=== PATIENT | female | born 1940 | race American Indian/Alaskan Native ===

== ENCOUNTER 2017-08-25 15:05 | Inpatient (IN) | payer MEDICARE ==
[2017-08-25 15:18] VITALS: BMI 28.6
[2017-08-25 17:08] LABS: BASO % 1.1 % (0.0-2.0); EOS # 0.1 K/uL (0.0-0.7); EOS % 3.8 % (0.0-4.0); HEMOGLOBIN 8.9 g/dL (11.0-16.0); LYMPH # 0.8 K/uL (1.0-4.3); LYMPH % 21.6 % (20.0-40.0); MEAN CELL VOLUME 94.7 fL (81.0-99.0); MEAN CORPUSCULAR HEMOGLOBIN 32.4 pg (27.0-31.0); MEAN CORPUSCULAR HGB CONC 34.2 g/dL (33.0-37.0); MEAN PLATELET VOLUME 7.7 fL (7.2-11.7); MONO # 0.2 K/uL (0.0-0.8); MONO % 5.1 % (0.0-10.0); NEUT # 2.6 K/uL (1.8-7.0); NEUT % 68.4 % (50.0-75.0); NRBC % 0.1 % (0.0-2.0); RBC 2.76 Mil/uL (3.80-5.20); RED CELL DISTRIBUTION WIDTH 19.1 % (11.5-14.5); WHITE BLOOD COUNT 3.8 K/uL (4.8-10.8)
[2017-08-25 17:13] LABS: INR 1.1; PROTHROMBIN TIME 12.2 SECONDS (9.7-12.2)
[2017-08-25 17:25] LABS: ALB/GLOB RATIO 1.1 (1.0-2.1); ALBUMIN 3.3 g/dL (3.5-5.0); CALCIUM 8.8 mg/dl (8.6-10.4)
[2017-08-25 17:36] LABS: TROPONIN I 0.023 ng/mL (0.00-0.120)
[2017-08-25 17:53] LABS: GRANULAR CAST 2 /lpf (0-1); URINE BILIRUBIN NEGATIVE (NEGATIVE); URINE BLOOD NEGATIVE (NEGATIVE); URINE CLARITY Clear (Clear); URINE COLOR Yellow (YELLOW); URINE GLUCOSE (UA) NORMAL (Normal); URINE LEUKOCYTE ESTERASE NEG Leu/uL (Negative); URINE NITRATE NEGATIVE (NEGATIVE); URINE PROTEIN 2+ mg/dL (NEGATIVE); URINE UROBILINOGEN NORMAL mg/dL (0.2-1.0)
--- NOTE | 2017-08-25 19:57 | C.PDOC ---
History Of Present Illness Patient is a 77 y/o female, with a Hx of anemia, who presents to the ED referred by Dr. Medina with a complaint of worsening dyspnea upon exertion. Patient denies any fever or chills. No other physical complaints at this time. Time Seen by Provider: 08/25/17 15:24 Chief Complaint (Nursing): Lower Extremity Problem/Injury History Per: Patient History/Exam Limitations: no limitations Onset/Duration Of Symptoms: Days Current Symptoms Are (Timing): Still Present Recent travel outside of the [place]: No Additional History Per: Patient Past Medical History Reviewed: Historical Data, Nursing Documentation, Vital Signs Vital Signs: Last Vital Signs Temp 98.6 F 08/25/17 15:19 Pulse 73 08/25/17 15:19 Resp 20 08/25/17 15:19 BP 137/73 08/25/17 15:19 Pulse Ox 95 08/25/17 20:06 - Medical History PMH: Anemia, Arthritis, CAD, Cardia Arrhythmia (bradycardia), CHF, COPD, Diabetes, HTN, Hypercholesterolemia Denies: Chronic Kidney Disease Surgical History: CABG (2003), Pacemaker - [facility] Procedures INITIAL INSERT TRANS LEADS INTO [facility] [facility] (10/23/14) INITIAL INSERTION OF DUAL-CHAMBER DEVICE (10/23/14) Family History: States: No Known Family Hx - Social History Hx Tobacco Use: No Hx Alcohol Use: No Hx Substance Use: No - Immunization History Hx Tetanus Toxoid Vaccination: No Hx Influenza Vaccination: Yes Hx Pneumococcal Vaccination: Yes Review Of Systems Constitutional: Negative for: Fever, Chills Respiratory: Positive for: Other (worsening dyspnea on exertion) Physical Exam - Physical Exam Appears: Well, Non-toxic, No Acute Distress, Other Skin: Normal Color, Warm, Dry, Other (stasis dermatitis) Head: Atraumatic, Normacephalic Oral Mucosa: Moist Cardiovascular: JVD Respiratory: Decreased Breath Sounds (diminished breath sounds to bilateral bases) Extremity: Swelling (2/4 pitting edema to left lower extremity) Neurological/Psych: Oriented x3, Normal Speech, Normal Cognition ED Course And Treatment - Laboratory Results Result Diagrams: 08/25/17 17:01 08/25/17 17:01 Lab Interpretation: Abnormal (baseline anemia 9, bnp 9200H) ECG Rhythm: AV Paced ECG Interpretation: Normal, No Changes From Prior Rate From EC O2 Sat by Pulse Oximetry: 95 Pulse Ox Interpretation: Normal - Radiology CXR: Interpreted by Me CXR Interpretation: Yes: Heart Size, Other (+CHF) Progress Note: nedra bernal. 2015: after approx 4 hours approx 500 cc output urine, additional lasix 40 IV ordered- prob higher needs for loop diuretics considering CRI. Follow urinary output and baseline weight to euvolemia. Reevaluation Time: 20:04 Reassessment Condition: Improved - Physician Consult Information Time Consulting Physician Contacted: 17:00 Physician Contacted: Rl Medina Outcome Of Conversation: agrees to place sneed and Lasix 40 IV given. 2000: d/ w Dr. Sheets- PMD, ok to admit. Critical Care Time - Critical Care Note Total Time (in mins): 90 Documented critical care: time excludes all time spent performing seperately billable procedures. Medical Decision Making Medical Decision Making: Dr. Sheets called at 7:18. baseline anemia (partially dilutional as well) CHF- diuresis begun in ED Dr. Medina to consult. Disposition Doctor Will See Patient In The: Hospital Counseled Patient/Family Regarding: Studies Performed, Diagnosis - Disposition Disposition: HOSPITALIZED Disposition Time: 20:06 Condition: GOOD - Clinical Impression Clinical Impression: Anemia, CHF (congestive heart failure) - Scribe Statement The provider has reviewed the documentation as recorded by the Scribe Gena Ramirez All medical record entries made by the Scribe were at my direction and personally dictated by me. I have reviewed the chart and agree that the record accurately reflects my personal performance of the history, physical exam, medical decision making, and the department course for this patient. I have also personally directed, reviewed, and agree with the discharge instructions and disposition.
--- NOTE | 2017-08-25 20:18 | RAD ---
HISTORY: SOB COMPARISON: Chest x-ray performed 10/24/14 TECHNIQUE: Chest, one view. FINDINGS: Examination limited by habitus. LUNGS: Mild to moderate pulmonary venous congestion. Please note that chest x-ray has limited sensitivity for the detection of pulmonary masses. PLEURA: No significant pleural effusion identified. No definite pneumothorax . CARDIOVASCULAR: Cardiomegaly. Median sternotomy wires. Left-sided pacemaker. Atherosclerotic calcifications. OSSEOUS STRUCTURES: Degenerative changes. VISUALIZED UPPER ABDOMEN: Unremarkable. OTHER FINDINGS: None. IMPRESSION: Mild to moderate pulmonary venous congestion. Cardiomegaly. Additional findings as above.
[2017-08-26] MEDS ORDERED: Oxycodone/Acetaminophen 5/325 mg Tab PO PRN (00:33)
[2017-08-26] MEDS: (Novolog) Insulin Aspart, Recombinant 100 u/ml 10 ml vial SC SCH ×4 (07:36→22:00)
[2017-08-26] MEDS: Pantoprazole 40 mg EC Tab PO SCH (10:01)
[2017-08-26] MEDS ORDERED: Epoetin Alfa 20000 UNIT/ML Inj SC STA (10:52)
--- NOTE | 2017-08-26 10:55 | CP.PCM.CON ---
History of Present Illness - History of Present Illness History of Present Illness: pt is seen and examined, full consult is dictated #[id number] Past Patient History - Past Medical History & Family History Past Medical History?: Yes - Past Social History Smoking Status: Former Smoker - CARDIAC Hx Cardiac Disorders: Yes Hx Cardia Arrhythmia: Yes (bradycardia) Hx Congestive Heart Failure: Yes Hx Hypercholesterolemia: Yes Hx Hypertension: Yes Hx Pacemaker: Yes - PULMONARY Hx Respiratory Disorders: Yes Hx Chronic Obstructive Pulmonary Disease (COPD): Yes - NEUROLOGICAL Hx Neurological Disorder: No - HEENT Hx HEENT Problems: No - RENAL Hx Chronic Kidney Disease: No - ENDOCRINE/METABOLIC Hx Endocrine Disorders: Yes Hx Diabetes Mellitus Type 1: Yes - HEMATOLOGICAL/ONCOLOGICAL Hx Blood Disorders: Yes Hx Anemia: Yes - INTEGUMENTARY Hx Dermatological Problems: No - MUSCULOSKELETAL/RHEUMATOLOGICAL Hx Musculoskeletal Disorders: Yes Hx Arthritis: Yes Hx Falls: No - GASTROINTESTINAL Hx Gastrointestinal Disorders: No - GENITOURINARY/GYNECOLOGICAL Hx Genitourinary Disorders: No - PSYCHIATRIC Hx Psychophysiologic Disorder: No Hx Substance Use: No - SURGICAL HISTORY Hx Abdominal Aortic Aneurysm Repair: Yes Hx Coronary Artery Bypass Graft: Yes (2003) Other/Comment: partial hysterectomy - ANESTHESIA Hx Anesthesia: Yes Hx Anesthesia Reactions: No Hx Malignant Hyperthermia: No Has any member of the family had a problem w/ anesthesia?: No Meds Allergies/Adverse Reactions: Allergies Allergy/AdvReac Type Severity Reaction Status Date / Time No Known Allergies Allergy Verified 02/04/15 15:50 - Medications Medications: Current Medications Aspirin (Aspirin Chewable) 81 mg PO DAILY [facility] Last Admin: 08/26/17 10:01 Dose: 81 mg Clopidogrel Bisulfate (Plavix) 75 mg PO DAILY [facility] Last Admin: 08/26/17 10:01 Dose: 75 mg Epoetin Amol (Procrit) 20,000 unit SC STAT [facility] Stop: 08/26/17 10:53 Furosemide (Lasix) 40 mg IVP BID [facility] Last Admin: 08/26/17 10:02 Dose: 40 mg Heparin Sodium (Porcine) (Heparin) 5,000 units SC Q12 [facility] Last Admin: 08/26/17 10:01 Dose: 5,000 units Hydralazine HCl (Apresoline) 50 mg PO BID [facility] Last Admin: 08/26/17 10:01 Dose: 50 mg Insulin Aspart (Novolog) 0 unit SC ACHS [facility] PRN Reason: Protocol Last Admin: 08/26/17 07:36 Dose: Not Given Insulin Glargine (Lantus) 10 unit SC HS [facility] Oxycodone/Acetaminophen (Percocet 5/325 Mg Tab) 1 tab PO Q4H PRN PRN Reason: Pain, moderate (4-7) Stop: 08/29/17 00:34 Pantoprazole Sodium (Protonix Ec Tab) 40 mg PO DAILY [facility] Last Admin: 08/26/17 10:01 Dose: 40 mg Rosuvastatin Calcium (Crestor) 20 mg PO HS [facility] Results - Vital Signs Recent Vital Signs: Last Vital Signs Temp 98.1 F 08/26/17 04:00 Pulse 77 08/26/17 04:00 Resp 18 08/26/17 04:00 BP 139/73 08/26/17 10:02 Pulse Ox 94 L 08/26/17 04:00 - Labs Result Diagrams: 08/25/17 17:01 08/25/17 17:01 Labs: Laboratory Results - last 24 hr 08/25/17 08/25/17 08/25/17 17:01 17:01 17:01 WBC 3.8 L RBC 2.76 L Hgb 8.9 L Hct 26.1 L MCV 94.7 D MCH 32.4 H MCHC 34.2 RDW 19.1 H Plt Count 172 MPV 7.7 Neut % (Auto) 68.4 Lymph % (Auto) 21.6 [place] % (Auto) 5.1 Eos % (Auto) 3.8 Baso % (Auto) 1.1 Neut # (Auto) 2.6 Lymph # (Auto) 0.8 L [place] # (Auto) 0.2 Eos # (Auto) 0.1 Baso # (Auto) 0.0 PT 12.2 INR 1.1 APTT 30 Sodium 142 Potassium 3.4 L Chloride 108 H Carbon Dioxide 24 Anion Gap 13 BUN 27 H Creatinine 2.1 H Est GFR ( Amer) 28 Est GFR (Non-Af Amer) 23 POC Glucose (mg/dL) Random Glucose 117 H Calcium 8.8 Total Bilirubin 0.3 AST 24 ALT 20 Alkaline Phosphatase 69 Troponin I 0.0230 NT-Pro-B Natriuret Pep 9280 H Total Protein 6.3 Albumin 3.3 L Globulin 3.0 Albumin/Globulin Ratio 1.1 Urine Color Urine Clarity Urine pH Ur Specific [place] Urine Protein Urine Glucose (UA) Urine Ketones Urine Blood Urine Nitrate Urine Bilirubin Urine Urobilinogen Ur Leukocyte Esterase Urine WBC (Auto) Urine RBC (Auto) Granular Casts (Auto) 08/25/17 08/25/17 08/26/17 17:45 22:17 06:52 WBC RBC Hgb Hct MCV MCH MCHC RDW Plt Count MPV Neut % (Auto) Lymph % (Auto) [place] % (Auto) Eos % (Auto) Baso % (Auto) Neut # (Auto) Lymph # (Auto) [place] # (Auto) Eos # (Auto) Baso # (Auto) PT INR APTT Sodium Potassium Chloride Carbon Dioxide Anion Gap BUN Creatinine Est GFR ( Amer) Est GFR (Non-Af Amer) POC Glucose (mg/dL) 113 H 93 Random Glucose Calcium Total Bilirubin AST ALT Alkaline Phosphatase Troponin I NT-Pro-B Natriuret Pep Total Protein Albumin Globulin Albumin/Globulin Ratio Urine Color Yellow Urine Clarity Clear Urine pH 6.0 Ur Specific [place] 1.010 Urine Protein 2+ H Urine Glucose (UA) Normal Urine Ketones Negative Urine Blood Negative Urine Nitrate Negative Urine Bilirubin Negative Urine Urobilinogen Normal Ur Leukocyte Esterase Neg Urine WBC (Auto) < 1 Urine RBC (Auto) 1 Granular Casts (Auto) 2
[2017-08-26] MEDS: (Lantus) Insulin Glargine, Recombinant SC SCH (22:54)
--- NOTE | 2017-08-27 07:08 | CON ---
DATE: 08/26/2017 The patient is located in room 658, bed B. Requested by Dr. Sharon Sheets. REASON FOR RENAL CONSULTATION: Chronic kidney disease stage 4 for further evaluation. HISTORY: Daisy is a 77-year-old elderly female with a past medical history significant for diabetes for 18 years, hypertension for about 15 years, coronary artery disease, status post CABG about 13 to 14 years ago, status post pacemaker about 5 years ago, anemia, chronic kidney disease, COPD, cardiac cath x2, status post stent placement about a month ago in [facility], followed by development of acute renal failure and subsequently the patient was discharged home with improvement of the renal function now. The patient was admitted from Dr. Rl Medina's office after referring for worsening bilateral leg swelling and dyspnea on exertion, shortness of breath for the last few weeks. Denies any chest pain. Denies any fever. Denies any cough. The patient does complain of dyspnea on exertion, cannot walk even few rooms. Denies any dysuria or frequency. Denies any abdominal pain. Denies any diarrhea. The patient claims she cannot put even shoes or cannot bend and put her socks. PAST MEDICAL HISTORY: Significant for hypertension for 15 years, diabetes for 18 years, hyperlipidemia, coronary artery disease, status post CABG and status post pacemaker, anemia, chronic kidney disease, proteinuria, and secondary hyperparathyroidism. PAST SURGICAL HISTORY: Status post CABG in 2003 and status post pacemaker about 5 years ago and also partial hysterectomy and x2. ALLERGIES: NO KNOWN DRUG ALLERGIES. SOCIAL HISTORY: The patient was an ex-smoker, quit smoking in 05/2017. No alcohol abuse. No drug abuse. PERSONAL HISTORY: She is and she has one child. FAMILY HISTORY: Not significant. CURRENT MEDICATIONS: Include as follows: Hydralazine 50 mg p.o. b.i.d., aspirin 81 mg p.o. daily, Crestor 20 mg p.o. at bedtime, subcu heparin 5000 q.12 hours, Lantus insulin 10 units subcu at bedtime, Lasix 40 mg IV b.i.d., Percocet 1 tablet p.o. q.4 hours. p.r.n., Plavix 75 mg p.o. daily, and Protonix 40 mg p.o. daily. REVIEW OF SYSTEMS: Significant for bilateral leg swelling, shortness of breath, and dyspnea on exertion. All other review of systems are reviewed and are negative and also significant for anemia. PHYSICAL EXAMINATION: VITAL SIGNS: As follows: Blood pressure 139/73, pulse 79, respirations about 18, and temperature 98.1. Height 5 feet 4 inches and weight is 151 pounds. GENERAL: Mrs. Villa is a 77-year-old elderly female, moderately built, moderately nourished, not in acute distress. HEENT: Pupils normal and reactive to light and accommodation. Conjunctivae slightly pale. Sclerae anicteric. Tongue is moist and trachea is midline. LUNGS: Symmetric on both sides. Bilateral breath sounds present. Bilateral basal crackles present. CVS: Stout at the fifth intercostal space, midclavicular line. S1 and S2 audible. No murmur, no gallop. The patient has a pacemaker in the left subclavian region and also the patient has a midsternal scar present from the previous CABG. ABDOMEN: Normal in appearance, soft, tympanic. No guarding noted. No hepatosplenomegaly. No abdominal bruit. 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 Nonfocal neuro examination. Cranial nerves II-XII grossly intact. Sensory and motor system is within normal limits. Deep tendon reflexes are 2+. EXTREMITIES: No cyanosis, no clubbing. The patient has 1 to 2+ edema in both lower extremities. LABORATORY DATA: Includes as follows as of 08/25/2017: WBC 3.8, hemoglobin 8.9, hematocrit is 26.1, platelets 172. PT is 12.2, PTT 30. Sodium 142, potassium 3.4, chloride 108, and CO2 of 24, BUN 27, creatinine 2.1, GFR is about 28, glucose 117, calcium 8.8. Total bili 0.3, AST 24, ALT 20, alkaline phosphatase 69. Troponin 0.023, proBNP 9280. Total protein 6.3, albumin is 3.3. Urine is yellow, clear and pH 6, specific gravity 1010, protein 2+, glucose normal, ketones negative, blood is negative, nitrites negative, urobilinogen is normal, leukocyte esterase negative, wbc less than 1, rbc 1. Chest x-ray as of 08/25/2017: Lungs: [id number] pulmonary venous congestion. No significant pleural effusion identified. No definitive pneumothorax. Cardiomegaly, median sternotomy wires, left-sided pacemaker, atherosclerotic calcification. IMPRESSION: [id number] pulmonary venous congestion, cardiomegaly. In summary, Mrs. Villa is a 77-year-old elderly female with a history of hypertension, diabetes, hyperlipidemia, coronary artery disease, status post CABG, anemia, chronic kidney disease, proteinuria, COPD, and ex-smoker, quit in 2016 and is status post cardiac cath x2 in the last 2 months, status post stent placement, two stents, about a month ago, status post acute renal failure after contrast, was admitted with bilateral lower extremity swelling for the last few weeks and dyspnea on exertion and shortness of breath, low H and H and increased BUN and creatinine. 1. Chronic kidney disease stage 4, most likely secondary to diabetic nephropathy, cannot rule out underlying hypertensive nephrosclerosis. 2. Anemia most likely secondary to multifactorial of chronic kidney disease and cannot rule out iron-deficiency anemia and also cannot rule out GI blood loss. 3. CHF. 4. Coronary artery disease, status post CABG and status post two stents. 5. COPD secondary to smoking history. PLAN: Continue Lasix 40 mg IV b.i.d. Restrict fluids to 1 liter per day. We will give Epogen 20,000 units subcu x1 dose and will check iron TIBC, ferritin level, and IV iron as needed depending on the iron studies, and we will also add Nephrocaps 1 tablet daily and check phosphorus, PTH intact level. Case discussed with Dr. Sharon Sheets. Nasal O2 as needed. We will follow with you. Thank you for allowing me to participate in your patient's care. Montez Hernandez MD
[2017-08-27] MEDS: (Novolog) Insulin Aspart, Recombinant 100 u/ml 10 ml vial SC SCH ×4 (07:48→22:20)
[2017-08-27] MEDS: Pantoprazole 40 mg EC Tab PO SCH (09:29)
--- NOTE | 2017-08-27 16:20 | CP.PCM.PN ---
Subjective - Date & Time of Evaluation Date of Evaluation: 08/27/17 Time of Evaluation: 16:20 - Subjective Subjective: pt is seen and examined, follow up consult is dictated #[id number] Objective - Vital Signs/Intake and Output Vital Signs (last 24 hours): Temp Pulse Resp BP Pulse Ox 98.9 F 86 20 159/75 H 98 08/26/17 23:30 08/27/17 07:51 08/26/17 23:30 08/27/17 09:29 08/26/17 18:00 Intake and Output: 08/27/17 08/27/17 06:59 18:59 Output Total 2200 Balance -2200 - Medications Medications: Current Medications Aspirin (Aspirin Chewable) 81 mg PO DAILY [facility] Last Admin: 08/27/17 09:29 Dose: 81 mg Calcitriol (Rocaltrol) 0.25 mcg PO DAILY [facility] Clopidogrel Bisulfate (Plavix) 75 mg PO DAILY [facility] Last Admin: 08/27/17 09:29 Dose: 75 mg Epoetin Amol (Procrit) 10,000 unit SC MWF [facility] Furosemide (Lasix) 40 mg IVP BID [facility] Last Admin: 08/27/17 09:29 Dose: 40 mg Heparin Sodium (Porcine) (Heparin) 5,000 units SC Q12 [facility] Last Admin: 08/27/17 09:30 Dose: 5,000 units Hydralazine HCl (Apresoline) 50 mg PO BID [facility] Last Admin: 08/27/17 09:29 Dose: 50 mg Insulin Aspart (Novolog) 0 unit SC [facility] PRN Reason: Protocol Last Admin: 08/27/17 13:04 Dose: Not Given Insulin Glargine (Lantus) 10 unit SC [facility] Last Admin: 08/26/17 22:54 Dose: 10 units Oxycodone/Acetaminophen (Percocet 5/325 Mg Tab) 1 tab PO Q4H PRN PRN Reason: Pain, moderate (4-7) Stop: 08/29/17 00:34 Pantoprazole Sodium (Protonix Ec Tab) 40 mg PO DAILY [facility] Last Admin: 08/27/17 09:29 Dose: 40 mg Rosuvastatin Calcium (Crestor) 20 mg PO HS [facility] Last Admin: 08/26/17 22:53 Dose: 20 mg Vitamin B Complex/Vit C/Folic Acid (Nephro-Heraclio) 1 tab PO 0800 [facility] - Labs Labs: 08/25/17 17:01 08/25/17 17:01 PT 12.2 SECONDS (9.7-12.2) 08/25/17 17:01 INR 1.1 08/25/17 17:01 APTT 30 SECONDS (21-34) 08/25/17 17:01
[2017-08-27] MEDS: (Lantus) Insulin Glargine, Recombinant SC SCH (22:17)
--- NOTE | 2017-08-28 04:47 | PN ---
DATE: The patient is located in room 658 bed B. Requested by ____. REASON FOR FOLLOW-UP: Chronic kidney disease stage 4, anemia, for further evaluation. HISTORY: Mrs. Villa is a 77 years old elderly female with a past medical history significant for longstanding hypertension, diabetes, coronary artery disease, status post CABG, status post pacemaker, and status post cardiac cath, and stent placement about a month ago, status post acute renal failure, chronic kidney disease, anemia, COPD, CHF, was admitted from [facility] internal medicine office with chief complaints of bilateral lower extremity swelling, dyspnea on exertion, and shortness of breath, unable to put her shoes also. The patient is being treated for CHF exacerbation. The patient is not in distress. Denies any headache, dizziness. Denies any chest pain or palpitation. Denies any fever or cough. Status post Coe catheter placement. The patient has a good urine output. PHYSICAL EXAMINATION: VITAL SIGNS: As follows: Blood pressure 149/74, pulse 86, respirations about 20, and temperature is 98.1. Height 5 feet 4 inches and weight is 161 pounds. GENERAL: Mrs. Villa is a 77-year-old elderly female, moderately built, moderately nourished, not in distress. The patient is out of bed to chair. HEENT: Pupils normal, reactive to light and accommodation. Conjunctivae pink. Sclerae are anicteric. Tongue is moist. Trachea is midline. LUNGS: Symmetric on both sides. Bilateral breath sounds present. Clear on auscultation. CVS: [place] at the fifth intercostal space, midclavicular line. S1 and S2 audible. No murmur or gallop. ABDOMEN: Normal in appearance, soft, tympanic. No guarding. No rigidity. No hepatosplenomegaly. 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 Nonfocal neuro examination. Cranial nerves II through XII grossly intact. Sensory and motor system is within normal limits. EXTREMITIES: No cyanosis, no clubbing. The patient has chronic stasis changes in both lower extremities, and the patient also has 1 to 2+ edema in both lower extremities. CURRENT MEDICATIONS: Include as follows: Hydralazine 50 mg p.o. b.i.d., aspirin 81 mg daily, Crestor 20 mg at bedtime, and subcu heparin 5000 q.12 hours, Lantus 10 units at bedtime, Lasix 40 mg IV b.i.d., Nephro-Heraclio 1 tablet daily, NovoLog for sliding scale, and Percocet 1 tablet p.o. q.4 hours p.r.n.. Plavix 75 mg p.o. daily, Protonix 40 mg p.o. daily, and Rocaltrol 0.25 mcg p.o. daily. LABORATORY DATA: No new labs are available. Accu-Cheks 138, 117, and 92. In summary, Mrs. Villa is a 77-year elderly female with a past medical history significant for hypertension, diabetes, hyperlipidemia, coronary artery disease, status post CABG, status post pacemaker, status post cardiac cath and stent placement about a month ago, status post acute renal failure, chronic kidney disease, CHF, COPD, anemia, secondary hyperparathyroidism, was admitted with bilateral lower extremity swelling, dyspnea on exertion, shortness of breath, and low H and H. 1. CKD 4, most likely secondary to hypertensive nephrosclerosis and diabetic nephropathy. 2. Anemia secondary to renal failure and rule out iron deficiency. 3. CHF. 4. Hypertension. 5. Diabetes. 6. Coronary artery disease, status post stents, asymptomatic. Continue gentle diuresis. Restrict fluids to 1 liter per day and continue Epogen 10,000 units subcu three times a week and check iron TIBC, ferritin level. Continue Nephro-Heraclio 1 tablet daily and also we will add Rocaltrol 0.25 mcg p.o. daily. Repeat CBC and BMP in a.m. Advised the patient to watch fluid intake. Thank you for allowing me to participate in your patient's care. Montez Hernandez MD
[2017-08-28] MEDS: (Novolog) Insulin Aspart, Recombinant 100 u/ml 10 ml vial SC SCH ×4 (07:30→22:24)
--- NOTE | 2017-08-28 08:22 | CP.PCM.HP ---
History of Present Illness - History of Present Illness History of Present Illness: CC sob HPI Pt presented in the ER w/ a few days hx of sob with bilateral leg edema. She was seen in my office 2 days prior to this admission and was advised admission. Present on Admission - Present on Admission Any Indicators Present on Admission: Yes History of DVT/PE: No History of Uncontrolled Diabetes: Yes Review of Systems - Cardiovascular Cardiovascular: Dyspnea on Exertion, Edema. absent: Chest Pain - Respiratory Respiratory: Dyspnea Past Patient History - Past Medical History & Family History Past Medical History?: Yes - Past Social History Smoking Status: Former Smoker - CARDIAC Hx Cardiac Disorders: Yes Hx Cardia Arrhythmia: Yes (bradycardia) Hx Congestive Heart Failure: Yes Hx Hypercholesterolemia: Yes Hx Hypertension: Yes Hx Pacemaker: Yes - PULMONARY Hx Respiratory Disorders: Yes Hx Chronic Obstructive Pulmonary Disease (COPD): Yes - NEUROLOGICAL Hx Neurological Disorder: No - HEENT Hx HEENT Problems: No - RENAL Hx Chronic Kidney Disease: No - ENDOCRINE/METABOLIC Hx Endocrine Disorders: Yes Hx Diabetes Mellitus Type 1: Yes - HEMATOLOGICAL/ONCOLOGICAL Hx Blood Disorders: Yes Hx Anemia: Yes - INTEGUMENTARY Hx Dermatological Problems: No - MUSCULOSKELETAL/RHEUMATOLOGICAL Hx Musculoskeletal Disorders: Yes Hx Arthritis: Yes Hx Falls: No - GASTROINTESTINAL Hx Gastrointestinal Disorders: No - GENITOURINARY/GYNECOLOGICAL Hx Genitourinary Disorders: No - PSYCHIATRIC Hx Psychophysiologic Disorder: No Hx Substance Use: No - SURGICAL HISTORY Hx Abdominal Aortic Aneurysm Repair: Yes Hx Coronary Artery Bypass Graft: Yes (2003) Other/Comment: partial hysterectomy - ANESTHESIA Hx Anesthesia: Yes Hx Anesthesia Reactions: No Hx Malignant Hyperthermia: No Has any member of the family had a problem w/ anesthesia?: No Meds Allergies/Adverse Reactions: Allergies Allergy/AdvReac Type Severity Reaction Status Date / Time No Known Allergies Allergy Verified 02/04/15 15:50 Physical Exam - Constitutional Appears: Non-toxic - Head Exam Head Exam: NORMAL INSPECTION - Eye Exam Eye Exam: absent: Scleral icterus - ENT Exam ENT Exam: Mucous Membranes Moist - Neck Exam Neck exam: Positive for: Full Rom - Respiratory Exam Respiratory Exam: absent: Decreased Breath Sounds - Cardiovascular Exam Cardiovascular Exam: REGULAR RHYTHM - GI/Abdominal Exam GI & Abdominal Exam: Soft. absent: Tenderness - Extremities Exam Extremities exam: Positive for: pedal edema. Negative for: calf tenderness - Neurological Exam Neurological exam: Alert Results - Vital Signs Recent Vital Signs: Last Vital Signs Temp 97.7 F 02/12/18 07:15 Pulse 86 08/28/17 07:15 Resp 18 08/28/17 07:15 BP 153/77 H 08/28/17 07:15 Pulse Ox 96 08/28/17 07:15 - Labs Result Diagrams: 08/25/17 17:01 08/25/17 17:01 Labs: Laboratory Results - last 24 hr 08/27/17 08/27/17 08/27/17 11:48 18:07 21:47 POC Glucose (mg/dL) 117 H 92 146 H 08/28/17 08/28/17 02:04 06:22 POC Glucose (mg/dL) 121 H 90 Assessment & Plan - Assessment and Plan (Free Text) Assessment: CHF CAD T2dm CKD Chronic anemia Hx of Lung ca HTN Plan: Increase Lasix, Hydralazine, Carvedilol Renal consult Resume home meds - Date & Time Date: 08/26/17 Time: 09:30
[2017-08-28] MEDS: Multivitamin Vitamin B Complex (Nephro-Vite) Tab PO SCH (08:29)
--- NOTE | 2017-08-28 08:36 | CP.PCM.PN ---
Subjective - Date & Time of Evaluation Date of Evaluation: 08/27/17 Time of Evaluation: 08:00 - Subjective Subjective: feeling better leg edema going edema Case discussed w/ renal Objective - Vital Signs/Intake and Output Vital Signs (last 24 hours): Temp Pulse Resp BP Pulse Ox 97.7 F 86 18 153/77 H 96 08/28/17 07:15 08/28/17 07:15 08/28/17 07:15 08/28/17 07:15 08/28/17 07:15 Intake and Output: 08/28/17 08/28/17 06:59 18:59 Intake Total 300 Output Total 2100 Balance -1800 - Medications Medications: Current Medications Aspirin (Aspirin Chewable) 81 mg PO DAILY [facility] Last Admin: 08/27/17 09:29 Dose: 81 mg Calcitriol (Rocaltrol) 0.25 mcg PO TTS [facility] Clopidogrel Bisulfate (Plavix) 75 mg PO DAILY [facility] Last Admin: 08/27/17 09:29 Dose: 75 mg Epoetin Amol (Procrit) 10,000 unit SC MWF [facility] Furosemide (Lasix) 40 mg IVP BID [facility] Last Admin: 08/27/17 17:53 Dose: 40 mg Heparin Sodium (Porcine) (Heparin) 5,000 units SC Q12 [facility] Last Admin: 08/27/17 22:18 Dose: 5,000 units Hydralazine HCl (Apresoline) 50 mg PO BID [facility] Last Admin: 08/27/17 17:53 Dose: 50 mg Insulin Aspart (Novolog) 0 unit SC ACHS [facility] PRN Reason: Protocol Last Admin: 08/28/17 07:30 Dose: Not Given Insulin Glargine (Lantus) 10 unit SC [facility] Last Admin: 08/27/17 22:17 Dose: 10 units Oxycodone/Acetaminophen (Percocet 5/325 Mg Tab) 1 tab PO Q4H PRN PRN Reason: Pain, moderate (4-7) Stop: 08/29/17 00:34 Pantoprazole Sodium (Protonix Ec Tab) 40 mg PO DAILY [facility] Last Admin: 08/27/17 09:29 Dose: 40 mg Rosuvastatin Calcium (Crestor) 20 mg PO HS [facility] Last Admin: 08/27/17 22:17 Dose: 20 mg Vitamin B Complex/Vit C/Folic Acid (Nephro-Heraclio) 1 tab PO 0800 [facility] Last Admin: 08/28/17 08:29 Dose: 1 tab - Labs Labs: 08/25/17 17:01 08/25/17 17:01 PT 12.2 SECONDS (9.7-12.2) 08/25/17 17:01 INR 1.1 08/25/17 17:01 APTT 30 SECONDS (21-34) 08/25/17 17:01 - Constitutional Appears: Non-toxic - Head Exam Head Exam: NORMAL INSPECTION - Eye Exam Eye Exam: absent: Scleral icterus - ENT Exam ENT Exam: Mucous Membranes Moist - Neck Exam Neck Exam: Full ROM - Respiratory Exam Respiratory Exam: Decreased Breath Sounds - Cardiovascular Exam Cardiovascular Exam: REGULAR RHYTHM - GI/Abdominal Exam GI & Abdominal Exam: Soft. absent: Tenderness - Extremities Exam Extremities Exam: Pedal Edema. absent: Calf Tenderness Assessment and Plan - Assessment and Plan (Free Text) Assessment: CHF CAD HTN T2dm CKD Plan: Cont meds
[2017-08-28 08:50] LABS: CALCIUM 9.3 mg/dl (8.6-10.4)
[2017-08-28] MEDS ORDERED: Epoetin Alfa 10,000 unit/ml Dialysis SC SCH (09:00)
[2017-08-28] MEDS: EPOETIN ALFA 10,000 UNIT/ML ML SC SCH (09:33)
[2017-08-28] MEDS: Pantoprazole 40 mg EC Tab PO SCH (09:34)
--- NOTE | 2017-08-28 10:24 | CP.PCM.PN ---
Subjective - Date & Time of Evaluation Date of Evaluation: 08/28/17 Time of Evaluation: 10:23 - Subjective Subjective: pt is seen and examined, follow up consult is dictated #[id number] renal function is stable, d/c sneed cath Objective - Vital Signs/Intake and Output Vital Signs (last 24 hours): Temp Pulse Resp BP Pulse Ox 97.7 F 70 18 153/77 H 96 08/28/17 07:15 08/28/17 07:57 08/28/17 07:15 08/28/17 09:34 08/28/17 07:15 Intake and Output: 08/28/17 08/28/17 06:59 18:59 Intake Total 300 Output Total 2100 Balance -1800 - Medications Medications: Current Medications Aspirin (Aspirin Chewable) 81 mg PO DAILY [facility] Last Admin: 08/28/17 09:33 Dose: 81 mg Calcitriol (Rocaltrol) 0.25 mcg PO TTS [facility] Clopidogrel Bisulfate (Plavix) 75 mg PO DAILY [facility] Last Admin: 08/28/17 09:33 Dose: 75 mg Epoetin Amol (Procrit) 10,000 unit SC MWF [facility] Last Admin: 08/28/17 09:33 Dose: 10,000 unit Furosemide (Lasix) 40 mg IVP BID [facility] Last Admin: 08/28/17 09:34 Dose: 40 mg Heparin Sodium (Porcine) (Heparin) 5,000 units SC Q12 [facility] Last Admin: 08/28/17 09:33 Dose: 5,000 units Hydralazine HCl (Apresoline) 50 mg PO BID [facility] Last Admin: 08/28/17 09:34 Dose: 50 mg Insulin Aspart (Novolog) 0 unit SC ACHS [facility] PRN Reason: Protocol Last Admin: 08/28/17 07:30 Dose: Not Given Insulin Glargine (Lantus) 10 unit SC HS [facility] Last Admin: 08/27/17 22:17 Dose: 10 units Oxycodone/Acetaminophen (Percocet 5/325 Mg Tab) 1 tab PO Q4H PRN PRN Reason: Pain, moderate (4-7) Stop: 08/29/17 00:34 Pantoprazole Sodium (Protonix Ec Tab) 40 mg PO DAILY [facility] Last Admin: 08/28/17 09:34 Dose: 40 mg Rosuvastatin Calcium (Crestor) 20 mg PO HS [facility] Last Admin: 08/27/17 22:17 Dose: 20 mg Vitamin B Complex/Vit C/Folic Acid (Nephro-Heraclio) 1 tab PO 0800 [facility] Last Admin: 08/28/17 08:29 Dose: 1 tab - Labs Labs: 08/25/17 17:01 08/28/17 08:19 PT 12.2 SECONDS (9.7-12.2) 08/25/17 17:01 INR 1.1 08/25/17 17:01 APTT 30 SECONDS (21-34) 08/25/17 17:01
--- NOTE | 2017-08-28 11:13 | CARD ---
APPROVED REPORT EKG Measurement Heart [id number] IA 176P [id number] <Conclusion> AV dual-paced rhythm Abnormal ECG
[2017-08-28] MEDS: (Lantus) Insulin Glargine, Recombinant SC SCH (22:24)
--- NOTE | 2017-08-29 06:46 | PN ---
DATE: 08/28/2017 FOLLOWUP RENAL CONSULTATION LOCATION: The patient is located in room 658, bed B. REQUESTED BY: Sharon Sheets MD SUBJECTIVE: Mr. Villa is a 77 years old elderly female with a past medical history significant for longstanding hypertension, diabetes, CHF, coronary artery disease, status post CABG, status post pacemaker placement, status post cardiac cath and stent placement about a month ago, status post acute renal failure on chronic kidney disease, CHF, anemia, COPD, ex-smoker, quit about 3 months ago who was admitted with chief complaints of bilateral leg swelling, dyspnea on exertion, shortness of breath for few weeks. The patient is being treated for acute exacerbation of CHF with diuretics. The patient is feeling much better, less short of breath, and decreased swelling of the legs. No chest pain or palpitation. No fever. No cough. PHYSICAL EXAMINATION: VITAL SIGNS: As follows: This morning, blood pressure 152/77, pulse 82, respirations 20, temperature 98.2, saturation 97%. Height 5 feet 4 inches and weight is 161 pounds. GENERAL: On physical exam, Mr. Villa is a 77 years elderly female, moderately built, moderately nourished, not in acute distress. HEENT: Pupils normal and reactive to light and accommodation. Conjunctivae pink. Sclerae are anicteric. Tongue is moist. Trachea is midline. LUNGS: Symmetric on both sides. Bilateral breath sounds present. Clear on auscultation. CVS: [place] at the fifth intercostal space, midclavicular line. S1, S2 audible. No murmur or gallop. The patient has a midsternal scar present and also the patient has a pacemaker in the left subclavian region. ABDOMEN: Normal in appearance, soft, tympanic. No guarding. No rigidity. No hepatosplenomegaly. 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 Nonfocal neuro examination. Cranial nerves II through XII grossly intact. Sensory and motor system is within normal limits. EXTREMITIES: No cyanosis, no clubbing. The patient has chronic stasis changes, and trace to 1+ edema in both lower extremities. CURRENT MEDICATIONS: Include as follows: Ambien 5 mg at bedtime and hydralazine 50 mg p.o. b.i.d., aspirin 81 mg daily, Crestor 20 mg p.o. at bedtime, subcu heparin 5000 q.12 hours, Lantus 10 units subcu at bedtime, Nephro-Heraclio 1 tablet daily, Plavix 75 mg p.o. daily, and Procrit 10,000 units 3 times a week, Protonix 40 mg p.o. daily, calcitriol 0.25 mcg p.o. three times a week. LABORATORY DATA: Include as follows: As of 08/28/2017, sodium 139, potassium 3.3, chloride 102, CO2 of 28, BUN 21, creatinine 1.7, glucose 132, calcium 9.3, glucose 81. IMPRESSION: In summary, Mr. Villa is 77 years old elderly female with hypertension, diabetes, coronary artery disease, congestive heart failure, chronic obstructive pulmonary disease, anemia, being treated for congestive heart failure. 1. Chronic kidney disease stage III, renal function is slightly better than admission, back to her baseline creatinine about 1.7 which was about more than a year ago. 2. Anemia secondary to renal failure, rule out iron-deficiency anemia. 3. Accelerations of congestive heart failure. 4. Hypertension. Continue diuretics as per Cardiology. Continue Procrit. Continue Nephrocaps and calcitriol. DC Coe catheter. We will follow with you. Thank you for allowing me to participate in your patient's care. Montez Hernandez MD
[2017-08-29] MEDS: (Novolog) Insulin Aspart, Recombinant 100 u/ml 10 ml vial SC SCH ×4 (08:37→21:33)
--- NOTE | 2017-08-29 09:04 | CP.PCM.PN ---
Subjective - Date & Time of Evaluation Date of Evaluation: 08/29/17 Time of Evaluation: 09:04 - Subjective Subjective: pt is seen and examined, follow up consult is dictated #[id number] Objective - Vital Signs/Intake and Output Vital Signs (last 24 hours): Temp Pulse Resp BP Pulse Ox 98.4 F 97 H 20 160/84 H 98 08/29/17 08:19 08/29/17 08:19 08/29/17 08:19 08/29/17 08:19 08/29/17 08:19 - Medications Medications: Current Medications Aspirin (Aspirin Chewable) 81 mg PO DAILY [facility] Last Admin: 08/28/17 09:33 Dose: 81 mg Calcitriol (Rocaltrol) 0.25 mcg PO TTS [facility] Clopidogrel Bisulfate (Plavix) 75 mg PO DAILY [facility] Last Admin: 08/28/17 09:33 Dose: 75 mg Epoetin Amol (Procrit) 10,000 unit SC MWF [facility] Last Admin: 08/28/17 09:33 Dose: 10,000 unit Furosemide (Lasix) 40 mg IVP BID [facility] Last Admin: 08/28/17 18:56 Dose: 40 mg Heparin Sodium (Porcine) (Heparin) 5,000 units SC Q12 [facility] Last Admin: 08/28/17 22:53 Dose: 5,000 units Hydralazine HCl (Apresoline) 50 mg PO BID [facility] Last Admin: 08/28/17 18:56 Dose: 50 mg Insulin Aspart (Novolog) 0 unit SC ACHS [facility] PRN Reason: Protocol Last Admin: 08/29/17 08:37 Dose: Not Given Insulin Glargine (Lantus) 10 unit SC HS [facility] Last Admin: 08/28/17 22:24 Dose: Not Given Pantoprazole Sodium (Protonix Ec Tab) 40 mg PO DAILY [facility] Last Admin: 08/28/17 09:34 Dose: 40 mg Rosuvastatin Calcium (Crestor) 20 mg PO HS [facility] Last Admin: 08/28/17 22:53 Dose: 20 mg Vitamin B Complex/Vit C/Folic Acid (Nephro-Heralcio) 1 tab PO 0800 [facility] Last Admin: 08/28/17 08:29 Dose: 1 tab Zolpidem Tartrate (Ambien) 5 mg PO HS PRN PRN Reason: Insomnia Last Admin: 08/28/17 22:53 Dose: 5 mg - Labs Labs: 08/25/17 17:01 08/28/17 08:19 PT 12.2 SECONDS (9.7-12.2) 08/25/17 17:01 INR 1.1 08/25/17 17:01 APTT 30 SECONDS (21-34) 08/25/17 17:01
[2017-08-29] MEDS: Pantoprazole 40 mg EC Tab PO SCH (09:12)
[2017-08-29] MEDS: Multivitamin Vitamin B Complex (Nephro-Vite) Tab PO SCH (09:12)
[2017-08-29] MEDS ORDERED: Potassium Chloride 20 mEq ER Tab PO ONE (18:00)
[2017-08-29] MEDS: (Lantus) Insulin Glargine, Recombinant SC SCH (21:33)
--- NOTE | 2017-08-30 01:12 | PN ---
DATE: 08/29/2017 FOLLOWUP RENAL CONSULTATION LOCATION: The patient is located in room 658, bed B. REQUESTED BY: Sharon Sheets MD REASON FOR FOLLOWUP: Chronic kidney disease stage 3 for further evaluation. SUBJECTIVE: Mrs. 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 The patient is feeling much better. The patient is out of bed to chair. No chest pain. No palpitation. No fever. No cough. No abdominal pain. No nausea, vomiting, diarrhea. Decreased swelling of the legs. OBJECTIVE: VITAL SIGNS: As follows, blood pressure this morning 116/78, pulse 97, respirations 20, temperature 98.4, and saturation 98%. Height 5 feet 4 inches, weight is 161 pounds. GENERAL: Mrs. Villa is a 77-year-old elderly female, moderately-built, moderately-nourished, not in acute distress. HEENT: Pupils normal and reactive to light and accommodation. Conjunctivae pink. Sclerae anicteric. Tongue is moist. Trachea is midline. LUNGS: Symmetric on both sides. Bilateral breath sounds present. Clear on auscultation. CVS: [place] at the fifth intercostal space, midclavicular line. S1 and S2 audible. No murmur or gallop. ABDOMEN: Normal in appearance, soft, tympanitic. No guarding. No hepatosplenomegaly. 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 Nonfocal neuro examination. Cranial nerves II through XII are grossly intact. Sensory and motor system is within normal limits. EXTREMITIES: No cyanosis, no clubbing. Trace edema in both lower extremities. PRESENT OR CURRENT MEDICATIONS: Include as follows, Ambien 5 mg at bedtime, hydralazine 50 mg p.o. b.i.d., aspirin 81 mg daily, Crestor 20 mg at bedtime, Lantus 10 units subcu at bedtime, Lasix 40 mg IV b.i.d., Nephro-Heraclio one tablet p.o. daily, Plavix 75 mg p.o. daily, Procrit 10,000 units three times a week, Protonix 40 mg p.o. daily, Rocaltrol 0.25 mcg p.o. three times a day. LABORATORY DATA: No new labs are available for today. As of 08/28/2017, BUN and creatinine are 21 over 1.7, potassium 3.3. As of 08/25/2017, H and H are 8.9/26.1. IMPRESSION: In summary, Mrs. Villa is a 77-year-old elderly female with history of hypertension; diabetes; coronary artery disease, status post CABG; status post pacemaker placement; ex-smoker, quit about three months ago with chronic obstructive pulmonary disease; congestive heart failure; chronic kidney disease 3, status post acute renal failure on chronic kidney disease, was admitted with shortness of breath and bilateral leg swelling. 1. Renal failure, acute on chronic kidney disease. Renal function improved, now back to her baseline 1.7. 2. Anemia secondary to renal failure, cannot rule out iron-deficiency anemia. 3. Congestive heart failure, improving now secondary to fluid overload. 4. Diabetes. Sugars are under control. 5. Coronary artery disease, status post stents about four weeks ago. Now, the patient is asymptomatic. Continue Epogen, continue Nephro-Heraclio, continue Rocaltrol. Repeat CBC and BMP in a.m. Continue Lasix 40 mg b.i.d. We will follow with you. Thank you for allowing me to participate in your patient's care. Montez Hernandez MD
[2017-08-30 01:46] VITALS: O2SAT 98
[2017-08-30 07:37] LABS: HEMOGLOBIN 9.5 g/dL (11.0-16.0); MEAN CELL VOLUME 94.4 fL (81.0-99.0); MEAN CORPUSCULAR HEMOGLOBIN 32.8 pg (27.0-31.0); MEAN CORPUSCULAR HGB CONC 34.7 g/dL (33.0-37.0); MEAN PLATELET VOLUME 8.3 fL (7.2-11.7); RBC 2.9 Mil/uL (3.80-5.20); RED CELL DISTRIBUTION WIDTH 17.3 % (11.5-14.5); WHITE BLOOD COUNT 3.9 K/uL (4.8-10.8)
[2017-08-30] MEDS: (Novolog) Insulin Aspart, Recombinant 100 u/ml 10 ml vial SC SCH (07:49)
[2017-08-30 08:22] LABS: ALB/GLOB RATIO 1.1 (1.0-2.1); ALBUMIN 3.1 g/dL (3.5-5.0); CALCIUM 9.4 mg/dl (8.6-10.4)
[2017-08-30 09:27] VITALS: PULSE 98; RESP 18; TEMP 98.1
[2017-08-30] MEDS: Multivitamin Vitamin B Complex (Nephro-Vite) Tab PO SCH (09:47)
[2017-08-30] MEDS: Pantoprazole 40 mg EC Tab PO SCH (09:52)
[2017-08-30] MEDS: EPOETIN ALFA 10,000 UNIT/ML ML SC SCH (09:58)
[2017-08-30 10:02] VITALS: BP 133/78
--- NOTE | 2017-08-30 12:17 | PCM.HF ---
Heart Failure Core Measure - Heart Failure Ejection Fraction: 40 % or Greater JAS Inhibitor Prescribed: No Contraindication/Reason for not providing: ARF Beta-Tiki Prescribed: None Contraindication/Reason for not providing: asthma Angiotensin II Receptor Tiki Prescribed: No Contraindication/Reason for not providing: ARF AnticoagulationTherapy for Atrial Fibrillation/Atrialflutter: No Contraindication/Reason for not providing: no hx of af ib Aldosterone Antagonist Prescribed: No Contraindication/Reason for not providing: ef>45 Hydralazine Nitrate Prescribed: Yes Implantable Cardioverter Defibrillator Therapy: No Contraindication/Reason for not providing: ef>45 Cardiac Resynchronization Therapy Prescribed: No Contraindication/Reason for not providing: ef>45 - Follow up Will be discharged to: Home Follow Up Date (must be within 7 days from discharge): 09/04/17 Follow Up Time: 09:00
--- NOTE | 2017-08-30 12:18 | CP.PCM.PN ---
Subjective - Date & Time of Evaluation Date of Evaluation: 08/30/17 Time of Evaluation: 11:00 - Subjective Subjective: Patient seen today , awake, alert, ox3 , denies any chest pain, sob, palpitations, Objective - Vital Signs/Intake and Output Vital Signs (last 24 hours): Temp Pulse Resp BP Pulse Ox 98.1 F 98 H 18 133/78 98 08/30/17 08:00 08/30/17 08:00 08/30/17 08:00 08/30/17 10:00 08/30/17 08:00 - Medications Medications: Current Medications Aspirin (Aspirin Chewable) 81 mg PO DAILY [facility] Last Admin: 08/30/17 09:52 Dose: 81 mg Calcitriol (Rocaltrol) 0.25 mcg PO TTS [facility] Last Admin: 08/29/17 09:12 Dose: 0.25 mcg Clopidogrel Bisulfate (Plavix) 75 mg PO DAILY [facility] Last Admin: 08/30/17 09:52 Dose: 75 mg Epoetin Amol (Procrit) 10,000 unit SC MWF [facility] Last Admin: 08/30/17 09:58 Dose: 10,000 unit Furosemide (Lasix) 40 mg IVP BID [facility] Last Admin: 08/30/17 10:00 Dose: 40 mg Hydralazine HCl (Apresoline) 50 mg PO BID [facility] Last Admin: 08/30/17 09:52 Dose: 50 mg Insulin Aspart (Novolog) 0 unit SC ACHS [facility] PRN Reason: Protocol Last Admin: 08/30/17 07:49 Dose: Not Given Insulin Glargine (Lantus) 10 unit SC HS [facility] Last Admin: 08/29/17 21:33 Dose: 10 units Pantoprazole Sodium (Protonix Ec Tab) 40 mg PO DAILY [facility] Last Admin: 08/30/17 09:52 Dose: 40 mg Rosuvastatin Calcium (Crestor) 20 mg PO HS [facility] Last Admin: 08/29/17 21:33 Dose: 20 mg Vitamin B Complex/Vit C/Folic Acid (Nephro-Heraclio) 1 tab PO 0800 [facility] Last Admin: 08/30/17 09:47 Dose: 1 tab Zolpidem Tartrate (Ambien) 5 mg PO HS PRN PRN Reason: Insomnia Last Admin: 08/29/17 22:44 Dose: 5 mg - Labs Labs: 08/30/17 07:13 02/14/18 07:13 PT 12.2 SECONDS (9.7-12.2) 08/25/17 17:01 INR 1.1 08/25/17 17:01 APTT 30 SECONDS (21-34) 08/25/17 17:01 Assessment and Plan - Assessment and Plan (Free Text) Assessment: A/P 77 YR OLD FEMALE WITH PMHX OF Anemia, Arthritis, CAD, Cardia Arrhythmia ( bradycardia), CHF, COPD, Diabetes, HTN, Hypercholesterolemia admitted with worsening
--- NOTE | 2017-08-31 10:39 | PQF CHF ---
This form is a permanent part of the medical recordT To Kolby Sheets MD Patient was admitted with Dyspnea on excertion, history of CHF/HTN/CKD ; CAD , hypercholesterolemia, Anemia, Diabetic nephropathy, Etc. Diagnosed with HTN/CKD/CHF exacerbation. Please specify the type of CHF -- Systolic/Diastolic/combined systolic/ diastolic. Thank you, Clarification of your documentation is requested to better reflect the severity of illness and intensity of treatment of your patient. Indicators present [x] Diagnosis of CHF and/or history of CHF [x] BNP > 200 [] Imaging Finding of Pulmonary Edema /Pleural Effusions [x] Fluid/Volume Overload [x] Pitting edema [] Ejection Fraction < 40% (Indicative of Systolic Heart Failure) [] Ejection Fraction > 40% (Indicative of Diastolic Heart Failure) [x] Dyspnea / Orthopenea / Paroxysmal Nocturnal Dyspnea [] Other: Location in the medical record that reflects the above clinical findings: [] Treatment Provided: [] PHYSICIAN'S RESPONSE Based on your medical judgment of the clinical indicators outlined above, are you treating this patient for a known or suspected: [] Acute CHF [] Systolic [] Diastolic [] Combined [] Chronic CHF [] Systolic [] Diastolic [] Combined [] Acute on Chronic CHF []Systolic [] Diastolic [] Combined [] CHF due hypertension [] Acute systolic []Chronic systolic [] Acute/ chronic systolic [] Other, please indicate: [] [] If Unable to Determine, please check the box, sign and date. Present On Admission (POA) Indicator: [] Present at the time of admission [] Not present at the time of admission [] Clinically Undetermined In responding to this query, please exercise your independent professional judgment. The fact that a question is asked does not imply that any particular answer is desired or expected. Thank you for your clarification on this documentation. If you have any questions please call:[ ] * Thank you, [ Analilia Erickson, MELISSA] metallurgy teacher [place]
== END 2017-08-30 15:33 | DRG 291 ==
LOC: C.ER 15:05 → C.5S 19:18 → C.9E 19:18 → C.6T 21:40
PROVIDERS: ADMIT Internal Medicine; ATTEND Internal Medicine
DX: I13.0 Hypertensive heart and chronic kidney disease with heart failure and stage 1 through stage 4 chronic kidney disease, or unspecified chronic kidney disease (principal); I50.33 Acute on chronic diastolic (congestive) heart failure; E11.21 Type 2 diabetes mellitus with diabetic nephropathy; N18.4 Chronic kidney disease, stage 4 (severe); N17.9 Acute kidney failure, unspecified; D63.1 Anemia in chronic kidney disease; J44.9 Chronic obstructive pulmonary disease, unspecified; D50.9 Iron deficiency anemia, unspecified; E78.00 Pure hypercholesterolemia, unspecified; E11.22 Type 2 diabetes mellitus with diabetic chronic kidney disease; I25.10 Atherosclerotic heart disease of native coronary artery without angina pectoris; Z95.1 Presence of aortocoronary bypass graft; Z95.0 Presence of cardiac pacemaker; Z79.4 Long term (current) use of insulin; Z85.118 Personal history of other malignant neoplasm of bronchus and lung; Z87.891 Personal history of nicotine dependence

== ENCOUNTER 2018-01-14 19:16 | Inpatient (IN) | payer MEDICARE ==
[2018-01-14 19:16] VITALS: BMI 27.8
--- NOTE | 2018-01-14 19:43 | C.PDOC ---
History Of Present Illness 77 y/o female with PMHx of CAD, diabetes, CHF, s/p CABG and pacemaker placement , presents to the ED complaining of feeling short of breath since yesterday. States she was at a barbecue yesterday and felt fine at first. Today patient did not feel well. Reports some difficulty breathing, although patient is speaking in complete sentences in the ED. Otherwise denies associated fever, chills, nausea, vomiting, cough, chest pain, or palpitations. Time Seen by Provider: 01/14/18 19:43 Chief Complaint (Nursing): Shortness Of Breath History Per: Patient History/Exam Limitations: no limitations Onset/Duration Of Symptoms: Days (x2) Current Symptoms Are (Timing): Still Present Initiating Event: denies: Upper Respiratory Illness Current Respiratory Medications: See Home Med List Severity: Mild Pain Scale Rating Of: 2 Associated Symptoms: denies: Fever, Chills, Sweating Reports Recently: Treated By A Physician Recent travel outside of the [place]: No Additional History Per: Family Past Medical History Reviewed: Historical Data, Nursing Documentation, Vital Signs Vital Signs: Last Vital Signs Temp 98 F 01/14/18 19:29 Pulse 79 01/14/18 19:29 Resp 16 01/14/18 19:44 BP 170/80 H 01/14/18 19:29 Pulse Ox 95 01/14/18 20:31 - Medical History PMH: Anemia, Arthritis, CAD, Cardia Arrhythmia (bradycardia), CHF, COPD, Diabetes, HTN, Hypercholesterolemia Denies: Chronic Kidney Disease Surgical History: CABG (2003), Pacemaker - [facility] Procedures INITIAL INSERT TRANS LEADS INTO [employer] (10/23/14) INITIAL INSERTION OF DUAL-CHAMBER DEVICE (10/23/14) Family History: States: No Known Family Hx - Social History Hx Tobacco Use: No Hx Alcohol Use: No Hx Substance Use: No - Immunization History Hx Tetanus Toxoid Vaccination: No Hx Influenza Vaccination: Yes Hx Pneumococcal Vaccination: Yes Review Of Systems Constitutional: Negative for: Fever, Chills Cardiovascular: Negative for: Chest Pain, Palpitations Respiratory: Positive for: Shortness of Breath Gastrointestinal: Negative for: Nausea, Vomiting Physical Exam - Physical Exam Appears: Non-toxic, No Acute Distress Skin: Warm, Dry Head: Normacephalic Eye(s): bilateral: Normal Inspection Oral Mucosa: Moist Neck: Trachea Midline, Supple Chest: Symmetrical, Other (pacer left) Cardiovascular: Rhythm Regular Respiratory: No Accessory Muscle Use, No Rales, Rhonchi (bases), No Wheezing, Other (No respiratory distress) Gastrointestinal/Abdominal: Soft, No Tenderness, No Distention Back: Other (Kyphosis noted) Extremity: Normal ROM, No Tenderness Extremity: Bilateral: Atraumatic, Normal Color And Temperature, Normal ROM Pulses: Left Dorsalis Pedis: Normal, Right Dorsalis Pedis: Normal Neurological/Psych: Oriented x3, Normal Speech, Normal Cognition Gait: Steady ED Course And Treatment - Laboratory Results Result Diagrams: 01/14/18 20:15 01/14/18 20:15 ECG: Interpreted By Me, Viewed By Me ECG Rhythm: Sinus Rhythm (79), Nonspecific Changes (atrial paced rhytm) O2 Sat by Pulse Oximetry: 95 (NC) Pulse Ox Interpretation: Normal - Radiology CXR: Interpreted by Me, Viewed By Me CXR Interpretation: Yes: Infiltrates, Cardiomegaly, Other (cabg, pacer left, mild vasc congestion). No: Fracture Progress Note: Blood work and urine sent. EKG, Chest x-ray, and ABG ordered and reviewed. Disposition Discussed With : Sharon Sheets Comment: accepted the pt on his service and took over the care at 9:30 PM Doctor Will See Patient In The: Hospital Counseled Patient/Family Regarding: Studies Performed, Diagnosis - Disposition Referrals: Sharon Sheets MD [Primary Care Provider] - Disposition: HOSPITALIZED Disposition Time: 19:43 Condition: FAIR Forms: [facility] ([facility]) - POA Present On Arrival: Poor Glycemic Control - Clinical Impression Clinical Impression: Dyspnea, Anemia, CHF (congestive heart failure), Elevated d-dimer - Scribe Statement The provider has reviewed the documentation as recorded by the Scribe (Chelsi Dwyer) Provider Attestation: All medical record entries made by the Scribe were at my direction and personally dictated by me. I have reviewed the chart and agree that the record accurately reflects my personal performance of the history, physical exam, medical decision making, and the department course for this patient. I have also personally directed, reviewed, and agree with the discharge instructions and disposition. Decision To Admit - Pt Status Changed To: Hospital Disposition Of: Inpatient - Admit Certification Admit to Inpatient:: After my assessment, the patient will require hospitalization for at least two midnights. This is because of the severity of symptoms shown, intensity of services needed, and/or the medical risk in this patient being treated as an outpatient. - InPatient: Physician Admission Certification: I certify that this patient requires 2 or more midnights of care for the following reason:: After my assessment, the patient will require hospitalization for at least two midnights. This is because of the severity of symptoms shown, intensity of services needed, and/or the medical risk in this patient being treated as an outpatient. - . Bed Request Type: Telemetry Admitting Physician: Sharon Sheets Patient Diagnosis: Dyspnea, Anemia, CHF (congestive heart failure), Elevated d-dimer
[2018-01-14 20:24] LABS: EOS # 0.1 K/uL (0.0-0.7); EOS % 2.1 % (0.0-4.0); HEMOGLOBIN 8.5 g/dL (11.0-16.0); LYMPH # 0.8 K/uL (1.0-4.3); MEAN CELL VOLUME 91.4 fL (81.0-99.0); MEAN CORPUSCULAR HEMOGLOBIN 30.4 pg (27.0-31.0); MEAN CORPUSCULAR HGB CONC 33.3 g/dL (33.0-37.0); MEAN PLATELET VOLUME 7.9 fL (7.2-11.7); MONO # 0.2 K/uL (0.0-0.8); MONO % 6.2 % (0.0-10.0); NEUT # 2.7 K/uL (1.8-7.0); NEUT % 69.7 % (50.0-75.0); NRBC % 0.1 % (0.0-2.0); RBC 2.79 Mil/uL (3.80-5.20); RED CELL DISTRIBUTION WIDTH 16.1 % (11.5-14.5); WHITE BLOOD COUNT 3.8 K/uL (4.8-10.8)
[2018-01-14 20:33] LABS: ABG ALLEN TEST POS; ARTERIAL BLOOD GAS HCO3 26.9 mmol/L (21-28); ARTERIAL BLOOD GAS O2 SAT 98.7 % (95-98); ARTERIAL BLOOD GAS PCO2 37 mm/Hg (35-45); ARTERIAL BLOOD GAS PH 7.46 (7.35-7.45); ARTERIAL BLOOD GAS PO2 92 mm/Hg (80-100); ARTERIAL BLOOD GAS TCO2 27.4 mmol/L (22-28)
[2018-01-14 20:38] LABS: ALB/GLOB RATIO 1.1 (1.0-2.1); ALBUMIN 3.2 g/dL (3.5-5.0); CALCIUM 8.5 mg/dl (8.6-10.4)
[2018-01-14 20:41] LABS: INR 1.1; PROTHROMBIN TIME 12.4 SECONDS (9.7-12.2)
[2018-01-14] MEDS ORDERED: Enoxaparin 40 mg Syringe SC STA (20:46)
[2018-01-14 20:49] LABS: TROPONIN I 0.056 ng/mL (0.00-0.120)
[2018-01-14] MEDS ORDERED: Enoxaparin 80 mg Syringe ONE (21:12)
[2018-01-14 21:40] LABS: SQUAMOUS EPITHIAL 4 /hpf (0-5); URINE BACTERIA RARE (<OCC); URINE BILIRUBIN NEGATIVE (NEGATIVE); URINE BLOOD NEGATIVE (NEGATIVE); URINE CLARITY Clear (Clear); URINE COLOR Straw (YELLOW); URINE GLUCOSE (UA) NORMAL (Normal); URINE LEUKOCYTE ESTERASE 1+ Leu/uL (Negative); URINE PROTEIN 2+ mg/dL (NEGATIVE); URINE UROBILINOGEN NORMAL mg/dL (0.2-1.0)
[2018-01-14] MEDS ORDERED: SODIUM CHLORIDE 0.9% IV ONE (22:12)
[2018-01-14] MEDS ORDERED: HEPARIN IV ONE (22:12)
[2018-01-15 07:32] LABS: INR 1.1; PROTHROMBIN TIME 12.2 SECONDS (9.7-12.2)
[2018-01-15 08:12] LABS: BASO % 0.6 % (0.0-2.0); EOS % 1.4 % (0.0-4.0); HEMOGLOBIN 8.9 g/dL (11.0-16.0); LYMPH # 0.5 K/uL (1.0-4.3); LYMPH % 16.2 % (20.0-40.0); MEAN CELL VOLUME 91.1 fL (81.0-99.0); MEAN CORPUSCULAR HGB CONC 34.1 g/dL (33.0-37.0); MEAN PLATELET VOLUME 8.5 fL (7.2-11.7); MONO # 0.2 K/uL (0.0-0.8); MONO % 4.9 % (0.0-10.0); NEUT # 2.6 K/uL (1.8-7.0); NEUT % 76.9 % (50.0-75.0); NRBC % 0.1 % (0.0-2.0); RBC 2.86 Mil/uL (3.80-5.20); RED CELL DISTRIBUTION WIDTH 16.2 % (11.5-14.5); WHITE BLOOD COUNT 3.4 K/uL (4.8-10.8)
[2018-01-15 08:30] LABS: ALBUMIN 3.2 g/dL (3.5-5.0); CALCIUM 8.9 mg/dl (8.6-10.4)
--- NOTE | 2018-01-15 08:31 | RAD ---
PROCEDURE: CHEST RADIOGRAPH, 1 VIEW HISTORY: SOB COMPARISON: 08/25/2018. FINDINGS: LUNGS: The lungs are well inflated. There is severe pulmonary venous congestion and mild interstitial pulmonary edema. PLEURA: No pneumothorax. Suspect small left pleural effusion. CARDIOVASCULAR: There is persistent moderate cardiomegaly. Status post CABG. There is stable position of left-sided permanent pacing device. OSSEOUS STRUCTURES: No significant abnormalities. VISUALIZED UPPER ABDOMEN: Normal. OTHER FINDINGS: None. IMPRESSION: Findings are most compatible with mild congestive heart failure.
[2018-01-15] MEDS ORDERED: Heparin25000 units/250ml 1/2NS 25,000 UNITS/250 ML BAG IV PRN (10:00)
[2018-01-15] MEDS: Insulin Detemir 100 units/ml Vial (Levemir) SC SCH (11:12)
--- NOTE | 2018-01-15 11:42 | NM ---
COMPARISON: January 14, 2018. Single-view chest TECHNIQUE: 6.4 mCi technetium 99-m Xe-133 Gas. 3.4 mCI technetium 99-m MAA administered intravenously. FINDINGS: VENTILATION COMPONENT: Normal. PERFUSION COMPONENT: Heterogeneous distribution of radionuclide. No geographic, segmental, lobar abnormalities apparent on the present examination. IMPRESSION: Low probability ventilation perfusion scan for pulmonary embolism.
[2018-01-15] MEDS: (Novolog) Insulin Aspart, Recombinant 100 u/ml 10 ml vial SC SCH ×3 (13:14→22:52)
--- NOTE | 2018-01-15 16:04 | CP.PCM.CON ---
History of Present Illness - History of Present Illness History of Present Illness: CC: Shortness of Breath HPI: 77 year old female with PMHx of diabetes, CHF, CAD, CABG and pacemaker replacement, lung ca ,status post lobectomy presented to the emergency room Monday night with complaint of SOB that started Monday morning, 01/14/18. Patient reports that she started to not feel well on Monday after attending a BBQ. Patient reports that she feels that it can be related to the weather. Patient denies any other associated symptoms. Patient examined at the bedside reports some improvement in breathing since admission. Chest X-Ray on 01/14/18 showed severe pulmonary venous congestion and mild interstitial pulmonary edema. Results are consistent with mild congestive heart failure. Lung V/Q scan on 01/15/18 showed low probability for pulmonary embolism. ROS: Constitutional: Patient denies fever and chills. Cardiovascular: Patient denies chest pain, palpitations Respiratory: Patient reports shortness of breath. Denies cough. Gastrointestinal: Patient denies nausea, vomiting, diarrhea. PMHx: Anemia, arthritis, CAD, CHF, COPD, Hypertension, Diabetes, hypercholesterolemia Surgical Hx: CABG (2003) pacemaker, lung cancer status post lobectomy Allergies: pregabalin (itching)/ rosuvastatin (muscle cramps) Medications: Albuterol/ ipratropium 3 Mg/ 0.5 Mg (3Ml) Ud - 3 ml INH RQ6 Budesonide - 0.5 mg INH RQ12 Carvedilol - 6.25 mg PO BID Ceftriaxone Sodium 1 gm in Sodium Chloride -100 mls @ 100 mls/hr IVPB Q24H Furosemide - 40 mg IVP Daily Heparin Sodium/ Sodium Chloride - 25,000 units in 250 mls @ 8 mls/ hr IV Q24H Hydralazine Hcl - 50 mg PO BID Insulin Detemir -5 unit SC daily Physical Exam HEENT: Atraumatic, normocephalic, mucuous membranes moist Repiratory: Clear to auscultation bilaterally, no rales, wheezing, rhonchi. No use of accessory muscles. Cardiovascular: +S1/ S2, regular rate and rhythm GI: Normal bowel sounds, no tenderness, no distention Extremities: No edema Neurological: Alert, awake, oriented X3 Assessment: 77 year old female with PMHx of diabetes, CHF, CAD, CABG and pacemaker replacement Chest X-ray consistent with mild congestive heart failure. 1. Congestive Heart Failure/copd Status: Acute - Continue breathing treatment and furosemide 2. Hypercholesterolemia Status: chronic - Continue Carvedilol 3. Diabetes Status: Chronic - Continue insulin detemir 4- elevated d-dimer venous Doppler lower extremities r/o Recurrence of malignancy Past Patient History - Infectious Disease Hx of Infectious Diseases: None - Past Medical History & Family History Past Medical History?: Yes - Past Social History Smoking Status: Former Smoker - CARDIAC Hx Congestive Heart Failure: Yes Hx Hypercholesterolemia: Yes Hx Hypertension: Yes - PULMONARY Hx Chronic Obstructive Pulmonary Disease (COPD): Yes - NEUROLOGICAL Hx Paralysis: No - HEENT Hx HEENT Problems: No - RENAL Hx Chronic Kidney Disease: No - ENDOCRINE/METABOLIC Hx Endocrine Disorders: Yes Hx Diabetes Mellitus Type 1: Yes - HEMATOLOGICAL/ONCOLOGICAL Hx Anemia: Yes - INTEGUMENTARY Hx Dermatological Problems: No - MUSCULOSKELETAL/RHEUMATOLOGICAL Hx Arthritis: Yes Hx Falls: No - GASTROINTESTINAL Hx Gastrointestinal Disorders: No - GENITOURINARY/GYNECOLOGICAL Hx Genitourinary Disorders: No - PSYCHIATRIC Hx Substance Use: No - SURGICAL HISTORY Hx Coronary Artery Bypass Graft: Yes (2003) - ANESTHESIA Hx Anesthesia: Yes Hx Anesthesia Reactions: No Hx Malignant Hyperthermia: No Meds Allergies/Adverse Reactions: Allergies Allergy/AdvReac Type Severity Reaction Status Date / Time pregabalin [From Lyrica] Allergy ITCHING Verified 01/14/18 19:28 rosuvastatin [From Crestor] Allergy MUSCLE Verified 01/14/18 19:28 CRAMPS - Medications Medications: Current Medications Albuterol/Ipratropium (Duoneb 3 Mg/0.5 Mg (3 Ml) Ud) 3 ml INH RQ6 [facility] Carvedilol (Coreg) 6.25 mg PO BID [facility] Last Admin: 01/15/18 11:12 Dose: 6.25 mg Furosemide (Lasix) 40 mg IVP DAILY [facility] Last Admin: 01/15/18 11:12 Dose: 40 mg Hydralazine HCl (Apresoline) 50 mg PO BID [facility] Last Admin: 01/15/18 11:12 Dose: 50 mg Heparin Sodium/Sodium Chloride (Heparin 58566 Units/250ml 1/2 Normal Saline) 25 ,000 units in 250 mls @ 8 mls/hr IV .Q24H PRN; Protocol PRN Reason: PROTOCOL Last Admin: 01/15/18 11:41 Dose: 8 mls/hr Insulin Aspart (Novolog) 0 unit SC ACHS DORIS PRN Reason: Protocol Last Admin: 01/15/18 13:14 Dose: 1 unit Insulin Detemir (Levemir) 5 unit SC DAILY [facility] Last Admin: 01/15/18 11:12 Dose: 5 unit Pneumococcal Polyvalent Vaccine (Pneumovax 23 Vaccine) 0.5 ml IM .ONCE ONE Stop: 01/17/18 14:01 Results - Vital Signs Recent Vital Signs: Last Vital Signs Temp 98.1 F 01/15/18 07:00 Pulse 77 01/15/18 13:29 Resp 20 01/15/18 07:00 BP 159/79 H 01/15/18 11:12 Pulse Ox 98 01/15/18 07:00 - Labs Result Diagrams: 01/16/18 06:15 01/16/18 06:15 Labs: Laboratory Results - last 24 hr 01/14/18 01/14/18 01/14/18 20:15 20:15 20:15 WBC 3.8 L RBC 2.79 L Hgb 8.5 L Hct 25.5 L MCV 91.4 D MCH 30.4 MCHC 33.3 RDW 16.1 H Plt Count 177 MPV 7.9 Neut % (Auto) 69.7 Lymph % (Auto) 21.0 Miller % (Auto) 6.2 Eos % (Auto) 2.1 Baso % (Auto) 1.0 Neut # (Auto) 2.7 Lymph # (Auto) 0.8 L Miller # (Auto) 0.2 Eos # (Auto) 0.1 Baso # (Auto) 0.0 PT 12.4 H INR 1.1 APTT 34 D-Dimer, Quantitative 1036 H Puncture Site pCO2 pO2 HCO3 ABG pH ABG Total CO2 ABG O2 Saturation ABG Base Excess Da Test ABG Potassium A-a O2 Difference Respiratory Index Glucose Lactate Liter Flow FiO2 Sodium 143 Potassium 3.8 Chloride 107 Carbon Dioxide 27 Anion Gap 12 BUN 35 H Creatinine 1.9 H Est GFR ( Amer) 31 Est GFR (Non-Af Amer) 26 POC Glucose (mg/dL) Random Glucose 125 H Calcium 8.5 L Magnesium 2.4 H Total Bilirubin 0.3 AST 23 ALT 17 Alkaline Phosphatase 65 Troponin I 0.0560 NT-Pro-B Natriuret Pep Total Protein 6.1 L Albumin 3.2 L Globulin 3.0 Albumin/Globulin Ratio 1.1 Arterial Blood Potassium Urine Color Urine Clarity Urine pH Ur Specific [place] Urine Protein Urine Glucose (UA) Urine Ketones Urine Blood Urine Nitrate Urine Bilirubin Urine Urobilinogen Ur Leukocyte Esterase Urine WBC (Auto) Urine RBC (Auto) Ur Squamous Epith Cells Urine Bacteria 01/14/18 01/14/18 01/14/18 20:20 20:56 21:24 WBC RBC Hgb Hct MCV MCH MCHC RDW Plt Count MPV Neut % (Auto) Lymph % (Auto) Miller % (Auto) Eos % (Auto) Baso % (Auto) Neut # (Auto) Lymph # (Auto) Miller # (Auto) Eos # (Auto) Baso # (Auto) PT INR APTT D-Dimer, Quantitative Puncture Site Rradial pCO2 37 pO2 92 HCO3 26.9 ABG pH 7.46 H ABG Total CO2 27.4 ABG O2 Saturation 98.7 H ABG Base Excess 2.5 Da Test Pos ABG Potassium 3.3 L A-a O2 Difference 61.0 Respiratory Index 0.7 Glucose 115 H Lactate 0.6 L Liter Flow 2.0 FiO2 28.0 Sodium 143.0 Potassium Chloride 114.0 H Carbon Dioxide Anion Gap BUN Creatinine Est GFR ( Amer) Est GFR (Non-Af Amer) POC Glucose (mg/dL) Random Glucose Calcium Magnesium Total Bilirubin AST ALT Alkaline Phosphatase Troponin I NT-Pro-B Natriuret Pep 3640 H Total Protein Albumin Globulin Albumin/Globulin Ratio Arterial Blood Potassium 3.3 L Urine Color Straw Urine Clarity Clear Urine pH 7.0 Ur Specific [place] 1.006 Urine Protein 2+ H Urine Glucose (UA) Normal Urine Ketones Negative Urine Blood Negative Urine Nitrate Negative Urine Bilirubin Negative Urine Urobilinogen Normal Ur Leukocyte Esterase 1+ H Urine WBC (Auto) 13 H Urine RBC (Auto) < 1 Ur Squamous Epith Cells 4 Urine Bacteria Rare 01/15/18 01/15/18 01/15/18 00:10 06:34 07:09 WBC RBC Hgb Hct MCV MCH MCHC RDW Plt Count MPV Neut % (Auto) Lymph % (Auto) Miller % (Auto) Eos % (Auto) Baso % (Auto) Neut # (Auto) Lymph # (Auto) Miller # (Auto) Eos # (Auto) Baso # (Auto) PT 12.2 INR 1.1 APTT 40 H D D-Dimer, Quantitative 804 H Puncture Site pCO2 pO2 HCO3 ABG pH ABG Total CO2 ABG O2 Saturation ABG Base Excess Da Test ABG Potassium A-a O2 Difference Respiratory Index Glucose Lactate Liter Flow FiO2 Sodium Potassium Chloride Carbon Dioxide Anion Gap BUN Creatinine Est GFR ( Amer) Est GFR (Non-Af Amer) POC Glucose (mg/dL) 107 110 Random Glucose Calcium Magnesium Total Bilirubin AST ALT Alkaline Phosphatase Troponin I NT-Pro-B Natriuret Pep Total Protein Albumin Globulin Albumin/Globulin Ratio Arterial Blood Potassium Urine Color Urine Clarity Urine pH Ur Specific [place] Urine Protein Urine Glucose (UA) Urine Ketones Urine Blood Urine Nitrate Urine Bilirubin Urine Urobilinogen Ur Leukocyte Esterase Urine WBC (Auto) Urine RBC (Auto) Ur Squamous Epith Cells Urine Bacteria 01/15/18 01/15/18 01/15/18 08:04 08:04 11:07 WBC 3.4 L RBC 2.86 L Hgb 8.9 L Hct 26.0 L MCV 91.1 MCH 31.0 MCHC 34.1 RDW 16.2 H Plt Count 156 MPV 8.5 Neut % (Auto) 76.9 H Lymph % (Auto) 16.2 L Miller % (Auto) 4.9 Eos % (Auto) 1.4 Baso % (Auto) 0.6 Neut # (Auto) 2.6 Lymph # (Auto) 0.5 L Miller # (Auto) 0.2 Eos # (Auto) 0.0 Baso # (Auto) 0.0 PT INR APTT D-Dimer, Quantitative Puncture Site pCO2 pO2 HCO3 ABG pH ABG Total CO2 ABG O2 Saturation ABG Base Excess Da Test ABG Potassium A-a O2 Difference Respiratory Index Glucose Lactate Liter Flow FiO2 Sodium 143 Potassium 3.8 Chloride 109 H Carbon Dioxide 26 Anion Gap 12 BUN 35 H Creatinine 1.7 H Est GFR ( Amer) 35 Est GFR (Non-Af Amer) 29 POC Glucose (mg/dL) 176 H Random Glucose 114 H Calcium 8.9 Magnesium Total Bilirubin 0.6 AST 27 ALT 26 Alkaline Phosphatase 70 Troponin I NT-Pro-B Natriuret Pep Total Protein 6.3 Albumin 3.2 L Globulin 3.1 Albumin/Globulin Ratio 1.0 Arterial Blood Potassium Urine Color Urine Clarity Urine pH Ur Specific [place] Urine Protein Urine Glucose (UA) Urine Ketones Urine Blood Urine Nitrate Urine Bilirubin Urine Urobilinogen Ur Leukocyte Esterase Urine WBC (Auto) Urine RBC (Auto) Ur Squamous Epith Cells Urine Bacteria
--- NOTE | 2018-01-15 17:32 | CP.PCM.CON ---
History of Present Illness - History of Present Illness History of Present Illness: pt is s een and examined, full consult is dictated #[id number] 1.ckd-3, r/o htn nephrosclerosis, vs dm nephropathy 2.proteinuria 3.htn' 4.dm 5.chf 6. htn 7. Anemia sec to ckd , r/o fe deficiency c/w lasix and gentle diuresis check fe,tibc, ferritin stool ob add nephrocaps 1 tab po qd po/iv fe will add epogen 98980 units sc 3 x a week Past Patient History - Infectious Disease Hx of Infectious Diseases: None - Past Medical History & Family History Past Medical History?: Yes - Past Social History Smoking Status: Former Smoker - CARDIAC Hx Congestive Heart Failure: Yes Hx Hypercholesterolemia: Yes Hx Hypertension: Yes - PULMONARY Hx Chronic Obstructive Pulmonary Disease (COPD): Yes - NEUROLOGICAL Hx Paralysis: No - HEENT Hx HEENT Problems: No - RENAL Hx Chronic Kidney Disease: No - ENDOCRINE/METABOLIC Hx Endocrine Disorders: Yes Hx Diabetes Mellitus Type 1: Yes - HEMATOLOGICAL/ONCOLOGICAL Hx Anemia: Yes - INTEGUMENTARY Hx Dermatological Problems: No - MUSCULOSKELETAL/RHEUMATOLOGICAL Hx Arthritis: Yes Hx Falls: No - GASTROINTESTINAL Hx Gastrointestinal Disorders: No - GENITOURINARY/GYNECOLOGICAL Hx Genitourinary Disorders: No - PSYCHIATRIC Hx Substance Use: No - SURGICAL HISTORY Hx Coronary Artery Bypass Graft: Yes (2003) - ANESTHESIA Hx Anesthesia: Yes Hx Anesthesia Reactions: No Hx Malignant Hyperthermia: No Meds Allergies/Adverse Reactions: Allergies Allergy/AdvReac Type Severity Reaction Status Date / Time pregabalin [From Lyrica] Allergy ITCHING Verified 01/14/18 19:28 rosuvastatin [From Crestor] Allergy MUSCLE Verified 01/14/18 19:28 CRAMPS - Medications Medications: Current Medications Albuterol/Ipratropium (Duoneb 3 Mg/0.5 Mg (3 Ml) Ud) 3 ml INH RQ6 [facility] Budesonide (Pulmicort Respules) 0.5 mg INH RQ12 [facility] Carvedilol (Coreg) 6.25 mg PO BID [facility] Last Admin: 01/15/18 11:12 Dose: 6.25 mg Furosemide (Lasix) 40 mg IVP DAILY [facility] Last Admin: 01/15/18 11:12 Dose: 40 mg Hydralazine HCl (Apresoline) 50 mg PO BID [facility] Last Admin: 01/15/18 11:12 Dose: 50 mg Heparin Sodium/Sodium Chloride (Heparin 89524 Units/250ml 1/2 Normal Saline) 25 ,000 units in 250 mls @ 8 mls/hr IV .Q24H PRN; Protocol PRN Reason: PROTOCOL Last Admin: 01/15/18 11:41 Dose: 8 mls/hr Ceftriaxone Sodium 1 gm/ (Sodium Chloride) 100 mls @ 100 mls/hr IVPB Q24H [facility] PRN Reason: Protocol Insulin Aspart (Novolog) 0 unit SC ACHS [facility] PRN Reason: Protocol Last Admin: 01/15/18 13:14 Dose: 1 unit Insulin Detemir (Levemir) 5 unit SC DAILY [facility] Last Admin: 01/15/18 11:12 Dose: 5 unit Pneumococcal Polyvalent Vaccine (Pneumovax 23 Vaccine) 0.5 ml IM .ONCE ONE Stop: 01/17/18 14:01 Results - Vital Signs Recent Vital Signs: Last Vital Signs Temp 98.2 F 01/15/18 15:00 Pulse 87 01/15/18 16:00 Resp 20 01/15/18 15:00 BP 156/78 H 01/15/18 15:00 Pulse Ox 100 01/15/18 15:00 - Labs Result Diagrams: 01/15/18 08:04 01/15/18 08:04 Labs: Laboratory Results - last 24 hr 01/14/18 01/14/18 01/14/18 20:15 20:15 20:15 WBC 3.8 L RBC 2.79 L Hgb 8.5 L Hct 25.5 L MCV 91.4 D MCH 30.4 MCHC 33.3 RDW 16.1 H Plt Count 177 MPV 7.9 Neut % (Auto) 69.7 Lymph % (Auto) 21.0 Long % (Auto) 6.2 Eos % (Auto) 2.1 Baso % (Auto) 1.0 Neut # (Auto) 2.7 Lymph # (Auto) 0.8 L Long # (Auto) 0.2 Eos # (Auto) 0.1 Baso # (Auto) 0.0 PT 12.4 H INR 1.1 APTT 34 D-Dimer, Quantitative 1036 H Puncture Site pCO2 pO2 HCO3 ABG pH ABG Total CO2 ABG O2 Saturation ABG Base Excess Da Test ABG Potassium A-a O2 Difference Respiratory Index Glucose Lactate Liter Flow FiO2 Sodium 143 Potassium 3.8 Chloride 107 Carbon Dioxide 27 Anion Gap 12 BUN 35 H Creatinine 1.9 H Est GFR ( Amer) 31 Est GFR (Non-Af Amer) 26 POC Glucose (mg/dL) Random Glucose 125 H Calcium 8.5 L Magnesium 2.4 H Total Bilirubin 0.3 AST 23 ALT 17 Alkaline Phosphatase 65 Troponin I 0.0560 NT-Pro-B Natriuret Pep Total Protein 6.1 L Albumin 3.2 L Globulin 3.0 Albumin/Globulin Ratio 1.1 Arterial Blood Potassium Urine Color Urine Clarity Urine pH Ur Specific [place] Urine Protein Urine Glucose (UA) Urine Ketones Urine Blood Urine Nitrate Urine Bilirubin Urine Urobilinogen Ur Leukocyte Esterase Urine WBC (Auto) Urine RBC (Auto) Ur Squamous Epith Cells Urine Bacteria 01/14/18 01/14/18 01/14/18 20:20 20:56 21:24 WBC RBC Hgb Hct MCV MCH MCHC RDW Plt Count MPV Neut % (Auto) Lymph % (Auto) Long % (Auto) Eos % (Auto) Baso % (Auto) Neut # (Auto) Lymph # (Auto) Long # (Auto) Eos # (Auto) Baso # (Auto) PT INR APTT D-Dimer, Quantitative Puncture Site Rradial pCO2 37 pO2 92 HCO3 26.9 ABG pH 7.46 H ABG Total CO2 27.4 ABG O2 Saturation 98.7 H ABG Base Excess 2.5 Da Test Pos ABG Potassium 3.3 L A-a O2 Difference 61.0 Respiratory Index 0.7 Glucose 115 H Lactate 0.6 L Liter Flow 2.0 FiO2 28.0 Sodium 143.0 Potassium Chloride 114.0 H Carbon Dioxide Anion Gap BUN Creatinine Est GFR ( Amer) Est GFR (Non-Af Amer) POC Glucose (mg/dL) Random Glucose Calcium Magnesium Total Bilirubin AST ALT Alkaline Phosphatase Troponin I NT-Pro-B Natriuret Pep 3640 H Total Protein Albumin Globulin Albumin/Globulin Ratio Arterial Blood Potassium 3.3 L Urine Color Straw Urine Clarity Clear Urine pH 7.0 Ur Specific [place] 1.006 Urine Protein 2+ H Urine Glucose (UA) Normal Urine Ketones Negative Urine Blood Negative Urine Nitrate Negative Urine Bilirubin Negative Urine Urobilinogen Normal Ur Leukocyte Esterase 1+ H Urine WBC (Auto) 13 H Urine RBC (Auto) < 1 Ur Squamous Epith Cells 4 Urine Bacteria Rare 01/15/18 01/15/18 01/15/18 00:10 06:34 07:09 WBC RBC Hgb Hct MCV MCH MCHC RDW Plt Count MPV Neut % (Auto) Lymph % (Auto) Long % (Auto) Eos % (Auto) Baso % (Auto) Neut # (Auto) Lymph # (Auto) Long # (Auto) Eos # (Auto) Baso # (Auto) PT 12.2 INR 1.1 APTT 40 H D D-Dimer, Quantitative 804 H Puncture Site pCO2 pO2 HCO3 ABG pH ABG Total CO2 ABG O2 Saturation ABG Base Excess Da Test ABG Potassium A-a O2 Difference Respiratory Index Glucose Lactate Liter Flow FiO2 Sodium Potassium Chloride Carbon Dioxide Anion Gap BUN Creatinine Est GFR ( Amer) Est GFR (Non-Af Amer) POC Glucose (mg/dL) 107 110 Random Glucose Calcium Magnesium Total Bilirubin AST ALT Alkaline Phosphatase Troponin I NT-Pro-B Natriuret Pep Total Protein Albumin Globulin Albumin/Globulin Ratio Arterial Blood Potassium Urine Color Urine Clarity Urine pH Ur Specific [place] Urine Protein Urine Glucose (UA) Urine Ketones Urine Blood Urine Nitrate Urine Bilirubin Urine Urobilinogen Ur Leukocyte Esterase Urine WBC (Auto) Urine RBC (Auto) Ur Squamous Epith Cells Urine Bacteria 01/15/18 01/15/18 01/15/18 08:04 08:04 11:07 WBC 3.4 L RBC 2.86 L Hgb 8.9 L Hct 26.0 L MCV 91.1 MCH 31.0 MCHC 34.1 RDW 16.2 H Plt Count 156 MPV 8.5 Neut % (Auto) 76.9 H Lymph % (Auto) 16.2 L Long % (Auto) 4.9 Eos % (Auto) 1.4 Baso % (Auto) 0.6 Neut # (Auto) 2.6 Lymph # (Auto) 0.5 L Long # (Auto) 0.2 Eos # (Auto) 0.0 Baso # (Auto) 0.0 PT INR APTT D-Dimer, Quantitative Puncture Site pCO2 pO2 HCO3 ABG pH ABG Total CO2 ABG O2 Saturation ABG Base Excess Da Test ABG Potassium A-a O2 Difference Respiratory Index Glucose Lactate Liter Flow FiO2 Sodium 143 Potassium 3.8 Chloride 109 H Carbon Dioxide 26 Anion Gap 12 BUN 35 H Creatinine 1.7 H Est GFR ( Amer) 35 Est GFR (Non-Af Amer) 29 POC Glucose (mg/dL) 176 H Random Glucose 114 H Calcium 8.9 Magnesium Total Bilirubin 0.6 AST 27 ALT 26 Alkaline Phosphatase 70 Troponin I NT-Pro-B Natriuret Pep Total Protein 6.3 Albumin 3.2 L Globulin 3.1 Albumin/Globulin Ratio 1.0 Arterial Blood Potassium Urine Color Urine Clarity Urine pH Ur Specific [place] Urine Protein Urine Glucose (UA) Urine Ketones Urine Blood Urine Nitrate Urine Bilirubin Urine Urobilinogen Ur Leukocyte Esterase Urine WBC (Auto) Urine RBC (Auto) Ur Squamous Epith Cells Urine Bacteria 01/15/18 01/15/18 16:26 17:05 WBC RBC Hgb Hct MCV MCH MCHC RDW Plt Count MPV Neut % (Auto) Lymph % (Auto) Long % (Auto) Eos % (Auto) Baso % (Auto) Neut # (Auto) Lymph # (Auto) Long # (Auto) Eos # (Auto) Baso # (Auto) PT INR APTT 53 H D D-Dimer, Quantitative Puncture Site pCO2 pO2 HCO3 ABG pH ABG Total CO2 ABG O2 Saturation ABG Base Excess Da Test ABG Potassium A-a O2 Difference Respiratory Index Glucose Lactate Liter Flow FiO2 Sodium Potassium Chloride Carbon Dioxide Anion Gap BUN Creatinine Est GFR ( Amer) Est GFR (Non-Af Amer) POC Glucose (mg/dL) 110 Random Glucose Calcium Magnesium Total Bilirubin AST ALT Alkaline Phosphatase Troponin I NT-Pro-B Natriuret Pep Total Protein Albumin Globulin Albumin/Globulin Ratio Arterial Blood Potassium Urine Color Urine Clarity Urine pH Ur Specific [place] Urine Protein Urine Glucose (UA) Urine Ketones Urine Blood Urine Nitrate Urine Bilirubin Urine Urobilinogen Ur Leukocyte Esterase Urine WBC (Auto) Urine RBC (Auto) Ur Squamous Epith Cells Urine Bacteria
[2018-01-15 19:01] LABS: IRON 39 ug/dL (37-170)
[2018-01-15 19:10] LABS: % IRON SATURATION 14 (20-55); TOTAL IRON BINDING CAPACITY 286 ug/dL (250-450)
[2018-01-15] MEDS: Budesonide 0.5 mg/2 ml Inhal Susp UD INH SCH (19:43)
[2018-01-15] MEDS: Albuterol-Ipratrop 3 mg / 0.5 (3 ml) UD INH SCH (19:43)
--- NOTE | 2018-01-15 19:56 | CARD ---
APPROVED REPORT EKG Measurement Heart [id number] <Conclusion> Atrial-paced rhythm with prolonged AV conduction Nonspecific T wave abnormality Prolonged QT Abnormal ECG
[2018-01-15] MEDS: EPOETIN ALFA 10,000 UNIT/ML ML SC SCH (22:59)
[2018-01-16] MEDS: Albuterol-Ipratrop 3 mg / 0.5 (3 ml) UD INH SCH ×4 (01:49→19:40)
--- NOTE | 2018-01-16 06:02 | CP.PCM.HP ---
History of Present Illness - History of Present Illness History of Present Illness: CC acute sob HPI 77 y/o black female with PMHx of HTN, diabetes, CKD stage 3 , CAD s/p CABG, Lung Ca s/p partial lung resection and pacemaker placement, presents to the ED complaining of acute short of breath since yesterday. Pt claimed she was at a barbecue yesterday and feeling good. Afew hours prior to admission, pt acutely experienced some difficulty breathing, although patient is speaking in complete sentences in the ED. Pt denied associated fever, chills, nausea, vomiting, cough , chest pain, or palpitations. LABS Hgb 8.9 pro-bnp 3640 D-dimer 1036 Present on Admission - Present on Admission Any Indicators Present on Admission: Yes Review of Systems - Cardiovascular Cardiovascular: Dyspnea on Exertion, Pedal Edema - Respiratory Respiratory: Dyspnea on Exertion Past Patient History - Infectious Disease Hx of Infectious Diseases: None - Past Medical History & Family History Past Medical History?: Yes - Past Social History Smoking Status: Former Smoker - CARDIAC Hx Congestive Heart Failure: Yes Hx Hypercholesterolemia: Yes Hx Hypertension: Yes - PULMONARY Hx Chronic Obstructive Pulmonary Disease (COPD): Yes - NEUROLOGICAL Hx Paralysis: No - HEENT Hx HEENT Problems: No - RENAL Hx Chronic Kidney Disease: No - ENDOCRINE/METABOLIC Hx Endocrine Disorders: Yes Hx Diabetes Mellitus Type 1: Yes - HEMATOLOGICAL/ONCOLOGICAL Hx Anemia: Yes - INTEGUMENTARY Hx Dermatological Problems: No - MUSCULOSKELETAL/RHEUMATOLOGICAL Hx Arthritis: Yes Hx Falls: No - GASTROINTESTINAL Hx Gastrointestinal Disorders: No - GENITOURINARY/GYNECOLOGICAL Hx Genitourinary Disorders: No - PSYCHIATRIC Hx Substance Use: No - SURGICAL HISTORY Hx Coronary Artery Bypass Graft: Yes (2003) - ANESTHESIA Hx Anesthesia: Yes Hx Anesthesia Reactions: No Hx Malignant Hyperthermia: No Meds Allergies/Adverse Reactions: Allergies Allergy/AdvReac Type Severity Reaction Status Date / Time pregabalin [From Lyrica] Allergy ITCHING Verified 01/14/18 19:28 rosuvastatin [From Crestor] Allergy MUSCLE Verified 01/14/18 19:28 CRAMPS Physical Exam - Constitutional Appears: No Acute Distress - Head Exam Head Exam: NORMAL INSPECTION - Eye Exam Eye Exam: absent: Scleral icterus - ENT Exam ENT Exam: Mucous Membranes Moist - Neck Exam Neck exam: Positive for: Full Rom. Negative for: Lymphadenopathy - Respiratory Exam Respiratory Exam: Decreased Breath Sounds, Rhonchi - Cardiovascular Exam Cardiovascular Exam: REGULAR RHYTHM - GI/Abdominal Exam GI & Abdominal Exam: Soft - Extremities Exam Extremities exam: Positive for: pedal edema - Neurological Exam Neurological exam: Alert, Oriented x3 Results - Vital Signs Recent Vital Signs: Last Vital Signs Temp 98.7 F 01/15/18 23:48 Pulse 87 01/15/18 23:48 Resp 20 01/15/18 23:48 BP 163/72 H 01/15/18 23:48 Pulse Ox 98 01/15/18 23:48 - Labs Result Diagrams: 01/15/18 08:04 01/15/18 08:04 Labs: Laboratory Results - last 24 hr 01/15/18 01/15/18 01/15/18 06:34 07:09 08:04 WBC 3.4 L RBC 2.86 L Hgb 8.9 L Hct 26.0 L MCV 91.1 MCH 31.0 MCHC 34.1 RDW 16.2 H Plt Count 156 MPV 8.5 Neut % (Auto) 76.9 H Lymph % (Auto) 16.[address] [place] % (Auto) 4.9 Eos % (Auto) 1.4 Baso % (Auto) 0.6 Neut # (Auto) 2.6 Lymph # (Auto) 0.[address] [place] # (Auto) 0.2 Eos # (Auto) 0.0 Baso # (Auto) 0.0 PT 12.2 INR 1.1 APTT 40 H D D-Dimer, Quantitative 804 H Sodium Potassium Chloride Carbon Dioxide Anion Gap BUN Creatinine Est GFR ( Amer) Est GFR (Non-Af Amer) POC Glucose (mg/dL) 110 Random Glucose Calcium Iron TIBC % Saturation Ferritin Total Bilirubin AST ALT Alkaline Phosphatase Total Protein Albumin Globulin Albumin/Globulin Ratio Mycoplasma pneumon IgM 01/15/18 01/15/18 01/15/18 08:04 11:07 16:26 WBC RBC Hgb Hct MCV MCH MCHC RDW Plt Count MPV Neut % (Auto) Lymph % (Auto) [place] % (Auto) Eos % (Auto) Baso % (Auto) Neut # (Auto) Lymph # (Auto) [place] # (Auto) Eos # (Auto) Baso # (Auto) PT INR APTT D-Dimer, Quantitative Sodium 143 Potassium 3.8 Chloride 109 H Carbon Dioxide 26 Anion Gap 12 BUN 35 H Creatinine 1.7 H Est GFR ( Amer) 35 Est GFR (Non-Af Amer) 29 POC Glucose (mg/dL) 176 H 110 Random Glucose 114 H Calcium 8.9 Iron TIBC % Saturation Ferritin Total Bilirubin 0.6 AST 27 ALT 26 Alkaline Phosphatase 70 Total Protein 6.3 Albumin 3.2 L Globulin 3.1 Albumin/Globulin Ratio 1.0 Mycoplasma pneumon IgM 01/15/18 01/15/18 01/15/18 17:05 17:05 18:41 WBC RBC Hgb Hct MCV MCH MCHC RDW Plt Count MPV Neut % (Auto) Lymph % (Auto) [place] % (Auto) Eos % (Auto) Baso % (Auto) Neut # (Auto) Lymph # (Auto) [place] # (Auto) Eos # (Auto) Baso # (Auto) PT INR APTT 53 H D D-Dimer, Quantitative Sodium Potassium Chloride Carbon Dioxide Anion Gap BUN Creatinine Est GFR ( Amer) Est GFR (Non-Af Amer) POC Glucose (mg/dL) Random Glucose Calcium Iron 39 TIBC 286 % Saturation 14 L Ferritin Total Bilirubin AST ALT Alkaline Phosphatase Total Protein Albumin Globulin Albumin/Globulin Ratio Mycoplasma pneumon IgM Negative 01/15/18 01/15/18 01/16/18 18:41 21:09 03:23 WBC RBC Hgb Hct MCV MCH MCHC RDW Plt Count MPV Neut % (Auto) Lymph % (Auto) [place] % (Auto) Eos % (Auto) Baso % (Auto) Neut # (Auto) Lymph # (Auto) [place] # (Auto) Eos # (Auto) Baso # (Auto) PT INR APTT 47 H D D-Dimer, Quantitative Sodium Potassium Chloride Carbon Dioxide Anion Gap BUN Creatinine Est GFR ( Amer) Est GFR (Non-Af Amer) POC Glucose (mg/dL) 128 H Random Glucose Calcium Iron TIBC % Saturation Ferritin 30.5 Total Bilirubin AST ALT Alkaline Phosphatase Total Protein Albumin Globulin Albumin/Globulin Ratio Mycoplasma pneumon IgM Assessment & Plan - Assessment and Plan (Free Text) Assessment: CHF - r/o Pulmonary embolism COPD CAD CKD stage 3 HTN Hx of Lung ca Chronic anemia Plan: Lasix, Carvedilol, hydralazine, ASA, Brilinta, bronchodilators V/Q scan ECHO Pulmonary consult Renal consult - Date & Time Date: 01/15/18 Time: 08:50
[2018-01-16 06:37] LABS: BASO % 0.7 % (0.0-2.0); EOS # 0.1 K/uL (0.0-0.7); EOS % 1.2 % (0.0-4.0); HEMOGLOBIN 8.6 g/dL (11.0-16.0); LYMPH # 0.4 K/uL (1.0-4.3); LYMPH % 8.3 % (20.0-40.0); MEAN CELL VOLUME 90.8 fL (81.0-99.0); MEAN CORPUSCULAR HGB CONC 34.1 g/dL (33.0-37.0); MEAN PLATELET VOLUME 8.6 fL (7.2-11.7); MONO # 0.2 K/uL (0.0-0.8); MONO % 4.1 % (0.0-10.0); NEUT % 85.7 % (50.0-75.0); PLATELET COUNT 161 K/uL (130-400); RBC 2.77 Mil/uL (3.80-5.20); RED CELL DISTRIBUTION WIDTH 15.9 % (11.5-14.5); WHITE BLOOD COUNT 4.6 K/uL (4.8-10.8)
[2018-01-16 06:42] LABS: ALBUMIN 3.3 g/dL (3.5-5.0); CALCIUM 8.9 mg/dl (8.6-10.4)
--- NOTE | 2018-01-16 07:56 | CON ---
DATE: 01/15/2018 RENAL CONSULTATION LOCATION: The patient is located in room 568, bed A. REQUESTED BY: Sharon Sheets MD REASON FOR RENAL CONSULTATION: Chronic kidney disease stage 3, for further evaluation. HISTORY OF PRESENT ILLNESS: Mrs. Villa is a 77-year-old, very pleasant elderly female with a past medical history significant for longstanding hypertension, diabetes, CHF, coronary artery disease, status post CABG, status post cardiac cath and stent placement about 6 months ago, status post AICD pacemaker placement who also developed acute renal failure after cardiac cath about 6 months ago. Subsequently, renal function improved to baseline about 1.7 to 2. Now, the patient was admitted with chief complaint of shortness of breath since yesterday. As per the patient, she went for the [employer] on Monday. She was outside for two to three hours, and then when she came back, she started having shortness of breath which she could not tolerate anymore yesterday evening which prompted her to come to the emergency room. The patient denies any chest pain. Denies any cough. Denies any fever. Denies any nausea, vomiting, diarrhea. Denies any abdominal pain. Denies any urinary symptoms. The patient does complain of swelling of the legs and also complained swelling of the face which is improving since she came to the hospital. PAST MEDICAL HISTORY: Significant for longstanding hypertension, diabetes, hyperlipidemia, coronary artery disease, CKD 3 and status post acute renal failure about 6 months ago, CHF, anemia, and COPD. PAST SURGICAL HISTORY: Status post CABG, status post pacemaker placement, and also status post . ALLERGIES: ALLERGIC TO LOVASTATIN AND ALSO PREGABALIN. SOCIAL HISTORY: The patient was an ex-smoker. No alcohol. No drug abuse. FAMILY HISTORY: Not significant. MEDICATIONS: Her current medications include as follows: Hydralazine 50 mg p.o. b.i.d., Rocephin 1 gm every 24 hours, Coreg 6.25 mg p.o. b.i.d., DuoNeb inhaler 3 mL every 6 hours, heparin 8 mL per hour, Lasix 40 mg IV daily, Levemir 5 units subcu daily, Nephro-Heraclio 1 tablet daily, NovoLog for sliding scale, Pneumovax x1, Procrit 10,000 units subcu three times a week, Pulmicort 0.5 mg inhaler every 12 hours. REVIEW OF SYSTEMS: Significant for swelling of the face and also swelling of the legs and shortness of breath. All other review of systems are reviewed and are negative. PHYSICAL EXAMINATION: VITAL SIGNS: As follows: Blood pressure 156/78, pulse 82, respirations 20, temperature 98.2, saturation 100%. Height 5 feet 2 inches and weight is 165 pounds. GENERAL: Mrs. Villa is an elderly very pleasant female, moderately built, moderately nourished, not in acute distress, out of bed to chair. HEENT: Pupils normal and reactive to light and accommodation. Conjunctivae slightly pale. Sclerae anicteric. Tongue is moist. Trachea is midline. LUNGS: Symmetric on both sides. Bilateral breath sounds present. Occasional basal crackles present. CVS: [place] at the fifth intercostal space, midclavicular line. S1, S2 audible. No murmur or gallop. ABDOMEN: Normal in appearance, soft, tympanic. No guarding. No rigidity. No hepatosplenomegaly. No abdominal bruit. 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 Nonfocal neuro examination. Cranial nerves II through XII grossly intact. Sensory and motor system is within normal limits. EXTREMITIES: No cyanosis, no clubbing. The patient has a 1+ edema in both lower extremities and also chronic skin changes. LABORATORY DATA: Include as follows, as of 01/14/2018, WBC 3.8, hemoglobin 8.5, hematocrit is 25.5, platelets 177. PT 12.4, PTT 34, D-dimer 1036; pH 7.46, pCO2 of 37, pO2 of 92, bicarb is 26.9, saturation 98.7. Sodium 143, potassium 3.8, chloride 107, CO2 of 27, BUN 35, creatinine 1.9, glucose 125, calcium 8.5, magnesium 2.5. Total bili 0.3. AST 23, ALT 17, alkaline phosphatase 65, troponin 0.05, and proBNP 3640, total protein 6.1, albumin is 3.2. Urine color is straw color, clear, pH 7, specific gravity 1.006, protein 2+, glucose normal, ketones negative, blood negative, nitrites negative, bilirubin negative, urobilinogen normal, leukocyte esterase 1+, wbc 13, rbc less than 1, and bacteria rare. Mycoplasma antibody is negative. Other laboratory data as of 01/15/2018, sodium 143, potassium 3.8, chloride 109, CO2 of 26, BUN 35, creatinine 1.7, glucose 114, calcium 8.9, total bili 0.6, AST 27, ALT 26, alkaline phosphatase 70, total protein 6.3, albumin is 3.2. Other reports, lung scan low probability for PE; and chest x-ray as of 01/14/2018, findings are most compatible with mild congestive heart failure. IMPRESSION AND PLAN: In summary, Mrs. Villa is a 77-year-old elderly female with history of hypertension, diabetes, coronary artery disease, status post coronary artery bypass grafting, status post pacemaker, chronic kidney disease, status post acute renal failure about 6 months ago who was admitted with shortness of breath, and swelling of the face and legs with elevated troponin levels, and low hemoglobin and hematocrit and increased BUN and creatinine. 1. Chronic kidney disease stage 3, most likely secondary to hypertensive nephrosclerosis, cannot rule out underlying diabetic nephropathy. 2. Proteinuria. The patient had a complete workup in the past, most likely secondary to hypertensive nephrosclerosis, cannot rule out underlying diabetic nephropathy. 3. Anemia secondary to chronic kidney disease, rule out iron-deficiency anemia. Check iron TIBC, ferritin level, and also stool for occult blood. 4. Congestive heart failure. 5. Hypertension. 6. Diabetes. PLAN: Continue gentle diuresis, and we will add Nephrocaps, and also we will add Epogen 10,000 units three times a week and hold for hemoglobin more than 11. We will also check phosphorus and PTH intact level in a.m. Restrict fluids to 1 liter per day. We will follow with you. Thank you for allowing me to participate in your patient's care. Montez Hernandez MD
[2018-01-16] MEDS: Budesonide 0.5 mg/2 ml Inhal Susp UD INH SCH ×2 (08:00→19:40)
[2018-01-16 08:15] LABS: BANDS 1 % (0-2); LYMPHOCYTE 9 % (20-40); MONOCYTE 6 % (0-10); NEUTROPHIL 84 % (50-75); TOTAL CELLS COUNTED 100
[2018-01-16 08:17] LABS: ANISOCYTOSIS SLIGHT; PLATELET ESTIMATE NORMAL (NORMAL)
[2018-01-16] MEDS: (Novolog) Insulin Aspart, Recombinant 100 u/ml 10 ml vial SC SCH ×4 (08:17→23:07)
[2018-01-16] MEDS: Multivitamin Vitamin B Complex (Nephro-Vite) Tab PO SCH (10:36)
[2018-01-16] MEDS: Insulin Detemir 100 units/ml Vial (Levemir) SC SCH (10:36)
--- NOTE | 2018-01-16 11:31 | VASCLAB ---
PROCEDURE: Lower Extremity Venous Duplex Exam. HISTORY: Shortness of breath, r/o DVT PRIORS: None. TECHNIQUE: Bilateral common femoral, femoral, popliteal and posterior tibial, peroneal and great saphenous veins were evaluated. Flow was assessed with color Doppler, compressibility, assessment of phasic flow and augmentation response. Report prepared by JORDI Villafana FINDINGS: RIGHT: 1. Common Femoral Vein: 1.1. Compressibility - Fully compressible: Thrombus - None : Flow - Phasic: Augmentation -Normal: Reflux - None. 2. Femoral Vein: 2.1. Compressibility - Fully compressible: Thrombus - None : Flow - Phasic: Augmentation -Normal: Reflux - None. 3. Popliteal Vein: 3.1. Compressibility - Fully compressible: Thrombus - None : Flow - Phasic: Augmentation -Normal: Reflux - None. 4. Posterior Tibial Vein: 4.1. Compressibility - Fully compressible: Thrombus - None: Flow - Phasic: Augmentation -Normal: Reflux - None. 5. Peroneal Vein: 5.1. Compressibility - Fully compressible: Thrombus - None: Flow - Phasic: Augmentation -Normal: Reflux - None. 6. Great Saphenous Vein: 6.1. Compressibility - Fully compressible: Thrombus - None: Flow - Phasic: Augmentation - Normal: Reflux - None. LEFT: 1. Common Femoral Vein: 1.1. Compressibility - Fully compressible: Thrombus - None: Flow - Phasic: Augmentation -Normal: Reflux - None. 2. Femoral Vein: 2.1. Compressibility - Fully compressible: Thrombus - None: Flow - Phasic: Augmentation -Normal: Reflux - None. 3. Popliteal Vein: 3.1. Compressibility - Fully compressible: Thrombus - None : Flow - Phasic: Augmentation -Normal: Reflux - None. 4. Posterior Tibial Vein: 4.1. Compressibility - Fully compressible: Thrombus - None: Flow - Phasic: Augmentation -Normal: Reflux - None. 5. Peroneal Vein: 5.1. Compressibility - Fully compressible: Thrombus - None: Flow - Phasic: Augmentation -Normal: Reflux - None. 6. Great Saphenous Vein: (lower only) 6.1. Compressibility - Fully compressible: Thrombus - None: Flow - Phasic: Augmentation - Normal: Reflux - None. OTHER FINDINGS: Right: None significant. Left: Upper GSV was previously harvested. IMPRESSION: Right: No evidence of deep or superficial vein thrombosis of the right lower extremity. Normal valve function noted of the right side. Left: No evidence of deep or superficial vein thrombosis of the left lower extremity. Normal valve function noted of the left side.
[2018-01-16] MEDS ORDERED: MethylPREDNISolone 40 mg Vial IVP STA (12:43)
--- NOTE | 2018-01-16 13:27 | RAD ---
HISTORY: shortness of breath COMPARISON: 01/14/2018 FINDINGS: LUNGS: Patchy opacity right perihilar and right base. Rule out pneumonia. Follow-up advised. No other abnormal opacity elsewhere. PLEURA: No significant pleural effusion identified, no pneumothorax apparent. CARDIOVASCULAR: CABG. Permanent pacemaker. Normal heart size. No congestive change. OSSEOUS STRUCTURES: No significant abnormalities. VISUALIZED UPPER ABDOMEN: Normal. OTHER FINDINGS: None. IMPRESSION: Right perihilar and basilar opacity. Rule out pneumonia.
--- NOTE | 2018-01-16 14:40 | CT ---
PROCEDURE: CT Chest without contrast HISTORY: sob COMPARISON: None. TECHNIQUE: Contiguous axial images were obtained through the chest without intravenous contrast enhancement. Sagittal and coronal reconstructions were performed. Radiation dose (DLP): 623.7 mGy-cm. This CT exam was performed using one or more of the following dose reduction techniques: Automated exposure control, adjustment of the mA and/or kV according to patient size, and/or use of iterative reconstruction technique. FINDINGS: LUNGS: Centrilobular emphysema. Interlobular septal thickening. Bilateral lower lobe atelectasis/scarring. Lingular subsegmental atelectasis. Visualized airway clear. MEDIASTINUM: Unremarkable thoracic aorta. No aneurysm. Cardiomegaly. Left chest wall implanted cardiac device. Main pulmonary artery unremarkable. No vascular congestion. Multiple prominent mediastinal lymph nodes, the largest of which is precarinal and measures 2.3 x 1.7 cm. PLEURA: Focal right major fissure/scarring. Small bilateral pleural effusions. No pneumothorax. BONES: No fracture. No destructive lesion. UPPER ABDOMEN: Scattered punctate hepatic and splenic calcifications. Small hiatal hernia. Left adrenal nodular thickening. 1.6 x 1.8 cm right adrenal adenoma. OTHER FINDINGS: Enlarged, heterogeneous thyroid with multiple low-density nodules. IMPRESSION: Pulmonary vascular congestion and small bilateral pleural effusions. Lingular subsegmental atelectasis. Centrilobular emphysema. Multiple prominent mediastinal lymph nodes, the largest which measures up to 2.3 cm in the precarinal station. Enlarged, heterogeneous thyroid with multiple low-density nodules. Dedicated thyroid ultrasound should can be obtained for further evaluation as clinically warranted.
--- NOTE | 2018-01-16 16:42 | CP.CCUPN ---
<Elly Ty - Last Filed: 01/16/18 17:41> CCU Subjective - Physician Review Subjective (Free Text): 01/16/18 16:40 77 yo old female with a PMHx of HTN, diabetes, CKD stage 3 , CAD s/p CABG, Lung Ca s/p partial lung resection and pacemaker placementadmitted to ICU after TESTER EQUIPMENT was called on 5 where pt was originally admitted for SOB. Pt experienced SOB after PT and was placed on non rebreather, however based on comorbidities, and vitals at time of TESTER EQUIPMENT, decision was made for ICU admission. Patient is doing well, continuing on non-rebreather, and in no acute distress. Pt denies fevers , cough, chest pain, nausea, change to bowel habits, recent illness. 01/16/18 17:40 Critical Care Time Spent (in minutes): 30 CCU Objective - Vital Signs / Intake & Output Vital Signs (Last 4 hours): Vital Signs Temp Pulse Resp BP Pulse Ox 01/16/18 16:00 91 H 21 98 01/16/18 15:56 77 22 165/75 H 99 01/16/18 15:50 89 19 99 01/16/18 15:45 85 22 188/85 H 98 01/16/18 15:40 81 20 98 01/16/18 15:31 88 20 189/87 H 98 01/16/18 15:30 82 16 98 01/16/18 15:28 89 182/86 H 98 01/16/18 15:23 88 19 185/85 H 98 01/16/18 15:20 80 21 100 01/16/18 15:19 89 15 188/89 H 100 01/16/18 15:10 80 18 174/86 H 98 01/16/18 15:09 80 23 179/85 H 98 01/16/18 15:08 82 18 175/81 H 99 01/16/18 15:07 87 21 184/85 H 99 01/16/18 15:06 88 18 176/86 H 99 01/16/18 15:05 88 16 175/84 H 98 01/16/18 15:00 87 22 98 01/16/18 14:50 82 20 98 01/16/18 14:40 88 23 98 01/16/18 14:30 88 14 98 01/16/18 14:20 91 H 16 100 01/16/18 14:11 89 24 177/78 H 100 01/16/18 14:10 85 18 100 01/16/18 12:56 98.0 F 87 22 181/95 H 99 01/16/18 12:40 97.4 F L 82 28 H 172/20 H 100 Intake and Output (Last 8hrs): Intake & Output 01/16/18 01/16/18 01/16/18 06:59 14:59 22:59 Intake Total 440 Balance 440 Intake: Oral 440 Other: # Voids Urine, Voided 4 # Bowel Movements 3 - Physical Exam Head: Positive for: Atraumatic, Normocephalic Pupils: Positive for: PERRL Extroacular Muscles: Positive for: EOMI Mouth: Positive for: Moist Mucous Membranes Neck: Positive for: Normal Range of Motion Respiratory/Chest: Positive for: Clear to Auscultation. Negative for: Accessory Muscle Use, Wheezes Cardiovascular: Positive for: Regular Rate and Rhythm Abdomen: Positive for: Normal Bowel Sounds Upper Extremity: Positive for: Normal Inspection Lower Extremity: Positive for: Normal Inspection Neurological: Positive for: GCS=15 Skin: Positive for: Warm Psychiatric: Positive for: Alert, Oriented x 3 - Medications Active Medications: Active Medications Generic Name Dose Route Start Last Admin Trade Name Freq PRN Reason Stop Dose Admin Albuterol/Ipratropium 3 ml 01/15/18 02:00 01/16/18 13:25 Duoneb 3 Mg/0.5 Mg (3 Ml) Ud INH Not Given RQ6 DORIS Budesonide 0.5 mg 01/15/18 20:00 01/16/18 08:00 Pulmicort Respules INH Not Given RQ12 DORIS Carvedilol 6.25 mg 01/15/18 10:00 01/16/18 10:39 Coreg PO 6.25 mg BID DORIS Administration Epoetin Amol 10,000 unit 01/15/18 19:00 01/15/18 22:59 Procrit SC 10,000 unit MWF DORIS Administration Furosemide 40 mg 01/15/18 10:00 01/16/18 10:39 Lasix IVP 40 mg DAILY DORIS Administration Hydralazine HCl 50 mg 01/14/18 22:30 01/16/18 10:39 Apresoline PO 50 mg BID DORIS Administration Ceftriaxone Sodium 1 gm/ 100 mls @ 100 mls/hr 01/15/18 17:00 01/15/18 17:33 Sodium Chloride IVPB 100 mls/hr Q24H DORIS Administration Protocol Insulin Aspart 0 unit 01/15/18 11:30 01/16/18 13:14 Novolog SC 2 unit ACHS DORIS Administration Protocol Insulin Detemir 5 unit 01/15/18 10:00 01/16/18 10:36 Levemir SC 5 unit DAILY DORIS Administration Pneumococcal Polyvalent Vaccine 0.5 ml 01/17/18 14:00 Pneumovax 23 Vaccine IM 01/17/18 14:01 .ONCE ONE Ticagrelor 90 mg 01/16/18 10:00 01/16/18 10:51 Brilinta PO 90 mg BID DORIS Administration Vitamin B Complex/Vit C/Folic Acid 1 tab 01/16/18 08:00 01/16/18 10:36 Nephro-Heraclio PO 1 tab 0800 DORIS Administration Zolpidem Tartrate 5 mg 01/16/18 08:33 Ambien PO HS PRN Insomnia - Patient Studies Lab Studies: Lab Studies 01/16/18 01/16/18 01/16/18 Range/Units 11:59 06:15 06:15 WBC 4.6 L (4.8-10.8) K/uL RBC 2.77 L (3.80-5.20) Mil/uL Hgb 8.6 L (11.0-16.0) g/dL Hct 25.1 L (34.0-47.0) % MCV 90.8 (81.0-99.0) fL MCH 31.0 (27.0-31.0) pg MCHC 34.1 (33.0-37.0) g/dL RDW 15.9 H (11.5-14.5) % Plt Count 161 (130-400) K/uL MPV 8.6 (7.2-11.7) fL Neut % (Auto) 85.7 H (50.0-75.0) % Lymph % (Auto) 8.3 L (20.0-40.0) % [place] % (Auto) 4.1 (0.0-10.0) % Eos % (Auto) 1.2 (0.0-4.0) % Baso % (Auto) 0.7 (0.0-2.0) % Neut # (Auto) 4.0 (1.8-7.0) K/uL Lymph # (Auto) 0.4 L (1.0-4.3) K/uL [place] # (Auto) 0.2 (0.0-0.8) K/uL Eos # (Auto) 0.1 (0.0-0.7) K/uL Baso # (Auto) 0.0 (0.0-0.2) K/uL Neutrophils % (Manual) 84 H (50-75) % Band Neutrophils % 1 (0-2) % Lymphocytes % (Manual) 9 L (20-40) % Monocytes % (Manual) 6 (0-10) % Platelet Estimate Normal (NORMAL) Anisocytosis (manual) Slight APTT (21-34) SECONDS Sodium 143 (132-148) mmol/L Potassium 3.6 (3.6-5.2) mmol/L Chloride 108 H (98-107) mmol/L Carbon Dioxide 27 (22-30) mmol/L Anion Gap 11 (10-20) BUN 32 H (7-17) mg/dL Creatinine 1.6 H (0.7-1.2) mg/dL Est GFR ( Amer) 38 Est GFR (Non-Af Amer) 31 POC Glucose (mg/dL) 216 H (65-110) mg/dL Random Glucose 121 H (65-105) mg/dL Calcium 8.9 (8.6-10.4) mg/dl Iron (37-170) ug/dL TIBC (250-450) ug/dL % Saturation (20-55) Ferritin ng/mL Total Bilirubin 0.7 (0.2-1.3) mg/dL AST 27 (14-36) U/L ALT 20 (9-52) U/L Alkaline Phosphatase 68 (38-126) U/L Total Protein 6.4 (6.3-8.3) g/dL Albumin 3.3 L (3.5-5.0) g/dL Globulin 3.2 (2.2-3.9) gm/dL Albumin/Globulin Ratio 1.0 (1.0-2.1) Mycoplasma pneumon IgM (NEGATIVE) 01/16/18 01/16/18 01/15/18 Range/Units 05:59 03:23 21:09 WBC (4.8-10.8) K/uL RBC (3.80-5.20) Mil/uL Hgb (11.0-16.0) g/dL Hct (34.0-47.0) % MCV (81.0-99.0) fL MCH (27.0-31.0) pg MCHC (33.0-37.0) g/dL RDW (11.5-14.5) % Plt Count (130-400) K/uL MPV (7.2-11.7) fL Neut % (Auto) (50.0-75.0) % Lymph % (Auto) (20.0-40.0) % [place] % (Auto) (0.0-10.0) % Eos % (Auto) (0.0-4.0) % Baso % (Auto) (0.0-2.0) % Neut # (Auto) (1.8-7.0) K/uL Lymph # (Auto) (1.0-4.3) K/uL [place] # (Auto) (0.0-0.8) K/uL Eos # (Auto) (0.0-0.7) K/uL Baso # (Auto) (0.0-0.2) K/uL Neutrophils % (Manual) (50-75) % Band Neutrophils % (0-2) % Lymphocytes % (Manual) (20-40) % Monocytes % (Manual) (0-10) % Platelet Estimate (NORMAL) Anisocytosis (manual) APTT 47 H D (21-34) SECONDS Sodium (132-148) mmol/L Potassium (3.6-5.2) mmol/L Chloride (98-107) mmol/L Carbon Dioxide (22-30) mmol/L Anion Gap (10-20) BUN (7-17) mg/dL Creatinine (0.7-1.2) mg/dL Est GFR ( Amer) Est GFR (Non-Af Amer) POC Glucose (mg/dL) 113 H 128 H (65-110) mg/dL Random Glucose (65-105) mg/dL Calcium (8.6-10.4) mg/dl Iron (37-170) ug/dL TIBC (250-450) ug/dL % Saturation (20-55) Ferritin ng/mL Total Bilirubin (0.2-1.3) mg/dL AST (14-36) U/L ALT (9-52) U/L Alkaline Phosphatase (38-126) U/L Total Protein (6.3-8.3) g/dL Albumin (3.5-5.0) g/dL Globulin (2.2-3.9) gm/dL Albumin/Globulin Ratio (1.0-2.1) Mycoplasma pneumon IgM (NEGATIVE) 01/15/18 01/15/18 01/15/18 Range/Units 18:41 18:41 17:05 WBC (4.8-10.8) K/uL RBC (3.80-5.20) Mil/uL Hgb (11.0-16.0) g/dL Hct (34.0-47.0) % MCV (81.0-99.0) fL MCH (27.0-31.0) pg MCHC (33.0-37.0) g/dL RDW (11.5-14.5) % Plt Count (130-400) K/uL MPV (7.2-11.7) fL Neut % (Auto) (50.0-75.0) % Lymph % (Auto) (20.0-40.0) % [place] % (Auto) (0.0-10.0) % Eos % (Auto) (0.0-4.0) % Baso % (Auto) (0.0-2.0) % Neut # (Auto) (1.8-7.0) K/uL Lymph # (Auto) (1.0-4.3) K/uL [place] # (Auto) (0.0-0.8) K/uL Eos # (Auto) (0.0-0.7) K/uL Baso # (Auto) (0.0-0.2) K/uL Neutrophils % (Manual) (50-75) % Band Neutrophils % (0-2) % Lymphocytes % (Manual) (20-40) % Monocytes % (Manual) (0-10) % Platelet Estimate (NORMAL) Anisocytosis (manual) APTT (21-34) SECONDS Sodium (132-148) mmol/L Potassium (3.6-5.2) mmol/L Chloride (98-107) mmol/L Carbon Dioxide (22-30) mmol/L Anion Gap (10-20) BUN (7-17) mg/dL Creatinine (0.7-1.2) mg/dL Est GFR ( Amer) Est GFR (Non-Af Amer) POC Glucose (mg/dL) (65-110) mg/dL Random Glucose (65-105) mg/dL Calcium (8.6-10.4) mg/dl Iron 39 (37-170) ug/dL TIBC 286 (250-450) ug/dL % Saturation 14 L (20-55) Ferritin 30.5 ng/mL Total Bilirubin (0.2-1.3) mg/dL AST (14-36) U/L ALT (9-52) U/L Alkaline Phosphatase (38-126) U/L Total Protein (6.3-8.3) g/dL Albumin (3.5-5.0) g/dL Globulin (2.2-3.9) gm/dL Albumin/Globulin Ratio (1.0-2.1) Mycoplasma pneumon IgM Negative (NEGATIVE) 01/15/18 01/15/18 Range/Units 17:05 16:26 WBC (4.8-10.8) K/uL RBC (3.80-5.20) Mil/uL Hgb (11.0-16.0) g/dL Hct (34.0-47.0) % MCV (81.0-99.0) fL MCH (27.0-31.0) pg MCHC (33.0-37.0) g/dL RDW (11.5-14.5) % Plt Count (130-400) K/uL MPV (7.2-11.7) fL Neut % (Auto) (50.0-75.0) % Lymph % (Auto) (20.0-40.0) % [place] % (Auto) (0.0-10.0) % Eos % (Auto) (0.0-4.0) % Baso % (Auto) (0.0-2.0) % Neut # (Auto) (1.8-7.0) K/uL Lymph # (Auto) (1.0-4.3) K/uL [place] # (Auto) (0.0-0.8) K/uL Eos # (Auto) (0.0-0.7) K/uL Baso # (Auto) (0.0-0.2) K/uL Neutrophils % (Manual) (50-75) % Band Neutrophils % (0-2) % Lymphocytes % (Manual) (20-40) % Monocytes % (Manual) (0-10) % Platelet Estimate (NORMAL) Anisocytosis (manual) APTT 53 H D (21-34) SECONDS Sodium (132-148) mmol/L Potassium (3.6-5.2) mmol/L Chloride (98-107) mmol/L Carbon Dioxide (22-30) mmol/L Anion Gap (10-20) BUN (7-17) mg/dL Creatinine (0.7-1.2) mg/dL Est GFR ( Amer) Est GFR (Non-Af Amer) POC Glucose (mg/dL) 110 (65-110) mg/dL Random Glucose (65-105) mg/dL Calcium (8.6-10.4) mg/dl Iron (37-170) ug/dL TIBC (250-450) ug/dL % Saturation (20-55) Ferritin ng/mL Total Bilirubin (0.2-1.3) mg/dL AST (14-36) U/L ALT (9-52) U/L Alkaline Phosphatase (38-126) U/L Total Protein (6.3-8.3) g/dL Albumin (3.5-5.0) g/dL Globulin (2.2-3.9) gm/dL Albumin/Globulin Ratio (1.0-2.1) Mycoplasma pneumon IgM (NEGATIVE) Laboratory Results - last 24 hr 01/15/18 01/15/18 01/15/18 16:26 17:05 17:05 WBC RBC Hgb Hct MCV MCH MCHC RDW Plt Count MPV Neut % (Auto) Lymph % (Auto) [place] % (Auto) Eos % (Auto) Baso % (Auto) Neut # (Auto) Lymph # (Auto) [place] # (Auto) Eos # (Auto) Baso # (Auto) Neutrophils % (Manual) Band Neutrophils % Lymphocytes % (Manual) Monocytes % (Manual) Platelet Estimate Anisocytosis (manual) APTT 53 H D Sodium Potassium Chloride Carbon Dioxide Anion Gap BUN Creatinine Est GFR ( Amer) Est GFR (Non-Af Amer) POC Glucose (mg/dL) 110 Random Glucose Calcium Iron TIBC % Saturation Ferritin Total Bilirubin AST ALT Alkaline Phosphatase Total Protein Albumin Globulin Albumin/Globulin Ratio Mycoplasma pneumon IgM Negative 01/15/18 01/15/18 01/15/18 18:41 18:41 21:09 WBC RBC Hgb Hct MCV MCH MCHC RDW Plt Count MPV Neut % (Auto) Lymph % (Auto) [place] % (Auto) Eos % (Auto) Baso % (Auto) Neut # (Auto) Lymph # (Auto) [place] # (Auto) Eos # (Auto) Baso # (Auto) Neutrophils % (Manual) Band Neutrophils % Lymphocytes % (Manual) Monocytes % (Manual) Platelet Estimate Anisocytosis (manual) APTT Sodium Potassium Chloride Carbon Dioxide Anion Gap BUN Creatinine Est GFR ( Amer) Est GFR (Non-Af Amer) POC Glucose (mg/dL) 128 H Random Glucose Calcium Iron 39 TIBC 286 % Saturation 14 L Ferritin 30.5 Total Bilirubin AST ALT Alkaline Phosphatase Total Protein Albumin Globulin Albumin/Globulin Ratio Mycoplasma pneumon IgM 01/16/18 01/16/18 01/16/18 03:23 05:59 06:15 WBC 4.6 L RBC 2.77 L Hgb 8.6 L Hct 25.1 L MCV 90.8 MCH 31.0 MCHC 34.1 RDW 15.9 H Plt Count 161 MPV 8.6 Neut % (Auto) 85.7 H Lymph % (Auto) 8.3 L [place] % (Auto) 4.1 Eos % (Auto) 1.2 Baso % (Auto) 0.7 Neut # (Auto) 4.0 Lymph # (Auto) 0.4 L [place] # (Auto) 0.2 Eos # (Auto) 0.1 Baso # (Auto) 0.0 Neutrophils % (Manual) 84 H Band Neutrophils % 1 Lymphocytes % (Manual) 9 L Monocytes % (Manual) 6 Platelet Estimate Normal Anisocytosis (manual) Slight APTT 47 H D Sodium Potassium Chloride Carbon Dioxide Anion Gap BUN Creatinine Est GFR ( Amer) Est GFR (Non-Af Amer) POC Glucose (mg/dL) 113 H Random Glucose Calcium Iron TIBC % Saturation Ferritin Total Bilirubin AST ALT Alkaline Phosphatase Total Protein Albumin Globulin Albumin/Globulin Ratio Mycoplasma pneumon IgM 01/16/18 01/16/18 06:15 11:59 WBC RBC Hgb Hct MCV MCH MCHC RDW Plt Count MPV Neut % (Auto) Lymph % (Auto) [place] % (Auto) Eos % (Auto) Baso % (Auto) Neut # (Auto) Lymph # (Auto) [place] # (Auto) Eos # (Auto) Baso # (Auto) Neutrophils % (Manual) Band Neutrophils % Lymphocytes % (Manual) Monocytes % (Manual) Platelet Estimate Anisocytosis (manual) APTT Sodium 143 Potassium 3.6 Chloride 108 H Carbon Dioxide 27 Anion Gap 11 BUN 32 H Creatinine 1.6 H Est GFR ( Amer) 38 Est GFR (Non-Af Amer) 31 POC Glucose (mg/dL) 216 H Random Glucose 121 H Calcium 8.9 Iron TIBC % Saturation Ferritin Total Bilirubin 0.7 AST 27 ALT 20 Alkaline Phosphatase 68 Total Protein 6.4 Albumin 3.3 L Globulin 3.2 Albumin/Globulin Ratio 1.0 Mycoplasma pneumon IgM Fingerstick Blood Sugar Results: 216 Review of Systems - Constitutional Constitutional: absent: Fever, Chills - EENT Eyes: absent: Change in Vision - Cardiovascular Cardiovascular: absent: Chest Pain, Radiating Pain - Respiratory Respiratory: As Per HPI, Dyspnea - Gastrointestinal Gastrointestinal: absent: Abdominal Pain - Neurological Neurological: absent: Headaches, Vertigo Critical Care Progress Note - Extremities/Vascular Does the Patient have a Central Venous Catheter?: No - Nutrition Nutrition: Nutrition Category Date Time Status Consistent Carbohydrate [DIET] Diets 01/14/18 Dinner Active Assessment/Plan - Assessment and Plan (Free Text) Assessment: 77 yo old female with a PMHx of HTN, diabetes, CKD stage 3 , CAD s/p CABG, Lung Ca s/p partial lung resection and pacemaker placement admitted to ICU after TESTER EQUIPMENT was called on 5 where pt was originally admitted for SOB. Pt experienced SOB after PT and was placed on non rebreather, however based on comorbidities, and vitals at time of TESTER EQUIPMENT, decision was made for ICU admission. Patient is doing well, continuing on non-rebreather, and in no acute distress. 1. Fluid overload 2/2 renal insufficiency and CHF -diurese Lasix 40mg IVP -monitor renal fxn -ABGs 2. Elevated D-dimer -r/o malignancy 3. CKD -monitor renal fxn -diurese as tolerated -consult Dr. Hernandez 4. COPD -Duoneb -Pulmicort 5. DM -ISS <Stephanie Ricksudhry S - Last Filed: 01/16/18 18:18> CCU Objective - Vital Signs / Intake & Output Vital Signs (Last 4 hours): Vital Signs Pulse Resp BP Pulse Ox 01/16/18 16:00 91 H 21 98 01/16/18 15:56 77 22 165/75 H 99 01/16/18 15:50 89 19 99 01/16/18 15:45 85 22 188/85 H 98 01/16/18 15:40 81 20 98 01/16/18 15:31 88 20 189/87 H 98 01/16/18 15:30 82 16 98 01/16/18 15:28 89 182/86 H 98 01/16/18 15:23 88 19 185/85 H 98 01/16/18 15:20 80 21 100 01/16/18 15:19 89 15 188/89 H 100 01/16/18 15:10 80 18 174/86 H 98 01/16/18 15:09 80 23 179/85 H 98 01/16/18 15:08 82 18 175/81 H 99 01/16/18 15:07 87 21 184/85 H 99 01/16/18 15:06 88 18 176/86 H 99 01/16/18 15:05 88 16 175/84 H 98 01/16/18 15:00 87 22 98 01/16/18 14:50 82 20 98 01/16/18 14:40 88 23 98 01/16/18 14:30 88 14 98 01/16/18 14:20 91 H 16 100 Intake and Output (Last 8hrs): Intake & Output 01/16/18 01/16/18 01/16/18 06:59 14:59 22:59 Intake Total 440 Balance 440 Intake: Oral 440 Other: # Voids Urine, Voided 4 # Bowel Movements 3 - Medications Active Medications: Active Medications Generic Name Dose Route Start Last Admin Trade Name Freq PRN Reason Stop Dose Admin Albuterol/Ipratropium 3 ml 01/15/18 02:00 01/16/18 13:25 Duoneb 3 Mg/0.5 Mg (3 Ml) Ud INH Not Given RQ6 DORIS Budesonide 0.5 mg 01/15/18 20:00 01/16/18 08:00 Pulmicort Respules INH Not Given RQ12 [facility] Carvedilol 6.25 mg 01/15/18 10:00 01/16/18 17:39 Coreg PO 6.25 mg BID DORIS Administration Epoetin Amol 10,000 unit 01/15/18 19:00 01/15/18 22:59 Procrit SC 10,000 unit MWF DORIS Administration Famotidine 20 mg 01/16/18 17:30 01/16/18 17:46 Pepcid IVP 20 mg DAILY DORIS Administration Furosemide 40 mg 01/15/18 10:00 01/16/18 10:39 Lasix IVP 40 mg DAILY DORIS Administration Heparin Sodium (Porcine) 5,000 units 01/16/18 22:00 Heparin SC Q12 DORIS Hydralazine HCl 50 mg 01/14/18 22:30 01/16/18 18:07 Apresoline PO 50 mg BID DORIS Administration Ceftriaxone Sodium 1 gm/ 100 mls @ 100 mls/hr 01/15/18 17:00 01/16/18 17:38 Sodium Chloride IVPB 100 mls/hr Q24H DORIS Administration Protocol Insulin Aspart 0 unit 01/15/18 11:30 01/16/18 16:53 Novolog SC Not Given ACHS [facility] Protocol Insulin Detemir 5 unit 01/15/18 10:00 01/16/18 10:36 Levemir SC 5 unit DAILY [facility] Administration Pneumococcal Polyvalent Vaccine 0.5 ml 01/17/18 14:00 Pneumovax 23 Vaccine IM 01/17/18 14:01 .ONCE ONE Ticagrelor 90 mg 01/16/18 10:00 01/16/18 17:39 Brilinta PO 90 mg BID DORIS Administration Vitamin B Complex/Vit C/Folic Acid 1 tab 01/16/18 08:00 01/16/18 10:36 Nephro-Heraclio PO 1 tab 0800 DORIS Administration Zolpidem Tartrate 5 mg 01/16/18 08:33 Ambien PO HS PRN Insomnia - Patient Studies Lab Studies: Lab Studies 01/16/18 01/16/18 01/16/18 Range/Units 11:59 06:15 06:15 WBC 4.6 L (4.8-10.8) K/uL RBC 2.77 L (3.80-5.20) Mil/uL Hgb 8.6 L (11.0-16.0) g/dL Hct 25.1 L (34.0-47.0) % MCV 90.8 (81.0-99.0) fL MCH 31.0 (27.0-31.0) pg MCHC 34.1 (33.0-37.0) g/dL RDW 15.9 H (11.5-14.5) % Plt Count 161 (130-400) K/uL MPV 8.6 (7.2-11.7) fL Neut % (Auto) 85.7 H (50.0-75.0) % Lymph % (Auto) 8.3 L (20.0-40.0) % [place] % (Auto) 4.1 (0.0-10.0) % Eos % (Auto) 1.2 (0.0-4.0) % Baso % (Auto) 0.7 (0.0-2.0) % Neut # (Auto) 4.0 (1.8-7.0) K/uL Lymph # (Auto) 0.4 L (1.0-4.3) K/uL [place] # (Auto) 0.2 (0.0-0.8) K/uL Eos # (Auto) 0.1 (0.0-0.7) K/uL Baso # (Auto) 0.0 (0.0-0.2) K/uL Neutrophils % (Manual) 84 H (50-75) % Band Neutrophils % 1 (0-2) % Lymphocytes % (Manual) 9 L (20-40) % Monocytes % (Manual) 6 (0-10) % Platelet Estimate Normal (NORMAL) Anisocytosis (manual) Slight APTT (21-34) SECONDS Sodium 143 (132-148) mmol/L Potassium 3.6 (3.6-5.2) mmol/L Chloride 108 H (98-107) mmol/L Carbon Dioxide 27 (22-30) mmol/L Anion Gap 11 (10-20) BUN 32 H (7-17) mg/dL Creatinine 1.6 H (0.7-1.2) mg/dL Est GFR ( Amer) 38 Est GFR (Non-Af Amer) 31 POC Glucose (mg/dL) 216 H (65-110) mg/dL Random Glucose 121 H (65-105) mg/dL Calcium 8.9 (8.6-10.4) mg/dl Iron (37-170) ug/dL TIBC (250-450) ug/dL % Saturation (20-55) Ferritin ng/mL Total Bilirubin 0.7 (0.2-1.3) mg/dL AST 27 (14-36) U/L ALT 20 (9-52) U/L Alkaline Phosphatase 68 (38-126) U/L Total Protein 6.4 (6.3-8.3) g/dL Albumin 3.3 L (3.5-5.0) g/dL Globulin 3.2 (2.2-3.9) gm/dL Albumin/Globulin Ratio 1.0 (1.0-2.1) Mycoplasma pneumon IgM (NEGATIVE) 01/16/18 01/16/18 01/15/18 Range/Units 05:59 03:23 21:09 WBC (4.8-10.8) K/uL RBC (3.80-5.20) Mil/uL Hgb (11.0-16.0) g/dL Hct (34.0-47.0) % MCV (81.0-99.0) fL MCH (27.0-31.0) pg MCHC (33.0-37.0) g/dL RDW (11.5-14.5) % Plt Count (130-400) K/uL MPV (7.2-11.7) fL Neut % (Auto) (50.0-75.0) % Lymph % (Auto) (20.0-40.0) % [place] % (Auto) (0.0-10.0) % Eos % (Auto) (0.0-4.0) % Baso % (Auto) (0.0-2.0) % Neut # (Auto) (1.8-7.0) K/uL Lymph # (Auto) (1.0-4.3) K/uL [place] # (Auto) (0.0-0.8) K/uL Eos # (Auto) (0.0-0.7) K/uL Baso # (Auto) (0.0-0.2) K/uL Neutrophils % (Manual) (50-75) % Band Neutrophils % (0-2) % Lymphocytes % (Manual) (20-40) % Monocytes % (Manual) (0-10) % Platelet Estimate (NORMAL) Anisocytosis (manual) APTT 47 H D (21-34) SECONDS Sodium (132-148) mmol/L Potassium (3.6-5.2) mmol/L Chloride (98-107) mmol/L Carbon Dioxide (22-30) mmol/L Anion Gap (10-20) BUN (7-17) mg/dL Creatinine (0.7-1.2) mg/dL Est GFR ( Amer) Est GFR (Non-Af Amer) POC Glucose (mg/dL) 113 H 128 H (65-110) mg/dL Random Glucose (65-105) mg/dL Calcium (8.6-10.4) mg/dl Iron (37-170) ug/dL TIBC (250-450) ug/dL % Saturation (20-55) Ferritin ng/mL Total Bilirubin (0.2-1.3) mg/dL AST (14-36) U/L ALT (9-52) U/L Alkaline Phosphatase (38-126) U/L Total Protein (6.3-8.3) g/dL Albumin (3.5-5.0) g/dL Globulin (2.2-3.9) gm/dL Albumin/Globulin Ratio (1.0-2.1) Mycoplasma pneumon IgM (NEGATIVE) 01/15/18 01/15/18 01/15/18 Range/Units 18:41 18:41 17:05 WBC (4.8-10.8) K/uL RBC (3.80-5.20) Mil/uL Hgb (11.0-16.0) g/dL Hct (34.0-47.0) % MCV (81.0-99.0) fL MCH (27.0-31.0) pg MCHC (33.0-37.0) g/dL RDW (11.5-14.5) % Plt Count (130-400) K/uL MPV (7.2-11.7) fL Neut % (Auto) (50.0-75.0) % Lymph % (Auto) (20.0-40.0) % [place] % (Auto) (0.0-10.0) % Eos % (Auto) (0.0-4.0) % Baso % (Auto) (0.0-2.0) % Neut # (Auto) (1.8-7.0) K/uL Lymph # (Auto) (1.0-4.3) K/uL [place] # (Auto) (0.0-0.8) K/uL Eos # (Auto) (0.0-0.7) K/uL Baso # (Auto) (0.0-0.2) K/uL Neutrophils % (Manual) (50-75) % Band Neutrophils % (0-2) % Lymphocytes % (Manual) (20-40) % Monocytes % (Manual) (0-10) % Platelet Estimate (NORMAL) Anisocytosis (manual) APTT (21-34) SECONDS Sodium (132-148) mmol/L Potassium (3.6-5.2) mmol/L Chloride (98-107) mmol/L Carbon Dioxide (22-30) mmol/L Anion Gap (10-20) BUN (7-17) mg/dL Creatinine (0.7-1.2) mg/dL Est GFR ( Amer) Est GFR (Non-Af Amer) POC Glucose (mg/dL) (65-110) mg/dL Random Glucose (65-105) mg/dL Calcium (8.6-10.4) mg/dl Iron 39 (37-170) ug/dL TIBC 286 (250-450) ug/dL % Saturation 14 L (20-55) Ferritin 30.5 ng/mL Total Bilirubin (0.2-1.3) mg/dL AST (14-36) U/L ALT (9-52) U/L Alkaline Phosphatase (38-126) U/L Total Protein (6.3-8.3) g/dL Albumin (3.5-5.0) g/dL Globulin (2.2-3.9) gm/dL Albumin/Globulin Ratio (1.0-2.1) Mycoplasma pneumon IgM Negative (NEGATIVE) Laboratory Results - last 24 hr 01/15/18 01/15/18 01/15/18 17:05 18:41 18:41 WBC RBC Hgb Hct MCV MCH MCHC RDW Plt Count MPV Neut % (Auto) Lymph % (Auto) [place] % (Auto) Eos % (Auto) Baso % (Auto) Neut # (Auto) Lymph # (Auto) [place] # (Auto) Eos # (Auto) Baso # (Auto) Neutrophils % (Manual) Band Neutrophils % Lymphocytes % (Manual) Monocytes % (Manual) Platelet Estimate Anisocytosis (manual) APTT Sodium Potassium Chloride Carbon Dioxide Anion Gap BUN Creatinine Est GFR ( Amer) Est GFR (Non-Af Amer) POC Glucose (mg/dL) Random Glucose Calcium Iron 39 TIBC 286 % Saturation 14 L Ferritin 30.5 Total Bilirubin AST ALT Alkaline Phosphatase Total Protein Albumin Globulin Albumin/Globulin Ratio Mycoplasma pneumon IgM Negative 01/15/18 01/16/18 01/16/18 21:09 03:23 05:59 WBC RBC Hgb Hct MCV MCH MCHC RDW Plt Count MPV Neut % (Auto) Lymph % (Auto) [place] % (Auto) Eos % (Auto) Baso % (Auto) Neut # (Auto) Lymph # (Auto) [place] # (Auto) Eos # (Auto) Baso # (Auto) Neutrophils % (Manual) Band Neutrophils % Lymphocytes % (Manual) Monocytes % (Manual) Platelet Estimate Anisocytosis (manual) APTT 47 H D Sodium Potassium Chloride Carbon Dioxide Anion Gap BUN Creatinine Est GFR ( Amer) Est GFR (Non-Af Amer) POC Glucose (mg/dL) 128 H 113 H Random Glucose Calcium Iron TIBC % Saturation Ferritin Total Bilirubin AST ALT Alkaline Phosphatase Total Protein Albumin Globulin Albumin/Globulin Ratio Mycoplasma pneumon IgM 01/16/18 01/16/18 01/16/18 06:15 06:15 11:59 WBC 4.6 L RBC 2.77 L Hgb 8.6 L Hct 25.1 L MCV 90.8 MCH 31.0 MCHC 34.1 RDW 15.9 H Plt Count 161 MPV 8.6 Neut % (Auto) 85.7 H Lymph % (Auto) 8.3 L [place] % (Auto) 4.1 Eos % (Auto) 1.2 Baso % (Auto) 0.7 Neut # (Auto) 4.0 Lymph # (Auto) 0.4 L [place] # (Auto) 0.2 Eos # (Auto) 0.1 Baso # (Auto) 0.0 Neutrophils % (Manual) 84 H Band Neutrophils % 1 Lymphocytes % (Manual) 9 L Monocytes % (Manual) 6 Platelet Estimate Normal Anisocytosis (manual) Slight APTT Sodium 143 Potassium 3.6 Chloride 108 H Carbon Dioxide 27 Anion Gap 11 BUN 32 H Creatinine 1.6 H Est GFR ( Amer) 38 Est GFR (Non-Af Amer) 31 POC Glucose (mg/dL) 216 H Random Glucose 121 H Calcium 8.9 Iron TIBC % Saturation Ferritin Total Bilirubin 0.7 AST 27 ALT 20 Alkaline Phosphatase 68 Total Protein 6.4 Albumin 3.3 L Globulin 3.2 Albumin/Globulin Ratio 1.0 Mycoplasma pneumon IgM Critical Care Progress Note - Nutrition Nutrition: Nutrition Category Date Time Status Consistent Carbohydrate [DIET] Diets 01/14/18 Dinner Active Attending/Attestation - Attestation I have personally seen and examined this patient.: Yes I have fully participated in the care of the patient.: Yes I have reviewed all pertinent clinical information: Yes Notes (Text): 01/16/18 18:17 Patient seen and examined Patient transferred to intensive care unit post TESTER EQUIPMENT for shortness of breath Continue patient on Lasix Monitor renal function Monitor H&H Intake and output Continue nebulizer treatment Venous Doppler negative for DVT
--- NOTE | 2018-01-16 17:00 | PCM.RRT ---
<Michelle Osuna - Last Filed: 01/16/18 17:40> ENERGY SYSTEMS LABORATORY DIRECTOR Nurses Assessment - Situation Date: 01/16/18 Time ENERGY SYSTEMS LABORATORY DIRECTOR was called: 12:36 ENERGY SYSTEMS LABORATORY DIRECTOR Responder Arrival Time:: 12:37 ENERGY SYSTEMS LABORATORY DIRECTOR Location:: Med/Surg Room Number: 568a ENERGY SYSTEMS LABORATORY DIRECTOR Reason for Call: Respiratory Distress ENERGY SYSTEMS LABORATORY DIRECTOR Called By: RN - IV IV Inserted during ENERGY SYSTEMS LABORATORY DIRECTOR?: No New IV Insertion Tolerance: Good - Respiratory ENERGY SYSTEMS LABORATORY DIRECTOR Delivery Method: Non Rebreather @% Received Nebulizer Treatments: No Was the Patient Ventilated with Bag/Mask 100% O2?: Yes Secretions Suctioned?: No Was the Patient Intubated?: No Was the Patient Placed on a Ventilator?: No - Diagnostic Test Ordered EKG: No Chest X-Ray: Yes CT Scan: Yes Other Diagnostic Test Ordered: CT chest CPR started during ENERGY SYSTEMS LABORATORY DIRECTOR?: No - Vital Signs Vital Signs: Rapid Response Vital Sign Blood Pressure 172/80 Pulse Rate 78 Respiratory Rate 28 Temperature 97.4 F Oxygen Saturation 100 - Fernando Coma Scale Coma Scale Eye Opening: Spontaneous Coma Scale Motor: Obeys Commands Movement Coma Scale Verbal: Oriented Coma Scale Total: 15 - Time ENERGY SYSTEMS LABORATORY DIRECTOR Ended Time ENERGY SYSTEMS LABORATORY DIRECTOR Ended: 12:50 - Vital Signs at end of ENERGY SYSTEMS LABORATORY DIRECTOR Vital Signs at end of ENERGY SYSTEMS LABORATORY DIRECTOR: Rapid Response End Vital Sign Blood Pressure 181/95 Pulse Rate 87 Temperature 98 F O2 Sat by Pulse Oximetry 99 - Recommendations Notifications: Attending Physician, Consultations I.Reason for ENERGY SYSTEMS LABORATORY DIRECTOR - A) Acute Change in Patient: Subjective: Rapid Response Note: Ms Fern Villa is a 77 year old female with past medical history of COPD, DM, HTN, CKD stage 3, lung CA s/p partial lung resection, CAD s/p CABG and pacemaker placement who was admitted to the hospital for acute shortness of breath. Patient was doing well, and was seen by physical therapy this morning. After her PT session, patient returned to her room and became acutely short of breath and tachypnic. ENERGY SYSTEMS LABORATORY DIRECTOR was called at 12:37 to room 568-A. Patient was placed on non-rebreather mask. At that time, vitals were BP 172/80, HR 28, RR 28, O2 sat 100%, temperature 97.4F. Patient was given Solumedrol 40mg IVP x 1 and Duonebs treatment. STAT CXR was ordered. Patient stated that shortness of breath improved, no longer tachypnic and not using accessory muscles. - Respiratory Oxygen Delivery Method: Non Rebreather @% - Constitutional Appears: Non-toxic - Head Head Exam: ATRAUMATIC, NORMAL INSPECTION, NORMOCEPHALIC - Eyes Eye Exam: EOMI, Normal appearance - Respiratory Exam Respiratory Exam: Decreased Breath Sounds, Rhonchi, NORMAL BREATHING PATTERN. absent: Rales, Wheezes - Cardiovascular Exam Cardiovascular Exam: REGULAR RHYTHM, +S1, +S2 - GI/Abdominal Exam GI & Abdominal Exam: Soft, Normal Bowel Sounds. absent: Guarding, Rigid, Tenderness - Neurological Exam Neurological Exam: Alert, Awake, Oriented x3 - Extremities Exam Extremities Exam: Normal Inspection Plan - Assessment of Findings&Treatment Plan A/P: Patient is a 77 year old female with past medical history of COPD, DM, HTN , CKD stage 3, lung CA s/p partial lung resection, CAD s/p CABG and pacemaker placement who is with acute shortness of breath. -HOB elevated to 45 degrees -Patient given Solumedrol 40mg IVP -Duonebs treatment -STAT CXR ordered -Attending physician notified, no new orders at this time -Call placed to Dr Ricks for update on patients status, awaiting call back -Plan discussed with Dr Chen Osuna DO PGY-2 Addendum: CXR showed right perihilar and bibasilar opacity. Dr Ricks made aware. Repeat vital signs BP 181/95, HR 87, RR 22, O2 sat 99%, temperature 98.0F. CT chest ordered. Patient to be transferred to the ICU for further management. <Ashley Siddiqui V - Last Filed: 01/16/18 19:58> ENERGY SYSTEMS LABORATORY DIRECTOR Nurses Assessment - Vital Signs Vital Signs: Rapid Response Vital Sign Blood Pressure 172/80 Pulse Rate 78 Respiratory Rate 28 Temperature 97.4 F Oxygen Saturation 100 - Vital Signs at end of ENERGY SYSTEMS LABORATORY DIRECTOR Vital Signs at end of ENERGY SYSTEMS LABORATORY DIRECTOR: Rapid Response End Vital Sign Blood Pressure 181/95 Pulse Rate 87 Temperature 98 F O2 Sat by Pulse Oximetry 99 - Recommendations 5) ENERGY SYSTEMS LABORATORY DIRECTOR Level of Care Recommendations: Transfer to ICU Attending/Attestation - Attestation I have personally seen and examined this patient.: Yes I have fully participated in the care of the patient.: Yes I have reviewed all pertinent clinical information, including history, physical exam and plan: Yes Notes (Text): Brief Hospitalist Note ENERGY SYSTEMS LABORATORY DIRECTOR: tachypnea and shortness of breathe. RN: patient had completed physical therapy session and was having shortness of breathe. Patient has received Lasix earlier in the day. patient's chest is tight. patient is non-way breather. Patient given DuonebX1, Solumderol 40mg IVPX1, and ordered for repeat chest xray. Patient with significant co- morbidities: CHF, ESRD, COPD, prior hx of lung cancer (surveillance with PET scan, new finding; referred to specialist in [place]). Patient's breathing status improved. Speaking more comfortaby, seen on nasal cannula. Resident has spoken with PMD. I discussed with pulmonary who re-evaluated, monitor closely in the ICU and evaluated new chest xray.
[2018-01-17] MEDS: Albuterol-Ipratrop 3 mg / 0.5 (3 ml) UD INH SCH ×4 (03:05→20:04)
[2018-01-17 06:08] LABS: BASO % 0.6 % (0.0-2.0); EOS # 0.1 K/uL (0.0-0.7); EOS % 1.3 % (0.0-4.0); HEMOGLOBIN 8.8 g/dL (11.0-16.0); LYMPH # 0.5 K/uL (1.0-4.3); LYMPH % 10.5 % (20.0-40.0); MEAN CELL VOLUME 91.4 fL (81.0-99.0); MEAN PLATELET VOLUME 8.6 fL (7.2-11.7); MONO # 0.3 K/uL (0.0-0.8); MONO % 5.7 % (0.0-10.0); NEUT # 4.1 K/uL (1.8-7.0); NEUT % 81.9 % (50.0-75.0); RBC 2.83 Mil/uL (3.80-5.20); RED CELL DISTRIBUTION WIDTH 16.5 % (11.5-14.5)
[2018-01-17 06:24] LABS: ALB/GLOB RATIO 1.1 (1.0-2.1); ALBUMIN 3.2 g/dL (3.5-5.0); CALCIUM 8.1 mg/dl (8.6-10.4)
[2018-01-17] MEDS: Budesonide 0.5 mg/2 ml Inhal Susp UD INH SCH ×2 (07:29→20:04)
[2018-01-17] MEDS: (Novolog) Insulin Aspart, Recombinant 100 u/ml 10 ml vial SC SCH ×4 (07:43→21:54)
--- NOTE | 2018-01-17 08:46 | CARD ---
APPROVED REPORT EXAM: Two-dimensional and M-mode echocardiogram with Doppler and color Doppler. Other Information Quality : GoodRhythm : INDICATION Dizziness and Vertigo Dyspnea Cardiac Disease: CAD Pulmonary Hypertention Congestive Heart Failure COPD Surgery/Intervention Pacemaker: CABG: RISK FACTORS Hypertension 2D DIMENSIONS IVSd1.0 (0.7-1.1cm)LVDd4.6 (3.9-5.9cm) PWd1.3 (0.7-1.1cm)LVDs3.2 (2.5-4.0cm) FS (%) 31.3 % M-Mode DIMENSIONS RVDd3.43 (2.1-3.2cm)Left Atrium (MM)5.23 (2.5-4.0cm) IVSd1.47 (0.7-1.1cm)Aortic Root2.70 (2.2-3.7cm) LVDd4.93 (4.0-5.6cm)Aortic Cusp Exc.1.80 (1.5-2.0cm) PWd0.99 (0.7-1.1cm)FS (%) 29 % LVDs3.49 (2.0-3.8cm) Aortic Valve AI P 1/2 [id number] Mitral Valve MV E Mmhmfumv086.9cm/sMV A Wmjlmpfx95.1cm/sE/A ratio1.4 TDI E/Lateral E'0.0E/Medial E'0.0 Tricuspid Valve TR Peak [id number]/sTR Peak Gr.[id number] LEFT VENTRICLE The left ventricle is normal size. There is normal left ventricular wall thickness. Left ventricle systolic function is moderately impaired. The Ejection Fraction is 35-40%. Significant regional wall motion abnormalities noted. There is a flattened septum consistent with right ventricle volume and pressure overload. The left ventricular diastolic function is normal. No left ventricle thrombus noted on this study. RIGHT VENTRICLE The right ventricle is normal size. There is normal right ventricular wall thickness. Systolic function is mildly to moderately reduced. There is a pacemaker lead in the right ventricle. ATRIA The left atrium is moderately dilated. The right atrium size is normal. The interatrial septum is intact with no evidence for an atrial septal defect. AORTIC VALVE The aortic valve is normal in structure. There is mild to moderate aortic regurgitation. There is no aortic valvular stenosis. There is no aortic valvular vegetation. MITRAL VALVE The mitral valve is normal in structure. There is no evidence of mitral valve prolapse. There is no mitral valve stenosis. Mitral regurgitation is mild to moderate. TRICUSPID VALVE The tricuspid valve is normal in structure. There is moderate to severe tricuspid regurgitation. Right ventricular systolic pressure is estimated at greater than 60 mmHg. There is severe pulmonary hypertension. PULMONIC VALVE The pulmonic valve is not well visualized. There is mild pulmonic valvular regurgitation. GREAT VESSELS The aortic root is normal in size. PERICARDIAL EFFUSION There is no significant pericardial effusion. <Conclusion> Left ventricle systolic function is moderately impaired. The Ejection Fraction is 35-40%. There is mild to moderate aortic regurgitation. Mitral regurgitation is mild to moderate. There is moderate to severe tricuspid regurgitation. There is severe pulmonary hypertension. There is mild pulmonic valvular regurgitation.
[2018-01-17] MEDS: EPOETIN ALFA 10,000 UNIT/ML ML SC SCH (09:30)
[2018-01-17] MEDS: Insulin Detemir 100 units/ml Vial (Levemir) SC SCH (09:30)
[2018-01-17] MEDS: Multivitamin Vitamin B Complex (Nephro-Vite) Tab PO SCH (10:06)
--- NOTE | 2018-01-17 12:05 | CP.PCM.PN ---
Subjective - Date & Time of Evaluation Date of Evaluation: 01/17/18 Time of Evaluation: 12:05 - Subjective Subjective: pt is seen an examined, follow up consult is dictated #[id number] iv fe in am Objective - Vital Signs/Intake and Output Vital Signs (last 24 hours): Temp Pulse Resp BP Pulse Ox 98.2 F 79 17 177/72 H 100 01/17/18 08:00 01/17/18 11:00 01/17/18 11:00 01/17/18 10:11 01/17/18 11:00 Intake and Output: 01/17/18 01/17/18 06:59 18:59 Intake Total 370 382 Output Total 850 Balance -480 382 - Medications Medications: Current Medications Albuterol/Ipratropium (Duoneb 3 Mg/0.5 Mg (3 Ml) Ud) 3 ml INH RQ6 [facility] Last Admin: 01/17/18 07:29 Dose: 3 ml Budesonide (Pulmicort Respules) 0.5 mg INH RQ12 [facility] Last Admin: 01/17/18 07:29 Dose: 0.5 mg Carvedilol (Coreg) 6.25 mg PO BID [facility] Last Admin: 01/17/18 09:31 Dose: 6.25 mg Epoetin Amol (Procrit) 10,000 unit SC MWF [facility] Last Admin: 01/17/18 09:30 Dose: 10,000 unit Famotidine (Pepcid) 20 mg IVP DAILY [facility] Last Admin: 01/17/18 10:06 Dose: 20 mg Furosemide (Lasix) 40 mg IVP DAILY [facility] Last Admin: 01/17/18 09:31 Dose: 40 mg Heparin Sodium (Porcine) (Heparin) 5,000 units SC Q12 [facility] Last Admin: 01/17/18 09:31 Dose: 5,000 units Hydralazine HCl (Apresoline) 50 mg PO BID [facility] Last Admin: 01/17/18 09:31 Dose: 50 mg Ceftriaxone Sodium 1 gm/ (Sodium Chloride) 100 mls @ 100 mls/hr IVPB Q24H [facility] PRN Reason: Protocol Last Admin: 01/16/18 17:38 Dose: 100 mls/hr Insulin Aspart (Novolog) 0 unit SC ACHS [facility] PRN Reason: Protocol Last Admin: 01/17/18 07:43 Dose: Not Given Insulin Detemir (Levemir) 5 unit SC DAILY [facility] Last Admin: 01/17/18 09:30 Dose: 5 unit Pneumococcal Polyvalent Vaccine (Pneumovax 23 Vaccine) 0.5 ml IM .ONCE ONE Stop: 01/17/18 14:01 Ticagrelor (Brilinta) 90 mg PO BID [facility] Last Admin: 01/17/18 09:31 Dose: 90 mg Vitamin B Complex/Vit C/Folic Acid (Nephro-Heraclio) 1 tab PO 0800 [facility] Last Admin: 01/17/18 10:06 Dose: 1 tab Zolpidem Tartrate (Ambien) 5 mg PO HS PRN PRN Reason: Insomnia Last Admin: 01/16/18 23:25 Dose: 5 mg - Labs Labs: 01/17/18 05:59 01/17/18 06:00 PT 12.2 SECONDS (9.7-12.2) 01/15/18 07:09 INR 1.1 01/15/18 07:09 APTT 47 SECONDS (21-34) H D 01/16/18 03:23
[2018-01-17] MEDS ORDERED: Pneumococcal 23-Valent Vaccine IM ONE (14:00)
--- NOTE | 2018-01-17 16:52 | CP.PCM.PN ---
Subjective - Date & Time of Evaluation Date of Evaluation: 01/17/18 Time of Evaluation: 12:50 - Subjective Subjective: patient seen and examined Patient states breathing is much better No chest pain Afebrile For transfer to floors Objective - Vital Signs/Intake and Output Vital Signs (last 24 hours): Temp Pulse Resp BP Pulse Ox 98.4 F 81 18 162/65 H 100 01/17/18 16:00 01/17/18 16:07 01/17/18 16:00 01/17/18 16:00 01/17/18 16:00 Intake and Output: 01/17/18 01/17/18 06:59 18:59 Intake Total 370 716 Output Total 850 Balance -480 716 - Medications Medications: Current Medications Albuterol/Ipratropium (Duoneb 3 Mg/0.5 Mg (3 Ml) Ud) 3 ml INH RQ6 [facility] Last Admin: 01/17/18 13:31 Dose: 3 ml Budesonide (Pulmicort Respules) 0.5 mg INH RQ12 [facility] Last Admin: 01/17/18 07:29 Dose: 0.5 mg Carvedilol (Coreg) 6.25 mg PO BID [facility] Last Admin: 01/17/18 09:31 Dose: 6.25 mg Epoetin Amol (Procrit) 10,000 unit SC MWF [facility] Last Admin: 01/17/18 09:30 Dose: 10,000 unit Famotidine (Pepcid) 20 mg IVP DAILY [facility] Last Admin: 01/17/18 10:06 Dose: 20 mg Furosemide (Lasix) 40 mg IVP DAILY [facility] Last Admin: 01/17/18 09:31 Dose: 40 mg Heparin Sodium (Porcine) (Heparin) 5,000 units SC Q12 [facility] Last Admin: 01/17/18 09:31 Dose: 5,000 units Hydralazine HCl (Apresoline) 50 mg PO BID [facility] Last Admin: 01/17/18 09:31 Dose: 50 mg Ceftriaxone Sodium 1 gm/ (Sodium Chloride) 100 mls @ 100 mls/hr IVPB Q24H [facility] PRN Reason: Protocol Last Admin: 01/16/18 17:38 Dose: 100 mls/hr Insulin Aspart (Novolog) 0 unit SC ACHS [facility] PRN Reason: Protocol Last Admin: 01/17/18 12:34 Dose: 1 unit Insulin Detemir (Levemir) 5 unit SC DAILY [facility] Last Admin: 01/17/18 09:30 Dose: 5 unit Ticagrelor (Brilinta) 90 mg PO BID [facility] Last Admin: 01/17/18 09:31 Dose: 90 mg Vitamin B Complex/Vit C/Folic Acid (Nephro-Heraclio) 1 tab PO 0800 [facility] Last Admin: 01/17/18 10:06 Dose: 1 tab Zolpidem Tartrate (Ambien) 5 mg PO HS PRN PRN Reason: Insomnia Last Admin: 01/16/18 23:25 Dose: 5 mg - Labs Labs: 01/17/18 05:59 01/17/18 06:00 PT 12.2 SECONDS (9.7-12.2) 01/15/18 07:09 INR 1.1 01/15/18 07:09 APTT 47 SECONDS (21-34) H D 01/16/18 03:23 - Head Exam Head Exam: ATRAUMATIC, NORMOCEPHALIC - ENT Exam ENT Exam: Mucous Membranes Moist - Neck Exam Neck Exam: Normal Inspection - Respiratory Exam Respiratory Exam: Rales - Cardiovascular Exam Cardiovascular Exam: REGULAR RHYTHM Assessment and Plan (1) CHF (congestive heart failure) Assessment & Plan: Continue diuretics Continue anticoagulation Monitor renal function For transfer to floor Status: Acute (2) COPD (chronic obstructive pulmonary disease) Assessment & Plan: breathing better Continue nebulizer treatment and inhaled steroid Status: Acute (3) Anemia Status: Acute (4) Acute renal insufficiency Status: Acute
[2018-01-18] MEDS: Albuterol-Ipratrop 3 mg / 0.5 (3 ml) UD INH SCH ×4 (01:09→19:45)
--- NOTE | 2018-01-18 04:20 | PN ---
DATE: 01/17/2018 FOLLOWUP RENAL CONSULTATION LOCATION: The patient is located in ICU bed 9. REQUESTED BY: Sharon Sheets MD REASON FOR FOLLOWUP: Chronic kidney disease, CHF, shortness of breath. HISTORY OF PRESENT ILLNESS: Mrs. Villa is a 77 years old elderly very pleasant female with a past medical history significant for longstanding hypertension; diabetes; coronary artery disease, status post CABG, status post cardiac cath and status post stent placement about six months ago; status post acute renal failure; CKD; history of lung CA, status post partial lung resection; pacemaker placement who was admitted initially on 01/15/2018 with chief complaints of shortness of breath and swelling of the legs. The patient is being treated for CHF exacerbation. The patient had DOORKEEPER yesterday for shortness of breath and subsequently transferred to ICU. The patient is out of bed to chair. The patient claims that she is short of breath when she lies down and when she is sitting on the chair, she is more comfortable. Denies any chest pain or palpitation. Denies any nausea, vomiting, or diarrhea. Less swelling of the legs. No fever. No cough. PHYSICAL EXAMINATION: VITAL SIGNS: As follows. Blood pressure this afternoon 171/63, pulse 77, respirations 16, saturation 100%, and temperature 97.6. Height is 5 feet 2 inches, and weight is 134 pounds. GENERAL: Mrs. Villa is a 77 years elderly female, moderate built, moderate nourished, not in acute distress. HEENT: Pupils are normal and reactive to light and accommodation. Conjunctivae pink. Sclerae anicteric. Tongue is moist. Trachea is midline. LUNGS: Symmetric on both sides. Bilateral breath sounds present. Clear to auscultation. CVS: Neches at the fifth intercostal space, midclavicular line. S1, S2 audible. No murmur. No gallop. ABDOMEN: Normal in appearance. Soft, tympanic. No guarding. No rigidity. No hepatosplenomegaly. AUCTION CLERK: The patient is alert, awake, oriented x3. Nonfocal neuro examination. Cranial nerves II-XII grossly intact. Sensory and motor system is within normal limits. EXTREMITIES: No cyanosis, no clubbing, no edema. CURRENT MEDICATIONS: Include as follows: Ambien 5 mg at bedtime, hydralazine 50 mg p.o. b.i.d., Brilinta 90 mg p.o. b.i.d., Rocephin 1 gm every 24 hours, Coreg 6.25 mg p.o. b.i.d., DuoNeb inhaler, subcu heparin 5000 every 12 hours, Lasix 40 mg IV daily, Levemir 5 units subcu daily, Nephro-Heraclio one tablet daily, NovoLog for sliding scale, Pepcid 20 mg IV daily, Procrit 10,000 units three times a week, Pulmicort 0.5 mg inhaler every 12 hours. LABORATORY DATA: Include as follows as of 01/17/2018: WBC 5, hemoglobin 8.8, hematocrit is 25.8, platelets 172. Sodium 141, potassium 3.7, chloride 107, CO2 of 23, BUN 32, creatinine 1.6, glucose 110, calcium 8.1. Total bili 0.6, AST 28, ALT 12, alkaline phosphatase 61, total protein 6.2, albumin is 3.2. I's and O's: Intake is 1150, output is 1150. Chest x-ray as of 01/16/2018: Right perihilar and basilar opacities, rule out pneumonia. CT of the chest as of 01/16/2018, impression: Pulmonary vascular congestion and small bilateral pleural effusions, lingular subsegmental atelectasis, centrilobular emphysema, multiple prominent mediastinal lymph nodes; the largest which measures up to 2.3 cm in precarinal station, enlarged heterogeneous thyroid with multiple low-density nodules. Dedicated thyroid ultrasound should be obtained for further evaluation as clinically warranted. Scattered punctate hepatic and splenic calcifications, small hiatal hernia, left adrenal nodule thickening 1.6 x 1.8 cm, right adrenal adenoma. ASSESSMENT: In summary, Mrs. Villa is a 77 years elderly female with longstanding hypertension; diabetes; coronary artery disease; chronic kidney disease 3; congestive heart failure, status post stent placement; lung cancer, status post partial resection who was admitted with shortness of breath and status post DOORKEEPER on 01/16/2018 and transferred to intensive care unit. 1. Chronic kidney disease stage 3, most likely hypertensive nephrosclerosis, cannot rule out underlying diabetic nephropathy. 2. Congestive heart failure. 3. Rule out pneumonia. 4. Hypertension. 5. Anemia, secondary to chronic kidney disease and iron-deficiency anemia. PLAN: Continue Procrit three times a week. Continue hydralazine, Coreg. Continue Lasix and also continue Nephro-Heraclio. We will also give IV iron, Venofer or Ferrlecit daily. Thank you for allowing me to participate in your patient's care. We will follow with you. Montez Hernandez MD
[2018-01-18 06:29] LABS: BASO % 0.5 % (0.0-2.0); EOS # 0.2 K/uL (0.0-0.7); EOS % 3.2 % (0.0-4.0); HEMOGLOBIN 8.7 g/dL (11.0-16.0); LYMPH # 0.5 K/uL (1.0-4.3); LYMPH % 9.7 % (20.0-40.0); MEAN CORPUSCULAR HEMOGLOBIN 30.9 pg (27.0-31.0); MEAN PLATELET VOLUME 8.7 fL (7.2-11.7); MONO # 0.3 K/uL (0.0-0.8); MONO % 5.2 % (0.0-10.0); NEUT % 81.4 % (50.0-75.0); NRBC % 0.1 % (0.0-2.0); PLATELET COUNT 165 K/uL (130-400); RED CELL DISTRIBUTION WIDTH 15.6 % (11.5-14.5); WHITE BLOOD COUNT 4.9 K/uL (4.8-10.8)
[2018-01-18 06:42] LABS: ALB/GLOB RATIO 1.1 (1.0-2.1); ALBUMIN 3.3 g/dL (3.5-5.0); CALCIUM 8.8 mg/dl (8.6-10.4)
[2018-01-18] MEDS: (Novolog) Insulin Aspart, Recombinant 100 u/ml 10 ml vial SC SCH ×4 (07:30→21:41)
[2018-01-18] MEDS: Budesonide 0.5 mg/2 ml Inhal Susp UD INH SCH ×2 (07:41→19:45)
[2018-01-18] MEDS: Multivitamin Vitamin B Complex (Nephro-Vite) Tab PO SCH (07:50)
[2018-01-18 08:28] LABS: LYMPHOCYTE 9 % (20-40); MONOCYTE 4 % (0-10); NEUTROPHIL 87 % (50-75); TOTAL CELLS COUNTED 100
[2018-01-18 08:29] LABS: ANISOCYTOSIS SLIGHT; HYPOCHROMIC SLIGHT; PLATELET ESTIMATE NORMAL (NORMAL); POLYCHROMIC SLIGHT
[2018-01-18] MEDS ORDERED: Potassium Chloride 20 mEq ER Tab PO ONE (09:00)
[2018-01-18] MEDS: Insulin Detemir 100 units/ml Vial (Levemir) SC SCH (10:41)
--- NOTE | 2018-01-18 15:08 | CP.PCM.PN ---
Subjective - Date & Time of Evaluation Date of Evaluation: 01/18/18 Time of Evaluation: 15:08 - Subjective Subjective: pt is seen and examined, follow up consult is dictated #[id number] will start iv ferrlecit 125 mg daily x 8 days Objective - Vital Signs/Intake and Output Vital Signs (last 24 hours): Temp Pulse Resp BP Pulse Ox 98.6 F 80 17 137/89 99 01/18/18 12:00 01/18/18 12:00 01/18/18 12:00 01/18/18 12:00 01/18/18 08:00 Intake and Output: 01/18/18 01/18/18 06:59 18:59 Intake Total 150 Balance 150 - Medications Medications: Current Medications Albuterol/Ipratropium (Duoneb 3 Mg/0.5 Mg (3 Ml) Ud) 3 ml INH RQ6 [facility] Last Admin: 01/18/18 13:44 Dose: 3 ml Budesonide (Pulmicort Respules) 0.5 mg INH RQ12 [facility] Last Admin: 01/18/18 07:41 Dose: 0.5 mg Carvedilol (Coreg) 6.25 mg PO BID [facility] Last Admin: 01/18/18 10:42 Dose: 6.25 mg Epoetin Amol (Procrit) 10,000 unit SC MWF [facility] Last Admin: 01/17/18 09:30 Dose: 10,000 unit Famotidine (Pepcid) 20 mg IVP DAILY [facility] Last Admin: 01/18/18 10:41 Dose: 20 mg Furosemide (Lasix) 40 mg IVP DAILY [facility] Last Admin: 01/18/18 10:41 Dose: 40 mg Heparin Sodium (Porcine) (Heparin) 5,000 units SC Q12 [facility] Last Admin: 01/18/18 10:42 Dose: 5,000 units Hydralazine HCl (Apresoline) 50 mg PO Q8H [facility] Last Admin: 01/18/18 14:37 Dose: 50 mg Ceftriaxone Sodium 1 gm/ (Sodium Chloride) 100 mls @ 100 mls/hr IVPB Q24H [facility] PRN Reason: Protocol Last Admin: 01/17/18 17:08 Dose: 100 mls/hr Insulin Aspart (Novolog) 0 unit SC ACHS [facility] PRN Reason: Protocol Last Admin: 01/18/18 11:30 Dose: Not Given Insulin Detemir (Levemir) 5 unit SC DAILY [facility] Last Admin: 01/18/18 10:41 Dose: 5 unit Potassium Chloride (Klor-Con 10) 10 meq PO BRK [facility] Ticagrelor (Brilinta) 90 mg PO BID [facility] Last Admin: 01/18/18 10:42 Dose: 90 mg Vitamin B Complex/Vit C/Folic Acid (Nephro-Heraclio) 1 tab PO 0800 [facility] Last Admin: 01/18/18 07:50 Dose: 1 tab Zolpidem Tartrate (Ambien) 5 mg PO HS PRN PRN Reason: Insomnia Last Admin: 01/16/18 23:25 Dose: 5 mg - Labs Labs: 01/18/18 06:21 01/18/18 06:20 PT 12.2 SECONDS (9.7-12.2) 01/15/18 07:09 INR 1.1 01/15/18 07:09 APTT 47 SECONDS (21-34) H D 01/16/18 03:23
--- NOTE | 2018-01-18 15:59 | CP.PCM.PN ---
Subjective - Date & Time of Evaluation Date of Evaluation: 01/18/18 Time of Evaluation: 10:00 - Subjective Subjective: The patient seen and examined Sitting comfortably in no distress Dyspnea on exertion Afebrile No chest pain Objective - Vital Signs/Intake and Output Vital Signs (last 24 hours): Temp Pulse Resp BP Pulse Ox 98.6 F 80 17 137/89 99 01/18/18 12:00 01/18/18 12:00 01/18/18 12:00 01/18/18 12:00 01/18/18 08:00 Intake and Output: 01/18/18 01/18/18 06:59 18:59 Intake Total 150 Balance 150 - Medications Medications: Current Medications Albuterol/Ipratropium (Duoneb 3 Mg/0.5 Mg (3 Ml) Ud) 3 ml INH RQ6 [facility] Last Admin: 01/18/18 13:44 Dose: 3 ml Budesonide (Pulmicort Respules) 0.5 mg INH RQ12 [facility] Last Admin: 01/18/18 07:41 Dose: 0.5 mg Carvedilol (Coreg) 6.25 mg PO BID [facility] Last Admin: 01/18/18 10:42 Dose: 6.25 mg Epoetin Amol (Procrit) 10,000 unit SC MWF [facility] Last Admin: 01/17/18 09:30 Dose: 10,000 unit Famotidine (Pepcid) 20 mg IVP DAILY [facility] Last Admin: 01/18/18 10:41 Dose: 20 mg Ferric Sodium Gluconate Complex (Ferrlecit) 125 mg IVPB DAILY [facility] Stop: 01/26/18 15:16 Furosemide (Lasix) 40 mg IVP DAILY [facility] Last Admin: 01/18/18 10:41 Dose: 40 mg Heparin Sodium (Porcine) (Heparin) 5,000 units SC Q12 [facility] Last Admin: 01/18/18 10:42 Dose: 5,000 units Hydralazine HCl (Apresoline) 50 mg PO Q8H [facility] Last Admin: 01/18/18 14:37 Dose: 50 mg Ceftriaxone Sodium 1 gm/ (Sodium Chloride) 100 mls @ 100 mls/hr IVPB Q24H [facility] PRN Reason: Protocol Last Admin: 01/17/18 17:08 Dose: 100 mls/hr Insulin Aspart (Novolog) 0 unit SC ACHS [facility] PRN Reason: Protocol Last Admin: 01/18/18 11:30 Dose: Not Given Insulin Detemir (Levemir) 5 unit SC DAILY [facility] Last Admin: 01/18/18 10:41 Dose: 5 unit Potassium Chloride (Klor-Con 10) 10 meq PO BRK [facility] Ticagrelor (Brilinta) 90 mg PO BID [facility] Last Admin: 01/18/18 10:42 Dose: 90 mg Vitamin B Complex/Vit C/Folic Acid (Nephro-Heraclio) 1 tab PO 0800 [facility] Last Admin: 01/18/18 07:50 Dose: 1 tab Zolpidem Tartrate (Ambien) 5 mg PO HS PRN PRN Reason: Insomnia Last Admin: 01/16/18 23:25 Dose: 5 mg - Labs Labs: 01/18/18 06:21 01/18/18 06:20 PT 12.2 SECONDS (9.7-12.2) 01/15/18 07:09 INR 1.1 01/15/18 07:09 APTT 47 SECONDS (21-34) H D 01/16/18 03:23 - Head Exam Head Exam: ATRAUMATIC, NORMOCEPHALIC - Eye Exam Eye Exam: Normal appearance - ENT Exam ENT Exam: Mucous Membranes Moist - Respiratory Exam Respiratory Exam: Rales - Cardiovascular Exam Cardiovascular Exam: REGULAR RHYTHM - GI/Abdominal Exam GI & Abdominal Exam: Soft, Normal Bowel Sounds - Neurological Exam Neurological Exam: Alert, Oriented x3 Assessment and Plan (1) CHF (congestive heart failure) Assessment & Plan: Continue diuretics Status: Acute (2) COPD (chronic obstructive pulmonary disease) Assessment & Plan: continue nebulizer treatment Followup chest x-ray and ABG Clinically improving Physical therapy Status: Acute (3) Anemia Status: Acute (4) Acute renal insufficiency Status: Acute
[2018-01-18] MEDS: Ferric Sodium Gluconat Complex 62.5 mg/5 ml Vial IVPB SCH (17:23)
--- NOTE | 2018-01-18 17:58 | CP.PCM.CON ---
History of Present Illness - History of Present Illness History of Present Illness: 77 year old female with PMHx of diabetes, CHF, CAD, CABG and pacemaker replacement, lung ca ,status post lobectomy presented to the emergency room Monday night with complaint of SOB that started Monday morning, 01/14/18. Patient reports that she started to not feel well on Monday after attending a BBQ.Chest X-Ray on 01/14/18 showed severe pulmonary venous congestion and mild interstitial pulmonary edema. Results are consistent with mild congestive heart failure. Lung V/Q scan on 01/15/18 showed low probability for pulmonary embolism. PMHx: Anemia, arthritis, CAD, CHF, COPD, Hypertension, Diabetes, hypercholesterolemia Surgical Hx: CABG (2003) pacemaker, lung cancer status post lobectomy Allergies: pregabalin (itching)/ rosuvastatin (muscle cramps) Medications: Albuterol/ ipratropium 3 Mg/ 0.5 Mg (3Ml) Ud - 3 ml INH RQ6 Budesonide - 0.5 mg INH RQ12 Carvedilol - 6.25 mg PO BID Ceftriaxone Sodium 1 gm in Sodium Chloride -100 mls @ 100 mls/hr IVPB Q24H Furosemide - 40 mg IVP Daily Heparin Sodium/ Sodium Chloride - 25,000 units in 250 mls @ 8 mls/ hr IV Q24H Hydralazine Hcl - 50 mg PO BID Insulin Detemir -5 unit SC daily Review of Systems - Review of Systems All systems: reviewed and no additional remarkable complaints except - Constitutional Constitutional: As Per HPI - EENT Eyes: absent: As Per HPI, Blind Spots, Blurred Vision, Change in Vision, Decreased Night Vision, Diplopia, Discharge, Dry Eye, Exophthalmos, Floaters, Irritation, Itchy Eyes, Loss of Peripheral Vision, Pain, Photophobia, Requires Corrective Lenses, Sees Flashes, Spots in Vision, Tunnel Vision, Other Visual Disturbances, Loss of Vision, Other Ears: absent: As Per HPI, Decreased Hearing, Ear Discharge, Ear Pain, Tinnitus, Abnormal Hearing, Disequilibrium, Dizziness, Other Nose/Mouth/Throat: absent: As Per HPI, Epistaxis, Nasal Congestion, Nasal Discharge, Nasal Obstruction, Nasal Trauma, Nose Pain, Post Nasal Drip, Sinus Pain, Sinus Pressure, Bleeding Gums, Change in Voice, Dental Pain, Dry Mouth, Dysphagia, Halitosis, Hoarsness, Lip Swelling, Mouth Lesions, Mouth Pain, Odynophagia, Sore Throat, Throat Swelling, Tongue Swelling, Facial Pain, Neck Pain, Neck Mass, Other - Breasts Breasts: absent: As Per HPI, Change in Shape, Mass, Pain, Nipple Discharge, Nipple Inversion, Skin Changes, Swelling, Other - Cardiovascular Cardiovascular: As Per HPI - Respiratory Respiratory: As Per HPI - Gastrointestinal Gastrointestinal: absent: As Per HPI, Abdominal Pain, Belching, Bloating, Change in Bowel Habits, Change in Stool Character, Coffee Ground Emesis, Constipation, Cramping, Diarrhea, Dyspepsia, Dysphagia, Early Satiety, Excessive Flatus, Fecal Incontinence, Heartburn, Hematemesis, Hematochezia, Loose Stools, Melena, Nausea, Odynophagia, Temesmus, Vomiting, Other - Genitourinary Genitourinary: absent: As Per HPI, Change in Urinary Stream, Difficulty Urinating, Dysuria, Flank Pain, Hematuria, Pyuria, Nocturia, Urinary Incontinence, Urinary Frequency, Urinary Hesitance, Urinary Urgency, Voiding Freq/Small Amts, Freq UTI, Hx Renal/Bladder Calculi, Hx /Renal Surgery, Bladder Distension, Other - Reproductive: Female Reproductive:Female: absent: As Per HPI, Amenorrhea, Amenorrhea/ Control, Currently Menstual, Cycle <21 Days, Cycle >35 Days, Cycle Variable, Menses 1-7 Days, Menses >/= 8 Days, Menses Variable, Cycle > 4 Weeks Between, No Menses for 6 Months, Heavy Menses, Light Menses, Normal Menses, Spotting Between Cycles , S/P Hysterectomy, Menopausal, Post Menopausal, Premenarche, Abnormal Vaginal Bleeding, Dysmenorrhea, Dyspareunia, Genital Lesions, Genital Pruritis, Pelvic Pain, Prolapse Symptoms, Sexual Dysfunction, Vaginal Discharge, Vaginal Dryness , Vaginal Odor, Vaginal Pruritis, Other - Menstruation Menstruation: absent: As Per HPI, Amenorrhea, Amenorrhea/ Control, Currently Menstual, Cycle <21 Days, Cycle >35 Days, Cycle Variable, Menses 1-7 Days, Menses >/= 8 Days, Menses Variable, Cycle > 4 Weeks Between, No Menses for 6 Months, Heavy Menses, Light Menses, Normal Menses, Spotting Between Cycles , S/P Hysterectomy, Menopausal, Post Menopausal, Premenarche, Abnormal Vaginal Bleeding, Dysmenorrhea, Other - Musculoskeletal Musculoskeletal: absent: As Per HPI, Abnormal Gait, Arthralgias, Atrophy, Back Pain, Deformity, Joint Swelling, Limited Range of Motion, Loss of Height, Muscle Cramps, Muscle Weakness, Myalgias, Neck Pain, Numbness, Radiating Pain into Limb, Stiffness, Tingling, Other - Integumentary Integumentary: absent: As Per HPI, Acne, Alopecia, Bleeding Lesions, Change in Hair, Change in Nails, Change in Pigmentation, Changing Lesions, Dry Skin, Erythema, Furuncle, Hirsutism, Lesions, New Lesions, Non-Healing Lesions, Photosensitivity, Pruritus, Rash, Skin Pain, Skin Ulcer, Sores, Striae, Swelling , Unusual Bruising, Wounds, Jaundice, Other - Neurological Neurological: absent: As Per HPI, Abnormal Gait, Abnormal Hearing, Abnormal Movements, Abnormal Speech, Behavioral Changes, Burning Sensations, Confusion, Convulsions, Disequilibrium, Dizziness, Numbness, Focal Weakness, Frequent Falls , Headaches, Lack of Coordination, Loss of Vision, Memory Loss, Paresthesias, Radicular Pain, Restless Legs, Sensory Deficit, Syncope, Tingling, Tremor, Vertigo, Weakness, Other Visual Disturbances, Other - Psychiatric Psychiatric: absent: As Per HPI, Abnormal Sleep Pattern, Anhedonia, Anxiety, Auditory Hallucinations, Behavioral Changes, Change in Appetite, Change in Libido, Confusion, Depression, Difficulty Concentrating, Hallucinations, Homicidal Ideation, Hopelessness, Irritability, Memory Loss, Mood Swings, Panic Attacks, Paranoia, Suicidal Ideation, Visual Hallucinations, Tactile Hallucinations, Other - Endocrine Endocrine: absent: As Per HPI, Change in Body Appearance, Change in Libido, Cold Intolorance, Deepening of Voice, Excessive Sweating, Fatigue, Flushing, Heat Intolorance, Increase in Ring/Shoe/Hat Size, Palpitations, Polydipsia, Polyphagia, Polyuria, Other - Hematologic/Lymphatic Hematologic: absent: As Per HPI, Easy Bleeding, Easy Bruising, Lymphadenopathy, Other Past Patient History - Infectious Disease Hx of Infectious Diseases: None - Past Medical History & Family History Past Medical History?: Yes - Past Social History Smoking Status: Former Smoker - CARDIAC Hx Congestive Heart Failure: Yes Hx Hypercholesterolemia: Yes Hx Hypertension: Yes - PULMONARY Hx Chronic Obstructive Pulmonary Disease (COPD): Yes - NEUROLOGICAL Hx Paralysis: No - HEENT Hx HEENT Problems: No - RENAL Hx Chronic Kidney Disease: No - ENDOCRINE/METABOLIC Hx Endocrine Disorders: Yes Hx Diabetes Mellitus Type 1: Yes - HEMATOLOGICAL/ONCOLOGICAL Hx Anemia: Yes - INTEGUMENTARY Hx Dermatological Problems: No - MUSCULOSKELETAL/RHEUMATOLOGICAL Hx Arthritis: Yes Hx Falls: No - GASTROINTESTINAL Hx Gastrointestinal Disorders: No - GENITOURINARY/GYNECOLOGICAL Hx Genitourinary Disorders: No - PSYCHIATRIC Hx Substance Use: No - SURGICAL HISTORY Hx Coronary Artery Bypass Graft: Yes (2003) - ANESTHESIA Hx Anesthesia: Yes Hx Anesthesia Reactions: No Hx Malignant Hyperthermia: No Meds Allergies/Adverse Reactions: Allergies Allergy/AdvReac Type Severity Reaction Status Date / Time pregabalin [From Lyrica] Allergy ITCHING Verified 01/14/18 19:28 rosuvastatin [From Crestor] Allergy MUSCLE Verified 01/14/18 19:28 CRAMPS - Medications Medications: Current Medications Albuterol/Ipratropium (Duoneb 3 Mg/0.5 Mg (3 Ml) Ud) 3 ml INH RQ6 [facility] Last Admin: 01/18/18 13:44 Dose: 3 ml Budesonide (Pulmicort Respules) 0.5 mg INH RQ12 [facility] Last Admin: 01/18/18 07:41 Dose: 0.5 mg Carvedilol (Coreg) 6.25 mg PO BID [facility] Last Admin: 01/18/18 17:23 Dose: 6.25 mg Epoetin Amol (Procrit) 10,000 unit SC MWF [facility] Last Admin: 01/17/18 09:30 Dose: 10,000 unit Famotidine (Pepcid) 20 mg IVP DAILY [facility] Last Admin: 01/18/18 10:41 Dose: 20 mg Ferric Sodium Gluconate Complex (Ferrlecit) 125 mg IVPB DAILY [facility] Stop: 01/26/18 15:16 Last Admin: 01/18/18 17:23 Dose: 125 mg Furosemide (Lasix) 40 mg IVP DAILY [facility] Last Admin: 01/18/18 10:41 Dose: 40 mg Heparin Sodium (Porcine) (Heparin) 5,000 units SC Q12 [facility] Last Admin: 01/18/18 10:42 Dose: 5,000 units Hydralazine HCl (Apresoline) 50 mg PO Q8H [facility] Last Admin: 01/18/18 14:37 Dose: 50 mg Ceftriaxone Sodium 1 gm/ (Sodium Chloride) 100 mls @ 100 mls/hr IVPB Q24H [facility] PRN Reason: Protocol Last Admin: 01/18/18 17:23 Dose: 100 mls/hr Insulin Aspart (Novolog) 0 unit SC ACHS [facility] PRN Reason: Protocol Last Admin: 01/18/18 17:19 Dose: Not Given Insulin Detemir (Levemir) 5 unit SC DAILY [facility] Last Admin: 01/18/18 10:41 Dose: 5 unit Potassium Chloride (Klor-Con 10) 10 meq PO BRK [facility] Ticagrelor (Brilinta) 90 mg PO BID [facility] Last Admin: 01/18/18 17:23 Dose: 90 mg Vitamin B Complex/Vit C/Folic Acid (Nephro-Heraclio) 1 tab PO 0800 [facility] Last Admin: 01/18/18 07:50 Dose: 1 tab Zolpidem Tartrate (Ambien) 5 mg PO HS PRN PRN Reason: Insomnia Last Admin: 01/16/18 23:25 Dose: 5 mg Physical Exam - Constitutional Appears: Well - Head Exam Head Exam: ATRAUMATIC, NORMAL INSPECTION, NORMOCEPHALIC - Eye Exam Eye Exam: EOMI, Normal appearance, PERRL Pupil Exam: NORMAL ACCOMODATION, PERRL - ENT Exam ENT Exam: Mucous Membranes Moist, Normal Exam - Neck Exam Neck exam: Positive for: Normal Inspection - Respiratory Exam Respiratory Exam: Decreased Breath Sounds, Rhonchi - Cardiovascular Exam Cardiovascular Exam: REGULAR RHYTHM - GI/Abdominal Exam GI & Abdominal Exam: Normal Bowel Sounds, Soft. absent: Tenderness - Rectal Exam Rectal Exam: NORMAL INSPECTION - Exam Exam: Circumcision, NORMAL INSPECTION - Extremities Exam Extremities exam: Positive for: normal inspection - Back Exam Back exam: NORMAL INSPECTION - Neurological Exam Neurological exam: Alert, CN II-XII Intact, Normal Gait, Oriented x3, Reflexes Normal - Psychiatric Exam Psychiatric exam: Normal Affect, Normal Mood - Skin Skin Exam: Dry, Intact, Normal Color, Warm Results - Vital Signs Recent Vital Signs: Last Vital Signs Temp 98.6 F 01/18/18 12:00 Pulse 80 01/18/18 12:00 Resp 17 01/18/18 12:00 BP 137/89 01/18/18 12:00 Pulse Ox 99 01/18/18 08:00 - Labs Result Diagrams: 01/18/18 06:21 01/18/18 06:20 Labs: Laboratory Results - last 24 hr 01/17/18 01/18/18 01/18/18 21:10 06:20 06:21 WBC 4.9 RBC 2.80 L Hgb 8.7 L Hct 25.5 L MCV 91.0 MCH 30.9 MCHC 34.0 RDW 15.6 H Plt Count 165 MPV 8.7 Neut % (Auto) 81.4 H Lymph % (Auto) 9.7 L Fajardo % (Auto) 5.2 Eos % (Auto) 3.2 Baso % (Auto) 0.5 Neut # (Auto) 4.0 Lymph # (Auto) 0.5 L Fajardo # (Auto) 0.3 Eos # (Auto) 0.2 Baso # (Auto) 0.0 Neutrophils % (Manual) 87 H Lymphocytes % (Manual) 9 L Monocytes % (Manual) 4 Platelet Estimate Normal Polychromasia Slight Hypochromasia (manual) Slight Anisocytosis (manual) Slight Sodium 141 Potassium 3.4 L Chloride 106 Carbon Dioxide 26 Anion Gap 12 BUN 33 H Creatinine 1.7 H Est GFR ( Amer) 35 Est GFR (Non-Af Amer) 29 POC Glucose (mg/dL) 164 H Random Glucose 112 H Calcium 8.8 Total Bilirubin 0.6 AST 22 ALT 28 Alkaline Phosphatase 64 Total Protein 6.3 Albumin 3.3 L Globulin 3.0 Albumin/Globulin Ratio 1.1 01/18/18 01/18/18 07:11 12:10 WBC RBC Hgb Hct MCV MCH MCHC RDW Plt Count MPV Neut % (Auto) Lymph % (Auto) Fajardo % (Auto) Eos % (Auto) Baso % (Auto) Neut # (Auto) Lymph # (Auto) Fajardo # (Auto) Eos # (Auto) Baso # (Auto) Neutrophils % (Manual) Lymphocytes % (Manual) Monocytes % (Manual) Platelet Estimate Polychromasia Hypochromasia (manual) Anisocytosis (manual) Sodium Potassium Chloride Carbon Dioxide Anion Gap BUN Creatinine Est GFR ( Amer) Est GFR (Non-Af Amer) POC Glucose (mg/dL) 116 H 190 H Random Glucose Calcium Total Bilirubin AST ALT Alkaline Phosphatase Total Protein Albumin Globulin Albumin/Globulin Ratio Assessment & Plan (1) Anemia Status: Acute (2) CHF (congestive heart failure) Status: Acute (3) Dyspnea Status: Acute (4) Elevated d-dimer Status: Acute (5) Acute renal insufficiency Status: Acute (6) COPD (chronic obstructive pulmonary disease) Status: Acute (7) Chest pain Status: Acute (8) Chronic congestive heart failure Status: Acute (9) Dehydration Status: Acute - Assessment and Plan (Free Text) Assessment: cultures all neg agree with antibiotic coverage likely acute exac COPD/ CHF recc cardiology eval, stress test, echo and possible cardiac cath
--- NOTE | 2018-01-18 23:28 | CP.PCM.PN ---
Subjective - Date & Time of Evaluation Date of Evaluation: 01/18/18 Time of Evaluation: 08:30 - Subjective Subjective: less sob reacted to ambien last night Objective - Vital Signs/Intake and Output Vital Signs (last 24 hours): Temp Pulse Resp BP Pulse Ox 98.9 F 60 18 137/57 L 99 01/18/18 16:00 01/18/18 16:00 01/18/18 16:00 01/18/18 16:00 01/18/18 08:00 Intake and Output: 01/18/18 01/19/18 18:59 06:59 Intake Total 100 800 Output Total 500 Balance 100 300 - Medications Medications: Current Medications Albuterol/Ipratropium (Duoneb 3 Mg/0.5 Mg (3 Ml) Ud) 3 ml INH RQ6 [facility] Last Admin: 01/18/18 19:45 Dose: 3 ml Budesonide (Pulmicort Respules) 0.5 mg INH RQ12 [facility] Last Admin: 01/18/18 19:45 Dose: 0.5 mg Carvedilol (Coreg) 6.25 mg PO BID [facility] Last Admin: 01/18/18 17:23 Dose: 6.25 mg Epoetin Amol (Procrit) 10,000 unit SC MWF [facility] Last Admin: 01/17/18 09:30 Dose: 10,000 unit Famotidine (Pepcid) 20 mg IVP DAILY [facility] Last Admin: 01/18/18 10:41 Dose: 20 mg Ferric Sodium Gluconate Complex (Ferrlecit) 125 mg IVPB DAILY [facility] Stop: 01/26/18 15:16 Last Admin: 01/18/18 17:23 Dose: 125 mg Furosemide (Lasix) 40 mg IVP DAILY [facility] Last Admin: 01/18/18 10:41 Dose: 40 mg Heparin Sodium (Porcine) (Heparin) 5,000 units SC Q12 [facility] Last Admin: 01/18/18 21:40 Dose: 5,000 units Hydralazine HCl (Apresoline) 50 mg PO Q8H [facility] Last Admin: 01/18/18 21:40 Dose: 50 mg Ceftriaxone Sodium 1 gm/ (Sodium Chloride) 100 mls @ 100 mls/hr IVPB Q24H [facility] PRN Reason: Protocol Last Admin: 01/18/18 17:23 Dose: 100 mls/hr Insulin Aspart (Novolog) 0 unit SC ACHS [facility] PRN Reason: Protocol Last Admin: 01/18/18 21:41 Dose: Not Given Insulin Detemir (Levemir) 5 unit SC DAILY [facility] Last Admin: 01/18/18 10:41 Dose: 5 unit Potassium Chloride (Klor-Con 10) 10 meq PO BRK [facility] Ticagrelor (Brilinta) 90 mg PO BID [facility] Last Admin: 01/18/18 17:23 Dose: 90 mg Vitamin B Complex/Vit C/Folic Acid (Nephro-Heraclio) 1 tab PO 0800 [facility] Last Admin: 01/18/18 07:50 Dose: 1 tab Zolpidem Tartrate (Ambien) 5 mg PO HS PRN PRN Reason: Insomnia Last Admin: 01/16/18 23:25 Dose: 5 mg - Labs Labs: 01/18/18 06:21 01/18/18 06:20 PT 12.2 SECONDS (9.7-12.2) 01/15/18 07:09 INR 1.1 01/15/18 07:09 APTT 47 SECONDS (21-34) H D 01/16/18 03:23 - Constitutional Appears: Non-toxic - Eye Exam Eye Exam: absent: Scleral icterus - ENT Exam ENT Exam: Mucous Membranes Moist - Neck Exam Neck Exam: Full ROM - Respiratory Exam Respiratory Exam: absent: Decreased Breath Sounds - Cardiovascular Exam Cardiovascular Exam: REGULAR RHYTHM - GI/Abdominal Exam GI & Abdominal Exam: Soft - Extremities Exam Extremities Exam: Calf Tenderness. absent: Pedal Edema - Neurological Exam Neurological Exam: Alert. absent: Oriented x3 Assessment and Plan - Assessment and Plan (Free Text) Assessment: COPD CAD by hx Lung ca by hx CKD Plan: Cont meds DC Adelaida ID consult w/ Dr Gleason
--- NOTE | 2018-01-18 23:31 | CP.PCM.PN ---
Subjective - Date & Time of Evaluation Date of Evaluation: 01/17/18 Time of Evaluation: 10:00 - Subjective Subjective: somewhat improved less sob feels better Objective - Vital Signs/Intake and Output Vital Signs (last 24 hours): Temp Pulse Resp BP Pulse Ox 98.9 F 60 18 137/57 L 99 01/18/18 16:00 01/18/18 16:00 01/18/18 16:00 01/18/18 16:00 01/18/18 08:00 Intake and Output: 01/18/18 01/19/18 18:59 06:59 Intake Total 100 800 Output Total 500 Balance 100 300 - Medications Medications: Current Medications Albuterol/Ipratropium (Duoneb 3 Mg/0.5 Mg (3 Ml) Ud) 3 ml INH RQ6 [facility] Last Admin: 01/18/18 19:45 Dose: 3 ml Budesonide (Pulmicort Respules) 0.5 mg INH RQ12 [facility] Last Admin: 01/18/18 19:45 Dose: 0.5 mg Carvedilol (Coreg) 6.25 mg PO BID [facility] Last Admin: 01/18/18 17:23 Dose: 6.25 mg Epoetin Amol (Procrit) 10,000 unit SC MWF [facility] Last Admin: 01/17/18 09:30 Dose: 10,000 unit Famotidine (Pepcid) 20 mg IVP DAILY [facility] Last Admin: 01/18/18 10:41 Dose: 20 mg Ferric Sodium Gluconate Complex (Ferrlecit) 125 mg IVPB DAILY [facility] Stop: 01/26/18 15:16 Last Admin: 01/18/18 17:23 Dose: 125 mg Furosemide (Lasix) 40 mg IVP DAILY [facility] Last Admin: 01/18/18 10:41 Dose: 40 mg Heparin Sodium (Porcine) (Heparin) 5,000 units SC Q12 [facility] Last Admin: 01/18/18 21:40 Dose: 5,000 units Hydralazine HCl (Apresoline) 50 mg PO Q8H [facility] Last Admin: 01/18/18 21:40 Dose: 50 mg Ceftriaxone Sodium 1 gm/ (Sodium Chloride) 100 mls @ 100 mls/hr IVPB Q24H [facility] PRN Reason: Protocol Last Admin: 01/18/18 17:23 Dose: 100 mls/hr Insulin Aspart (Novolog) 0 unit SC ACHS [facility] PRN Reason: Protocol Last Admin: 01/18/18 21:41 Dose: Not Given Insulin Detemir (Levemir) 5 unit SC DAILY [facility] Last Admin: 01/18/18 10:41 Dose: 5 unit Potassium Chloride (Klor-Con 10) 10 meq PO BRK [facility] Ticagrelor (Brilinta) 90 mg PO BID [facility] Last Admin: 01/18/18 17:23 Dose: 90 mg Vitamin B Complex/Vit C/Folic Acid (Nephro-Heraclio) 1 tab PO 0800 [facility] Last Admin: 01/18/18 07:50 Dose: 1 tab Zolpidem Tartrate (Ambien) 5 mg PO HS PRN PRN Reason: Insomnia Last Admin: 01/16/18 23:25 Dose: 5 mg - Labs Labs: 01/18/18 06:21 01/18/18 06:20 PT 12.2 SECONDS (9.7-12.2) 01/15/18 07:09 INR 1.1 01/15/18 07:09 APTT 47 SECONDS (21-34) H D 01/16/18 03:23 - Constitutional Appears: Non-toxic, Chronically Ill - Head Exam Head Exam: absent: NORMAL INSPECTION - Eye Exam Eye Exam: absent: Scleral icterus - Respiratory Exam Respiratory Exam: absent: Decreased Breath Sounds - Cardiovascular Exam Cardiovascular Exam: REGULAR RHYTHM - GI/Abdominal Exam GI & Abdominal Exam: Soft - Extremities Exam Extremities Exam: absent: Pedal Edema Assessment and Plan - Assessment and Plan (Free Text) Assessment: COPD CAD T2dm Lung ca HTN CKD stage 3 Plan: Cont bronchodilators ECHO Cont meds
[2018-01-19] MEDS: Albuterol-Ipratrop 3 mg / 0.5 (3 ml) UD INH SCH ×4 (02:12→19:38)
--- NOTE | 2018-01-19 03:21 | CON ---
DATE: 01/18/2018 FOLLOWUP RENAL CONSULTATION LOCATION: The patient is located in ICU, bed 9. REQUESTED BY: Dr. Sharon Sheets. REASON FOR FOLLOWUP: Chronic kidney disease and shortness of breath for further evaluation. HISTORY OF PRESENT ILLNESS: Mrs. Villa is a 77-year-old elderly, very pleasant female with a past medical history significant for longstanding diabetes, hypertension, coronary artery disease, lung CA on the right side, status post lobectomy, coronary artery disease, status post CABG, and status post cardiac cath and stent placement about 6 months ago, acute renal failure, CHF, and status post pacemaker placement, anemia, who was admitted with the chief complaints of shortness of breath and bilateral leg swelling. The patient is being treated for CHF and also possible pneumonia. The patient is feeling much better, not in acute distress. No chest pain, no palpitation, no fever, and no cough. Status post SYSTEMS ANALYST 2 days ago for the respiratory distress. The patient is resting comfortably at this time. PHYSICAL EXAMINATION: VITAL SIGNS: As follows; blood pressure 139/56, pulse about 80, respirations 17, temperature 98.6, saturation 98%. Height 5 feet 2 inches and weight is 134 pounds. GENERAL: Mrs. Villa is a 77 years old elderly female, moderately built, moderately nourished, not in acute distress. HEENT: Pupils normal, reactive to light and accommodation. Conjunctivae slightly pale. Sclerae anicteric. Tongue is moist. Trachea is midline. LUNGS: Symmetric on both sides. Bilateral breath sounds present. Clear to auscultation. No crackles. The patient has a scar on the right scapular region. CVS: [place] at the fifth intercostal space and midclavicular area. S1, S2 audible. No murmur or gallop. The patient also has a left infra-axillary pacemaker and also midsternal scar present from the previous CABG. ABDOMEN: Normal in appearance, soft, tympanic. No guarding. No rigidity. No hepatosplenomegaly. 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 Nonfocal neuro examination. Cranial nerves II through XII grossly intact. Sensory and motor system is within normal limits. EXTREMITIES: No cyanosis, no clubbing, no edema. CURRENT MEDICATIONS: Include as follows, Ambien 5 mg at bedtime, hydralazine 50 mg p.o. every 8 hours, Brilinta 90 mg p.o. b.i.d., Rocephin 1 gm daily, Coreg 6.25 mg p.o. b.i.d., DuoNeb inhaler, Ferrlecit 125 mg daily first dose today, subcu heparin 5000 every 12 hours, Klor-Con 10 mEq p.o., Lasix 40 mg IV daily, Nephro-Heraclio 1 tablet daily, NovoLog for sliding scale, Pepcid 20 mg IV daily, Procrit 10,000 units 3 times a week, and Pulmicort 0.5 mg inhaler every 12 hours. LABORATORY DATA: Include as follows; as of 01/18/2018, WBC 4.9, hemoglobin 8.7, hematocrit is 25.5, platelets 165. Sodium 141, potassium 3.4, chloride 106, CO2 of 26, BUN 33, creatinine 1.7, glucose 112, calcium 8.8. Total bili 0.6, AST 22, ALT 28, alkaline phosphatase 64, total protein 6.3, albumin 3.3. IMPRESSION: Mrs. Villa is a 77 years old elderly female with a history of hypertension, diabetes, coronary artery disease, status post coronary artery bypass graft, chronic kidney disease, anemia, was admitted with shortness of breath and chronic obstructive pulmonary disease, ex-smoker, quit about 6 months ago, was admitted with shortness of breath. 1. Chronic kidney disease stage 3, most likely secondary to hypertensive nephrosclerosis, cannot rule out underlying diabetic nephropathy. The patient has a complete workup in the past. 2. Hypertension. 3. Diabetes. 4. Anemia secondary to chronic kidney disease and iron deficiency anemia. 5. Congestive heart failure. 6. Rule out pneumonia. PLAN: Continue IV antibiotics. Rocephin as per Dr. Sheets. Continue Procrit. Continue Nephro-Heraclio and also Epogen and IV iron. We will start Ferrlecit to 125 mg daily x8 doses. We will follow with you. Thank you for allowing me to participate in your patient's care, and Dr. Almeida is covering me for the next 3 days until Monday. Montez Hernandez MD
[2018-01-19 06:34] LABS: BASO % 0.8 % (0.0-2.0); EOS # 0.1 K/uL (0.0-0.7); EOS % 3.4 % (0.0-4.0); HEMOGLOBIN 8.6 g/dL (11.0-16.0); LYMPH # 0.5 K/uL (1.0-4.3); LYMPH % 11.4 % (20.0-40.0); MEAN CELL VOLUME 90.1 fL (81.0-99.0); MEAN CORPUSCULAR HEMOGLOBIN 30.7 pg (27.0-31.0); MEAN CORPUSCULAR HGB CONC 34.1 g/dL (33.0-37.0); MEAN PLATELET VOLUME 8.6 fL (7.2-11.7); MONO # 0.2 K/uL (0.0-0.8); MONO % 5.4 % (0.0-10.0); NEUT # 3.5 K/uL (1.8-7.0); NRBC % 0.1 % (0.0-2.0); RBC 2.79 Mil/uL (3.80-5.20); RED CELL DISTRIBUTION WIDTH 15.7 % (11.5-14.5); WHITE BLOOD COUNT 4.4 K/uL (4.8-10.8)
[2018-01-19 06:52] LABS: ALB/GLOB RATIO 1.1 (1.0-2.1); ALBUMIN 3.2 g/dL (3.5-5.0); CALCIUM 8.7 mg/dl (8.6-10.4)
[2018-01-19] MEDS: Budesonide 0.5 mg/2 ml Inhal Susp UD INH SCH ×2 (07:16→19:38)
--- NOTE | 2018-01-19 07:31 | CP.PCM.PN ---
Subjective - Date & Time of Evaluation Date of Evaluation: 01/16/18 Time of Evaluation: 08:30 - Subjective Subjective: still sob but better VQ scan-pending Cont heparin Objective - Vital Signs/Intake and Output Vital Signs (last 24 hours): Temp Pulse Resp BP Pulse Ox 98.4 F 90 15 158/86 H 98 01/19/18 04:00 01/19/18 04:00 01/19/18 04:00 01/19/18 04:00 01/19/18 04:00 Intake and Output: 01/19/18 01/19/18 06:59 18:59 Intake Total 800 Output Total 500 Balance 300 - Medications Medications: Current Medications Albuterol/Ipratropium (Duoneb 3 Mg/0.5 Mg (3 Ml) Ud) 3 ml INH RQ6 [facility] Last Admin: 01/19/18 07:16 Dose: 3 ml Budesonide (Pulmicort Respules) 0.5 mg INH RQ12 [facility] Last Admin: 01/19/18 07:16 Dose: 0.5 mg Carvedilol (Coreg) 6.25 mg PO BID [facility] Last Admin: 01/18/18 17:23 Dose: 6.25 mg Epoetin Amol (Procrit) 10,000 unit SC MWF [facility] Last Admin: 01/17/18 09:30 Dose: 10,000 unit Famotidine (Pepcid) 20 mg IVP DAILY [facility] Last Admin: 01/18/18 10:41 Dose: 20 mg Ferric Sodium Gluconate Complex (Ferrlecit) 125 mg IVPB DAILY [facility] Stop: 01/26/18 15:16 Last Admin: 01/18/18 17:23 Dose: 125 mg Furosemide (Lasix) 40 mg IVP DAILY [facility] Last Admin: 01/18/18 10:41 Dose: 40 mg Heparin Sodium (Porcine) (Heparin) 5,000 units SC Q12 [facility] Last Admin: 01/18/18 21:40 Dose: 5,000 units Hydralazine HCl (Apresoline) 50 mg PO Q8H [facility] Last Admin: 01/19/18 05:34 Dose: 50 mg Ceftriaxone Sodium 1 gm/ (Sodium Chloride) 100 mls @ 100 mls/hr IVPB Q24H [facility] PRN Reason: Protocol Last Admin: 01/18/18 17:23 Dose: 100 mls/hr Insulin Aspart (Novolog) 0 unit SC ACHS [facility] PRN Reason: Protocol Last Admin: 01/18/18 21:41 Dose: Not Given Insulin Detemir (Levemir) 5 unit SC DAILY [facility] Last Admin: 01/18/18 10:41 Dose: 5 unit Potassium Chloride (Klor-Con 10) 10 meq PO BRK [facility] Ticagrelor (Brilinta) 90 mg PO BID [facility] Last Admin: 01/18/18 17:23 Dose: 90 mg Vitamin B Complex/Vit C/Folic Acid (Nephro-Heraclio) 1 tab PO 0800 [facility] Last Admin: 01/18/18 07:50 Dose: 1 tab Zolpidem Tartrate (Ambien) 5 mg PO HS PRN PRN Reason: Insomnia Last Admin: 01/16/18 23:25 Dose: 5 mg - Labs Labs: 01/19/18 06:26 01/19/18 06:25 PT 12.2 SECONDS (9.7-12.2) 01/15/18 07:09 INR 1.1 01/15/18 07:09 APTT 47 SECONDS (21-34) H D 01/16/18 03:23 - Constitutional Appears: No Acute Distress - Head Exam Head Exam: NORMAL INSPECTION - Eye Exam Eye Exam: absent: Scleral icterus - ENT Exam ENT Exam: Mucous Membranes Moist - Neck Exam Neck Exam: Full ROM - Respiratory Exam Respiratory Exam: Decreased Breath Sounds - Cardiovascular Exam Cardiovascular Exam: REGULAR RHYTHM - GI/Abdominal Exam GI & Abdominal Exam: Soft. absent: Tenderness - Extremities Exam Extremities Exam: absent: Pedal Edema - Neurological Exam Neurological Exam: Alert, Oriented x3 Assessment and Plan - Assessment and Plan (Free Text) Assessment: COPD HTN CAD CKD Lung Ca T2dm Plan: Cont nebulizer tx Cont meds Pulmonary follow up
[2018-01-19] MEDS: (Novolog) Insulin Aspart, Recombinant 100 u/ml 10 ml vial SC SCH ×4 (08:38→22:02)
[2018-01-19] MEDS: Ferric Sodium Gluconat Complex 62.5 mg/5 ml Vial IVPB SCH (09:43)
[2018-01-19] MEDS: Potassium Chloride 10 mEq ER Tab PO SCH (09:43)
[2018-01-19] MEDS: Insulin Detemir 100 units/ml Vial (Levemir) SC SCH (09:44)
[2018-01-19] MEDS: Multivitamin Vitamin B Complex (Nephro-Vite) Tab PO SCH (09:45)
[2018-01-19] MEDS: EPOETIN ALFA 10,000 UNIT/ML ML SC SCH (09:45)
--- NOTE | 2018-01-19 12:38 | CP.PCM.PN ---
Subjective - Date & Time of Evaluation Date of Evaluation: 01/19/18 Time of Evaluation: 08:00 - Subjective Subjective: CC: Shortness of Breath HPI: Patient examined this morning at the bedside. Patient found sitting comfortably in chair. Patient is not in acute distress. Patient reports that breathing has improved. Patient denies chest pain and shortness of breath. Patient is afebrile. Lungs sounds are much improved. Patient will be transferred to the floor. ROS: Constitutional: Patient denies fever and chills. Cardiovascular: Patient denies chest pain, palpitations. Respiratory: Patient denies shortness of breath or cough. Gastrointestinal: Patient denies nausea, vomiting, diarrhea. Physical Exam HEENT: Atraumatic, normocephalic, mucuous membranes moist Repiratory: Minimal rales auscultated bilaterally. No wheezing or rhonchi. No use of accessory muscles. Cardiovascular: +S1/ S2, regular rate and rhythm GI: Normal bowel sounds in all 4 quadrants, no tenderness, no distention Extremities: No LE edema Neurological: Alert, awake, oriented X3 Assessment: 77 year old female with PMHx of diabetes, CHF, CAD, CABG and pacemaker replacement. Patient has CHF exacerbation and pneumonia which is resolving with treatment. 1. Congestive Heart Failure Status: Acute - Furosemide - 40 mg IVP Daily - Heparin Sodium/ Sodium Chloride - 5,000 units SC Q 12 - Hydralazine Hcl - 50 mg PO Q8H - Ticagrelor- 90 mg PO BID - Monitor renal function 2. Pneumonia Status: Acute - Ceftriaxone Sodium 1 gm in Sodium Chloride -100 mls @ 100 mls/hr IVPB Q24H 3. COPD Status: Chronic - Albuterol/ ipratropium 3 Mg/ 0.5 Mg (3Ml) Ud - 3 ml INH RQ6 - Budesonide - 0.5 mg INH RQ12 4. Anemia Status: Acute - Epoetin Amol - 10,000 unit SC MWF 5. Hypercholesterolemia Status: chronic - Continue Carvedilol 6. Diabetes Status: Chronic - Continue insulin detemir Objective - Vital Signs/Intake and Output Vital Signs (last 24 hours): Temp Pulse Resp BP Pulse Ox 98.7 F 84 22 163/80 H 96 01/19/18 12:00 01/19/18 12:00 01/19/18 12:00 01/19/18 12:00 01/19/18 08:00 Intake and Output: 01/19/18 01/19/18 06:59 18:59 Intake Total 800 100 Output Total 500 Balance 300 100 - Medications Medications: Current Medications Albuterol/Ipratropium (Duoneb 3 Mg/0.5 Mg (3 Ml) Ud) 3 ml INH RQ6 [facility] Last Admin: 01/19/18 07:16 Dose: 3 ml Budesonide (Pulmicort Respules) 0.5 mg INH RQ12 [facility] Last Admin: 01/19/18 07:16 Dose: 0.5 mg Carvedilol (Coreg) 6.25 mg PO BID [facility] Last Admin: 01/19/18 09:43 Dose: 6.25 mg Diphenhydramine HCl (Benadryl) 25 mg PO HS PRN PRN Reason: Sleep Epoetin Amol (Procrit) 10,000 unit SC MWF [facility] Last Admin: 01/19/18 09:45 Dose: 10,000 unit Famotidine (Pepcid) 20 mg PO DAILY [facility] Last Admin: 01/19/18 09:45 Dose: 20 mg Ferric Sodium Gluconate Complex (Ferrlecit) 125 mg IVPB DAILY [facility] Stop: 01/26/18 15:16 Last Admin: 01/19/18 09:43 Dose: 125 mg Furosemide (Lasix) 40 mg PO DAILY [facility] Last Admin: 01/19/18 09:44 Dose: 40 mg Heparin Sodium (Porcine) (Heparin) 5,000 units SC Q12 [facility] Last Admin: 01/19/18 09:45 Dose: 5,000 units Hydralazine HCl (Apresoline) 50 mg PO Q8H [facility] Last Admin: 01/19/18 05:34 Dose: 50 mg Ceftriaxone Sodium 1 gm/ (Sodium Chloride) 100 mls @ 100 mls/hr IVPB Q24H [facility] PRN Reason: Protocol Last Admin: 01/18/18 17:23 Dose: 100 mls/hr Insulin Aspart (Novolog) 0 unit SC ACHS [facility] PRN Reason: Protocol Last Admin: 01/19/18 08:38 Dose: Not Given Insulin Detemir (Levemir) 5 unit SC DAILY [facility] Last Admin: 01/19/18 09:44 Dose: 5 unit Losartan Potassium (Cozaar) 50 mg PO QPM [facility] Potassium Chloride (Klor-Con 10) 10 meq PO BRK [facility] Last Admin: 01/19/18 09:43 Dose: 10 meq Ticagrelor (Brilinta) 90 mg PO BID [facility] Last Admin: 01/19/18 09:43 Dose: 90 mg Vitamin B Complex/Vit C/Folic Acid (Nephro-Heraclio) 1 tab PO 0800 [facility] Last Admin: 01/19/18 09:45 Dose: 1 tab Zolpidem Tartrate (Ambien) 5 mg PO HS PRN PRN Reason: Insomnia Last Admin: 01/16/18 23:25 Dose: 5 mg - Labs Labs: 01/19/18 06:26 01/19/18 06:25 PT 12.2 SECONDS (9.7-12.2) 01/15/18 07:09 INR 1.1 01/15/18 07:09 APTT 47 SECONDS (21-34) H D 01/16/18 03:23 Assessment and Plan (1) CHF (congestive heart failure) Status: Acute (2) COPD (chronic obstructive pulmonary disease) Status: Acute (3) Anemia Status: Acute (4) Acute renal insufficiency Status: Acute
--- NOTE | 2018-01-19 12:41 | CP.PCM.PN ---
Subjective - Date & Time of Evaluation Date of Evaluation: 01/19/18 Time of Evaluation: 12:37 - Subjective Subjective: Nephrology Consultation Note covering for Dr Hernandez Assessment: Stable COPD/emphysema/hx of lung CA Diabetic chronic Kidney Disease (E11.22) Hypertensive Chronic Kidney Disease (I12.9) Chronic Kidney Disease (N18.3) Stage3 with ?mg proteinuria (R80.9) likely due to DM/HTN Anemia (D64.9), Hyperphosphatemia (E83.39), Secondary Hyperparathyroidism (E21.1 ), HTN (I12.9) CHF, severe pulmonary HTN, CAD s/p CABG Plan No acute need for renal replacement therapy at this time. Hypertension control with meds as ordered. Patient not on ACEI/ARB hence will add losartan 50 mg/day Monitor Input/Output, daily weights and renal function with basic metabolic panel continue with epogen, iron and MVI supplementation supplement lytes as needed continue with loop diuretics CHF optimization Check urine spot protein/creatinine and albumin/creatinine ratio. Check for 25- [place] vitamin D, iPTH, phosphorus level Dose meds/antibiotics for reduced GFR. Avoid fleets enema/magnesium based laxatives. Avoid nephrotoxins/NSAIDs/ iodinated contrast (unless needed emergently) Glycemic control Further work up for as per primary team Thanks for allowing me to participate in care of your patient. Please call if any Qs Dr Benito Almeida Office: [phone] Subjective: Noted events overnight. Patients feels okay. Denies chest pain, palpitation, shortness of breath, leg swelling. All other negative Physical Examination: General Appearance: Comfortable, in no acute respiratory distress, co-operative . Vitals reviewed and noted as below Head; Atraumatic, normocephalic ENT: no ulcers no thrush. Tongue is midline. Oropharynx: no rash or ulcers. EYES: Pupils are equal, round and reactive to light accommodation. Eye muscles and extraocular movement intact. Sclera is anicteric. Neck; supple no lymphadenopathy, no thyromegaly or bruit Lungs: Normal respiratory rate/effort. Breath sounds bilateral equal and bibasal crackles Heart: Normal rate. s1s2 normal. No rub or gallop. Extremities: no edema. No varicose veins Neurological: Patient is alert, awake and oriented to person, place and time. No focal deficit. Strength bilateral appropriate and equal Skin: Warm and dry. Normal turgor. No rash. Palpitation: Normal elasticity for age Abdomen: Abdomen is soft. Bowel sounds +. There is no abdominal tenderness, no guarding/rigidity no organomegaly Psych: normal insight and normal affect/mood MSK: no joint tenderness or swelling. Digits and nails normal, no deformity : kidney or bladder not palpable Labs/imaging reviewed. Past medical history, past surgical history, family history, social history, allergy reviewed and noted as below Family hx: no hx of CKD. Rest non-contributory work up: UA 2+ pr CT chest: pulm congestion and emphysema Echo: severe pHTN LVEF 35-40% TSAT 14% ferritin 30 Objective - Vital Signs/Intake and Output Vital Signs (last 24 hours): Temp Pulse Resp BP Pulse Ox 98.7 F 84 22 163/80 H 96 01/19/18 12:00 01/19/18 12:00 01/19/18 12:00 01/19/18 12:00 01/19/18 08:00 Intake and Output: 01/19/18 01/19/18 06:59 18:59 Intake Total 800 100 Output Total 500 Balance 300 100 - Medications Medications: Current Medications Albuterol/Ipratropium (Duoneb 3 Mg/0.5 Mg (3 Ml) Ud) 3 ml INH RQ6 [facility] Last Admin: 01/19/18 07:16 Dose: 3 ml Budesonide (Pulmicort Respules) 0.5 mg INH RQ12 [facility] Last Admin: 01/19/18 07:16 Dose: 0.5 mg Carvedilol (Coreg) 6.25 mg PO BID [facility] Last Admin: 01/19/18 09:43 Dose: 6.25 mg Diphenhydramine HCl (Benadryl) 25 mg PO HS PRN PRN Reason: Sleep Epoetin Amol (Procrit) 10,000 unit SC MWF [facility] Last Admin: 01/19/18 09:45 Dose: 10,000 unit Famotidine (Pepcid) 20 mg PO DAILY [facility] Last Admin: 01/19/18 09:45 Dose: 20 mg Ferric Sodium Gluconate Complex (Ferrlecit) 125 mg IVPB DAILY [facility] Stop: 01/26/18 15:16 Last Admin: 01/19/18 09:43 Dose: 125 mg Furosemide (Lasix) 40 mg PO DAILY [facility] Last Admin: 01/19/18 09:44 Dose: 40 mg Heparin Sodium (Porcine) (Heparin) 5,000 units SC Q12 [facility] Last Admin: 01/19/18 09:45 Dose: 5,000 units Hydralazine HCl (Apresoline) 50 mg PO Q8H [facility] Last Admin: 01/19/18 05:34 Dose: 50 mg Ceftriaxone Sodium 1 gm/ (Sodium Chloride) 100 mls @ 100 mls/hr IVPB Q24H [facility] PRN Reason: Protocol Last Admin: 01/18/18 17:23 Dose: 100 mls/hr Insulin Aspart (Novolog) 0 unit SC ACHS [facility] PRN Reason: Protocol Last Admin: 01/19/18 08:38 Dose: Not Given Insulin Detemir (Levemir) 5 unit SC DAILY [facility] Last Admin: 01/19/18 09:44 Dose: 5 unit Losartan Potassium (Cozaar) 50 mg PO QPM [facility] Potassium Chloride (Klor-Con 10) 10 meq PO BRK [facility] Last Admin: 01/19/18 09:43 Dose: 10 meq Ticagrelor (Brilinta) 90 mg PO BID [facility] Last Admin: 01/19/18 09:43 Dose: 90 mg Vitamin B Complex/Vit C/Folic Acid (Nephro-Heraclio) 1 tab PO 0800 [facility] Last Admin: 01/19/18 09:45 Dose: 1 tab Zolpidem Tartrate (Ambien) 5 mg PO HS PRN PRN Reason: Insomnia Last Admin: 01/16/18 23:25 Dose: 5 mg - Labs Labs: 01/19/18 06:26 01/19/18 06:25 PT 12.2 SECONDS (9.7-12.2) 01/15/18 07:09 INR 1.1 01/15/18 07:09 APTT 47 SECONDS (21-34) H D 01/16/18 03:23
--- NOTE | 2018-01-19 17:09 | CP.PCM.PN ---
Subjective - Date & Time of Evaluation Date of Evaluation: 01/19/18 Time of Evaluation: 09:35 - Subjective Subjective: breathing better no chest pain VSS Objective - Vital Signs/Intake and Output Vital Signs (last 24 hours): Temp Pulse Resp BP Pulse Ox 98.6 F 74 22 159/60 H 96 01/19/18 16:00 01/19/18 16:00 01/19/18 16:00 01/19/18 16:00 01/19/18 16:00 Intake and Output: 01/19/18 01/19/18 06:59 18:59 Intake Total 800 840 Output Total 500 Balance 300 840 - Medications Medications: Current Medications Albuterol/Ipratropium (Duoneb 3 Mg/0.5 Mg (3 Ml) Ud) 3 ml INH RQ6 [facility] Last Admin: 01/19/18 13:15 Dose: 3 ml Budesonide (Pulmicort Respules) 0.5 mg INH RQ12 [facility] Last Admin: 01/19/18 07:16 Dose: 0.5 mg Carvedilol (Coreg) 6.25 mg PO BID [facility] Last Admin: 01/19/18 09:43 Dose: 6.25 mg Diphenhydramine HCl (Benadryl) 25 mg PO HS PRN PRN Reason: Sleep Epoetin Amol (Procrit) 10,000 unit SC MWF [facility] Last Admin: 01/19/18 09:45 Dose: 10,000 unit Famotidine (Pepcid) 20 mg PO DAILY [facility] Last Admin: 01/19/18 09:45 Dose: 20 mg Ferric Sodium Gluconate Complex (Ferrlecit) 125 mg IVPB DAILY [facility] Stop: 01/26/18 15:16 Last Admin: 01/19/18 09:43 Dose: 125 mg Furosemide (Lasix) 40 mg PO DAILY [facility] Last Admin: 01/19/18 09:44 Dose: 40 mg Heparin Sodium (Porcine) (Heparin) 5,000 units SC Q12 [facility] Last Admin: 01/19/18 09:45 Dose: 5,000 units Hydralazine HCl (Apresoline) 50 mg PO Q8H [facility] Last Admin: 01/19/18 13:42 Dose: 50 mg Ceftriaxone Sodium 1 gm/ (Sodium Chloride) 100 mls @ 100 mls/hr IVPB Q24H [facility] PRN Reason: Protocol Last Admin: 01/18/18 17:23 Dose: 100 mls/hr Insulin Aspart (Novolog) 0 unit SC ACHS [facility] PRN Reason: Protocol Last Admin: 01/19/18 12:46 Dose: 1 unit Insulin Detemir (Levemir) 5 unit SC DAILY [facility] Last Admin: 01/19/18 09:44 Dose: 5 unit Losartan Potassium (Cozaar) 50 mg PO QPM [facility] Potassium Chloride (Klor-Con 10) 10 meq PO BRK [facility] Last Admin: 01/19/18 09:43 Dose: 10 meq Ticagrelor (Brilinta) 90 mg PO BID [facility] Last Admin: 01/19/18 09:43 Dose: 90 mg Vitamin B Complex/Vit C/Folic Acid (Nephro-Heraclio) 1 tab PO 0800 [facility] Last Admin: 01/19/18 09:45 Dose: 1 tab Zolpidem Tartrate (Ambien) 5 mg PO HS PRN PRN Reason: Insomnia Last Admin: 01/16/18 23:25 Dose: 5 mg - Labs Labs: 01/19/18 06:26 01/19/18 06:25 PT 12.2 SECONDS (9.7-12.2) 01/15/18 07:09 INR 1.1 01/15/18 07:09 APTT 47 SECONDS (21-34) H D 01/16/18 03:23 - Constitutional Appears: No Acute Distress - Head Exam Head Exam: NORMAL INSPECTION - Eye Exam Eye Exam: absent: Scleral icterus - ENT Exam ENT Exam: Mucous Membranes Moist - Neck Exam Neck Exam: Full ROM - Respiratory Exam Respiratory Exam: Decreased Breath Sounds - Cardiovascular Exam Cardiovascular Exam: REGULAR RHYTHM - GI/Abdominal Exam GI & Abdominal Exam: Soft - Extremities Exam Extremities Exam: absent: Pedal Edema - Neurological Exam Neurological Exam: Alert, Oriented x3 Assessment and Plan - Assessment and Plan (Free Text) Assessment: CHF CAD HTN CKD Lung ca T2dm Chronic anemia Plan: Cont nebulizer tx Physical therapy
--- NOTE | 2018-01-19 18:07 | CP.PCM.PN ---
Subjective - Date & Time of Evaluation Date of Evaluation: 01/19/18 Time of Evaluation: 08:00 - Subjective Subjective: SEEN IN ICU AWAKE ALERT LESS SOB Objective - Vital Signs/Intake and Output Vital Signs (last 24 hours): Temp Pulse Resp BP Pulse Ox 98.6 F 74 22 159/60 H 96 01/19/18 16:00 01/19/18 16:00 01/19/18 16:00 01/19/18 16:00 01/19/18 16:00 Intake and Output: 01/19/18 01/19/18 06:59 18:59 Intake Total 800 840 Output Total 500 Balance 300 840 - Medications Medications: Current Medications Albuterol/Ipratropium (Duoneb 3 Mg/0.5 Mg (3 Ml) Ud) 3 ml INH RQ6 [facility] [place] Last Admin: 01/19/18 13:15 Dose: 3 ml Budesonide (Pulmicort Respules) 0.5 mg INH RQ12 [facility] [place] Last Admin: 01/19/18 07:16 Dose: 0.5 mg Carvedilol (Coreg) 6.25 mg PO BID [facility] [place] Last Admin: 01/19/18 17:22 Dose: 6.25 mg Diphenhydramine HCl (Benadryl) 25 mg PO HS PRN PRN Reason: Sleep Epoetin Amol (Procrit) 10,000 unit SC MWF [facility] [place] Last Admin: 01/19/18 09:45 Dose: 10,000 unit Famotidine (Pepcid) 20 mg PO DAILY [facility] [place] Last Admin: 01/19/18 09:45 Dose: 20 mg Ferric Sodium Gluconate Complex (Ferrlecit) 125 mg IVPB DAILY [facility] [place] Stop: 01/26/18 15:16 Last Admin: 01/19/18 09:43 Dose: 125 mg Furosemide (Lasix) 40 mg PO DAILY [facility] [place] Last Admin: 01/19/18 09:44 Dose: 40 mg Heparin Sodium (Porcine) (Heparin) 5,000 units SC Q12 [facility] [place] Last Admin: 01/19/18 09:45 Dose: 5,000 units Hydralazine HCl (Apresoline) 50 mg PO Q8H [facility] [place] Last Admin: 01/19/18 13:42 Dose: 50 mg Ceftriaxone Sodium 1 gm/ (Sodium Chloride) 100 mls @ 100 mls/hr IVPB Q24H [facility] [place] PRN Reason: Protocol Last Admin: 01/19/18 17:23 Dose: 100 mls/hr Insulin Aspart (Novolog) 0 unit SC ACHS [facility] [place] PRN Reason: Protocol Last Admin: 01/19/18 17:37 Dose: Not Given Insulin Detemir (Levemir) 5 unit SC DAILY [facility] [place] Last Admin: 01/19/18 09:44 Dose: 5 unit Losartan Potassium (Cozaar) 50 mg PO QPM [facility] [place] Last Admin: 01/19/18 17:22 Dose: 50 mg Potassium Chloride (Klor-Con 10) 10 meq PO BRK [facility] [place] Last Admin: 01/19/18 09:43 Dose: 10 meq Ticagrelor (Brilinta) 90 mg PO BID [facility] [place] Last Admin: 01/19/18 17:22 Dose: 90 mg Vitamin B Complex/Vit C/Folic Acid (Nephro-Heraclio) 1 tab PO 0800 [facility] [place] Last Admin: 01/19/18 09:45 Dose: 1 tab Zolpidem Tartrate (Ambien) 5 mg PO HS PRN PRN Reason: Insomnia Last Admin: 01/16/18 23:25 Dose: 5 mg - Labs Labs: 01/19/18 06:26 01/19/18 06:25 PT 12.2 SECONDS (9.7-12.2) 01/15/18 07:09 INR 1.1 01/15/18 07:09 APTT 47 SECONDS (21-34) H D 01/16/18 03:23 - Constitutional Appears: Non-toxic, Chronically Ill - Head Exam Head Exam: NORMOCEPHALIC - Eye Exam Eye Exam: PERRL - ENT Exam ENT Exam: Normal External Ear Exam - Neck Exam Neck Exam: absent: Lymphadenopathy - Respiratory Exam Respiratory Exam: Decreased Breath Sounds - Cardiovascular Exam Cardiovascular Exam: REGULAR RHYTHM - GI/Abdominal Exam GI & Abdominal Exam: Distended - Rectal Exam Rectal Exam: Deferred - Exam Exam: NORMAL INSPECTION - Extremities Exam Extremities Exam: absent: Pedal Edema - Back Exam Back Exam: absent: CVA tenderness (L), CVA tenderness (R) - Neurological Exam Neurological Exam: Alert, Awake, Oriented x3 - Psychiatric Exam Psychiatric exam: Depressed Assessment and Plan (1) Anemia Status: Acute (2) CHF (congestive heart failure) Status: Acute (3) Dyspnea Status: Acute (4) Elevated d-dimer Status: Acute (5) Acute renal insufficiency Status: Acute (6) COPD (chronic obstructive pulmonary disease) Status: Acute (7) Chest pain Status: Acute (8) Chronic congestive heart failure Status: Acute (9) Dehydration Status: Acute - Assessment and Plan (Free Text) Assessment: OK TO D/C IV ANTIBIOTICS
[2018-01-20] MEDS: Albuterol-Ipratrop 3 mg / 0.5 (3 ml) UD INH SCH (02:02)
[2018-01-20 06:24] LABS: BASO # 0.1 K/uL (0.0-0.2); BASO % 1.2 % (0.0-2.0); EOS # 0.2 K/uL (0.0-0.7); EOS % 3.6 % (0.0-4.0); HEMOGLOBIN 8.7 g/dL (11.0-16.0); LYMPH # 0.6 K/uL (1.0-4.3); LYMPH % 12.8 % (20.0-40.0); MEAN CELL VOLUME 91.3 fL (81.0-99.0); MEAN CORPUSCULAR HEMOGLOBIN 31.1 pg (27.0-31.0); MEAN CORPUSCULAR HGB CONC 34.1 g/dL (33.0-37.0); MEAN PLATELET VOLUME 8.2 fL (7.2-11.7); MONO # 0.3 K/uL (0.0-0.8); MONO % 6.8 % (0.0-10.0); NEUT # 3.3 K/uL (1.8-7.0); NEUT % 75.6 % (50.0-75.0); NRBC % 0.1 % (0.0-2.0); RBC 2.8 Mil/uL (3.80-5.20); RED CELL DISTRIBUTION WIDTH 16.1 % (11.5-14.5); WHITE BLOOD COUNT 4.3 K/uL (4.8-10.8)
[2018-01-20 06:40] LABS: CALCIUM 8.9 mg/dl (8.6-10.4)
[2018-01-20] MEDS: (Novolog) Insulin Aspart, Recombinant 100 u/ml 10 ml vial SC SCH ×3 (08:00→17:04)
[2018-01-20] MEDS: Multivitamin Vitamin B Complex (Nephro-Vite) Tab PO SCH (08:31)
[2018-01-20] MEDS: Potassium Chloride 10 mEq ER Tab PO SCH (08:31)
[2018-01-20 08:41] VITALS: RESP 17
[2018-01-20] MEDS: Budesonide 0.5 mg/2 ml Inhal Susp UD INH SCH (09:07)
[2018-01-20] MEDS: Ferric Sodium Gluconat Complex 62.5 mg/5 ml Vial IVPB SCH (09:21)
[2018-01-20] MEDS: Insulin Detemir 100 units/ml Vial (Levemir) SC SCH (09:22)
[2018-01-20] MEDS ORDERED: Ergocalciferol 50,000 Intl Units Cap PO SCH (10:00)
[2018-01-20 11:39] VITALS: PULSE 77
[2018-01-20 16:45] VITALS: BP 132/72; TEMP 98.7; O2SAT 97
--- NOTE | 2018-01-20 18:16 | CP.PCM.PN ---
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 Hypertension control with meds as ordered. Patient not on ACEI/ARB hence will add losartan 100 mg/day Monitor Input/Output, daily weights and renal function with basic metabolic panel continue with epogen, iron and MVI supplementation supplement lytes as needed continue with loop diuretics CHF optimization supplement weekly Vit D Check urine spot protein/creatinine and albumin/creatinine ratio. Check for 25- [place] vitamin D, iPTH, phosphorus level Dose meds/antibiotics for reduced GFR. Avoid fleets enema/magnesium based laxatives. Avoid nephrotoxins/NSAIDs/ iodinated contrast (unless needed emergently) Glycemic control Further work up for as per primary team Thanks for allowing me to participate in care of your patient. Please call if any Qs Dr Benito Almeida Office: [phone] Subjective: Noted events overnight. Patients feels okay. Denies chest pain, palpitation, shortness of breath, leg swelling. All other negative Physical Examination: General Appearance: Comfortable, in no acute respiratory distress, co-operative . Vitals reviewed and noted as below Head; Atraumatic, normocephalic ENT: no ulcers no thrush. Tongue is midline. Oropharynx: no rash or ulcers. EYES: Pupils are equal, round and reactive to light accommodation. Eye muscles and extraocular movement intact. Sclera is anicteric. Neck; supple no lymphadenopathy, no thyromegaly or bruit Lungs: Normal respiratory rate/effort. Breath sounds bilateral equal and bibasal crackles Heart: Normal rate. s1s2 normal. No rub or gallop. Extremities: no edema. No varicose veins Neurological: Patient is alert, awake and oriented to person, place and time. No focal deficit. Strength bilateral appropriate and equal Skin: Warm and dry. Normal turgor. No rash. Palpitation: Normal elasticity for age Abdomen: Abdomen is soft. Bowel sounds +. There is no abdominal tenderness, no guarding/rigidity no organomegaly Psych: normal insight and normal affect/mood MSK: no joint tenderness or swelling. Digits and nails normal, no deformity : kidney or bladder not palpable Labs/imaging reviewed. Past medical history, past surgical history, family history, social history, allergy reviewed and noted as below Family hx: no hx of CKD. Rest non-contributory work up: UA 2+ pr CT chest: pulm congestion and emphysema Echo: severe pHTN LVEF 35-40% TSAT 14% ferritin 30 Objective - Vital Signs/Intake and Output Vital Signs (last 24 hours): Temp Pulse Resp BP Pulse Ox 98.7 F 77 17 132/72 97 01/20/18 16:00 01/20/18 16:00 01/20/18 16:00 01/20/18 16:00 01/20/18 16:00 Intake and Output: 01/20/18 01/20/18 06:59 18:59 Intake Total 300 Output Total 800 Balance -500 - Medications Medications: Current Medications Budesonide (Pulmicort Respules) 0.5 mg INH RQ12 [facility] Last Admin: 01/20/18 09:07 Dose: 0.5 mg Carvedilol (Coreg) 6.25 mg PO BID [facility] Last Admin: 01/20/18 17:06 Dose: 6.25 mg Diphenhydramine HCl (Benadryl) 25 mg PO HS PRN PRN Reason: Sleep Ergocalciferol (Drisdol 50,000 Intl Units Cap) 1 cap PO Q7D [facility] Last Admin: 01/20/18 10:56 Dose: 1 cap Famotidine (Pepcid) 20 mg PO DAILY [facility] Last Admin: 01/20/18 09:21 Dose: 20 mg Ferric Sodium Gluconate Complex (Ferrlecit) 125 mg IVPB DAILY [facility] Stop: 01/26/18 15:16 Last Admin: 01/20/18 09:21 Dose: 125 mg Furosemide (Lasix) 40 mg PO DAILY [facility] Last Admin: 01/20/18 09:21 Dose: 40 mg Hydralazine HCl (Apresoline) 50 mg PO Q8H [facility] Last Admin: 01/20/18 15:11 Dose: 50 mg Insulin Aspart (Novolog) 0 unit SC ACHS [facility] PRN Reason: Protocol Last Admin: 01/20/18 17:04 Dose: 1 unit Insulin Detemir (Levemir) 5 unit SC DAILY [facility] Last Admin: 01/20/18 09:22 Dose: 5 unit Losartan Potassium (Cozaar) 100 mg PO DAILY [facility] Last Admin: 01/20/18 10:56 Dose: 100 mg Potassium Chloride (Klor-Con 10) 10 meq PO BRK [facility] Last Admin: 01/20/18 08:31 Dose: 10 meq Ticagrelor (Brilinta) 90 mg PO BID [facility] Last Admin: 01/20/18 17:06 Dose: 90 mg Vitamin B Complex/Vit C/Folic Acid (Nephro-Heraclio) 1 tab PO 0800 [facility] Last Admin: 01/20/18 08:31 Dose: 1 tab - Labs Labs: 01/20/18 06:14 01/20/18 06:14 PT 12.2 SECONDS (9.7-12.2) 01/15/18 07:09 INR 1.1 01/15/18 07:09 APTT 47 SECONDS (21-34) H D 01/16/18 03:23
--- NOTE | 2018-01-23 10:54 | IP.NPCORE ---
Heart Failure Core Measure - Heart Failure Ejection Fraction: Less Than 40 % JAS Inhibitor Prescribed: No Contraindication/Reason for not providing: ARB Beta-Tiki Prescribed: Carvedilol Angiotensin II Receptor Tiki Prescribed: Yes AnticoagulationTherapy for Atrial Fibrillation/Atrialflutter: No Contraindication/Reason for not providing: NO HX OF AFIB Hydralazine Nitrate Prescribed: Yes Implantable Cardioverter Defibrillator Therapy: Yes Cardiac Resynchronization Therapy Prescribed: No Contraindication/Reason for not providing: PATIENT HAS A PACEMAKER - Follow up Will be discharged to: Long Term Facility ([facility])
--- NOTE | 2018-04-13 09:43 | CP.PCM.DIS ---
Provider - Provider Date of Admission: 01/14/18 21:23 Attending physician: Sharon Sheets MD Primary care physician: Sharon Sheets MD Consults: Dr Victorino Galvez Time Spent in preparation of Discharge (in minutes): 35 Diagnosis - Discharge Diagnosis (1) COPD (chronic obstructive pulmonary disease) Status: Acute (2) CHF (congestive heart failure), NYHA class IV Status: Acute (3) CAD (coronary artery disease) of artery bypass graft Status: Acute (4) Chronic kidney disease (CKD) Status: Acute (5) Chronic kidney disease due to type 2 diabetes mellitus Status: Acute (6) Lung cancer Status: Acute Hospital Course - Lab Results Lab Results: Micro Results 01/20/18 06:00 Naris MRSA Culture - Final MRSA NOT DETECTED 01/16/18 16:27 Nose MRSA Culture (Admit) - Final MRSA NOT DETECTED Most Recent Lab Values WBC 4.3 K/uL (4.8-10.8) L 01/20/18 06:14 RBC 2.80 Mil/uL (3.80-5.20) L 01/20/18 06:14 Hgb 8.7 g/dL (11.0-16.0) L 01/20/18 06:14 Hct 25.6 % (34.0-47.0) L 01/20/18 06:14 MCV 91.3 fL (81.0-99.0) 01/20/18 06:14 MCH 31.1 pg (27.0-31.0) H 01/20/18 06:14 MCHC 34.1 g/dL (33.0-37.0) 01/20/18 06:14 RDW 16.1 % (11.5-14.5) H 01/20/18 06:14 Plt Count 162 K/uL (130-400) 01/20/18 06:14 MPV 8.2 fL (7.2-11.7) 01/20/18 06:14 Neut % (Auto) 75.6 % (50.0-75.0) H 01/20/18 06:14 Lymph % (Auto) 12.8 % (20.0-40.0) L 01/20/18 06:14 Carlton % (Auto) 6.8 % (0.0-10.0) 01/20/18 06:14 Eos % (Auto) 3.6 % (0.0-4.0) 01/20/18 06:14 Baso % (Auto) 1.2 % (0.0-2.0) 01/20/18 06:14 Neut # (Auto) 3.3 K/uL (1.8-7.0) 01/20/18 06:14 Lymph # (Auto) 0.6 K/uL (1.0-4.3) L 01/20/18 06:14 Carlton # (Auto) 0.3 K/uL (0.0-0.8) 01/20/18 06:14 Eos # (Auto) 0.2 K/uL (0.0-0.7) 01/20/18 06:14 Baso # (Auto) 0.1 K/uL (0.0-0.2) 01/20/18 06:14 Neutrophils % (Manual) 87 % (50-75) H 01/18/18 06:21 Band Neutrophils % 1 % (0-2) 01/16/18 06:15 Lymphocytes % (Manual) 9 % (20-40) L 01/18/18 06:21 Monocytes % (Manual) 4 % (0-10) 01/18/18 06:21 Platelet Estimate Normal (NORMAL) 01/18/18 06:21 Polychromasia Slight 01/18/18 06:21 Hypochromasia (manual) Slight 01/18/18 06:21 Anisocytosis (manual) Slight 01/18/18 06:21 PT 12.2 SECONDS (9.7-12.2) 01/15/18 07:09 INR 1.1 01/15/18 07:09 APTT 47 SECONDS (21-34) H D 01/16/18 03:23 D-Dimer, Quantitative 804 ng/mlDDU (0-243) H 01/15/18 07:09 Puncture Site Rradial 01/14/18 20:20 pCO2 37 mm/Hg (35-45) 01/14/18 20:20 pO2 92 mm/Hg (80-100) 01/14/18 20:20 HCO3 26.9 mmol/L (21-28) 01/14/18 20:20 ABG pH 7.46 (7.35-7.45) H 01/14/18 20:20 ABG Total CO2 27.4 mmol/L (22-28) 01/14/18 20:20 ABG O2 Saturation 98.7 % (95-98) H 01/14/18 20:20 ABG Base Excess 2.5 mmol/L (-2.0-3.0) 01/14/18 20:20 Da Test Pos 01/14/18 20:20 ABG Potassium 3.3 mmol/L (3.6-5.2) L 01/14/18 20:20 A-a O2 Difference 61.0 mm/Hg 01/14/18 20:20 Respiratory Index 0.7 01/14/18 20:20 Sodium 143.0 mmol/l (132-148) 01/14/18 20:20 Chloride 114.0 mmol/L (98-107) H 01/14/18 20:20 Glucose 115 mg/dl (65-105) H 01/14/18 20:20 Lactate 0.6 mmol/L (0.7-2.1) L 01/14/18 20:20 Liter Flow 2.0 01/14/18 20:20 FiO2 28.0 % 01/14/18 20:20 Sodium 142 mmol/L (132-148) 01/20/18 06:14 Potassium 3.8 mmol/L (3.6-5.2) 01/20/18 06:14 Chloride 108 mmol/L (98-107) H 01/20/18 06:14 Carbon Dioxide 29 mmol/L (22-30) 01/20/18 06:14 Anion Gap 9 (10-20) L 01/20/18 06:14 BUN 30 mg/dL (7-17) H 01/20/18 06:14 Creatinine 1.9 mg/dL (0.7-1.2) H 01/20/18 06:14 Est GFR ( Amer) 31 01/20/18 06:14 Est GFR (Non-Af Amer) 26 01/20/18 06:14 POC Glucose (mg/dL) 175 mg/dL (65-110) H 01/20/18 16:11 Random Glucose 119 mg/dL (65-105) H 01/20/18 06:14 Calcium 8.9 mg/dl (8.6-10.4) 01/20/18 06:14 Magnesium 2.4 mg/dL (1.6-2.3) H 01/14/18 20:15 Iron 39 ug/dL (37-170) 01/15/18 18:41 TIBC 286 ug/dL (250-450) 01/15/18 18:41 % Saturation 14 (20-55) L 01/15/18 18:41 Ferritin 30.5 ng/mL 01/15/18 18:41 Total Bilirubin 0.4 mg/dL (0.2-1.3) 01/20/18 06:14 AST 20 U/L (14-36) 01/20/18 06:14 ALT 17 U/L (9-52) 01/20/18 06:14 Alkaline Phosphatase 60 U/L (38-126) 01/20/18 06:14 Troponin I 0.0560 ng/mL (0.00-0.120) 01/14/18 20:15 NT-Pro-B Natriuret Pep 3640 pg/mL (0-900) H 01/14/18 20:56 Total Protein 6.0 g/dL (6.3-8.3) L 01/20/18 06:14 Albumin 3.0 g/dL (3.5-5.0) L 01/20/18 06:14 Globulin 3.0 gm/dL (2.2-3.9) 01/20/18 06:14 Albumin/Globulin Ratio 1.0 (1.0-2.1) 01/20/18 06:14 25-OH Vitamin D Total 19.5 NG/ML (30.0-100.0) L 01/20/18 06:14 Arterial Blood Potassium 3.3 mmol/L (3.6-5.2) L 01/14/18 20:20 Urine Color Straw (YELLOW) 01/14/18 21:24 Urine Clarity Clear (Clear) 01/14/18 21:24 Urine pH 7.0 (5.0-8.0) 01/14/18 21:24 Ur Specific Benicia 1.006 (1.003-1.030) 01/14/18 21:24 Urine Protein 2+ mg/dL (NEGATIVE) H 01/14/18 21:24 Urine Glucose (UA) Normal mg/dL (Normal) 01/14/18 21:24 Urine Ketones Negative mg/dL (NEGATIVE) 01/14/18 21:24 Urine Blood Negative (NEGATIVE) 01/14/18 21:24 Urine Nitrate Negative (NEGATIVE) 01/14/18 21:24 Urine Bilirubin Negative (NEGATIVE) 01/14/18 21:24 Urine Urobilinogen Normal mg/dL (0.2-1.0) 01/14/18 21:24 Ur Leukocyte Esterase 1+ Mouna/uL (Negative) H 01/14/18 21:24 Urine WBC (Auto) 13 /hpf (0-5) H 01/14/18 21:24 Urine RBC (Auto) < 1 /hpf (0-3) 01/14/18 21:24 Ur Squamous Epith Cells 4 /hpf (0-5) 01/14/18 21:24 Urine Bacteria Rare (<OCC) 01/14/18 21:24 Ur Random Creatinine 59 mg/dL (20-320) 01/19/18 18:36 U Random Total Protein 1124 mg/g creat (21-161) H 01/19/18 18:15 Urine Total Volume 35.5 mg/dL 01/19/18 18:36 Microalb/Creat Ratio 606 (<30) H 01/19/18 18:36 Mycoplasma pneumon IgM Negative (NEGATIVE) 01/15/18 17:05 - Hospital Course Hospital Course: Pt was treated appropriately with nebulizer tx and diuretics, beta-yung and vasodilators with good improvement of symptoms. Discharge Exam - Head Exam Head Exam: ATRAUMATIC, NORMOCEPHALIC - Eye Exam Eye Exam: absent: Scleral icterus - Neck Exam Neck exam: Full Rom - Respiratory Exam Respiratory Exam: Decreased Breath Sounds - Cardiovascular Exam Cardiovascular Exam: REGULAR RHYTHM - GI/Abdominal Exam GI & Abdominal Exam: Soft. absent: Tenderness - Extremities Exam Extremities exam: pedal edema Discharge Plan - Discharge Medications Prescriptions: Insulin Human Regular [Novolin R] See Protocol SQ ACHS 30 Days ml - Follow Up Plan Condition: GOOD Disposition: REHAB FACILITY/REHAB UNIT Patient education suggested?: Yes Instructions: Heart Healthy Diet, Heart Failure, Adult (DC), Shortness of Breath (Dyspnea), Heart Failure Exercise Guide, Normocytic Normochromic Anemia (DC) Referrals: Sharon Sheets MD [Primary Care Provider] -
== END 2018-01-20 19:55 | DRG 190 ==
LOC: C.ER 19:16 → SUPCPDRO 19:16 → C.9E 21:23 → C.6T 01-15 00:01 → C.9E 01-15 00:15 → C.5S 01-15 00:23 → C.9I 01-16 13:57
PROVIDERS: ADMIT Internal Medicine; ATTEND Internal Medicine
DX: J44.0 Chronic obstructive pulmonary disease with (acute) lower respiratory infection (principal); J18.9 Pneumonia, unspecified organism; I13.0 Hypertensive heart and chronic kidney disease with heart failure and stage 1 through stage 4 chronic kidney disease, or unspecified chronic kidney disease; I50.9 Heart failure, unspecified; N18.3 Chronic kidney disease, stage 3 (moderate); N25.81 Secondary hyperparathyroidism of renal origin; J44.1 Chronic obstructive pulmonary disease with (acute) exacerbation; E11.22 Type 2 diabetes mellitus with diabetic chronic kidney disease; D63.1 Anemia in chronic kidney disease; E83.39 Other disorders of phosphorus metabolism; E86.0 Dehydration; I25.10 Atherosclerotic heart disease of native coronary artery without angina pectoris; I27.20 Pulmonary hypertension, unspecified; D50.9 Iron deficiency anemia, unspecified; R79.1 Abnormal coagulation profile; E78.5 Hyperlipidemia, unspecified; E78.00 Pure hypercholesterolemia, unspecified; Z85.118 Personal history of other malignant neoplasm of bronchus and lung; Z79.4 Long term (current) use of insulin; Z87.891 Personal history of nicotine dependence; Z90.2 Acquired absence of lung [part of]; Z95.0 Presence of cardiac pacemaker; Z95.1 Presence of aortocoronary bypass graft; Z95.5 Presence of coronary angioplasty implant and graft; Z95.810 Presence of automatic (implantable) cardiac defibrillator

== ENCOUNTER 2018-04-24 07:51 | Day surgery (SDC) | payer MEDICARE ==
[2018-04-23 12:46] VITALS: BMI 29.2
[2018-04-24 09:07] LABS: CALCIUM 8.6 mg/dl (8.6-10.4)
== END 2018-04-24 09:55 | disposition short-term general hospital (02) ==
LOC: C.CATHLAB 07:51
PROVIDERS: ATTEND Internal Medicine Cardiovascular Disease
DX: R07.9 Chest pain, unspecified (principal); R06.00 Dyspnea, unspecified; Z53.8 Procedure and treatment not carried out for other reasons

== ENCOUNTER 2018-04-24 09:56 | Inpatient (IN) | payer MEDICARE ==
[2018-04-24 09:56] VITALS: BMI 29.2
--- NOTE | 2018-04-24 13:26 | C.PDOC ---
History Of Present Illness 77-year-old female, presents to the emergency department with complaints of elevated creatinine. Patient was scheduled for a cardiac catheterization, and his pre-procedure labs revealed a creatinine of 2.9; Patient had repeat bloodwo rk done this morning, which showed 2.8 creatinine, resulting in her being sent to ED for further evaluation and admission to Dr. Sheets. Catheterization was not done. She denies any nausea/vomiting, fever, chills or any other associated symptoms. No other complaints at this time. Time Seen by Provider: 04/24/18 10:25 Chief Complaint (Nursing): Medical Clearance History Per: Patient History/Exam Limitations: no limitations Past Medical History Reviewed: Historical Data, Nursing Documentation, Vital Signs Vital Signs: Last Vital Signs Temp 97.9 F 04/24/18 11:20 Pulse 72 04/24/18 13:05 Resp 17 04/24/18 13:05 BP 108/78 04/24/18 13:05 Pulse Ox 97 04/24/18 13:05 - Medical History PMH: Anemia, Arthritis, CAD, Cardia Arrhythmia, CHF, COPD, Diabetes, HTN, Hypercholesterolemia, Hypothyroidism, Peripheral Edema, Chronic Kidney Disease Surgical History: CABG (X4(2003)), Coronary Stent (6), Endoscopy, Pacemaker - [facility] Procedures INITIAL INSERT TRANS LEADS INTO [employer] (10/23/14) INITIAL INSERTION OF DUAL-CHAMBER DEVICE (10/23/14) Family History: States: No Known Family Hx - Social History Hx Tobacco Use: No Hx Alcohol Use: No Hx Substance Use: No - Immunization History Hx Tetanus Toxoid Vaccination: No Hx Influenza Vaccination: Yes Hx Pneumococcal Vaccination: Yes Review Of Systems Constitutional: Negative for: Fever, Chills Respiratory: Negative for: Shortness of Breath Gastrointestinal: Negative for: Nausea, Vomiting Musculoskeletal: Negative for: Back Pain Neurological: Negative for: Weakness, Numbness Physical Exam - Physical Exam Appears: Non-toxic, No Acute Distress Skin: Normal Color, Warm, Dry, No Rash Head: Atraumatic, Normacephalic Eye(s): bilateral: Normal Inspection, PERRL, EOMI Nose: Normal Oral Mucosa: Moist Lips: Normal Appearing Neck: Normal ROM Cardiovascular: Rhythm Regular Respiratory: Normal Breath Sounds, No Accessory Muscle Use Gastrointestinal/Abdominal: Soft, No Tenderness Back: Normal Inspection Extremity: Normal ROM, No Deformity Neurological/Psych: Oriented x3, Normal Speech ED Course And Treatment - Laboratory Results Result Diagrams: 04/25/18 06:27 04/25/18 06:27 O2 Sat by Pulse Oximetry: 97 Pulse Ox Interpretation: Normal (RA) Medical Decision Making Medical Decision Making: Patient asymptomatic. States that she has no trouble urinating. Admission order placed to Dr. Sheets. Disposition - Disposition Disposition: HOSPITALIZED Disposition Time: 11:52 Condition: FAIR - Clinical Impression Clinical Impression: [id number] kidney injury - Scribe Statement The provider has reviewed the documentation as recorded by the Scribe (Luisa Martinez) Provider Attestation: All medical record entries made by the Scribe were at my direction and personally dictated by me. I have reviewed the chart and agree that the record accurately reflects my personal performance of the history, physical exam, medical decision making, and the department course for this patient. I have also personally directed, reviewed, and agree with the discharge instructions and disposition.
--- NOTE | 2018-04-24 18:33 | CP.PCM.CON ---
History of Present Illness - History of Present Illness History of Present Illness: pt is seen and examined, full consult is dictated #[id number] 1. audra on ckd-3 vs progression of ckd 2. anemai 3. chf 4. htn 5. dm 6 ? GI malignency check fe,tibc, ferritin check 24 hr up,cr,cr cl, po4, pth intact c/w lasix 40-60 mg ivp q 12 hrs restrict fluids to 1lit/daycea, d/c pia.acetate c/w mvi add epogen 48452 units sc 3 x aweek check CEA, afp, ca19-9, ca125 follow up GI . Dr. Cummins, seen by him as per pt Past Patient History - Infectious Disease Hx of Infectious Diseases: None - Past Medical History & Family History Past Medical History?: Yes - Past Social History Smoking Status: Former Smoker - CARDIAC Hx Cardiac Disorders: Yes Hx Cardia Arrhythmia: Yes Hx Congestive Heart Failure: Yes Hx Hypercholesterolemia: Yes Hx Hypertension: Yes Hx Pacemaker: Yes Hx Peripheral Edema: Yes - PULMONARY Hx Respiratory Disorders: Yes Hx Chronic Obstructive Pulmonary Disease (COPD): Yes - NEUROLOGICAL Hx Neurological Disorder: No Hx Paralysis: No - HEENT Hx HEENT Problems: No - RENAL Hx Chronic Kidney Disease: Yes - ENDOCRINE/METABOLIC Hx Hypothyroidism: Yes - HEMATOLOGICAL/ONCOLOGICAL Hx Blood Disorders: Yes Hx Anemia: Yes Hx Cancer: Yes (stomach) - INTEGUMENTARY Hx Dermatological Problems: No - MUSCULOSKELETAL/RHEUMATOLOGICAL Hx Musculoskeletal Disorders: Yes Hx Arthritis: Yes Hx Falls: No - GASTROINTESTINAL Hx Gastrointestinal Disorders: Yes Other/Comment: HX: CANCER OF STOMACH - GENITOURINARY/GYNECOLOGICAL Hx Genitourinary Disorders: No - PSYCHIATRIC Hx Psychophysiologic Disorder: No Hx Substance Use: No - SURGICAL HISTORY Hx Surgeries: Yes Hx Coronary Artery Bypass Graft: Yes (X4(2004)) Hx Coronary Stent: Yes (6) - ANESTHESIA Hx Anesthesia: Yes Hx Anesthesia Reactions: No Hx Malignant Hyperthermia: No Has any member of the family had a problem w/ anesthesia?: No Meds Allergies/Adverse Reactions: Allergies Allergy/AdvReac Type Severity Reaction Status Date / Time pregabalin [From Lyrica] Allergy Intermediate ITCHING Verified 04/23/18 12:46 rosuvastatin [From Crestor] Allergy Intermediate MUSCLE Verified 04/23/18 12:46 CRAMPS Results - Vital Signs Recent Vital Signs: Last Vital Signs Temp 97.7 F 04/24/18 15:00 Pulse 70 04/24/18 15:00 Resp 20 04/24/18 15:00 BP 144/82 04/24/18 15:00 Pulse Ox 98 04/24/18 15:00 - Labs Labs: Laboratory Results - last 24 hr 04/24/18 16:33 POC Glucose (mg/dL) 166 H
[2018-04-24] MEDS ORDERED: Albuterol HFA 90 mcg/actuation (8 g) IH PRN (20:36)
[2018-04-24] MEDS: (Novolin R) Insulin Human Regular 100 units/ml vial SC SCH ×2 (21:22→22:11)
[2018-04-24] MEDS: Levothyroxine 50 MCG TAB PO SCH (21:43)
--- NOTE | 2018-04-24 21:48 | CP.PCM.CON ---
History of Present Illness - History of Present Illness History of Present Illness: Patient seen and evaluated cardiac cath cancelled today due to acute on Chronic renal failure Nephro consult Cath once renal function stable Past Patient History - Infectious Disease Hx of Infectious Diseases: None - Past Medical History & Family History Past Medical History?: Yes - Past Social History Smoking Status: Former Smoker - CARDIAC Hx Cardiac Disorders: Yes Hx Cardia Arrhythmia: Yes Hx Congestive Heart Failure: Yes Hx Hypercholesterolemia: Yes Hx Hypertension: Yes Hx Pacemaker: Yes Hx Peripheral Edema: Yes - PULMONARY Hx Respiratory Disorders: Yes Hx Chronic Obstructive Pulmonary Disease (COPD): Yes - NEUROLOGICAL Hx Neurological Disorder: No Hx Paralysis: No - HEENT Hx HEENT Problems: No - RENAL Hx Chronic Kidney Disease: Yes - ENDOCRINE/METABOLIC Hx Hypothyroidism: Yes - HEMATOLOGICAL/ONCOLOGICAL Hx Blood Disorders: Yes Hx Anemia: Yes Hx Cancer: Yes (stomach) - INTEGUMENTARY Hx Dermatological Problems: No - MUSCULOSKELETAL/RHEUMATOLOGICAL Hx Musculoskeletal Disorders: Yes Hx Arthritis: Yes Hx Falls: No - GASTROINTESTINAL Hx Gastrointestinal Disorders: Yes Other/Comment: HX: CANCER OF STOMACH - GENITOURINARY/GYNECOLOGICAL Hx Genitourinary Disorders: No - PSYCHIATRIC Hx Substance Use: No - SURGICAL HISTORY Hx Surgeries: Yes Hx Coronary Artery Bypass Graft: Yes (X4(2004)) Hx Coronary Stent: Yes (6) - ANESTHESIA Hx Anesthesia: Yes Hx Anesthesia Reactions: No Hx Malignant Hyperthermia: No Has any member of the family had a problem w/ anesthesia?: No Meds Allergies/Adverse Reactions: Allergies Allergy/AdvReac Type Severity Reaction Status Date / Time pregabalin [From Lyrica] Allergy Intermediate ITCHING Verified 04/23/18 12:46 rosuvastatin [From Crestor] Allergy Intermediate MUSCLE Verified 04/23/18 12:46 CRAMPS - Medications Medications: Current Medications Albuterol (Ventolin Hfa 90 Mcg/Actuation (8 G)) 1 puff IH RQ4 PRN PRN Reason: Shortness of Breath Amlodipine Besylate (Norvasc) 10 mg PO DAILY [facility] Aspirin (Aspirin Chewable) 81 mg PO DAILY [facility] Calcium Acetate (Phoslo) 667 mg PO Q6H [facility] Clopidogrel Bisulfate (Plavix) 75 mg PO DAILY [facility] Furosemide (Lasix) 40 mg PO DAILY [facility] Gabapentin (Neurontin) 800 mg PO TID [facility] Home Med (Budesonide/Formoterol Fumarate [Symbicort 160-4.5 Mcg Inhaler]) 2 puff IH DAILY [facility] Home Med (Glycopyrrolate/Formoterol Fum [Bevespi Aerosphere Inhaler]) 2 puff IH Q4 [facility] Hydralazine HCl (Apresoline) 50 mg PO BID [facility] Influenza Virus Vaccine (Fluzone Quad [id number]) 60 mcg IM .ONCE ONE Stop: 04/25/18 10:01 Insulin Human Regular (Novolin R) 0 unit [place] [facility]; Protocol Last Admin: 04/24/18 21:22 Dose: Not Given Levothyroxine Sodium (Synthroid) 75 mcg PO DAILY [facility] Last Admin: 04/24/18 21:43 Dose: Not Given Multivitamins (Hexavitamin) 1 tab PO DAILY [facility] Nebivolol (Bystolic) 20 mg PO DAILY [facility] Sevelamer Carbonate (Renvela) 800 mg PO TID [facility] Results - Vital Signs Recent Vital Signs: Last Vital Signs Temp 97.7 F 04/24/18 15:00 Pulse 70 04/24/18 15:00 Resp 20 04/24/18 15:00 BP 144/82 04/24/18 15:00 Pulse Ox 98 04/24/18 15:00 - Labs Labs: Laboratory Results - last 24 hr 04/24/18 04/24/18 16:33 21:03 POC Glucose (mg/dL) 166 H 141 H
[2018-04-25] MEDS ORDERED: GLYCOPYRROLATE IH SCH
[2018-04-25] MEDS ORDERED: FORMOTEROL FUM IH SCH
[2018-04-25 01:06] LABS: SQUAMOUS EPITHIAL < 1 /hpf (0-5); URINE BACTERIA RARE (<OCC); URINE BILIRUBIN NEGATIVE (NEGATIVE); URINE BLOOD NEGATIVE (NEGATIVE); URINE CLARITY Clear (Clear); URINE COLOR Yellow (YELLOW); URINE GLUCOSE (UA) NORMAL (Normal); URINE LEUKOCYTE ESTERASE TRACE Leu/uL (Negative); URINE PROTEIN 2+ mg/dL (NEGATIVE); URINE UROBILINOGEN NORMAL mg/dL (0.2-1.0)
--- NOTE | 2018-04-25 06:08 | CON ---
DATE: 04/24/2018 RENAL CONSULTATION LOCATION: The patient is located in room 571, bed B. REQUESTED BY: Sharon Sheets MD REASON FOR FOLLOWUP: Increased BUN and creatinine and for evaluation. HISTORY OF PRESENT ILLNESS: Mrs. Villa is a 77-year-old elderly female with past medical history significant for longstanding hypertension, diabetes, hyperlipidemia, hypothyroidism, peripheral vascular disease, CHF, chronic kidney disease stage 3, arthritis, CAD, cardiac arrhythmia, CHF, status post CABG, status post pacemaker who was recently discharged from the [facility] after treating for CHF. The patient was admitted for the cardiac cath this morning, and the patient was found to have increased BUN and creatinine. Cardiac cath was canceled and admitted for further evaluation. The patient complains of bilateral lower extremity swelling and shortness of breath. Denies any chest pain. Denies any nausea, vomiting, or diarrhea. Denies any fever. She does complain of cough. PAST MEDICAL HISTORY: Significant for longstanding hypertension, diabetes, coronary artery disease, hyperlipidemia, hypothyroidism, CABG. PAST SURGICAL HISTORY: Status post CABG, status post right lung surgery, status post pacemaker. ALLERGIES: ALLERGIC TO NEURONTIN AND CRESTOR. SOCIAL HISTORY: The patient is an ex-smoker. No alcohol. No drug abuse. FAMILY HISTORY: Nonsignificant. CURRENT MEDICATIONS: Include as follows: Hydralazine, aspirin, Bystolic, multivitamin, Lasix, Norvasc, gabapentin, and PhosLo. Remained on levothyroxine, albuterol, and Plavix. REVIEW OF SYSTEMS: Significant for right lower extremity edema and shortness of breath and elevated BUN and creatinine. All other review of systems are reviewed and are negative. PHYSICAL EXAMINATION: GENERAL: Mrs. Villa is a 77-year-old elderly female, moderately built, moderately nourished, not in distress. VITAL SIGNS: As follows: Blood pressure 144/82, pulse 70, respirations 20, temperature 97.7, and saturation 98%. Height 5 feet. Weight 160 pounds. HEENT: Pupils are normal and reactive to light and accommodation. Conjunctivae pink. Sclerae anicteric. Tongue is moist. Trachea is midline. LUNGS: Symmetric on both sides. Bilateral breath sounds present. Occasional basal crackles present. CARDIOVASCULAR SYSTEM: [place] at the fifth intercostal space, midclavicular line. S1 and S2 audible. No murmur or gallop. ABDOMEN: Normal in appearance. Soft, tympanitic. No guarding. No rigidity. No hepatosplenomegaly. CENTRAL NERVOUS SYSTEM: The patient is alert, awake, and oriented x3. Nonfocal neuro examination. EXTREMITIES: No cyanosis. No clubbing. The patient has 2+ edema in both lower extremities. LABORATORY DATA: Include as follows as of on 04/23/2018: WBC 3.3, hemoglobin 9.4, hematocrit is 28.8, platelets 144. BUN and creatinine 69 and 2.9. As of on 04/24/2018: Sodium 140, potassium 4.3, chloride 104, CO2 of 25, BUN 74, creatinine 2.8, glucose 128, calcium 8.6, and GFR is 20. ASSESSMENT: In summary, Mrs. Villa is a 77-year-old elderly female with a history of hypertension, diabetes, coronary artery disease, hyperlipidemia, hypothyroidism, status post right lung surgery for cancer, history of gastrointestinal cancer recently diagnosed about 10 months ago as per the patient, chronic kidney disease, multiple admissions to the hospital with shortness of breath and increased blood urea nitrogen and creatinine. 1. Acute renal failure on chronic kidney disease versus progression of chronic kidney disease. 2. Hypertension. 3. Diabetes. 4. Coronary artery disease. PLAN: We will check 24-hour urine protein and creatinine, creatinine clearance and continue Lasix. We will check PTH intact level. Repeat BMP and CBC in a.m. and repeat proBNP also. Restrict fluids to 1 liter per day. Also add Epogen 10,000 units subcu three times a week. We will also check for iron, TIBC, ferritin, and PTH intact level. We will follow with you. Thank you for allowing me to participate in your patient's care. Montez Hernandez MD [facility]
[2018-04-25 07:02] LABS: BASO # 0.1 K/uL (0.0-0.2); BASO % 1.5 % (0.0-2.0); EOS # 0.1 K/uL (0.0-0.7); HEMOGLOBIN 9.7 g/dL (11.0-16.0); LYMPH # 0.7 K/uL (1.0-4.3); LYMPH % 15.7 % (20.0-40.0); MEAN CORPUSCULAR HGB CONC 32.2 g/dL (33.0-37.0); MEAN PLATELET VOLUME 8.7 fL (7.2-11.7); MONO # 0.4 K/uL (0.0-0.8); MONO % 8.4 % (0.0-10.0); NEUT % 71.4 % (50.0-75.0); NRBC % 0.1 % (0.0-2.0); RBC 3.35 Mil/uL (3.80-5.20); WHITE BLOOD COUNT 4.2 K/uL (4.8-10.8)
[2018-04-25] MEDS: (Novolin R) Insulin Human Regular 100 units/ml vial SC SCH ×4 (07:05→22:07)
[2018-04-25 07:08] LABS: IRON 13 ug/dL (37-170)
[2018-04-25 07:14] LABS: ALB/GLOB RATIO 1.1 (1.0-2.1); ALBUMIN 3.4 g/dL (3.5-5.0); CALCIUM 8.8 mg/dl (8.6-10.4)
[2018-04-25 07:17] LABS: % IRON SATURATION 4 (20-55); TOTAL IRON BINDING CAPACITY 325 ug/dL (250-450)
[2018-04-25 07:32] LABS: FERRITIN 16.1 ng/mL
[2018-04-25] MEDS: Multiple Vitamins Tab PO SCH (09:44)
[2018-04-25] MEDS: Levothyroxine 50 MCG TAB PO SCH (09:44)
[2018-04-25] MEDS ORDERED: Influenza Vaccine 60 MCG/0.5 ML SYR (3 yr & up) IM ONE (10:00)
--- NOTE | 2018-04-25 15:20 | CP.PCM.PN ---
Subjective - Date & Time of Evaluation Date of Evaluation: 04/25/18 Time of Evaluation: 15:20 - Subjective Subjective: pt is still c/o sob and swelling of legs, no cp, no palpiatation no nausea, no vomitings Objective - Vital Signs/Intake and Output Vital Signs (last 24 hours): Temp Pulse Resp BP Pulse Ox 97.1 F L 80 20 113/70 97 04/25/18 07:48 04/25/18 14:25 04/25/18 07:48 04/25/18 14:23 04/25/18 12:51 Intake and Output: 04/25/18 04/25/18 06:59 18:59 Intake Total 250 120 Output Total 1 150 Balance 249 -30 - Medications Medications: Current Medications Albuterol (Ventolin Hfa 90 Mcg/Actuation (8 G)) 1 puff IH RQ4 PRN PRN Reason: Shortness of Breath Amlodipine Besylate (Norvasc) 10 mg PO DAILY [facility] Last Admin: 04/25/18 09:44 Dose: 10 mg Aspirin (Aspirin Chewable) 81 mg PO DAILY [facility] Last Admin: 04/25/18 09:44 Dose: 81 mg Clopidogrel Bisulfate (Plavix) 75 mg PO DAILY [facility] Last Admin: 04/25/18 09:44 Dose: 75 mg Fluticasone/Vilanterol (Breo Ellipta 100-25 Mcg Inh) 1 puff INH RQ24 [facility] Furosemide (Lasix) 40 mg PO Q8H [facility] Last Admin: 04/25/18 14:23 Dose: 40 mg Gabapentin (Neurontin) 800 mg PO TID [facility] Last Admin: 04/25/18 13:18 Dose: 800 mg Heparin Sodium (Porcine) (Heparin) 5,000 units SC Q12 [facility] Last Admin: 04/25/18 09:45 Dose: 5,000 units Home Med (Glycopyrrolate/Formoterol Fum [Bevespi Aerosphere Inhaler]) 2 puff IH Q4 [facility] Hydralazine HCl (Apresoline) 50 mg PO BID [facility] Last Admin: 04/25/18 09:44 Dose: 50 mg Insulin Human Regular (Novolin R) 0 unit SC ACHS [facility]; Protocol Last Admin: 04/25/18 12:15 Dose: Not Given Levothyroxine Sodium (Synthroid) 75 mcg PO DAILY [facility] Last Admin: 04/25/18 09:44 Dose: 75 mcg Multivitamins (Hexavitamin) 1 tab PO DAILY [facility] Last Admin: 04/25/18 09:44 Dose: 1 tab Nebivolol (Bystolic) 20 mg PO DAILY [facility] Last Admin: 04/25/18 09:48 Dose: 20 mg Sevelamer Carbonate (Renvela) 1,600 mg PO TID [facility] Last Admin: 04/25/18 13:18 Dose: 1,600 mg - Labs Labs: 04/25/18 06:27 04/25/18 06:27 - Constitutional Appears: Well, No Acute Distress - Head Exam Head Exam: ATRAUMATIC, NORMAL INSPECTION, NORMOCEPHALIC - Eye Exam Eye Exam: EOMI, Normal appearance, PERRL Pupil Exam: NORMAL ACCOMODATION - ENT Exam ENT Exam: Mucous Membranes Moist, Normal Exam - Neck Exam Neck Exam: Full ROM, Normal Inspection - Respiratory Exam Respiratory Exam: Decreased Breath Sounds, NORMAL BREATHING PATTERN - Cardiovascular Exam Cardiovascular Exam: REGULAR RHYTHM, +S1, +S2 - GI/Abdominal Exam GI & Abdominal Exam: Soft, Normal Bowel Sounds - Rectal Exam Rectal Exam: Deferred - Extremities Exam Extremities Exam: Pedal Edema - Neurological Exam Neurological Exam: Alert, Awake, CN II-XII Intact, Normal Gait, Oriented x3 - Psychiatric Exam Psychiatric exam: Normal Affect, Normal Mood - Skin Skin Exam: Normal Color Assessment and Plan - Assessment and Plan (Free Text) Assessment: 77 yo AA female with htn, dm, c ad, cabb, ckd, ckf, edema anemia with incresed bun/cr 1. [place] on ckd vs progression of ckd 2. Anemia 3. htn 4. DM 5. b/l le edema r/o chf c/w lasix 40 mg po q 8hrs, if does not respond will change to iv lasix 80 mg q 12 hrs with albumin if needed w/u in progress, restrict fluids to 1 lit/day
--- NOTE | 2018-04-25 16:16 | CARD ---
APPROVED REPORT Date of service: 04/24/2018 EKG Measurement Heart [id number] [id number] <Conclusion> Atrial-paced rhythm with prolonged AV conduction with ventricular paced beats Rightward axis Low voltage QRS Nonspecific T wave abnormality(seldovia beats) Abnormal ECG
--- NOTE | 2018-04-26 04:25 | CP.PCM.HP ---
History of Present Illness - History of Present Illness History of Present Illness: CC CAD, PVD HPI: 77-year-old female, presents to the emergency department with complaints of elevated creatinine. Patient was scheduled for a cardiac catheterization, and his pre-procedure labs revealed a creatinine of 2.9; Patient had repeat bloodwork done this morning, which showed 2.8 creatinine, resulting in her being sent to ED for further evaluation and admission. Catheterization was not done. She denies any nausea/vomiting, fever, chills or any other associated symptoms. No other complaints at this time. PMH significant for Lung ca, Colon ca, COPD, T2dm, CKD stage 3, HTN Present on Admission - Present on Admission Any Indicators Present on Admission: Yes History of Uncontrolled Diabetes: Yes Review of Systems - Constitutional Constitutional: Weight Loss, Weakness - Cardiovascular Cardiovascular: Dyspnea on Exertion - Gastrointestinal Gastrointestinal: absent: Abdominal Pain - Musculoskeletal Musculoskeletal: Abnormal Gait - Neurological Neurological: Paresthesias Past Patient History - Infectious Disease Hx of Infectious Diseases: None - Past Medical History & Family History Past Medical History?: Yes - Past Social History Smoking Status: Former Smoker - CARDIAC Hx Congestive Heart Failure: Yes Hx Hypercholesterolemia: Yes Hx Hypertension: Yes - PULMONARY Hx Chronic Obstructive Pulmonary Disease (COPD): Yes - NEUROLOGICAL Hx Neurological Disorder: No Hx Paralysis: No - HEENT Hx HEENT Problems: No - RENAL Hx Chronic Kidney Disease: Yes - ENDOCRINE/METABOLIC Hx Hypothyroidism: Yes - HEMATOLOGICAL/ONCOLOGICAL Hx Anemia: Yes - INTEGUMENTARY Hx Dermatological Problems: No - MUSCULOSKELETAL/RHEUMATOLOGICAL Hx Arthritis: Yes - GASTROINTESTINAL Hx Gastrointestinal Disorders: Yes Other/Comment: HX: CANCER OF STOMACH - GENITOURINARY/GYNECOLOGICAL Hx Genitourinary Disorders: No - PSYCHIATRIC Hx Substance Use: No - SURGICAL HISTORY Hx Coronary Artery Bypass Graft: Yes (X4(2004)) Hx Coronary Stent: Yes (6) - ANESTHESIA Hx Anesthesia: Yes Hx Anesthesia Reactions: No Hx Malignant Hyperthermia: No Has any member of the family had a problem w/ anesthesia?: No Meds Allergies/Adverse Reactions: Allergies Allergy/AdvReac Type Severity Reaction Status Date / Time pregabalin [From Lyrica] Allergy Intermediate ITCHING Verified 04/23/18 12:46 rosuvastatin [From Crestor] Allergy Intermediate MUSCLE Verified 04/23/18 12:46 CRAMPS Physical Exam - Constitutional Appears: Non-toxic - Head Exam Head Exam: NORMAL INSPECTION - Eye Exam Eye Exam: absent: Scleral icterus - Neck Exam Neck exam: Positive for: Full Rom - Respiratory Exam Respiratory Exam: NORMAL BREATHING PATTERN - Cardiovascular Exam Cardiovascular Exam: REGULAR RHYTHM - GI/Abdominal Exam GI & Abdominal Exam: Soft - Extremities Exam Extremities exam: Negative for: pedal edema - Neurological Exam Neurological exam: Alert, Oriented x3 Results - Vital Signs Recent Vital Signs: Last Vital Signs Temp 97.6 F 04/26/18 00:00 Pulse 71 04/26/18 00:00 Resp 20 04/26/18 00:00 BP 139/69 04/26/18 00:00 Pulse Ox 98 04/26/18 00:00 - Labs Result Diagrams: 04/25/18 06:27 04/25/18 06:27 Labs: Laboratory Results - last 24 hr 04/25/18 04/25/18 04/25/18 06:27 06:27 06:27 WBC 4.2 L RBC 3.35 L Hgb 9.7 L Hct 30.1 L MCV 90.0 MCH 29.0 MCHC 32.2 L RDW 18.0 H Plt Count 160 MPV 8.7 Neut % (Auto) 71.4 Lymph % (Auto) 15.7 L [place] % (Auto) 8.4 Eos % (Auto) 3.0 Baso % (Auto) 1.5 Neut # (Auto) 3.0 Lymph # (Auto) 0.7 L [place] # (Auto) 0.4 Eos # (Auto) 0.1 Baso # (Auto) 0.1 Sodium 140 Potassium 4.4 Chloride 108 H Carbon Dioxide 23 Anion Gap 14 BUN 63 H Creatinine 2.6 H Est GFR ( Amer) 22 Est GFR (Non-Af Amer) 18 POC Glucose (mg/dL) Random Glucose 123 H Calcium 8.8 Phosphorus 4.4 Iron 13 L TIBC 325 % Saturation 4 L Ferritin 16.1 Total Bilirubin 0.4 AST 19 ALT 18 Alkaline Phosphatase 83 Total Protein 6.4 Albumin 3.4 L Globulin 3.0 Albumin/Globulin Ratio 1.1 04/25/18 04/25/18 04/25/18 06:42 12:12 16:19 WBC RBC Hgb Hct MCV MCH MCHC RDW Plt Count MPV Neut % (Auto) Lymph % (Auto) [place] % (Auto) Eos % (Auto) Baso % (Auto) Neut # (Auto) Lymph # (Auto) [place] # (Auto) Eos # (Auto) Baso # (Auto) Sodium Potassium Chloride Carbon Dioxide Anion Gap BUN Creatinine Est GFR ( Amer) Est GFR (Non-Af Amer) POC Glucose (mg/dL) 119 H 134 H 115 H Random Glucose Calcium Phosphorus Iron TIBC % Saturation Ferritin Total Bilirubin AST ALT Alkaline Phosphatase Total Protein Albumin Globulin Albumin/Globulin Ratio 04/25/18 20:52 WBC RBC Hgb Hct MCV MCH MCHC RDW Plt Count MPV Neut % (Auto) Lymph % (Auto) [place] % (Auto) Eos % (Auto) Baso % (Auto) Neut # (Auto) Lymph # (Auto) [place] # (Auto) Eos # (Auto) Baso # (Auto) Sodium Potassium Chloride Carbon Dioxide Anion Gap BUN Creatinine Est GFR ( Amer) Est GFR (Non-Af Amer) POC Glucose (mg/dL) 150 H Random Glucose Calcium Phosphorus Iron TIBC % Saturation Ferritin Total Bilirubin AST ALT Alkaline Phosphatase Total Protein Albumin Globulin Albumin/Globulin Ratio Assessment & Plan - Assessment and Plan (Free Text) Assessment: CAD PVD CKD stage 3 COPD Lung ca Colon ca HTN Plan: Consult with Dr Medina Consult with Dr Belcher - Date & Time Date: 04/24/18 Time: 11:00
--- NOTE | 2018-04-26 04:36 | CP.PCM.PN ---
Subjective - Date & Time of Evaluation Date of Evaluation: 04/25/18 Time of Evaluation: 09:35 - Subjective Subjective: Awaiting for renal eval Cont meds Objective - Vital Signs/Intake and Output Vital Signs (last 24 hours): Temp Pulse Resp BP Pulse Ox 97.6 F 71 20 139/69 98 04/26/18 00:00 04/26/18 00:00 04/26/18 00:00 04/26/18 00:00 04/26/18 00:00 Intake and Output: 04/25/18 04/26/18 18:59 06:59 Intake Total 120 500 Output Total 150 200 Balance -30 300 - Medications Medications: Current Medications Albuterol (Ventolin Hfa 90 Mcg/Actuation (8 G)) 1 puff IH RQ4 PRN PRN Reason: Shortness of Breath Amlodipine Besylate (Norvasc) 10 mg PO DAILY [facility] Last Admin: 04/25/18 09:44 Dose: 10 mg Aspirin (Aspirin Chewable) 81 mg PO DAILY [facility] Last Admin: 04/25/18 09:44 Dose: 81 mg Clopidogrel Bisulfate (Plavix) 75 mg PO DAILY [facility] Last Admin: 04/25/18 09:44 Dose: 75 mg Fluticasone/Vilanterol (Breo Ellipta 100-25 Mcg Inh) 1 puff INH RQ24 [facility] Furosemide (Lasix) 40 mg PO Q8H [facility] Last Admin: 04/25/18 22:03 Dose: 40 mg Gabapentin (Neurontin) 800 mg PO TID [facility] Last Admin: 04/25/18 18:25 Dose: 800 mg Heparin Sodium (Porcine) (Heparin) 5,000 units SC Q12 [facility] Last Admin: 04/25/18 22:03 Dose: 5,000 units Home Med (Glycopyrrolate/Formoterol Fum [Bevespi Aerosphere Inhaler]) 2 puff IH Q4 [facility] Hydralazine HCl (Apresoline) 50 mg PO BID [facility] Last Admin: 04/25/18 18:25 Dose: 50 mg Insulin Human Regular (Novolin R) 0 unit SC ACHS [facility]; Protocol Last Admin: 04/25/18 22:07 Dose: Not Given Levothyroxine Sodium (Synthroid) 75 mcg PO DAILY [facility] Last Admin: 04/25/18 09:44 Dose: 75 mcg Multivitamins (Hexavitamin) 1 tab PO DAILY [facility] Last Admin: 04/25/18 09:44 Dose: 1 tab Nebivolol (Bystolic) 20 mg PO DAILY [facility] Last Admin: 04/25/18 09:48 Dose: 20 mg Sevelamer Carbonate (Renvela) 1,600 mg PO TID [facility] Last Admin: 04/25/18 18:25 Dose: 1,600 mg - Labs Labs: 04/25/18 06:27 04/25/18 06:27 - Constitutional Appears: Non-toxic - Head Exam Head Exam: NORMAL INSPECTION - Eye Exam Eye Exam: absent: Scleral icterus - ENT Exam ENT Exam: Mucous Membranes Moist - Neck Exam Neck Exam: Full ROM - Respiratory Exam Respiratory Exam: NORMAL BREATHING PATTERN - GI/Abdominal Exam GI & Abdominal Exam: Soft - Extremities Exam Extremities Exam: absent: Pedal Edema - Neurological Exam Neurological Exam: Alert, Oriented x3 Assessment and Plan - Assessment and Plan (Free Text) Assessment: CAD PVD CKD stage 3 COPD T2dm HTN Hx of Lung ca Hx of Colon ca Plan: Awaiting renal eval Interventional cardio follow up
[2018-04-26 05:17] LABS: URINE CREATININE 72.4 mg/dL
[2018-04-26] MEDS: (Novolin R) Insulin Human Regular 100 units/ml vial SC SCH ×4 (07:29→22:14)
[2018-04-26] MEDS: Levothyroxine 75 MCG TAB PO SCH (07:38)
[2018-04-26] MEDS: Multiple Vitamins Tab PO SCH (08:59)
--- NOTE | 2018-04-26 15:43 | CP.PCM.PN ---
Subjective - Date & Time of Evaluation Date of Evaluation: 04/26/18 Time of Evaluation: 15:43 - Subjective Subjective: pt is still c/o sob and swelling of legs, no cp, no palpiatation Objective - Vital Signs/Intake and Output Vital Signs (last 24 hours): Temp Pulse Resp BP Pulse Ox 97.6 F 73 18 143/87 99 04/26/18 08:13 04/26/18 08:13 04/26/18 08:13 04/26/18 08:13 04/26/18 08:13 Intake and Output: 04/26/18 04/26/18 06:59 18:59 Intake Total 500 450 Output Total 200 Balance 300 450 - Medications Medications: Current Medications Albuterol (Ventolin Hfa 90 Mcg/Actuation (8 G)) 1 puff IH RQ4 PRN PRN Reason: Shortness of Breath Amlodipine Besylate (Norvasc) 10 mg PO DAILY [facility] Last Admin: 04/26/18 08:59 Dose: 10 mg Aspirin (Aspirin Chewable) 81 mg PO DAILY [facility] Last Admin: 04/26/18 09:00 Dose: 81 mg Clopidogrel Bisulfate (Plavix) 75 mg PO DAILY [facility] Last Admin: 04/26/18 09:00 Dose: 75 mg Fluticasone/Vilanterol (Breo Ellipta 100-25 Mcg Inh) 1 puff INH RQ24 [facility] Furosemide (Lasix) 80 mg IVP Q12 [facility] Gabapentin (Neurontin) 800 mg PO TID [facility] Last Admin: 04/26/18 13:03 Dose: 800 mg Heparin Sodium (Porcine) (Heparin) 5,000 units SC Q12 [facility] Last Admin: 04/26/18 08:59 Dose: 5,000 units Home Med (Glycopyrrolate/Formoterol Fum [Bevespi Aerosphere Inhaler]) 2 puff IH Q4 [facility] Hydralazine HCl (Apresoline) 50 mg PO BID [facility] Last Admin: 04/26/18 09:00 Dose: 50 mg Insulin Human Regular (Novolin R) 0 unit SC ACHS [facility]; Protocol Last Admin: 04/26/18 11:58 Dose: 1 unit Levothyroxine Sodium (Synthroid) 75 mcg PO DAILY@0630 [facility] Last Admin: 04/26/18 07:38 Dose: 75 mcg Multivitamins (Hexavitamin) 1 tab PO DAILY [facility] Last Admin: 04/26/18 08:59 Dose: 1 tab Nebivolol (Bystolic) 20 mg PO DAILY [facility] Last Admin: 04/26/18 09:00 Dose: 20 mg Sevelamer Carbonate (Renvela) 1,600 mg PO TID [facility] Last Admin: 04/26/18 13:04 Dose: 1,600 mg - Labs Labs: 04/25/18 06:27 04/26/18 00:28 Assessment and Plan - Assessment and Plan (Free Text) Assessment: 77 yo AA female with htn, dm, c ad, cabb, ckd, ckf, edema anemia with incresed bun/cr 1. [place] on ckd -4 vs progression of ckd 2. Anemia 3. htn 4. DM 5. b/l le edema r/o chf will switch po lasix 40 mg po q 8hrs to iv lasix 80 mg q 12 hrs, check bmp in am restrict fluids to 1lit/day GFR only 19 ml/min due to multiple admissions and chf, pt may need to start hd early
[2018-04-27] MEDS: Levothyroxine 75 MCG TAB PO SCH (05:42)
--- NOTE | 2018-04-27 05:44 | CP.PCM.PN ---
Subjective - Date & Time of Evaluation Date of Evaluation: 04/26/18 Time of Evaluation: 18:20 - Subjective Subjective: Patient seen and evaluated Creatinine high Awaiting renal clearance for cardiac cath Check stress test in am If abnormal patient needs cath Objective - Vital Signs/Intake and Output Vital Signs (last 24 hours): Temp Pulse Resp BP Pulse Ox 98.1 F 75 20 116/63 97 04/26/18 23:49 04/26/18 23:49 04/26/18 23:49 04/26/18 23:49 04/26/18 23:49 Intake and Output: 04/26/18 04/27/18 18:59 06:59 Intake Total 450 Balance 450 - Medications Medications: Current Medications Albuterol (Ventolin Hfa 90 Mcg/Actuation (8 G)) 1 puff IH RQ4 PRN PRN Reason: Shortness of Breath Amlodipine Besylate (Norvasc) 10 mg PO DAILY [facility] Last Admin: 04/26/18 08:59 Dose: 10 mg Aspirin (Aspirin Chewable) 81 mg PO DAILY [facility] Last Admin: 04/26/18 09:00 Dose: 81 mg Clopidogrel Bisulfate (Plavix) 75 mg PO DAILY [facility] Last Admin: 04/26/18 09:00 Dose: 75 mg Fluticasone/Vilanterol (Breo Ellipta 100-25 Mcg Inh) 1 puff INH RQ24 [facility] Furosemide (Lasix) 80 mg IVP Q12 [facility] Gabapentin (Neurontin) 800 mg PO TID [facility] Last Admin: 04/26/18 17:41 Dose: 800 mg Heparin Sodium (Porcine) (Heparin) 5,000 units SC Q12 [facility] Last Admin: 04/26/18 22:27 Dose: Not Given Home Med (Glycopyrrolate/Formoterol Fum [Bevespi Aerosphere Inhaler]) 2 puff IH Q4 [facility] Hydralazine HCl (Apresoline) 50 mg PO BID [facility] Last Admin: 04/26/18 17:42 Dose: 50 mg Insulin Human Regular (Novolin R) 0 unit SC [facility]; Protocol Last Admin: 04/26/18 22:14 Dose: Not Given Levothyroxine Sodium (Synthroid) 75 mcg PO DAILY@0630 [facility] Last Admin: 04/27/18 05:42 Dose: 75 mcg Multivitamins (Hexavitamin) 1 tab PO DAILY [facility] Last Admin: 04/26/18 08:59 Dose: 1 tab Nebivolol (Bystolic) 20 mg PO DAILY [facility] Last Admin: 04/26/18 09:00 Dose: 20 mg Sevelamer Carbonate (Renvela) 1,600 mg PO TID [facility] Last Admin: 04/26/18 17:41 Dose: 1,600 mg - Labs Labs: 04/25/18 06:27 04/26/18 00:28
[2018-04-27] MEDS: (Novolin R) Insulin Human Regular 100 units/ml vial SC SCH ×4 (07:30→21:51)
--- NOTE | 2018-04-27 09:15 | CP.PCM.PN ---
Subjective - Date & Time of Evaluation Date of Evaluation: 04/27/18 Time of Evaluation: 09:14 - Subjective Subjective: 77 yo AA female with pmh/o htn,dm, ckd, hld, cad, s/p cabg, s/p cardic cath, s/p stent was admitted with sob and elevated s.cr pt is seen and examined by me. pt is still c/o sob, no cp, no palpitation, no nausea, no vomitings Objective - Vital Signs/Intake and Output Vital Signs (last 24 hours): Temp Pulse Resp BP Pulse Ox 98.1 F 75 20 116/63 97 04/26/18 23:49 04/26/18 23:49 04/26/18 23:49 04/26/18 23:49 04/26/18 23:49 Intake and Output: 04/27/18 04/27/18 06:59 18:59 Intake Total 50 Balance 50 - Medications Medications: Current Medications Albuterol (Ventolin Hfa 90 Mcg/Actuation (8 G)) 1 puff IH RQ4 PRN PRN Reason: Shortness of Breath Amlodipine Besylate (Norvasc) 10 mg PO DAILY [facility] Last Admin: 04/26/18 08:59 Dose: 10 mg Aspirin (Aspirin Chewable) 81 mg PO DAILY [facility] Last Admin: 04/26/18 09:00 Dose: 81 mg Clopidogrel Bisulfate (Plavix) 75 mg PO DAILY [facility] Last Admin: 04/26/18 09:00 Dose: 75 mg Fluticasone/Vilanterol (Breo Ellipta 100-25 Mcg Inh) 1 puff INH RQ24 [facility] Furosemide (Lasix) 80 mg IVP Q12 [facility] Gabapentin (Neurontin) 800 mg PO TID [facility] Last Admin: 04/26/18 17:41 Dose: 800 mg Heparin Sodium (Porcine) (Heparin) 5,000 units SC Q12 [facility] Last Admin: 04/26/18 22:27 Dose: Not Given Home Med (Glycopyrrolate/Formoterol Fum [Bevespi Aerosphere Inhaler]) 2 puff IH Q4 [facility] Hydralazine HCl (Apresoline) 50 mg PO BID [facility] Last Admin: 04/26/18 17:42 Dose: 50 mg Insulin Human Regular (Novolin R) 0 unit SC ACHS [facility]; Protocol Last Admin: 04/26/18 22:14 Dose: Not Given Levothyroxine Sodium (Synthroid) 75 mcg PO DAILY@0630 [facility] Last Admin: 04/27/18 05:42 Dose: 75 mcg Multivitamins (Hexavitamin) 1 tab PO DAILY [facility] Last Admin: 04/26/18 08:59 Dose: 1 tab Nebivolol (Bystolic) 20 mg PO DAILY [facility] Last Admin: 04/26/18 09:00 Dose: 20 mg Sevelamer Carbonate (Renvela) 1,600 mg PO TID [facility] Last Admin: 04/26/18 17:41 Dose: 1,600 mg - Labs Labs: 04/25/18 06:27 04/26/18 00:28 Assessment and Plan - Assessment and Plan (Free Text) Assessment: 77 yo AA female with htn, dm, c ad, cabb, ckd, chf, edema anemia with increased bun/cr 1. [place] on ckd -4 vs progression of ckd 2. Anemia 3. htn 4. DM 5. b/l le edema r/o chf c/w lasix 80 mg iv q 12 hrs, check bmp in am restrict fluids to 1lit/day GFR only 19 ml/min due to multiple admissions to / [facility] for sob, cp chf, pt may benefit from starting hd early pt will have mod-high risk for LENA / ANGELES with cardiac cath
[2018-04-27] MEDS: Multiple Vitamins Tab PO SCH (10:19)
[2018-04-27] MEDS: Fluticasone-Vilanterol 100/25mcg Diskus INH SCH (11:00)
--- NOTE | 2018-04-27 14:04 | CP.PCM.CON ---
<Tonya Rodriguez - Last Filed: 04/28/18 17:48> History of Present Illness - History of Present Illness History of Present Illness: Neurology Consult Note for Dr. Brooks Patient is a pleasant 77-year-old female with past medical history of lung cancer, colon cancer, COPD, DMT2, CKD stage 3, HTN who was referred to us by Dr. Sheets for confusion. Patient says that she began feeling confused on Monday, and that this has never happened before. Patient says she originally came to the ED for elevated creatinine. Thus, catheterization could not be performed. Patient admits to a lump on her left neck that is tender to palpation, and tingling in her upper extremity digits on the left. But patient otherwise denies nausea, vomiting, headache, vision changes, weakness in upper and/or lower extremities. Patient walks with assistance of walker while outside. 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 Review of Systems - Constitutional Constitutional: As Per HPI - EENT Eyes: As Per HPI - Cardiovascular Cardiovascular: As Per HPI - Respiratory Respiratory: As Per HPI - Musculoskeletal Musculoskeletal: As Per HPI - Neurological Neurological: As Per HPI Past Patient History - Infectious Disease Hx of Infectious Diseases: None - Past Medical History & Family History Past Medical History?: Yes - Past Social History Smoking Status: Former Smoker - CARDIAC Hx Congestive Heart Failure: Yes Hx Hypercholesterolemia: Yes Hx Hypertension: Yes - PULMONARY Hx Chronic Obstructive Pulmonary Disease (COPD): Yes - NEUROLOGICAL Hx Neurological Disorder: No Hx Paralysis: No - HEENT Hx HEENT Problems: No - RENAL Hx Chronic Kidney Disease: Yes - ENDOCRINE/METABOLIC Hx Hypothyroidism: Yes - HEMATOLOGICAL/ONCOLOGICAL Hx Anemia: Yes - INTEGUMENTARY Hx Dermatological Problems: No - MUSCULOSKELETAL/RHEUMATOLOGICAL Hx Arthritis: Yes - GASTROINTESTINAL Hx Gastrointestinal Disorders: Yes Other/Comment: HX: CANCER OF STOMACH - GENITOURINARY/GYNECOLOGICAL Hx Genitourinary Disorders: No - PSYCHIATRIC Hx Substance Use: No - SURGICAL HISTORY Hx Coronary Artery Bypass Graft: Yes (X4(2004)) Hx Coronary Stent: Yes (6) - ANESTHESIA Hx Anesthesia: Yes Hx Anesthesia Reactions: No Hx Malignant Hyperthermia: No Has any member of the family had a problem w/ anesthesia?: No Meds Allergies/Adverse Reactions: Allergies Allergy/AdvReac Type Severity Reaction Status Date / Time pregabalin [From Lyrica] Allergy Intermediate ITCHING Verified 04/23/18 12:46 rosuvastatin [From Crestor] Allergy Intermediate MUSCLE Verified 04/23/18 12:46 CRAMPS - Medications Medications: Current Medications Albuterol (Ventolin Hfa 90 Mcg/Actuation (8 G)) 1 puff IH RQ4 PRN PRN Reason: Shortness of Breath Amlodipine Besylate (Norvasc) 10 mg PO DAILY [facility] Last Admin: 04/27/18 10:19 Dose: 10 mg Aspirin (Aspirin Chewable) 81 mg PO DAILY [facility] Last Admin: 04/27/18 10:19 Dose: 81 mg Clopidogrel Bisulfate (Plavix) 75 mg PO DAILY [facility] Last Admin: 04/27/18 10:19 Dose: 75 mg Fluticasone/Vilanterol (Breo Ellipta 100-25 Mcg Inh) 1 puff INH RQ24 [facility] Last Admin: 04/27/18 11:00 Dose: 1 puff Furosemide (Lasix) 80 mg IVP Q12 [facility] Last Admin: 04/27/18 10:26 Dose: 80 mg Gabapentin (Neurontin) 400 mg PO TID [facility] Heparin Sodium (Porcine) (Heparin) 5,000 units SC Q12 [facility] Last Admin: 04/27/18 10:17 Dose: 5,000 units Hydralazine HCl (Apresoline) 50 mg PO BID [facility] Last Admin: 04/27/18 10:18 Dose: 50 mg Insulin Human Regular (Novolin R) 0 unit SC ACHS [facility]; Protocol Last Admin: 04/27/18 11:30 Dose: Not Given Levothyroxine Sodium (Synthroid) 75 mcg PO DAILY@0630 [facility] Last Admin: 04/27/18 05:42 Dose: 75 mcg Multivitamins (Hexavitamin) 1 tab PO DAILY [facility] Last Admin: 04/27/18 10:19 Dose: 1 tab Nebivolol (Bystolic) 20 mg PO DAILY [facility] Last Admin: 04/27/18 10:19 Dose: 20 mg Sevelamer Carbonate (Renvela) 1,600 mg PO TID [facility] Last Admin: 04/27/18 13:03 Dose: 1,600 mg Physical Exam - Constitutional Appears: Non-toxic, No Acute Distress - Head Exam Head Exam: ATRAUMATIC, NORMAL INSPECTION, NORMOCEPHALIC - Eye Exam Eye Exam: EOMI, Normal appearance. absent: Nystagmus Pupil Exam: NORMAL ACCOMODATION, PERRL - ENT Exam ENT Exam: Mucous Membranes Moist, Normal Exam - Neck Exam Neck exam: Positive for: Lymphadenopathy (right anterior cervical lymph node palpable ) - Neurological Exam Neurological exam: Alert, CN II-XII Intact, Oriented x3, Reflexes Normal Additional comments: Positive for asterixis - Expanded Neurological Exam Expanded Neurological exam: Ataxia (Truncal ataxia present ) Speech: Fluid Speech Cranial nerves: EOM's Intact: Normal, Facial Palsey w/Forehead Movement: Normal, Facial Palsey w/o Forehead Movement: Normal, Facial Sensation: Normal, Gag Reflex: Normal, Nystagmus: Normal, Tongue Deviation: Normal Cerebellar Function: Finger to Nose: Normal Upper motor neuron: Pronator Drift: Normal - Psychiatric Exam Psychiatric exam: Normal Affect, Normal Mood - Skin Skin Exam: Dry, Intact, Normal Color, Warm Results - Vital Signs Recent Vital Signs: Last Vital Signs Temp 98.1 F 04/27/18 09:00 Pulse 76 04/27/18 10:27 Resp 20 04/27/18 10:27 BP 139/66 04/27/18 10:27 Pulse Ox 98 04/27/18 10:27 - Labs Result Diagrams: 04/27/18 14:20 04/27/18 14:20 Labs: Laboratory Results - last 24 hr 04/25/18 04/26/18 04/26/18 06:27 16:35 20:57 POC Glucose (mg/dL) 127 H 127 H PTH Intact Whole Molec 167 H 04/27/18 04/27/18 06:15 11:11 POC Glucose (mg/dL) 125 H 113 H PTH Intact Whole Molec Assessment & Plan - Assessment and Plan (Free Text) Assessment: Patient is a pleasant 77-year-old female with past medical history of lung cancer, colon cancer, COPD, DMT2, CKD stage 3, HTN who was referred to us by Dr. 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 Cecilia Rodriguez PGY1 <Joel Brooks - Last Filed: 04/28/18 19:05> Meds - Medications Medications: Current Medications Albuterol (Ventolin Hfa 90 Mcg/Actuation (8 G)) 1 puff IH RQ4 PRN PRN Reason: Shortness of Breath Amlodipine Besylate (Norvasc) 5 mg PO DAILY [facility] Last Admin: 04/28/18 09:56 Dose: 5 mg Aspirin (Aspirin Chewable) 81 mg PO DAILY [facility] Last Admin: 04/28/18 09:55 Dose: 81 mg Clopidogrel Bisulfate (Plavix) 75 mg PO DAILY [facility] Last Admin: 04/28/18 09:55 Dose: 75 mg Fluticasone/Vilanterol (Breo Ellipta 100-25 Mcg Inh) 1 puff INH RQ24 [facility] Last Admin: 04/28/18 09:05 Dose: 1 puff Furosemide (Lasix) 80 mg IVP Q12 [facility] Last Admin: 04/28/18 09:57 Dose: 80 mg Gabapentin (Neurontin) 100 mg PO TID [facility] Last Admin: 04/28/18 19:02 Dose: 100 mg Heparin Sodium (Porcine) (Heparin) 5,000 units SC Q12 [facility] Last Admin: 04/28/18 09:57 Dose: 5,000 units Hydralazine HCl (Apresoline) 50 mg PO Q8H [facility] Last Admin: 04/28/18 13:09 Dose: 50 mg Insulin Human Regular (Novolin R) 0 unit SC ACHS [facility]; Protocol Last Admin: 04/28/18 12:47 Dose: 1 unit Levothyroxine Sodium (Synthroid) 75 mcg PO DAILY@0630 [facility] Last Admin: 04/28/18 06:41 Dose: 75 mcg Multivitamins (Hexavitamin) 1 tab PO DAILY [facility] Last Admin: 04/28/18 09:56 Dose: 1 tab Nebivolol (Bystolic) 20 mg PO DAILY [facility] Last Admin: 04/28/18 09:56 Dose: 20 mg Sevelamer Carbonate (Renvela) 1,600 mg PO TID [facility] Last Admin: 04/28/18 19:01 Dose: 1,600 mg Zolpidem Tartrate (Ambien) 5 mg PO HS PRN PRN Reason: Insomnia Results - Vital Signs Recent Vital Signs: Last Vital Signs Temp 98.1 F 04/28/18 15:00 Pulse 70 04/28/18 15:00 Resp 20 04/28/18 15:00 BP 124/57 L 04/28/18 15:00 Pulse Ox 96 04/28/18 15:00 - Labs Result Diagrams: 04/27/18 14:20 04/27/18 14:20 Labs: Laboratory Results - last 24 hr 04/27/18 04/28/18 04/28/18 20:47 06:21 11:16 POC Glucose (mg/dL) 169 H 116 H 172 H 04/28/18 17:01 POC Glucose (mg/dL) 142 H Attending/Attestation - Attestation I have personally seen and examined this patient.: Yes I have fully participated in the care of the patient.: Yes I have reviewed all pertinent clinical information: Yes Notes (Text): 04/28/18 19:04 I agree with the assessment and plan. The patient will need further work-up for ischemia or paraneoplastic syndrome. Neurology will follow. Please do not hesitate to call back with any new developments, data updates or questions. Thank you for the opportunity to participate in the care of this patient.
[2018-04-27 14:29] LABS: BASO # 0.1 K/uL (0.0-0.2); BASO % 1.4 % (0.0-2.0); EOS # 0.1 K/uL (0.0-0.7); EOS % 1.4 % (0.0-4.0); HEMOGLOBIN 9.3 g/dL (11.0-16.0); LYMPH # 0.5 K/uL (1.0-4.3); LYMPH % 13.5 % (20.0-40.0); MEAN CELL VOLUME 90.5 fL (81.0-99.0); MEAN CORPUSCULAR HGB CONC 32.1 g/dL (33.0-37.0); MEAN PLATELET VOLUME 8.6 fL (7.2-11.7); MONO # 0.3 K/uL (0.0-0.8); MONO % 8.5 % (0.0-10.0); NEUT # 2.9 K/uL (1.8-7.0); NEUT % 75.2 % (50.0-75.0); NRBC % 0.1 % (0.0-2.0); RBC 3.2 Mil/uL (3.80-5.20); RED CELL DISTRIBUTION WIDTH 18.1 % (11.5-14.5); WHITE BLOOD COUNT 3.9 K/uL (4.8-10.8)
[2018-04-27 14:49] LABS: ALB/GLOB RATIO 1.1 (1.0-2.1); ALBUMIN 3.3 g/dL (3.5-5.0); CALCIUM 8.8 mg/dl (8.6-10.4)
--- NOTE | 2018-04-27 18:50 | CARD ---
APPROVED REPORT Date of service: 04/27/2018 EXAM: LIMITED Two-dimensional and M-mode echocardiogram with Doppler and color Doppler. Other Information Quality : GoodRhythm : INDICATION Pre-Op Cardiac Disease: CAD Congestive Heart Failure COPD RISK FACTORS Hypertension 2D DIMENSIONS IVSd0.9 (0.7-1.1cm)LVDd4.2 (3.9-5.9cm) PWd1.0 (0.7-1.1cm)LVDs3.4 (2.5-4.0cm) FS (%) 19.3 %LVEF (%)40.0 (>50%) LVEF (Lui's)43 % M-Mode DIMENSIONS IVSd0.99 (0.7-1.1cm)LVDd5.01 (4.0-5.6cm) PWd0.91 (0.7-1.1cm)FS (%) 20 % LVDs4.00 (2.0-3.8cm)LVEF (%)41 (>50%) Mitral Valve E/A ratio0.0 TDI E/Lateral E'0.0E/Medial E'0.0 Tricuspid Valve TR Peak [id number] Peak [id number] LEFT VENTRICLE The left ventricle is normal size. There is normal left ventricular wall thickness. Left ventricle systolic function is moderately impaired. The Ejection Fraction is 35-40%. Global hypokinesia, more pronounced in the mid-anteroseptal wall. No mitral inflow Doppler and no tissue Doppler. There is no ventricular septal defect visualized. RIGHT VENTRICLE The right ventricle is normal size. The right ventricular systolic function is normal. There is a pacemaker lead in the right ventricle. ATRIA The left atrium is mildly dilated. The right atrium size is normal. AORTIC VALVE The aortic valve is mildly sclerotic. The aortic valve is tri-cuspid. No aortic regurgitation is present. There is no aortic valvular stenosis. MITRAL VALVE The mitral valve is normal in structure. There is no evidence of mitral valve prolapse. No mitral flow Doppler. TRICUSPID VALVE The tricuspid valve is normal in structure. There is moderate to severe tricuspid regurgitation. Right ventricular systolic pressure is estimated at 50-60 mmHg. There is moderate-severe pulmonary hypertension. PULMONIC VALVE The pulmonic valve is not well visualized. There is no pulmonic valvular regurgitation. GREAT VESSELS The aortic root is normal in size. The ascending aorta is normal in size. Not visualized PERICARDIAL EFFUSION There is no pericardial effusion. <Conclusion> Left ventricle systolic function is moderately impaired. The Ejection Fraction is 35-40%. Global hypokinesia, more pronounced in the mid-anteroseptal wall. No mitral inflow Doppler and no tissue Doppler. There is moderate-severe pulmonary hypertension.
--- NOTE | 2018-04-27 21:47 | CP.PCM.PN ---
Subjective - Date & Time of Evaluation Date of Evaluation: 04/27/18 Time of Evaluation: 21:45 - Subjective Subjective: Stress test got cancelled today Dr. Sheets to perform stress test Monday Objective - Vital Signs/Intake and Output Vital Signs (last 24 hours): Temp Pulse Resp BP Pulse Ox 98 F 75 20 131/70 96 04/27/18 16:46 04/27/18 21:35 04/27/18 16:46 04/27/18 21:35 04/27/18 16:46 Intake and Output: 04/27/18 04/28/18 18:59 06:59 Intake Total 430 Balance 430 - Medications Medications: Current Medications Albuterol (Ventolin Hfa 90 Mcg/Actuation (8 G)) 1 puff IH RQ4 PRN PRN Reason: Shortness of Breath Amlodipine Besylate (Norvasc) 5 mg PO DAILY [facility] Aspirin (Aspirin Chewable) 81 mg PO DAILY [facility] Last Admin: 04/27/18 10:19 Dose: 81 mg Clopidogrel Bisulfate (Plavix) 75 mg PO DAILY [facility] Last Admin: 04/27/18 10:19 Dose: 75 mg Fluticasone/Vilanterol (Breo Ellipta 100-25 Mcg Inh) 1 puff INH RQ24 [facility] Last Admin: 04/27/18 11:00 Dose: 1 puff Furosemide (Lasix) 80 mg IVP Q12 [facility] Last Admin: 04/27/18 10:26 Dose: 80 mg Gabapentin (Neurontin) 400 mg PO TID [facility] Last Admin: 04/27/18 17:12 Dose: 400 mg Heparin Sodium (Porcine) (Heparin) 5,000 units SC Q12 [facility] Last Admin: 04/27/18 10:17 Dose: 5,000 units Hydralazine HCl (Apresoline) 50 mg PO Q8H [facility] Insulin Human Regular (Novolin R) 0 unit SC ACHS [facility]; Protocol Last Admin: 04/27/18 17:11 Dose: 1 unit Levothyroxine Sodium (Synthroid) 75 mcg PO DAILY@0630 [facility] Last Admin: 04/27/18 05:42 Dose: 75 mcg Multivitamins (Hexavitamin) 1 tab PO DAILY [facility] Last Admin: 04/27/18 10:19 Dose: 1 tab Nebivolol (Bystolic) 20 mg PO DAILY [facility] Last Admin: 04/27/18 10:19 Dose: 20 mg Sevelamer Carbonate (Renvela) 1,600 mg PO TID [facility] Last Admin: 04/27/18 17:12 Dose: 1,600 mg - Labs Labs: 04/27/18 14:20 04/27/18 14:20
--- NOTE | 2018-04-27 23:50 | CON ---
DATE: 04/27/2018 CHIEF COMPLAINT AND REASON FOR CONSULTATION: The patient was referred by Dr. Sheets for evaluation. The patient is exhibiting off and on periods of confusion. HISTORY OF PRESENT ILLNESS: This is a case of 80-year-old female who was admitted here, was sent by her PMD, Dr. Sheets, for elevated creatinine. The initial creatinine was 2.9. Repeat lab showed 2.8. BUN was elevated. The patient's BUN was 61. The patient was referred to comanagement as the patient was noted to be having off and on periods of confusion. The patient when seen today is less confused but doing much better. She knows in hospital, she said that she never had problems with the kidney before but the patient has multiple medical problems. Today, she is aware that she is in the hospital. She remembers she was admitted several times; oriented to person, place, and time. The patient on review of her medication was taking gabapentin 800 mg p.o. 3 times daily at home but was reduced to 400 p.o. 3 times daily in lieu of her renal status which seems to have improved her mental status. PAST MEDICAL HISTORY: Denies any medical history. As stated, there are multiple medical problems, history of hypertension, congestive heart failure, COPD, CAD, pulmonary hypertension, UTI, history of acute kidney injury, history of lung cancer, history of dehydration, sick sinus syndrome. DRUG ALCOHOL HISTORY: Denies any. ALLERGIES: THE PATIENT IS ALLERGIC TO LYRICA AND CRESTOR. PSYCHOSOCIAL HISTORY: The patient is not working at this time. She is retired. PHYSICAL EXAMINATION: VITAL SIGNS: Temperature is 98.1, pulse 76, blood pressure 139/66, respirations 20, oxygen saturation is 98%. LABORATORY DATA: Review of her recent lab, her creatinine is 2.5, BUN is 61. Sodium is 140, potassium is 4.2. CURRENT MEDICATIONS: As stated, the patient is on the following meds, hydralazine, aspirin, Bystolic, Lasix, Neurontin 400 mg three times a day, Norvasc, Plavix, Synthroid, albuterol. REVIEW OF SYSTEMS: GENERAL: The patient is alert, oriented x3, seen in her room, resting, not agitated. SKIN: No diaphoresis. HEENT: No headache, no dizziness. NECK: Supple. RESPIRATORY: No dyspnea. CARDIOVASCULAR: No chest pain. GASTROINTESTINAL: She states her appetite is so good. MUSCULOSKELETAL: Feels weak. The patient is asking for Glucerna. EXTREMITIES: The patient is ambulatory. NEUROLOGIC: Alert and oriented x3 at the time of discharge. MENTAL STATUS EXAMINATION: Elderly female who is about 5 feet and weighs 183 pounds, obese, oriented x3, pleasant in approach. Says she is less confused. The patient was supposed to have cardiac cath but was canceled due to her abnormal labs. Thought process coherent. Affect is reactive. Speech is spontaneous. Thought content, no psychosis. No suicidal or homicidal ideation. Attention and memory seemed to be fair. Insight and judgment fair. Impulse control is fair. IMPRESSION: Metabolic encephalopathy, probably secondary to her abnormal renal function versus drug induced from the gabapentin. Gabapentin is renally excreted but much improved with the reduction of the dose. Mood disorder secondary to medical problems. Delirium multifactorial in etiology. PLAN AND RECOMMENDATIONS: The patient is seen, meds reviewed. Continue present management. We will monitor her renal function. As for now, the patient is improving clinically. I did recommend no psych meds, especially with her abnormal renal function. The patient is redirectable. She is compliant. The patient was followed by the glassworker, Dr. Hernandez. For now, I recommend holding off any psych meds at this point. The patient's mental status is improving. Speech is spontaneous. There is no need for psych medication at this time. We will monitor her behavior accordingly. Te Herrera MD MTDEvelina
[2018-04-28] MEDS: Levothyroxine 75 MCG TAB PO SCH (06:41)
[2018-04-28] MEDS: (Novolin R) Insulin Human Regular 100 units/ml vial SC SCH ×4 (07:56→21:37)
--- NOTE | 2018-04-28 08:10 | CARD ---
APPROVED REPORT Date of service: 04/24/2018 EKG Measurement Heart [id number] <Conclusion> Atrial-paced rhythm with prolonged AV conduction Right axis deviation Low voltage QRS Nonspecific T wave abnormality Abnormal ECG
[2018-04-28] MEDS: Fluticasone-Vilanterol 100/25mcg Diskus INH SCH (09:05)
--- NOTE | 2018-04-28 09:36 | RAD ---
HISTORY: htn,dm,chf, ckd, sob COMPARISON: Chest x-ray performed 01/16/18 TECHNIQUE: Chest PA and lateral FINDINGS: LUNGS: Increased lucencies especially within the bilateral upper lung sullivan compatible with underlying emphysema. Right sided pleural effusion and/or consolidation. Moderate pulmonary venous congestion. No definite pneumothorax. Please note that chest x-ray has limited sensitivity for the detection of pulmonary masses. CARDIOVASCULAR: Median sternotomy wires. Cardiomegaly. Dual lead left-sided pacemaker. Dense atherosclerotic calcifications of an ectatic aorta. OSSEOUS STRUCTURES: Degenerative changes. Osseous demineralization. Chronic appearing right rib fracture deformities. VISUALIZED UPPER ABDOMEN: Probable interval elevation of the right hemidiaphragm. OTHER FINDINGS: None. IMPRESSION: Cardiomegaly. Atherosclerotic calcifications of an ectatic aorta. Moderate pulmonary venous congestion. Probable right pleural effusion and/or consolidation. Emphysematous changes. Apparent interval elevation of the right hemidiaphragm.
--- NOTE | 2018-04-28 09:47 | CP.PCM.PN ---
Subjective - Date & Time of Evaluation Date of Evaluation: 04/27/18 Time of Evaluation: 16:00 - Subjective Subjective: pt more confused Lexiscan cancelled Objective - Vital Signs/Intake and Output Vital Signs (last 24 hours): Temp Pulse Resp BP Pulse Ox 98.4 F 66 20 120/64 95 04/28/18 08:22 04/28/18 08:22 04/28/18 08:22 04/28/18 08:22 04/28/18 08:22 Intake and Output: 04/28/18 04/28/18 06:59 18:59 Intake Total 450 Balance 450 - Medications Medications: Current Medications Albuterol (Ventolin Hfa 90 Mcg/Actuation (8 G)) 1 puff IH RQ4 PRN PRN Reason: Shortness of Breath Amlodipine Besylate (Norvasc) 5 mg PO DAILY [facility] Aspirin (Aspirin Chewable) 81 mg PO DAILY [facility] Last Admin: 04/27/18 10:19 Dose: 81 mg Clopidogrel Bisulfate (Plavix) 75 mg PO DAILY [facility] Last Admin: 04/27/18 10:19 Dose: 75 mg Fluticasone/Vilanterol (Breo Ellipta 100-25 Mcg Inh) 1 puff INH RQ24 [facility] Last Admin: 04/28/18 09:05 Dose: 1 puff Furosemide (Lasix) 80 mg IVP Q12 [facility] Last Admin: 04/27/18 21:48 Dose: 80 mg Gabapentin (Neurontin) 400 mg PO TID [facility] Last Admin: 04/27/18 17:12 Dose: 400 mg Heparin Sodium (Porcine) (Heparin) 5,000 units SC Q12 [facility] Last Admin: 04/27/18 21:49 Dose: 5,000 units Hydralazine HCl (Apresoline) 50 mg PO Q8H [facility] Last Admin: 04/28/18 06:41 Dose: 50 mg Insulin Human Regular (Novolin R) 0 unit SC ACHS [facility]; Protocol Last Admin: 04/28/18 07:56 Dose: Not Given Levothyroxine Sodium (Synthroid) 75 mcg PO DAILY@0630 [facility] Last Admin: 04/28/18 06:41 Dose: 75 mcg Multivitamins (Hexavitamin) 1 tab PO DAILY [facility] Last Admin: 04/27/18 10:19 Dose: 1 tab Nebivolol (Bystolic) 20 mg PO DAILY [facility] Last Admin: 04/27/18 10:19 Dose: 20 mg Sevelamer Carbonate (Renvela) 1,600 mg PO TID [facility] Last Admin: 04/27/18 17:12 Dose: 1,600 mg - Labs Labs: 04/27/18 14:20 04/27/18 14:20 - Constitutional Appears: Confused - Head Exam Head Exam: NORMAL INSPECTION - Eye Exam Eye Exam: absent: Scleral icterus - Neck Exam Neck Exam: Full ROM - Cardiovascular Exam Cardiovascular Exam: REGULAR RHYTHM - GI/Abdominal Exam GI & Abdominal Exam: Soft - Extremities Exam Extremities Exam: absent: Pedal Edema - Neurological Exam Neurological Exam: Altered Assessment and Plan - Assessment and Plan (Free Text) Assessment: Altered mental status-? Metabolic COPD CAD CKD stage 3 HTN Lung ca Plan: Lower Gabapentin dose due to CKD DIscussed with psyche Becky Yun
[2018-04-28] MEDS: Multiple Vitamins Tab PO SCH (09:56)
--- NOTE | 2018-04-28 09:57 | CP.PCM.PN ---
Subjective - Date & Time of Evaluation Date of Evaluation: 04/26/18 Time of Evaluation: 08:00 - Subjective Subjective: confused no chest pain Objective - Vital Signs/Intake and Output Vital Signs (last 24 hours): Temp Pulse Resp BP Pulse Ox 98.4 F 66 20 120/64 95 04/28/18 08:22 04/28/18 08:22 04/28/18 08:22 04/28/18 08:22 04/28/18 08:22 Intake and Output: 04/28/18 04/28/18 06:59 18:59 Intake Total 450 Balance 450 - Medications Medications: Current Medications Albuterol (Ventolin Hfa 90 Mcg/Actuation (8 G)) 1 puff IH RQ4 PRN PRN Reason: Shortness of Breath Amlodipine Besylate (Norvasc) 5 mg PO DAILY [facility] Aspirin (Aspirin Chewable) 81 mg PO DAILY [facility] Last Admin: 04/27/18 10:19 Dose: 81 mg Clopidogrel Bisulfate (Plavix) 75 mg PO DAILY [facility] Last Admin: 04/27/18 10:19 Dose: 75 mg Fluticasone/Vilanterol (Breo Ellipta 100-25 Mcg Inh) 1 puff INH RQ24 [facility] Last Admin: 04/28/18 09:05 Dose: 1 puff Furosemide (Lasix) 80 mg IVP Q12 [facility] Last Admin: 04/27/18 21:48 Dose: 80 mg Gabapentin (Neurontin) 400 mg PO TID [facility] Last Admin: 04/27/18 17:12 Dose: 400 mg Heparin Sodium (Porcine) (Heparin) 5,000 units SC Q12 [facility] Last Admin: 04/27/18 21:49 Dose: 5,000 units Hydralazine HCl (Apresoline) 50 mg PO Q8H [facility] Last Admin: 04/28/18 06:41 Dose: 50 mg Insulin Human Regular (Novolin R) 0 unit SC ACHS [facility]; Protocol Last Admin: 04/28/18 07:56 Dose: Not Given Levothyroxine Sodium (Synthroid) 75 mcg PO DAILY@0630 [facility] Last Admin: 04/28/18 06:41 Dose: 75 mcg Multivitamins (Hexavitamin) 1 tab PO DAILY [facility] Last Admin: 04/27/18 10:19 Dose: 1 tab Nebivolol (Bystolic) 20 mg PO DAILY [facility] Last Admin: 04/27/18 10:19 Dose: 20 mg Sevelamer Carbonate (Renvela) 1,600 mg PO TID [facility] Last Admin: 04/27/18 17:12 Dose: 1,600 mg - Labs Labs: 04/27/18 14:20 04/27/18 14:20 - Constitutional Appears: Non-toxic, Confused - Head Exam Head Exam: NORMOCEPHALIC - Eye Exam Eye Exam: absent: Scleral icterus - ENT Exam ENT Exam: Mucous Membranes Moist - Neck Exam Neck Exam: Full ROM - Respiratory Exam Respiratory Exam: Decreased Breath Sounds - Cardiovascular Exam Cardiovascular Exam: REGULAR RHYTHM - GI/Abdominal Exam GI & Abdominal Exam: Soft - Extremities Exam Extremities Exam: absent: Pedal Edema - Neurological Exam Neurological Exam: Altered Assessment and Plan - Assessment and Plan (Free Text) Assessment: Altered mental status-r/o Metabolic encephalopathy CAD COPD CKD stage 3 T2dm HTN Plan: Cont meds Lexiscan in am if altered mental status improved
--- NOTE | 2018-04-28 16:22 | CP.PCM.PN ---
Subjective - Date & Time of Evaluation Date of Evaluation: 04/28/18 Time of Evaluation: 16:22 - Subjective Subjective: 77 yo AA female with pmh/o htn,dm, ckd, hld, cad, s/p cabg, s/p cardic cath, s/p stent was admitted with sob and elevated s.cr pt is seen and examined by me. pt is still c/o sob, no cp, no palpitation, no nausea, no vomitings Objective - Vital Signs/Intake and Output Vital Signs (last 24 hours): Temp Pulse Resp BP Pulse Ox 98.4 F 66 20 125/71 95 04/28/18 08:22 04/28/18 08:22 04/28/18 08:22 04/28/18 09:57 04/28/18 08:22 Intake and Output: 04/28/18 04/28/18 06:59 18:59 Intake Total 450 Balance 450 - Medications Medications: Current Medications Albuterol (Ventolin Hfa 90 Mcg/Actuation (8 G)) 1 puff IH RQ4 PRN PRN Reason: Shortness of Breath Amlodipine Besylate (Norvasc) 5 mg PO DAILY [facility] Last Admin: 04/28/18 09:56 Dose: 5 mg Aspirin (Aspirin Chewable) 81 mg PO DAILY [facility] Last Admin: 04/28/18 09:55 Dose: 81 mg Clopidogrel Bisulfate (Plavix) 75 mg PO DAILY [facility] Last Admin: 04/28/18 09:55 Dose: 75 mg Fluticasone/Vilanterol (Breo Ellipta 100-25 Mcg Inh) 1 puff INH RQ24 [facility] Last Admin: 04/28/18 09:05 Dose: 1 puff Furosemide (Lasix) 80 mg IVP Q12 [facility] Last Admin: 04/28/18 09:57 Dose: 80 mg Gabapentin (Neurontin) 400 mg PO TID [facility] Last Admin: 04/28/18 13:09 Dose: 400 mg Heparin Sodium (Porcine) (Heparin) 5,000 units SC Q12 [facility] Last Admin: 04/28/18 09:57 Dose: 5,000 units Hydralazine HCl (Apresoline) 50 mg PO Q8H [facility] Last Admin: 04/28/18 13:09 Dose: 50 mg Insulin Human Regular (Novolin R) 0 unit SC ACHS [facility]; Protocol Last Admin: 04/28/18 12:47 Dose: 1 unit Levothyroxine Sodium (Synthroid) 75 mcg PO DAILY@0630 [facility] Last Admin: 04/28/18 06:41 Dose: 75 mcg Multivitamins (Hexavitamin) 1 tab PO DAILY [facility] Last Admin: 04/28/18 09:56 Dose: 1 tab Nebivolol (Bystolic) 20 mg PO DAILY [facility] Last Admin: 04/28/18 09:56 Dose: 20 mg Sevelamer Carbonate (Renvela) 1,600 mg PO TID [facility] Last Admin: 04/28/18 13:09 Dose: 1,600 mg Zolpidem Tartrate (Ambien) 5 mg PO HS PRN PRN Reason: Insomnia - Labs Labs: 04/27/18 14:20 04/27/18 14:20 - Constitutional Appears: Non-toxic, No Acute Distress - Head Exam Head Exam: ATRAUMATIC, NORMAL INSPECTION, NORMOCEPHALIC - Eye Exam Eye Exam: EOMI, Normal appearance, PERRL Pupil Exam: NORMAL ACCOMODATION - ENT Exam ENT Exam: Mucous Membranes Moist - Neck Exam Neck Exam: Full ROM, Normal Inspection - Respiratory Exam Respiratory Exam: Decreased Breath Sounds, Rales, NORMAL BREATHING PATTERN - Cardiovascular Exam Cardiovascular Exam: REGULAR RHYTHM, +S1, +S2 - GI/Abdominal Exam GI & Abdominal Exam: Soft, Normal Bowel Sounds - Rectal Exam Rectal Exam: Deferred - Neurological Exam Neurological Exam: Alert, Oriented x3 - Psychiatric Exam Psychiatric exam: Normal Affect - Skin Skin Exam: Normal Color Assessment and Plan - Assessment and Plan (Free Text) Assessment: 77 yo AA female with htn, dm, c ad, cabb, ckd, chf, edema anemia with increased bun/cr 1. [place] on ckd -4 vs progression of ckd 2. Anemia 3. htn 4. DM 5. b/l le edema 6. chf, cxr c/w pulmonary congestion will increase lasix 80 mg iv q 8 hrs, check bmp in am decrease gabapentin to 100 mg po q 8 hrs restrict fluids to 1lit/day GFR only 19 ml/min due to multiple admissions to / [facility] for sob, cp chf, pt may benefit from starting hd early pt will have mod-high risk for LENA / ANGELES with cardiac cath
--- NOTE | 2018-04-28 21:35 | PN ---
DATE: 04/28/2018 SUBJECTIVE: The patient is seen. The patient states she did not sleep last night. She was given Benadryl 25 mg. Mental status campa, the patient is less confused, but very anxious. The patient wants to take Ambien. She states she had it before, so she can sleep. The patient is only asking Ambien 5 mg at bedtime which she had before. The patient is undergoing renal workup, was ordered by Dr. Hernandez. Today, no behavioral problems, but preoccupied about her insomnia. PHYSICAL EXAMINATION: VITAL SIGNS: Temperature is 98.4, pulse rate is 66, blood pressure 125/71, respirations 20, oxygen saturations 95%. GENERAL: The patient is alert, oriented x3, but feeling weak, seen in her room. She said she did not sleep well last night. SKIN: No diaphoresis. HEENT: No dizziness, no headache. No blurring of vision. NECK: Supple. RESPIRATORY: No dyspnea. CARDIOVASCULAR: No chest pain. GASTROINTESTINAL: The patient's appetite is variable. No nausea or vomiting. EXTREMITIES: Patient is moving her extremities. MUSCULOSKELETAL: Feels weak. NEURO: Less confused, oriented x3. GENITOURINARY: No urinary problems. MENTAL STATUS EXAMINATION: Elderly female who looks her age, oriented x3. Mood is anxious, somatic. Affect is reactive. Speech is spontaneous. Thought process: Less confused. Thought content: The patient states she cannot sleep and asking for Ambien p.r.n. No psychosis. No suicidal or homicidal ideation. Attention and memory seem to be fair. Insight and judgment fair. Impulse control is fair. IMPRESSION: History of delirium, metabolic, secondary to renal problems versus drug-induced. PLAN AND RECOMMENDATIONS: The patient is seen, meds reviewed. May have Ambien 5 mg at bedtime p.r.n. insomnia. The patient is undergoing renal workup as ordered by her salesforce specialist, Dr. Hernandez. Continue treatment plan as outlined and monitor her mental status. Te Herrera MD MT[facility]
--- NOTE | 2018-04-29 00:17 | CP.PCM.PN ---
Subjective - Date & Time of Evaluation Date of Evaluation: 04/28/18 Time of Evaluation: 11:15 - Subjective Subjective: more alert and coherent weak speech clearer Objective - Vital Signs/Intake and Output Vital Signs (last 24 hours): Temp Pulse Resp BP Pulse Ox 98.1 F 70 20 120/61 96 04/28/18 15:00 04/28/18 15:00 04/28/18 15:00 04/28/18 21:22 04/28/18 15:00 - Medications Medications: Current Medications Albuterol (Ventolin Hfa 90 Mcg/Actuation (8 G)) 1 puff IH RQ4 PRN PRN Reason: Shortness of Breath Amlodipine Besylate (Norvasc) 5 mg PO DAILY [facility] Aspirin (Aspirin Chewable) 81 mg PO DAILY [facility] Last Admin: 04/28/18 09:55 Dose: 81 mg Clopidogrel Bisulfate (Plavix) 75 mg PO DAILY [facility] Last Admin: 04/28/18 09:55 Dose: 75 mg Fluticasone/Vilanterol (Breo Ellipta 100-25 Mcg Inh) 1 puff INH RQ24 [facility] Last Admin: 04/28/18 09:05 Dose: 1 puff Furosemide (Lasix) 80 mg IVP Q8H [facility] Last Admin: 04/28/18 22:42 Dose: Not Given Gabapentin (Neurontin) 100 mg PO TID [facility] Last Admin: 04/28/18 19:02 Dose: 100 mg Heparin Sodium (Porcine) (Heparin) 5,000 units SC Q12 [facility] Last Admin: 04/28/18 21:22 Dose: 5,000 units Hydralazine HCl (Apresoline) 50 mg PO Q8H [facility] Last Admin: 04/28/18 21:22 Dose: Not Given Insulin Human Regular (Novolin R) 0 unit SC ACHS [facility]; Protocol Last Admin: 04/28/18 21:37 Dose: Not Given Levothyroxine Sodium (Synthroid) 75 mcg PO DAILY@0630 [facility] Last Admin: 04/28/18 06:41 Dose: 75 mcg Multivitamins (Hexavitamin) 1 tab PO DAILY [facility] Last Admin: 04/28/18 09:56 Dose: 1 tab Nebivolol (Bystolic) 20 mg PO DAILY [facility] Last Admin: 04/28/18 09:56 Dose: 20 mg Sevelamer Carbonate (Renvela) 1,600 mg PO TID [facility] Last Admin: 04/28/18 19:01 Dose: 1,600 mg Zolpidem Tartrate (Ambien) 5 mg PO HS PRN PRN Reason: Insomnia Last Admin: 04/28/18 21:22 Dose: 5 mg - Labs Labs: 04/27/18 14:20 04/27/18 14:20 - Constitutional Appears: Non-toxic - Head Exam Head Exam: NORMAL INSPECTION - Eye Exam Eye Exam: absent: Scleral icterus - Neck Exam Neck Exam: Full ROM - Respiratory Exam Respiratory Exam: NORMAL BREATHING PATTERN - Cardiovascular Exam Cardiovascular Exam: REGULAR RHYTHM - GI/Abdominal Exam GI & Abdominal Exam: Soft - Extremities Exam Extremities Exam: absent: Pedal Edema - Neurological Exam Neurological Exam: Altered Assessment and Plan - Assessment and Plan (Free Text) Assessment: Pneumonia Metabolic encephalopathy CAD COPD CKD stage 3 UTI Plan: Cont abtx bronchodilators DNR Poor prognosis
[2018-04-29] MEDS: Levothyroxine 75 MCG TAB PO SCH (05:57)
[2018-04-29] MEDS: Multiple Vitamins Tab PO SCH (09:55)
[2018-04-29] MEDS: Fluticasone-Vilanterol 100/25mcg Diskus INH SCH (10:01)
[2018-04-29] MEDS: (Novolin R) Insulin Human Regular 100 units/ml vial SC SCH ×4 (12:17→23:04)
--- NOTE | 2018-04-29 15:04 | CP.PCM.PN ---
Subjective - Date & Time of Evaluation Date of Evaluation: 04/29/18 Time of Evaluation: 15:04 - Subjective Subjective: 77 yo AA female with pmh/o htn,dm, ckd, hld, cad, s/p cabg, s/p cardic cath, s/p stent was admitted with sob and elevated s.cr pt is seen and examined by me. pt is still c/o sob, no cp, no palpitation, no nausea, no vomitings pt is OOB to chair Objective - Vital Signs/Intake and Output Vital Signs (last 24 hours): Temp Pulse Resp BP Pulse Ox 97.9 F 75 22 122/64 97 04/29/18 07:00 04/29/18 13:17 04/29/18 07:00 04/29/18 14:09 04/29/18 07:00 Intake and Output: 04/29/18 04/29/18 06:59 18:59 Intake Total 378 Balance 378 - Medications Medications: Current Medications Albuterol (Ventolin Hfa 90 Mcg/Actuation (8 G)) 1 puff IH RQ4 PRN PRN Reason: Shortness of Breath Amlodipine Besylate (Norvasc) 5 mg PO DAILY [facility] Last Admin: 04/29/18 09:57 Dose: 5 mg Aspirin (Aspirin Chewable) 81 mg PO DAILY [facility] Last Admin: 04/29/18 09:55 Dose: 81 mg Clopidogrel Bisulfate (Plavix) 75 mg PO DAILY [facility] Last Admin: 04/29/18 09:56 Dose: 75 mg Fluticasone/Vilanterol (Breo Ellipta 100-25 Mcg Inh) 1 puff INH RQ24 [facility] Last Admin: 04/29/18 10:01 Dose: 1 puff Furosemide (Lasix) 80 mg IVP Q8H [facility] Last Admin: 04/29/18 14:09 Dose: 80 mg Gabapentin (Neurontin) 100 mg PO HS [facility] Heparin Sodium (Porcine) (Heparin) 5,000 units SC Q12 [facility] Last Admin: 04/29/18 09:58 Dose: 5,000 units Hydralazine HCl (Apresoline) 50 mg PO Q8H [facility] Last Admin: 04/29/18 14:06 Dose: 50 mg Insulin Human Regular (Novolin R) 0 unit SC ACHS [facility]; Protocol Last Admin: 04/29/18 12:20 Dose: 1 unit Levothyroxine Sodium (Synthroid) 75 mcg PO DAILY@0630 [facility] Last Admin: 04/29/18 05:57 Dose: 75 mcg Multivitamins (Hexavitamin) 1 tab PO DAILY [facility] Last Admin: 04/29/18 09:55 Dose: 1 tab Nebivolol (Bystolic) 20 mg PO DAILY [facility] Last Admin: 04/29/18 09:55 Dose: 20 mg Sevelamer Carbonate (Renvela) 1,600 mg PO TID [facility] Last Admin: 04/29/18 14:09 Dose: 1,600 mg Zolpidem Tartrate (Ambien) 5 mg PO HS PRN PRN Reason: Insomnia Last Admin: 04/28/18 21:22 Dose: 5 mg - Labs Labs: 04/27/18 14:20 04/29/18 07:49 - Constitutional Appears: Well, Toxic, No Acute Distress - Head Exam Head Exam: ATRAUMATIC, NORMAL INSPECTION, NORMOCEPHALIC - Eye Exam Eye Exam: EOMI, Normal appearance Pupil Exam: NORMAL ACCOMODATION - ENT Exam ENT Exam: Mucous Membranes Moist - Neck Exam Neck Exam: Full ROM, Normal Inspection - Respiratory Exam Respiratory Exam: Decreased Breath Sounds, NORMAL BREATHING PATTERN - Cardiovascular Exam Cardiovascular Exam: REGULAR RHYTHM, +S1, +S2 - GI/Abdominal Exam GI & Abdominal Exam: Soft, Normal Bowel Sounds - Rectal Exam Rectal Exam: Deferred - Extremities Exam Extremities Exam: Normal Inspection, Pedal Edema - Neurological Exam Neurological Exam: Alert, Awake, CN II-XII Intact, Normal Gait - Skin Skin Exam: Intact, Normal Color Assessment and Plan - Assessment and Plan (Free Text) Plan: 77 yo AA female with htn, dm, c ad, cabb, ckd, chf, edema anemia with increased bun/cr 1. [place] on ckd -4 vs progression of ckd 2. Anemia 3. htn 4. DM 5. b/l le edema 6. chf, cxr c/w pulmonary congestion will increase lasix 80 mg iv q 8 hrs, check bmp in am decrease gabapentin to 100 mg po q 8 hrs restrict fluids to 1lit/day GFR only 19 ml/min, s.cr is 2.6 due to multiple admissions to / [facility] for sob, cp chf, pt may benefit from starting hd early pt will have mod-high risk for LENA / ANGELES with cardiac cath consider to d/c Amlodipine
--- NOTE | 2018-04-29 17:40 | PN ---
DATE: 04/29/2018 SUBJECTIVE: The patient is seen. The patient according to the nurse did not sleep last night and still has periods of confusion. The patient tried to leave the floor, but was redirected back to her room. Today she reports that she is not sleeping well and still has off and on periods of confusion. On review of her medication, the patient's Neurontin was reduced further to 100 mg p.o. t.i.d. I did call the Pharmacy and according to the Pharmacy, the patient's creatinine clearance is only 13 and further reduction of her Neurontin dose has been recommended to 100 mg at bedtime as the patient has significant kidney problems, the creatinine level is 2.6 and BUN is still elevated. The patient is aware that her Neurontin level will be reduced. She states that she will continue to take Ambien 5 mg at bedtime for sleep. I do not recommend any other psych meds to the patient still has off and on periods of confusion. PHYSICAL EXAMINATION: VITAL SIGNS: Temperature is 97.9, pulse is 78, blood pressure 132/72, respirations 20, oxygen saturation is 97%. REVIEW OF SYSTEMS CONSTITUTIONAL: The patient is alert, verbal, still with periods of confusion. The patient states that she did not sleep well last night. SKIN: No pruritus. HEENT: No headache or dizziness. NECK: Supple. RESPIRATORY: No dyspnea. CARDIOVASCULAR: No chest pain. GASTROINTESTINAL: No nausea. No vomiting. EXTREMITIES: The patient moves extremities. MUSCULOSKELETAL: Feels weak. NEUROLOGICAL: Alert with off and on periods of confusion. She was dozing off when seen today and has been compliant with meds and care. The patient is followed by Dr. Hernandez and undergoing multiple diagnostic renal tests. MENTAL STATUS EXAMINATION: Elderly female who looks oriented to time, place and person. Still with periods of confusion, but redirectable. Affect is restricted. Mood is dysphoric. Affect, speech spontaneous. Thought process, still has periods of confusion. Thought content, no overt hallucinations or paranoia. No suicidal or homicidal ideation. Attention and memory seem to be limited. Insight and judgement limited. Impulse control is fair at this time. IMPRESSION: Delirium, metabolic encephalopathy, multifactorial probably secondary to her renal problems versus drug induced mood disorder secondary to medical problems. PLAN AND RECOMMENDATIONS: The patient is seen, meds reviewed, will continue Ambien 5 mg at bedtime and monitor her for confusion or change in mental status, and we will reduce her Neurontin to 100 mg at bedtime as the patient has significant renal issues. The patient is followed by Dr. Hernandez. Te Herrera MD [facility]
[2018-04-30] MEDS: Levothyroxine 75 MCG TAB PO SCH (06:16)
[2018-04-30] MEDS: (Novolin R) Insulin Human Regular 100 units/ml vial SC SCH ×4 (08:02→22:15)
[2018-04-30] MEDS: Multiple Vitamins Tab PO SCH (11:24)
--- NOTE | 2018-04-30 14:00 | CT ---
Date of service: 04/30/2018 PROCEDURE: CT HEAD WITHOUT CONTRAST. HISTORY: change in mental status COMPARISON: 03/05/2015. TECHNIQUE: Axial computed tomography images were obtained through the head/brain without intravenous contrast. Radiation dose: Total exam DLP = 1262.98 mGy-cm. This CT exam was performed using one or more of the following dose reduction techniques: Automated exposure control, adjustment of the mA and/or kV according to patient size, and/or use of iterative reconstruction technique. FINDINGS: HEMORRHAGE: No intracranial hemorrhage. BRAIN: There are mild chronic microangiopathic changes. There are small old lacunar infarctions in the basal ganglia there is no mass, mass effect or abnormal extra-axial fluid collection. There is no territorial infarction. The midline sagittal structures are normal.There are coarse atherosclerotic calcifications in the cavernous carotid arteries. VENTRICLES: There is mild age-related global parenchymal volume loss and proportionate enlargement of the ventricles and cortical sulci. CALVARIUM: The skull base and calvarium are normal. PARANASAL SINUSES: Predominantly clear. MASTOID AIR CELLS: Predominantly clear. OTHER FINDINGS: None. IMPRESSION: No acute intracranial abnormality. Mild chronic microangiopathic changes and mild age-related global parenchymal volume loss. Small old lacunar infarctions in bilateral basal ganglia.
--- NOTE | 2018-04-30 17:07 | PN ---
DATE: 04/30/2018 SUBJECTIVE: The patient according to her slept better last night. Staff reports the patient seems to have increasing confusion, especially in the afternoon. Is the patient is exhibiting signs and symptoms of sundowning?. The patient went for a stress test today and awaiting for the second portion. The patient is well related. She said she is feeling much better. The patient made aware of her renal status and the patient's creatinine is elevated 2.6 and BUN is 62 and the patient states that she might need dialysis in the near future if her kidney status will not improve. The patient reports she has been diabetic for more than almost 20 years. She has been compliant with her meds. Her blood sugar level is still below 200. PHYSICAL EXAMINATION: VITAL SIGNS: Temperature is 97.6, 70, blood pressure 131/78, respirations 20, oxygen saturation is 100%. REVIEW OF SYSTEMS: CONSTITUTIONAL: The patient is alert and oriented x3, seen in her room, cooperative with staff, she said that she slept better last night, less confused. SKIN: No diaphoresis. HEENT: No headache. No dizziness. NECK: Supple. RESPIRATORY: No dyspnea. CARDIOVASCULAR: No chest pain. GASTROINTESTINAL: The patient is eating better. EXTREMITIES: The patient moves extremities. MUSCULOSKELETAL: Still feels weak. Alert and oriented x3 with off and on periods of confusion due to driving, no complaining of urinary problems. Mental status remained elderly female who looks stated age, oriented x3. Mood is calmer. Affect is reactive. Speech spontaneous. Thought process, coherent. Thought content, no overt psychosis. No suicidal ideation. The patient has been cooperative with the diagnostic tests. The patient is fully aware of her medical condition, her rental status and states that she my be amenable for dialysis if needed due to her chronic kidney disease. Her GFR is only 22. The patient has no psychosis. No suicidal ideation. Attention and memory seem to be fair. Insight and fair. Impulse control is fair. IMPRESSION: Delirium, metabolic encephalopathy, multifactorial, mood disorder secondary to medical problems, chronic kidney disease. PLAN AND RECOMMENDATIONS: The patient is seen, meds reviewed. Continue present psych meds. We will monitor mental status. The patient is still undergoing cardiac as well as renal tests. Psych campa, she is improving. Advised to continue Ambien 5 mg at bedtime p.r.n. The patient told that she only takes Ambien while she is in the hospital, but at home, she is better in her own bed and her on place. Also will continue keeping her on low dose of Neurontin. The patient is not complaining of pain and taking Neurontin 100 mg at bedtime due to her kidney disease. Te Herrera MD MTDD
--- NOTE | 2018-04-30 18:20 | CP.PCM.PN ---
Subjective - Date & Time of Evaluation Date of Evaluation: 04/30/18 Time of Evaluation: 18:20 - Subjective Subjective: 77 yo AA female with pmh/o htn,dm, ckd, hld, cad, s/p cabg, ? gastric CA, s/p cardic cath, s/p stent was admitted with sob and elevated s.cr. pt is seen and examined by me. pt is still c/o sob and not feeling well no palpitation, no nausea, no vomitings Objective - Vital Signs/Intake and Output Vital Signs (last 24 hours): Temp Pulse Resp BP Pulse Ox 98.6 F 84 20 145/77 99 04/30/18 16:38 04/30/18 16:38 04/30/18 16:38 04/30/18 16:38 04/30/18 16:38 Intake and Output: 04/30/18 04/30/18 06:59 18:59 Intake Total 480 Balance 480 - Medications Medications: Current Medications Albuterol (Ventolin Hfa 90 Mcg/Actuation (8 G)) 1 puff IH RQ4 PRN PRN Reason: Shortness of Breath Amlodipine Besylate (Norvasc) 2.5 mg PO DAILY [facility] Last Admin: 04/30/18 11:24 Dose: 2.5 mg Aspirin (Aspirin Chewable) 81 mg PO DAILY [facility] Last Admin: 04/30/18 11:23 Dose: 81 mg Clopidogrel Bisulfate (Plavix) 75 mg PO DAILY [facility] Last Admin: 04/30/18 11:24 Dose: 75 mg Fluticasone/Vilanterol (Breo Ellipta 100-25 Mcg Inh) 1 puff INH RQ24 [facility] Last Admin: 04/29/18 10:01 Dose: 1 puff Furosemide (Lasix) 80 mg IVP Q8H [facility] Last Admin: 04/30/18 14:11 Dose: 80 mg Gabapentin (Neurontin) 100 mg PO HS [facility] Last Admin: 04/29/18 22:05 Dose: 100 mg Hydralazine HCl (Apresoline) 50 mg PO Q8H [facility] Last Admin: 04/30/18 14:23 Dose: 50 mg Insulin Human Regular (Novolin R) 0 unit SC ACHS [facility]; Protocol Last Admin: 04/30/18 16:28 Dose: Not Given Levothyroxine Sodium (Synthroid) 75 mcg PO DAILY@0630 [facility] Last Admin: 04/30/18 06:16 Dose: 75 mcg Multivitamins (Hexavitamin) 1 tab PO DAILY [facility] Last Admin: 04/30/18 11:24 Dose: 1 tab Nebivolol (Bystolic) 20 mg PO DAILY [facility] Last Admin: 04/30/18 11:23 Dose: 20 mg Sevelamer Carbonate (Renvela) 1,600 mg PO TID [facility] Last Admin: 04/30/18 17:07 Dose: 1,600 mg Zolpidem Tartrate (Ambien) 5 mg PO HS PRN PRN Reason: Insomnia Last Admin: 04/29/18 22:08 Dose: 5 mg - Labs Labs: 04/27/18 14:20 04/29/18 07:49 - Constitutional Appears: Well, No Acute Distress - Head Exam Head Exam: ATRAUMATIC, NORMAL INSPECTION, NORMOCEPHALIC - Eye Exam Eye Exam: EOMI, Normal appearance, PERRL Pupil Exam: NORMAL ACCOMODATION - ENT Exam ENT Exam: Mucous Membranes Moist - Neck Exam Neck Exam: Full ROM, Normal Inspection - Respiratory Exam Respiratory Exam: Rales, NORMAL BREATHING PATTERN - Cardiovascular Exam Cardiovascular Exam: REGULAR RHYTHM, +S1, +S2 - GI/Abdominal Exam GI & Abdominal Exam: Soft, Normal Bowel Sounds - Rectal Exam Rectal Exam: Deferred - Neurological Exam Neurological Exam: Alert, Awake, CN II-XII Intact, Oriented x3 - Psychiatric Exam Psychiatric exam: Normal Affect - Skin Skin Exam: Normal Color, Warm Assessment and Plan - Assessment and Plan (Free Text) Assessment: 77 yo AA female with htn, dm, c ad, cabb, ckd, chf, edema anemia with increased bun/cr 1. [place] on ckd -4 vs progression of ckd 2. Anemia 3. htn 4. DM 5. b/l le edema 6. chf, cxr c/w pulmonary congestion c/w lasix 80 mg iv q 8 hrs, check bmp in am decrease gabapentin to 100 mg po q 8 hrs restrict fluids to 1lit/day s.cr is slightly better 2.6--->2.3
[2018-05-01] MEDS: Levothyroxine 75 MCG TAB PO SCH (06:04)
[2018-05-01] MEDS: (Novolin R) Insulin Human Regular 100 units/ml vial SC SCH ×4 (07:21→21:30)
[2018-05-01] MEDS: Multiple Vitamins Tab PO SCH (09:03)
[2018-05-01] MEDS: Fluticasone-Vilanterol 100/25mcg Diskus INH SCH (09:06)
--- NOTE | 2018-05-01 12:01 | CP.PCM.PN ---
Subjective - Date & Time of Evaluation Date of Evaluation: 05/01/18 Time of Evaluation: 12:00 - Subjective Subjective: 77 yo AA female with pmh/o htn,dm, ckd, hld, cad, s/p cabg, ? gastric CA, s/p cardic cath, s/p stent was admitted with sob and elevated s.cr. pt is seen and examined by me. pt is still c/o mild sob and not in acute distress no palpitation, no nausea, no vomitings Objective - Vital Signs/Intake and Output Vital Signs (last 24 hours): Temp Pulse Resp BP Pulse Ox 98.0 F 80 20 147/82 96 05/01/18 07:29 05/01/18 07:29 05/01/18 07:29 05/01/18 07:29 05/01/18 07:29 - Medications Medications: Current Medications Albuterol (Ventolin Hfa 90 Mcg/Actuation (8 G)) 1 puff IH RQ4 PRN PRN Reason: Shortness of Breath Amlodipine Besylate (Norvasc) 2.5 mg PO DAILY [facility] Last Admin: 05/01/18 09:02 Dose: 2.5 mg Aspirin (Aspirin Chewable) 81 mg PO DAILY [facility] Last Admin: 05/01/18 09:02 Dose: 81 mg Clopidogrel Bisulfate (Plavix) 75 mg PO DAILY [facility] Last Admin: 05/01/18 09:03 Dose: 75 mg Fluticasone/Vilanterol (Breo Ellipta 100-25 Mcg Inh) 1 puff INH RQ24 [facility] Last Admin: 05/01/18 09:06 Dose: 1 puff Furosemide (Lasix) 80 mg IVP Q8H [facility] Last Admin: 05/01/18 06:04 Dose: 80 mg Gabapentin (Neurontin) 100 mg PO HS [facility] Last Admin: 04/30/18 22:09 Dose: 100 mg Hydralazine HCl (Apresoline) 50 mg PO Q8H [facility] Last Admin: 05/01/18 04:28 Dose: 50 mg Insulin Human Regular (Novolin R) 0 unit SC [facility]; Protocol Last Admin: 05/01/18 07:21 Dose: Not Given Levothyroxine Sodium (Synthroid) 75 mcg PO DAILY@0630 [facility] Last Admin: 05/01/18 06:04 Dose: 75 mcg Multivitamins (Hexavitamin) 1 tab PO DAILY [facility] Last Admin: 05/01/18 09:03 Dose: 1 tab Nebivolol (Bystolic) 20 mg PO DAILY [facility] Last Admin: 05/01/18 09:03 Dose: 20 mg Sevelamer Carbonate (Renvela) 1,600 mg PO TID [facility] Last Admin: 05/01/18 09:03 Dose: 1,600 mg Zolpidem Tartrate (Ambien) 5 mg PO HS PRN PRN Reason: Insomnia Last Admin: 04/30/18 22:09 Dose: 5 mg - Labs Labs: 04/27/18 14:20 04/30/18 19:36 - Constitutional Appears: Well, Non-toxic, No Acute Distress - Head Exam Head Exam: ATRAUMATIC, NORMAL INSPECTION, NORMOCEPHALIC - Eye Exam Eye Exam: EOMI, Normal appearance, PERRL Pupil Exam: NORMAL ACCOMODATION - ENT Exam ENT Exam: Mucous Membranes Moist - Neck Exam Neck Exam: Full ROM, Normal Inspection - Respiratory Exam Respiratory Exam: Decreased Breath Sounds, Rales, NORMAL BREATHING PATTERN - Cardiovascular Exam Cardiovascular Exam: REGULAR RHYTHM, +S1, +S2 - Rectal Exam Rectal Exam: Deferred - Extremities Exam Additional comments: 1-2 + edema - Neurological Exam Neurological Exam: Alert, Awake, CN II-XII Intact, Oriented x3 Assessment and Plan - Assessment and Plan (Free Text) Assessment: 77 yo AA female with htn, dm, c ad, cabb, ckd, chf, edema anemia with increased bun/cr 1. [place] on ckd -4 vs progression of ckd 2. Anemia 3. htn 4. DM 5. b/l le edema 6. chf, cxr c/w pulmonary congestion c/w lasix 80 mg iv q 8 hrs, check bmp in am decrease gabapentin to 100 mg po q 8 hrs restrict fluids to 1lit/day edema is slowly improving s.cr is slightly better 2.6--->2.3 check labs in am
--- NOTE | 2018-05-01 18:23 | CARD ---
APPROVED REPORT Date of service: 04/30/2018 Protocol: LEXISCAN Test Type: LEXISCAN STRESS Test Indications: ACUTE CHRONIC RENAL FAILURE Medications: LIST Target HR: 144 bpm Resting EC% PACED BEAT Resting Heart Rate: 81 bpm Resting Blood Pressure: 140/80mmHg submaximum (85%): 122 bpm TEST SUMMARY [id number]...083/.0. [id number].03:320.00..[id number]/80.19. INFUSIONDOSE 100:300.00..081/.0. [id number]:400.00..[id number]/80.1. PROCEDURE Pharmacologic stress testing was performed using 0.4mg per 5ml of regadenoson given intravenously over 7-10 seconds. POST EXERCISE Reason for Termination: Protocol Completed Target HR: No Max HR: 81 bpm 61% of Maximum Predicted HR: 144 bpm Exercise duration: 00:30 min:sec, 0 Stage Exercise capacity: 1.0METs Max Blood Pressure: 140/80mmHg Blood Pressure response to exercise: normal resting BP - appropriate response Heart Rate response to exercise: appropriate Chest Pain: No, none Angina index: 0 Arrhythmia: No, none ST Change: No, none Deviation: 0 mm INTERPRETATION Stress EKG Conclusion: NON-DIAGNOSTIC LEXISCAN STRESS TEST NORMAL BP RESPONSE TO LEXISCAN NUCLEAR STUDIES TO BE READ SEPARATELY
--- NOTE | 2018-05-01 22:57 | CP.PCM.PN ---
Subjective - Date & Time of Evaluation Date of Evaluation: 05/01/18 Time of Evaluation: 09:00 - Subjective Subjective: no chest pain on gabapentin 100mg po od hs lucid lexiscan +inferior wall ischemia Objective - Vital Signs/Intake and Output Vital Signs (last 24 hours): Temp Pulse Resp BP Pulse Ox 98.4 F 69 20 146/81 98 05/01/18 15:00 05/01/18 15:00 05/01/18 15:00 05/01/18 21:30 05/01/18 15:00 - Medications Medications: Current Medications Albuterol (Ventolin Hfa 90 Mcg/Actuation (8 G)) 1 puff IH RQ4 PRN PRN Reason: Shortness of Breath Amlodipine Besylate (Norvasc) 2.5 mg PO DAILY [facility] Last Admin: 05/01/18 09:02 Dose: 2.5 mg Aspirin (Aspirin Chewable) 81 mg PO DAILY [facility] Last Admin: 05/01/18 09:02 Dose: 81 mg Clopidogrel Bisulfate (Plavix) 75 mg PO DAILY [facility] Last Admin: 05/01/18 09:03 Dose: 75 mg Fluticasone/Vilanterol (Breo Ellipta 100-25 Mcg Inh) 1 puff INH RQ24 [facility] Last Admin: 05/01/18 09:06 Dose: 1 puff Furosemide (Lasix) 80 mg IVP Q8H [facility] Last Admin: 05/01/18 21:30 Dose: 80 mg Gabapentin (Neurontin) 100 mg PO HS [facility] Last Admin: 05/01/18 21:29 Dose: 100 mg Hydralazine HCl (Apresoline) 50 mg PO Q8H [facility] Last Admin: 05/01/18 21:29 Dose: 50 mg Insulin Human Regular (Novolin R) 0 unit SC [facility]; Protocol Last Admin: 05/01/18 21:30 Dose: Not Given Levothyroxine Sodium (Synthroid) 75 mcg PO DAILY@0630 [facility] Last Admin: 05/01/18 06:04 Dose: 75 mcg Multivitamins (Hexavitamin) 1 tab PO DAILY [facility] Last Admin: 05/01/18 09:03 Dose: 1 tab Nebivolol (Bystolic) 20 mg PO DAILY [facility] Last Admin: 05/01/18 09:03 Dose: 20 mg Sevelamer Carbonate (Renvela) 1,600 mg PO TID [facility] Last Admin: 05/01/18 18:56 Dose: 1,600 mg Zolpidem Tartrate (Ambien) 5 mg PO HS PRN PRN Reason: Insomnia Last Admin: 05/01/18 21:29 Dose: 5 mg - Labs Labs: 04/27/18 14:20 04/30/18 19:36 - Constitutional Appears: Non-toxic - Head Exam Head Exam: NORMAL INSPECTION - Eye Exam Eye Exam: absent: Scleral icterus - Neck Exam Neck Exam: Full ROM - Respiratory Exam Respiratory Exam: Decreased Breath Sounds - Cardiovascular Exam Cardiovascular Exam: REGULAR RHYTHM - GI/Abdominal Exam GI & Abdominal Exam: Soft - Extremities Exam Extremities Exam: absent: Pedal Edema Assessment and Plan - Assessment and Plan (Free Text) Assessment: CAD w/ inferior wall ischemia T2dm CKD stage 3 COPD Lung ca GI malignancy Plan: Cont meds Cath in am Case discussed with Dr Medina
--- NOTE | 2018-05-01 23:03 | CP.PCM.PN ---
Subjective - Date & Time of Evaluation Date of Evaluation: 04/29/18 Time of Evaluation: 09:15 - Subjective Subjective: mental status continue to improved NAD no chest pain Objective - Vital Signs/Intake and Output Vital Signs (last 24 hours): Temp Pulse Resp BP Pulse Ox 98.4 F 69 20 146/81 98 05/01/18 15:00 05/01/18 15:00 05/01/18 15:00 05/01/18 21:30 05/01/18 15:00 - Medications Medications: Current Medications Albuterol (Ventolin Hfa 90 Mcg/Actuation (8 G)) 1 puff IH RQ4 PRN PRN Reason: Shortness of Breath Amlodipine Besylate (Norvasc) 2.5 mg PO DAILY [facility] Last Admin: 05/01/18 09:02 Dose: 2.5 mg Aspirin (Aspirin Chewable) 81 mg PO DAILY [facility] Last Admin: 05/01/18 09:02 Dose: 81 mg Clopidogrel Bisulfate (Plavix) 75 mg PO DAILY [facility] Last Admin: 05/01/18 09:03 Dose: 75 mg Fluticasone/Vilanterol (Breo Ellipta 100-25 Mcg Inh) 1 puff INH RQ24 [facility] Last Admin: 05/01/18 09:06 Dose: 1 puff Furosemide (Lasix) 80 mg IVP Q8H [facility] Last Admin: 05/01/18 21:30 Dose: 80 mg Gabapentin (Neurontin) 100 mg PO HS [facility] Last Admin: 05/01/18 21:29 Dose: 100 mg Hydralazine HCl (Apresoline) 50 mg PO Q8H [facility] Last Admin: 05/01/18 21:29 Dose: 50 mg Insulin Human Regular (Novolin R) 0 unit SC [facility]; Protocol Last Admin: 05/01/18 21:30 Dose: Not Given Levothyroxine Sodium (Synthroid) 75 mcg PO DAILY@0630 [facility] Last Admin: 05/01/18 06:04 Dose: 75 mcg Multivitamins (Hexavitamin) 1 tab PO DAILY [facility] Last Admin: 05/01/18 09:03 Dose: 1 tab Nebivolol (Bystolic) 20 mg PO DAILY [facility] Last Admin: 05/01/18 09:03 Dose: 20 mg Sevelamer Carbonate (Renvela) 1,600 mg PO TID [facility] Last Admin: 05/01/18 18:56 Dose: 1,600 mg Zolpidem Tartrate (Ambien) 5 mg PO HS PRN PRN Reason: Insomnia Last Admin: 05/01/18 21:29 Dose: 5 mg - Labs Labs: 04/27/18 14:20 04/30/18 19:36 - Constitutional Appears: No Acute Distress - Eye Exam Eye Exam: absent: Scleral icterus - Neck Exam Neck Exam: Full ROM - Respiratory Exam Respiratory Exam: Decreased Breath Sounds - Cardiovascular Exam Cardiovascular Exam: REGULAR RHYTHM - GI/Abdominal Exam GI & Abdominal Exam: Soft - Extremities Exam Extremities Exam: absent: Pedal Edema Assessment and Plan - Assessment and Plan (Free Text) Assessment: CAD ALtered mental status Lung ca t2dm GI malignancy COPD Plan: Cont meds Lexiscan in am
--- NOTE | 2018-05-01 23:06 | CP.PCM.PN ---
Subjective - Date & Time of Evaluation Date of Evaluation: 04/30/18 Time of Evaluation: 08:50 - Subjective Subjective: Lexiscan done NAD no chest pain Objective - Vital Signs/Intake and Output Vital Signs (last 24 hours): Temp Pulse Resp BP Pulse Ox 98.4 F 69 20 146/81 98 05/01/18 15:00 05/01/18 15:00 05/01/18 15:00 05/01/18 21:30 05/01/18 15:00 - Medications Medications: Current Medications Albuterol (Ventolin Hfa 90 Mcg/Actuation (8 G)) 1 puff IH RQ4 PRN PRN Reason: Shortness of Breath Amlodipine Besylate (Norvasc) 2.5 mg PO DAILY [facility] Last Admin: 05/01/18 09:02 Dose: 2.5 mg Aspirin (Aspirin Chewable) 81 mg PO DAILY [facility] Last Admin: 05/01/18 09:02 Dose: 81 mg Clopidogrel Bisulfate (Plavix) 75 mg PO DAILY [facility] Last Admin: 05/01/18 09:03 Dose: 75 mg Fluticasone/Vilanterol (Breo Ellipta 100-25 Mcg Inh) 1 puff INH RQ24 [facility] Last Admin: 05/01/18 09:06 Dose: 1 puff Furosemide (Lasix) 80 mg IVP Q8H [facility] Last Admin: 05/01/18 21:30 Dose: 80 mg Gabapentin (Neurontin) 100 mg PO HS [facility] Last Admin: 05/01/18 21:29 Dose: 100 mg Hydralazine HCl (Apresoline) 50 mg PO Q8H [facility] Last Admin: 05/01/18 21:29 Dose: 50 mg Insulin Human Regular (Novolin R) 0 unit SC [facility]; Protocol Last Admin: 05/01/18 21:30 Dose: Not Given Levothyroxine Sodium (Synthroid) 75 mcg PO DAILY@0630 [facility] Last Admin: 05/01/18 06:04 Dose: 75 mcg Multivitamins (Hexavitamin) 1 tab PO DAILY [facility] Last Admin: 05/01/18 09:03 Dose: 1 tab Nebivolol (Bystolic) 20 mg PO DAILY [facility] Last Admin: 05/01/18 09:03 Dose: 20 mg Sevelamer Carbonate (Renvela) 1,600 mg PO TID [facility] Last Admin: 05/01/18 18:56 Dose: 1,600 mg Zolpidem Tartrate (Ambien) 5 mg PO HS PRN PRN Reason: Insomnia Last Admin: 05/01/18 21:29 Dose: 5 mg - Labs Labs: 04/27/18 14:20 04/30/18 19:36 - Constitutional Appears: Non-toxic - Eye Exam Eye Exam: absent: Scleral icterus - Neck Exam Neck Exam: Full ROM - Respiratory Exam Respiratory Exam: Decreased Breath Sounds - GI/Abdominal Exam GI & Abdominal Exam: Soft - Extremities Exam Extremities Exam: absent: Pedal Edema Assessment and Plan - Assessment and Plan (Free Text) Assessment: CAD T2dm HTN CKD stage 3 Lung ca Plan: If lexiscan is + for ischemia, pt will need cath
--- NOTE | 2018-05-01 23:42 | CP.PCM.PN ---
Subjective - Date & Time of Evaluation Date of Evaluation: 05/01/18 Time of Evaluation: 07:50 - Subjective Subjective: Patient seen and evaluated Denies chest pain Exertional dyspnea Abnormal stress test for Cath in am Objective - Vital Signs/Intake and Output Vital Signs (last 24 hours): Temp Pulse Resp BP Pulse Ox 98.4 F 69 20 146/81 98 05/01/18 15:00 05/01/18 15:00 05/01/18 15:00 05/01/18 21:30 05/01/18 15:00 - Medications Medications: Current Medications Albuterol (Ventolin Hfa 90 Mcg/Actuation (8 G)) 1 puff IH RQ4 PRN PRN Reason: Shortness of Breath Amlodipine Besylate (Norvasc) 2.5 mg PO DAILY [facility] Last Admin: 05/01/18 09:02 Dose: 2.5 mg Aspirin (Aspirin Chewable) 81 mg PO DAILY [facility] Last Admin: 05/01/18 09:02 Dose: 81 mg Clopidogrel Bisulfate (Plavix) 75 mg PO DAILY [facility] Last Admin: 05/01/18 09:03 Dose: 75 mg Fluticasone/Vilanterol (Breo Ellipta 100-25 Mcg Inh) 1 puff INH RQ24 [facility] Last Admin: 05/01/18 09:06 Dose: 1 puff Furosemide (Lasix) 80 mg IVP Q8H [facility] Last Admin: 05/01/18 21:30 Dose: 80 mg Gabapentin (Neurontin) 100 mg PO HS [facility] Last Admin: 05/01/18 21:29 Dose: 100 mg Hydralazine HCl (Apresoline) 50 mg PO Q8H [facility] Last Admin: 05/01/18 21:29 Dose: 50 mg Insulin Human Regular (Novolin R) 0 unit SC [facility]; Protocol Last Admin: 05/01/18 21:30 Dose: Not Given Levothyroxine Sodium (Synthroid) 75 mcg PO DAILY@0630 [facility] Last Admin: 05/01/18 06:04 Dose: 75 mcg Multivitamins (Hexavitamin) 1 tab PO DAILY [facility] Last Admin: 05/01/18 09:03 Dose: 1 tab Nebivolol (Bystolic) 20 mg PO DAILY [facility] Last Admin: 05/01/18 09:03 Dose: 20 mg Sevelamer Carbonate (Renvela) 1,600 mg PO TID [facility] Last Admin: 05/01/18 18:56 Dose: 1,600 mg Zolpidem Tartrate (Ambien) 5 mg PO HS PRN PRN Reason: Insomnia Last Admin: 05/01/18 21:29 Dose: 5 mg - Labs Labs: 04/27/18 14:20 04/30/18 19:36
[2018-05-02] MEDS: Levothyroxine 75 MCG TAB PO SCH (05:30)
[2018-05-02 07:27] LABS: CALCIUM 9.3 mg/dl (8.6-10.4)
[2018-05-02] MEDS: (Novolin R) Insulin Human Regular 100 units/ml vial SC SCH ×4 (07:59→21:49)
[2018-05-02] MEDS: Fluticasone-Vilanterol 100/25mcg Diskus INH SCH (08:10)
[2018-05-02] MEDS ORDERED: Midazolam 2 MG/2 ML VIAL ONE (08:43)
[2018-05-02] MEDS ORDERED: Lidocaine Hydrochloride 0 ML INJ ONE (08:43)
[2018-05-02] MEDS ORDERED: Lidocaine PF 2% (5 ml) Inj (For Cardiac Arrhy) ONE ×2 (08:47→09:49)
[2018-05-02] MEDS ORDERED: Iodixanol 320 MG/ML 100 ML BOTTLE IV ONE (09:26)
--- NOTE | 2018-05-02 10:36 | CP.PCM.PN ---
Subjective - Date & Time of Evaluation Date of Evaluation: 05/02/18 Time of Evaluation: 10:28 - Subjective Subjective: Patient s/p cath 1. L Main: Patent 2. LAD: Distal 100% 3. L Cx: Distal 100%, OM2 100% 4. RCA: Mid 100% 5. DE [place] to LAD patent 6. SVG to OM patent (recent stents patent) 7. SVG to RCA 100%, Left to right collaterals seen 8. LV EDP: 25, No A-V gradient, EF 35-40% by ECHO Recommend aggressive medical management Patient receiced total contrast of 22ml Renal follow for kidney issues Objective - Vital Signs/Intake and Output Vital Signs (last 24 hours): Temp Pulse Resp BP Pulse Ox 98.9 F 88 20 132/81 98 05/02/18 08:00 05/02/18 08:00 05/02/18 08:00 05/02/18 08:00 05/02/18 08:00 - Medications Medications: Current Medications Albuterol (Ventolin Hfa 90 Mcg/Actuation (8 G)) 1 puff IH RQ4 PRN PRN Reason: Shortness of Breath Amlodipine Besylate (Norvasc) 2.5 mg PO DAILY [facility] Last Admin: 05/01/18 09:02 Dose: 2.5 mg Aspirin (Aspirin Chewable) 81 mg PO DAILY [facility] Last Admin: 05/01/18 09:02 Dose: 81 mg Clopidogrel Bisulfate (Plavix) 75 mg PO DAILY [facility] Last Admin: 05/01/18 09:03 Dose: 75 mg Fluticasone/Vilanterol (Breo Ellipta 100-25 Mcg Inh) 1 puff INH RQ24 [facility] Last Admin: 05/01/18 09:06 Dose: 1 puff Furosemide (Lasix) 80 mg IVP Q8H [facility] Last Admin: 05/02/18 05:30 Dose: 80 mg Gabapentin (Neurontin) 100 mg PO HS [facility] Last Admin: 05/01/18 21:29 Dose: 100 mg Hydralazine HCl (Apresoline) 50 mg PO Q8H [facility] Last Admin: 05/02/18 05:30 Dose: 50 mg Insulin Human Regular (Novolin R) 0 unit SC [facility]; Protocol Last Admin: 05/02/18 07:59 Dose: Not Given Levothyroxine Sodium (Synthroid) 75 mcg PO DAILY@0630 [facility] Last Admin: 05/02/18 05:30 Dose: 75 mcg Multivitamins (Hexavitamin) 1 tab PO DAILY [facility] Last Admin: 05/01/18 09:03 Dose: 1 tab Nebivolol (Bystolic) 20 mg PO DAILY [facility] Last Admin: 05/02/18 08:06 Dose: 20 mg Sevelamer Carbonate (Renvela) 1,600 mg PO TID [facility] Last Admin: 05/01/18 18:56 Dose: 1,600 mg Zolpidem Tartrate (Ambien) 5 mg PO HS PRN PRN Reason: Insomnia Last Admin: 05/01/18 21:29 Dose: 5 mg - Labs Labs: 04/27/18 14:20 05/02/18 07:04
[2018-05-02] MEDS: Multiple Vitamins Tab PO SCH (11:00)
--- NOTE | 2018-05-02 14:41 | CARDCATH ---
PROCEDURE DATE: 05/02/2018 PROCEDURES: 1. Left heart catheterization. 2. Coronary angiogram. 3. Left internal mammary artery graft angiogram. 4. Saphenous vein graft angiogram. CLINICAL INDICATIONS: 1. Chest pain. 2. Dyspnea on minimal exertion. 3. Acute on chronic systolic CHF. 4. History of coronary artery disease, status post CABG x3. 5. Chronic kidney disease stage IV. REFERRING PHYSICIAN: Sharon Sheets MD PERFORMING PHYSICIAN: Rl Medina MD DESCRIPTION OF PROCEDURE: After informed consent, the patient was prepped and draped in the usual sterile fashion. Lidocaine 2% was given in the right groin for local anesthesia. Using micropuncture technique, 6-Yemeni sheath was introduced in the right common femoral artery. The patient has a history of chronic kidney disease stage IV. Baseline creatinine was 2.3. The patient was premedicated and Renal was on the case. The entire procedure was done with 22 mL of contrast. The patient tolerated the procedure well. A JL4 6-Yemeni diagnostic catheter engaged into left main coronary artery. Contrast injected and left coronary angiogram was done. Then, JR4 6-Yemeni diagnostic catheter crossed into left ventricle across the aortic valve. LV end diastolic pressure measured. Contrast is not injected due to kidney disease. The catheter was pulled back and gradient across the aortic valve was measured. Then, the same catheter was engaged into the right coronary artery. Contrast injected and right coronary angiogram was done. Then, JR4 catheter engaged into saphenous vein graft. Contrast injected and saphenous vein graft to obtuse marginal artery graft angiogram was done. Then with the following injection, total occlusion of the SVG graft to RCA noted. Then, the catheter was exchanged to 6-Yemeni DE LA GARZA catheter. DE LA GARZA catheter engaged to internal mammary artery. Contrast injected and the DE LA GARZA graft angiogram was done. The patient tolerated the procedure well. Post-procedure, the sheaths were pulled manually with excellent hemostasis. Radiological supervision and radiological interpretation of the entire cath procedure was done. FINDINGS: 1. Left main coronary artery is patent. 2. Distal LAD has 100% occlusion. 3. Proximal left circumflex is patent. 4. Distal left circumflex is 100% occluded. 5. OM2 is 100% occluded. 6. Right coronary artery is dominant. Mid right coronary artery has 100% occlusion. 7. DE LA GARZA graft to LAD is patent. 8. SVG graft to OM1 is patent, OM2 is patent. 9. SVG graft to RCA 100% occluded. 10. There are collaterals from left to right. 11. LV end diastolic pressure is 25. No gradient across the aortic valve. 12. LV ejection fraction is 35 to 40% based upon the echo. IMPRESSION: 1. Coronary artery disease, status post coronary artery bypass graft x3. 2. Prior stent in the saphenous vein graft to obtuse marginal artery is patent. 3. Saphenous vein graft to right coronary artery 100% occluded. RECOMMENDATION: Aggressive medical management. Rl Medina MD
[2018-05-02 16:01] VITALS: RESP 20
--- NOTE | 2018-05-02 18:22 | CP.PCM.PN ---
Subjective - Date & Time of Evaluation Date of Evaluation: 05/02/18 Time of Evaluation: 18:22 - Subjective Subjective: 77 yo AA female with pmh/o htn,dm, ckd, hld, cad, s/p cabg, ? gastric CA, s/p cardic cath, s/p stent was admitted with sob and elevated s.cr. pt is seen and examined by me. no comaplaints. s/p cardiac cath toady Objective - Vital Signs/Intake and Output Vital Signs (last 24 hours): Temp Pulse Resp BP Pulse Ox 98.6 F 80 20 134/69 97 05/02/18 16:00 05/02/18 16:00 05/02/18 16:00 05/02/18 16:00 05/02/18 16:00 Intake and Output: 05/02/18 05/02/18 06:59 18:59 Intake Total 240 Balance 240 - Medications Medications: Current Medications Albuterol (Ventolin Hfa 90 Mcg/Actuation (8 G)) 1 puff IH RQ4 PRN PRN Reason: Shortness of Breath Amlodipine Besylate (Norvasc) 2.5 mg PO DAILY [facility] Last Admin: 05/02/18 11:00 Dose: Not Given Aspirin (Aspirin Chewable) 81 mg PO DAILY [facility] Last Admin: 05/02/18 11:00 Dose: Not Given Clopidogrel Bisulfate (Plavix) 75 mg PO DAILY [facility] Last Admin: 05/02/18 11:00 Dose: Not Given Fluticasone/Vilanterol (Breo Ellipta 100-25 Mcg Inh) 1 puff INH RQ24 [facility] Last Admin: 05/02/18 08:10 Dose: Not Given Furosemide (Lasix) 80 mg IVP Q8H [facility] Last Admin: 05/02/18 14:39 Dose: 80 mg Gabapentin (Neurontin) 100 mg PO HS [facility] Last Admin: 05/01/18 21:29 Dose: 100 mg Hydralazine HCl (Apresoline) 50 mg PO Q8H [facility] Last Admin: 05/02/18 14:39 Dose: 50 mg Insulin Human Regular (Novolin R) 0 unit SC [facility]; Protocol Last Admin: 05/02/18 12:54 Dose: Not Given Levothyroxine Sodium (Synthroid) 75 mcg PO DAILY@0630 [facility] Last Admin: 05/02/18 05:30 Dose: 75 mcg Multivitamins (Hexavitamin) 1 tab PO DAILY [facility] Last Admin: 05/02/18 11:00 Dose: Not Given Nebivolol (Bystolic) 20 mg PO DAILY [facility] Last Admin: 05/02/18 11:00 Dose: Not Given Sevelamer Carbonate (Renvela) 1,600 mg PO TID [facility] Last Admin: 05/02/18 14:38 Dose: 1,600 mg - Labs Labs: 04/27/18 14:20 05/02/18 07:04 - Constitutional Appears: Well, No Acute Distress - Head Exam Head Exam: ATRAUMATIC, NORMAL INSPECTION, NORMOCEPHALIC - Eye Exam Eye Exam: EOMI, Normal appearance, PERRL Pupil Exam: NORMAL ACCOMODATION - ENT Exam ENT Exam: Mucous Membranes Moist - Respiratory Exam Respiratory Exam: Clear to Ausculation Bilateral, NORMAL BREATHING PATTERN - Cardiovascular Exam Cardiovascular Exam: REGULAR RHYTHM, +S1, +S2 - GI/Abdominal Exam GI & Abdominal Exam: Soft, Normal Bowel Sounds - Rectal Exam Rectal Exam: Deferred - Extremities Exam Additional comments: b/l LE edema+ - Neurological Exam Neurological Exam: Alert, Awake, CN II-XII Intact, Oriented x3 - Skin Skin Exam: Normal Color, Warm Assessment and Plan - Assessment and Plan (Free Text) Assessment: 77 yo AA female with htn, dm, c ad, cabb, ckd, chf, edema anemia with increased bun/cr 1. [place] on ckd -4 vs progression of ckd 2. Anemia 3. htn 4. DM 5. b/l le edema 6. chf, cxr c/w pulmonary congestion c/w lasix 80 mg iv q 8 hrs, decrease gabapentin to 100 mg po q 8 hrs restrict fluids to 1lit/day edema is slowly improving s.cr is slightly better 2.6--->2.3 s/p cardiac cath today check bmp in am and daily start ivf 1/2 ns at 50 ml/hr
[2018-05-02] MEDS ORDERED: Sodium Chloride 0.45% 1,000 ML IV SCH (18:45)
--- NOTE | 2018-05-03 01:11 | PN ---
DATE: 05/02/2018 SUBJECTIVE: The patient is seen. The patient is resting today. She just went earlier for cardiac cath. Staff reports that the patient becomes very confused in the evening especially, but more lucid in the morning. Meds reviewed. The patient is taking Ativan sometimes because part of the confusion in elderly. The patient states she is sleeping a little better. We will stop her Ambien temporarily as the Ambien can cause increased confusion in patients with borderline dementia and we will have the patient function without it. She has been cooperative with the staff. PHYSICAL EXAMINATION: GENERAL: The patient is sleepy, but arousable, sitting in her bed, little drowsy. VITAL SIGNS: Temp 98.2, pulse rate 82, blood pressure 153/76, respirations 20, and oxygen saturations 96%. SKIN: No diaphoresis. HEENT: No headache or dizziness. NECK: Supple. RESPIRATORY: No dyspnea. CARDIOVASCULAR: No chest pain. GASTROINTESTINAL: No nausea or vomiting. EXTREMITIES: Moving extremities. MUSCULOSKELETAL: Feels weak. NEUROLOGIC: Alert with periods of confusion, especially at night as noted by staff. The patient also reported she feels confused at night . MENTAL STATUS: An elderly female, looks stated age, at times she is bit drowsy. The patient is status post cardiac cath. Speech is slow. Affect is restricted. Mood is dysphoric. Thought process is coherent. Thought content, no overt psychosis, suicidal or homicidal ideation. I discussed with the patient. We will discontinue Ambien p.r.n. to monitor. The patient seems to have increasing confusion at night, this may be possibly drug induced ? versus . No psychosis. No suicidal or homicidal ideation. Attention and memory seem to be limited. Insight and judgement are fair. Impulse control is fair. LABORATORY DATA: Her BUN is still 62, but her creatinine is improving a little better and it is now 2.2 instead of 2.6. IMPRESSION: Delirium, multifactorial, drug-induced metabolic mood order. Consider also dementia. PLAN AND RECOMMENDATIONS: The patient is seen, meds reviewed. We will discontinue the Ambien p.r.n. Continue present management as ordered. We will monitor mental status as outlined. The patient's gabapentin at this point has been reduced to 100 mg p.o. at bedtime from her initial dose of 800 mg three times a day. The patient has CKD and needs her Neurontin dose to be drastically reduced. Te Herrera MD
[2018-05-03] MEDS: Levothyroxine 75 MCG TAB PO SCH (05:38)
[2018-05-03] MEDS: (Novolin R) Insulin Human Regular 100 units/ml vial SC SCH ×2 (07:50→11:47)
[2018-05-03 08:11] VITALS: TEMP 98.1; O2SAT 97
[2018-05-03 08:25] LABS: CALCIUM 9.5 mg/dl (8.6-10.4)
[2018-05-03] MEDS: Multiple Vitamins Tab PO SCH (09:39)
--- NOTE | 2018-05-03 09:53 | CP.PCM.PN ---
Subjective - Date & Time of Evaluation Date of Evaluation: 05/03/18 Time of Evaluation: 09:53 - Subjective Subjective: 77 yo AA female with pmh/o htn,dm, ckd, hld, cad, s/p cabg, ? gastric CA, s/p cardic cath, s/p stent was admitted with sob and elevated s.cr. pt is seen and examined by me. no comaplaints. s/p cardiac cath yesterday, s.cr is stable 2.3, yesterday and today ,this may be her new base line Objective - Vital Signs/Intake and Output Vital Signs (last 24 hours): Temp Pulse Resp BP Pulse Ox 98.1 F 91 H 20 145/80 97 05/03/18 08:00 05/03/18 08:52 05/03/18 08:00 05/03/18 08:00 05/03/18 08:00 Intake and Output: 05/03/18 05/03/18 06:59 18:59 Intake Total 400 Balance 400 - Medications Medications: Current Medications Albuterol (Ventolin Hfa 90 Mcg/Actuation (8 G)) 1 puff IH RQ4 PRN PRN Reason: Shortness of Breath Amlodipine Besylate (Norvasc) 2.5 mg PO DAILY [facility] Last Admin: 05/03/18 09:39 Dose: 2.5 mg Aspirin (Aspirin Chewable) 81 mg PO DAILY [facility] Last Admin: 05/03/18 09:39 Dose: 81 mg Clopidogrel Bisulfate (Plavix) 75 mg PO DAILY [facility] Last Admin: 05/03/18 09:39 Dose: 75 mg Fluticasone/Vilanterol (Breo Ellipta 100-25 Mcg Inh) 1 puff INH RQ24 [facility] Last Admin: 05/02/18 08:10 Dose: Not Given Furosemide (Lasix) 80 mg IVP Q8H [facility] Last Admin: 05/03/18 05:38 Dose: 80 mg Gabapentin (Neurontin) 100 mg PO HS [facility] Last Admin: 05/02/18 21:49 Dose: 100 mg Hydralazine HCl (Apresoline) 50 mg PO Q8H [facility] Last Admin: 05/03/18 05:38 Dose: 50 mg Sodium Chloride (Sodium Chloride 0.45%) 1,000 mls @ 50 mls/hr IV .Q20H [facility] Last Admin: 05/02/18 19:08 Dose: 50 mls/hr Insulin Human Regular (Novolin R) 0 unit SC [facility]; Protocol Last Admin: 05/03/18 07:50 Dose: Not Given Levothyroxine Sodium (Synthroid) 75 mcg PO DAILY@0630 [facility] Last Admin: 05/03/18 05:38 Dose: 75 mcg Multivitamins (Hexavitamin) 1 tab PO DAILY [facility] Last Admin: 05/03/18 09:39 Dose: 1 tab Nebivolol (Bystolic) 20 mg PO DAILY [facility] Last Admin: 05/03/18 09:39 Dose: 20 mg Sevelamer Carbonate (Renvela) 1,600 mg PO TID [facility] Last Admin: 05/03/18 09:39 Dose: 1,600 mg - Labs Labs: 04/27/18 14:20 05/03/18 07:49 - Constitutional Appears: Well, Non-toxic, No Acute Distress - Head Exam Head Exam: ATRAUMATIC, NORMAL INSPECTION, NORMOCEPHALIC - Eye Exam Eye Exam: EOMI, Normal appearance, PERRL Pupil Exam: NORMAL ACCOMODATION - ENT Exam ENT Exam: Mucous Membranes Moist - Neck Exam Neck Exam: Full ROM, Normal Inspection - Respiratory Exam Respiratory Exam: Clear to Ausculation Bilateral, NORMAL BREATHING PATTERN - Cardiovascular Exam Cardiovascular Exam: REGULAR RHYTHM, +S1, +S2 - GI/Abdominal Exam GI & Abdominal Exam: Soft, Normal Bowel Sounds - Rectal Exam Rectal Exam: Deferred - Neurological Exam Neurological Exam: Alert, Awake, CN II-XII Intact, Oriented x3 - Skin Skin Exam: Dry, Intact, Warm Assessment and Plan - Assessment and Plan (Free Text) Assessment: 77 yo AA female with htn, dm, c ad, cabb, ckd, chf, edema anemia with increased bun/cr 1. [place] on ckd -4 vs progression of ckd 2. Anemia 3. htn 4. DM 5. b/l le edema 6. chf, cxr c/w pulmonary congestion c/w lasix 80 mg iv q 8 hrs, decrease gabapentin to 100 mg po q 8 hrs restrict fluids to 1lit/day edema is slowly improving s.cr is slightly better 2.6--->2.3---->2.3 s/p cardiac cath today check bmp in am and daily will ivf 1/2 ns at 50 ml/hr, can be discharged from renal stand point d/w Dr. Sheets and MELISSA Blanco
[2018-05-03] MEDS: Fluticasone-Vilanterol 100/25mcg Diskus INH SCH (10:05)
--- NOTE | 2018-05-03 10:15 | CP.PCM.PN ---
Subjective - Date & Time of Evaluation Date of Evaluation: 05/02/18 Time of Evaluation: 08:00 - Subjective Subjective: Lexiscan - inferior wall ischemia Pt scheduled for cath today NAD Objective - Vital Signs/Intake and Output Vital Signs (last 24 hours): Temp Pulse Resp BP Pulse Ox 98.1 F 91 H 20 145/80 97 05/03/18 08:00 05/03/18 08:52 05/03/18 08:00 05/03/18 08:00 05/03/18 08:00 Intake and Output: 05/03/18 05/03/18 06:59 18:59 Intake Total 400 Balance 400 - Medications Medications: Current Medications Albuterol (Ventolin Hfa 90 Mcg/Actuation (8 G)) 1 puff IH RQ4 PRN PRN Reason: Shortness of Breath Amlodipine Besylate (Norvasc) 2.5 mg PO DAILY [facility] Last Admin: 05/03/18 09:39 Dose: 2.5 mg Aspirin (Aspirin Chewable) 81 mg PO DAILY [facility] Last Admin: 05/03/18 09:39 Dose: 81 mg Clopidogrel Bisulfate (Plavix) 75 mg PO DAILY [facility] Last Admin: 05/03/18 09:39 Dose: 75 mg Fluticasone/Vilanterol (Breo Ellipta 100-25 Mcg Inh) 1 puff INH RQ24 [facility] Last Admin: 05/03/18 10:05 Dose: 1 puff Furosemide (Lasix) 80 mg IVP Q8H [facility] Last Admin: 05/03/18 05:38 Dose: 80 mg Gabapentin (Neurontin) 100 mg PO HS [facility] Last Admin: 05/02/18 21:49 Dose: 100 mg Hydralazine HCl (Apresoline) 50 mg PO Q8H [facility] Last Admin: 05/03/18 05:38 Dose: 50 mg Insulin Human Regular (Novolin R) 0 unit SC [facility]; Protocol Last Admin: 05/03/18 07:50 Dose: Not Given Levothyroxine Sodium (Synthroid) 75 mcg PO DAILY@0630 [facility] Last Admin: 05/03/18 05:38 Dose: 75 mcg Multivitamins (Hexavitamin) 1 tab PO DAILY [facility] Last Admin: 05/03/18 09:39 Dose: 1 tab Nebivolol (Bystolic) 20 mg PO DAILY [facility] Last Admin: 05/03/18 09:39 Dose: 20 mg Sevelamer Carbonate (Renvela) 1,600 mg PO TID [facility] Last Admin: 05/03/18 09:39 Dose: 1,600 mg - Labs Labs: 04/27/18 14:20 05/03/18 07:49 - Constitutional Appears: Non-toxic - Eye Exam Eye Exam: absent: Scleral icterus - Neck Exam Neck Exam: Full ROM - Respiratory Exam Respiratory Exam: NORMAL BREATHING PATTERN - Cardiovascular Exam Cardiovascular Exam: REGULAR RHYTHM - GI/Abdominal Exam GI & Abdominal Exam: Soft - Extremities Exam Extremities Exam: absent: Pedal Edema Assessment and Plan - Assessment and Plan (Free Text) Assessment: CAD COPD Gabapentin toxicity CKD stage 3 Lung ca GI malignancy T2dm Plan: Cont meds Cardiac cath today
--- NOTE | 2018-05-03 10:17 | CP.PCM.PN ---
Subjective - Date & Time of Evaluation Date of Evaluation: 05/03/18 Time of Evaluation: 08:35 - Subjective Subjective: no post-cath complication no chest pain Post-cath findings 1. L Main: Patent 2. LAD: Distal 100% 3. L Cx: Distal 100%, OM2 100% 4. RCA: Mid 100% 5. DE LA GARZA to LAD patent 6. SVG to OM patent (recent stents patent) 7. SVG to RCA 100%, Left to right collaterals seen 8. LV EDP: 25, No A-V gradient, EF 35-40% by ECHO Plan: Medical therapy Objective - Vital Signs/Intake and Output Vital Signs (last 24 hours): Temp Pulse Resp BP Pulse Ox 98.1 F 91 H 20 145/80 97 05/03/18 08:00 05/03/18 08:52 05/03/18 08:00 05/03/18 08:00 05/03/18 08:00 Intake and Output: 05/03/18 05/03/18 06:59 18:59 Intake Total 400 Balance 400 - Medications Medications: Current Medications Albuterol (Ventolin Hfa 90 Mcg/Actuation (8 G)) 1 puff IH RQ4 PRN PRN Reason: Shortness of Breath Amlodipine Besylate (Norvasc) 2.5 mg PO DAILY [facility] Last Admin: 05/03/18 09:39 Dose: 2.5 mg Aspirin (Aspirin Chewable) 81 mg PO DAILY [facility] Last Admin: 05/03/18 09:39 Dose: 81 mg Clopidogrel Bisulfate (Plavix) 75 mg PO DAILY [facility] Last Admin: 05/03/18 09:39 Dose: 75 mg Fluticasone/Vilanterol (Breo Ellipta 100-25 Mcg Inh) 1 puff INH RQ24 [facility] Last Admin: 05/03/18 10:05 Dose: 1 puff Furosemide (Lasix) 80 mg IVP Q8H [facility] Last Admin: 05/03/18 05:38 Dose: 80 mg Gabapentin (Neurontin) 100 mg PO HS [facility] Last Admin: 05/02/18 21:49 Dose: 100 mg Hydralazine HCl (Apresoline) 50 mg PO Q8H [facility] Last Admin: 05/03/18 05:38 Dose: 50 mg Insulin Human Regular (Novolin R) 0 unit SC [facility]; Protocol Last Admin: 05/03/18 07:50 Dose: Not Given Levothyroxine Sodium (Synthroid) 75 mcg PO DAILY@0630 [facility] Last Admin: 05/03/18 05:38 Dose: 75 mcg Multivitamins (Hexavitamin) 1 tab PO DAILY [facility] Last Admin: 05/03/18 09:39 Dose: 1 tab Nebivolol (Bystolic) 20 mg PO DAILY [facility] Last Admin: 05/03/18 09:39 Dose: 20 mg Sevelamer Carbonate (Renvela) 1,600 mg PO TID [facility] Last Admin: 05/03/18 09:39 Dose: 1,600 mg - Labs Labs: 04/27/18 14:20 05/03/18 07:49 - Constitutional Appears: Non-toxic - Eye Exam Eye Exam: absent: Scleral icterus - Neck Exam Neck Exam: Full ROM - Respiratory Exam Respiratory Exam: NORMAL BREATHING PATTERN - Cardiovascular Exam Cardiovascular Exam: REGULAR RHYTHM - GI/Abdominal Exam GI & Abdominal Exam: Soft - Extremities Exam Extremities Exam: absent: Pedal Edema - Neurological Exam Neurological Exam: Alert Assessment and Plan - Assessment and Plan (Free Text) Assessment: CAD COPD CKD stage 3 Colon ca GI malignancy T2dm Plan: Renal eval prior to DC Medical tx
--- NOTE | 2018-05-03 13:42 | CP.PCM.PN ---
Subjective - Date & Time of Evaluation Date of Evaluation: 05/03/18 Time of Evaluation: 13:42 - Subjective Subjective: PATIENT SEEN AND EXAMINED AT THE BEDSIDE Objective - Vital Signs/Intake and Output Vital Signs (last 24 hours): Temp Pulse Resp BP Pulse Ox 98.1 F 93 H 20 166/82 H 97 05/03/18 08:00 05/03/18 13:05 05/03/18 13:05 05/03/18 13:05 05/03/18 08:00 Intake and Output: 05/03/18 05/03/18 06:59 18:59 Intake Total 400 Balance 400 - Medications Medications: Current Medications Albuterol (Ventolin Hfa 90 Mcg/Actuation (8 G)) 1 puff IH RQ4 PRN PRN Reason: Shortness of Breath Amlodipine Besylate (Norvasc) 2.5 mg PO DAILY [facility] Last Admin: 05/03/18 09:39 Dose: 2.5 mg Aspirin (Aspirin Chewable) 81 mg PO DAILY [facility] Last Admin: 05/03/18 09:39 Dose: 81 mg Clopidogrel Bisulfate (Plavix) 75 mg PO DAILY [facility] Last Admin: 05/03/18 09:39 Dose: 75 mg Fluticasone/Vilanterol (Breo Ellipta 100-25 Mcg Inh) 1 puff INH RQ24 [facility] Last Admin: 05/03/18 10:05 Dose: 1 puff Furosemide (Lasix) 80 mg IVP Q8H [facility] Last Admin: 05/03/18 05:38 Dose: 80 mg Gabapentin (Neurontin) 100 mg PO HS [facility] Last Admin: 05/02/18 21:49 Dose: 100 mg Hydralazine HCl (Apresoline) 50 mg PO Q8H [facility] Last Admin: 05/03/18 13:06 Dose: 50 mg Insulin Human Regular (Novolin R) 0 unit SC [facility]; Protocol Last Admin: 05/03/18 11:47 Dose: Not Given Levothyroxine Sodium (Synthroid) 75 mcg PO DAILY@0630 [facility] Last Admin: 05/03/18 05:38 Dose: 75 mcg Multivitamins (Hexavitamin) 1 tab PO DAILY [facility] Last Admin: 05/03/18 09:39 Dose: 1 tab Nebivolol (Bystolic) 20 mg PO DAILY [facility] Last Admin: 05/03/18 09:39 Dose: 20 mg Sevelamer Carbonate (Renvela) 1,600 mg PO TID [facility] Last Admin: 05/03/18 13:06 Dose: 1,600 mg - Labs Labs: 04/27/18 14:20 05/03/18 07:49 Assessment and Plan - Assessment and Plan (Free Text) Assessment: PLACE UNDER THE SERVICE OF DR ARMENDARIZ AT [facility]-----CALL FOR ADMITTING ORDER FOLLOW UP WITH DR RAMOS IN HIS OFFICE ----CALL FOR APPOINTMENT CONTINUE HOME MEDICATION PER MED REC NEW PRESCRIPTION GIVEN LASIX PO / HYDRALYZINE / RENVELA AND NORVASC ACTIVITY TOLERATED AND FACILITY PROTOCOL CALL DR ARMENDARIZ FOR FURTHER ORDER
[2018-05-03 14:10] VITALS: BP 131/72; PULSE 101
== END 2018-05-03 15:31 | disposition home or self-care (01) | DRG 682 ==
LOC: C.ER 09:56 → C.9E 11:52 → C.5S 14:30
PROVIDERS: ADMIT Internal Medicine; ATTEND Internal Medicine
PROC: 4A023N7 Measurement of Cardiac Sampling and Pressure, Left Heart, Percutaneous Approach (ICD-10-PCS; principal; 2018-05-02)
PROC: B2111ZZ Fluoroscopy of Multiple Coronary Arteries using Low Osmolar Contrast (ICD-10-PCS; 2018-05-02)
PROC: B2121ZZ Fluoroscopy of Single Coronary Artery Bypass Graft using Low Osmolar Contrast (ICD-10-PCS; 2018-05-02)
PROC: B2181ZZ Fluoroscopy of Left Internal Mammary Bypass Graft using Low Osmolar Contrast (ICD-10-PCS; 2018-05-02)
PROC: B2131ZZ Fluoroscopy of Multiple Coronary Artery Bypass Grafts using Low Osmolar Contrast (ICD-10-PCS; 2018-05-02)
DX: N17.9 Acute kidney failure, unspecified (principal); I25.810 Atherosclerosis of coronary artery bypass graft(s) without angina pectoris; I50.23 Acute on chronic systolic (congestive) heart failure; I13.0 Hypertensive heart and chronic kidney disease with heart failure and stage 1 through stage 4 chronic kidney disease, or unspecified chronic kidney disease; I25.10 Atherosclerotic heart disease of native coronary artery without angina pectoris; I25.82 Chronic total occlusion of coronary artery; G93.41 Metabolic encephalopathy; J44.0 Chronic obstructive pulmonary disease with (acute) lower respiratory infection; J18.9 Pneumonia, unspecified organism; N39.0 Urinary tract infection, site not specified; N18.4 Chronic kidney disease, stage 4 (severe); F05 Delirium due to known physiological condition; E11.22 Type 2 diabetes mellitus with diabetic chronic kidney disease; I27.20 Pulmonary hypertension, unspecified; E11.51 Type 2 diabetes mellitus with diabetic peripheral angiopathy without gangrene; E03.9 Hypothyroidism, unspecified; J44.9 Chronic obstructive pulmonary disease, unspecified; D64.9 Anemia, unspecified; E78.5 Hyperlipidemia, unspecified; E86.0 Dehydration; T42.6X5A Adverse effect of other antiepileptic and sedative-hypnotic drugs, initial encounter; F06.30 Mood disorder due to known physiological condition, unspecified; E78.00 Pure hypercholesterolemia, unspecified; M19.90 Unspecified osteoarthritis, unspecified site; G47.00 Insomnia, unspecified; Z95.0 Presence of cardiac pacemaker; Z95.5 Presence of coronary angioplasty implant and graft; Z85.118 Personal history of other malignant neoplasm of bronchus and lung; Z85.038 Personal history of other malignant neoplasm of large intestine; Z85.028 Personal history of other malignant neoplasm of stomach; Z87.891 Personal history of nicotine dependence